=== PATIENT | female | born 1965 ===

== ENCOUNTER → 2020-01-18 11:09 | Outpatient (BNVA) | payer MEDICAID, SELFPAY | PROVIDERS: PCP Nurse Practitioner Family; Referring Provider Nurse Practitioner Family; Visit Provider Orthopaedic Surgery | DX: M75.51 Bursitis of right shoulder (principal); J45.909 Unspecified asthma, uncomplicated; R10.13 Epigastric pain; E78.5 Hyperlipidemia, unspecified; I10 Essential (primary) hypertension; E03.9 Hypothyroidism, unspecified; E11.9 Type 2 diabetes mellitus without complications; Z88.8 Allergy status to other drugs, medicaments and biological substances; Z79.4 Long term (current) use of insulin; Z79.899 Other long term (current) drug therapy | CPT/HCPCS: 20610; 99212; J1100 ==

== ENCOUNTER 2020-01-24 07:32 | Outpatient (REF) | payer MEDICAID, SELFPAY ==
[2020-01-24 08:47] LABS: Alanine Aminotransferase 14 U/L (0-31); Alkaline Phosphatase 89 U/L (39-117); Anion Gap 15 (12-20); Aspartate Amino Transferase 12 U/L (5-31); Bilirubin Total 0.5 mg/dL (0.0-1.0); Blood Urea Nitrogen 17 mg/dL (9-16); Carbon Dioxide 29 mmol/L (22-29); Chloride 96 mmol/L (96-108); Estimated Glomerular Filt Rate > 60; Glucose Random 101 mg/dL (60-115); Potassium 3.3 mmol/l (3.3-5.1); Sodium 137 mmol/L (135-145); Total Protein 6.5 g/dL (6.5-8.0)
[2020-01-24 09:20] LABS: Estimated Average Glucose 126 mg/dL; Hemoglobin A1C 148.4408 umol/L
== END 2020-01-24 07:33 | disposition home or self-care (01) ==
LOC: HO.LAB 07:32
PROVIDERS: PCP Nurse Practitioner Family; Visit Provider Internal Medicine
DX: E11.65 Type 2 diabetes mellitus with hyperglycemia (principal); E78.5 Hyperlipidemia, unspecified; I10 Essential (primary) hypertension
CPT/HCPCS: 80053; 83036

== ENCOUNTER → 2020-01-28 10:11 | Outpatient (BNVA) | payer MEDICAID, SELFPAY | PROVIDERS: PCP Nurse Practitioner Family; Referring Provider Nurse Practitioner Family; Visit Provider Internal Medicine | DX: E11.65 Type 2 diabetes mellitus with hyperglycemia (principal); Z79.4 Long term (current) use of insulin; E78.5 Hyperlipidemia, unspecified; I10 Essential (primary) hypertension; E03.9 Hypothyroidism, unspecified; E06.3 Autoimmune thyroiditis; Z79.899 Other long term (current) drug therapy | CPT/HCPCS: 99212 ==

== ENCOUNTER 2020-04-14 14:57 | Outpatient (REF) | payer MEDICAID, SELFPAY ==
--- NOTE | 2020-04-14 | MM_ITS ---
EXAMINATION: MM SCREENING DIGITAL BREAST TOMOSYNTHESIS, BILATERAL CLINICAL INFORMATION: Screening. Asymptomatic. The lifetime risk of breast cancer based on the Tyrer-Cuzick Model is 13%. COMPARISON: Mammography: 11/16/2018, 11/14/2017, 11/11/2016 TECHNIQUE: Digital breast tomosynthesis is performed in both the craniocaudal and mediolateral oblique views along with computer-aided detection (CAD). Synthesized 2D images are generated from the tomosynthesis. FINDINGS: There are scattered areas of fibroglandular density (ACR BI-RADS breast composition Category b). There is a stable nodule central 9:00 mid right breast similar to prior exams. The remainder of the breasts are predominantly body. Background stromal densities are stable. There is no interval mass or architectural abnormality or abnormal calcifications. MM/MM tomosynthesis screening BI IMPRESSION: No mammographic evidence of malignancy. ASSESSMENT: BI-RADS 2: Benign RECOMMENDATION: Routine annual mammography screening. This patient's information was entered into a reminder system with a target due date for their next mammogram.
== END 2020-04-14 14:58 | disposition home or self-care (01) ==
LOC: HO.MAMMO 14:57
PROVIDERS: PCP Nurse Practitioner Family; Visit Provider Nurse Practitioner Family
DX: Z12.31 Encounter for screening mammogram for malignant neoplasm of breast (principal)
CPT/HCPCS: 77063; 77067

== ENCOUNTER → 2020-04-24 11:17 | Outpatient (BNVA) | payer MEDICAID, SELFPAY | PROVIDERS: Visit Provider Orthopaedic Surgery | DX: M67.919 Unspecified disorder of synovium and tendon, unspecified shoulder (principal) | CPT/HCPCS: 20610; 99212; J1100 ==

== ENCOUNTER → 2020-04-28 09:15 | Outpatient (BNVA) | payer MEDICAID, SELFPAY | PROVIDERS: Visit Provider Internal Medicine ==

== ENCOUNTER 2020-05-01 09:09 | Outpatient (REF) | payer MEDICAID, SELFPAY ==
[2020-05-01 10:25] LABS: Estimated Average Glucose 134 mg/dL; Hemoglobin A1C 166.9756 umol/L; Hemoglobin A1c % 6.3 %
[2020-05-01 10:34] LABS: Alanine Aminotransferase 17 U/L (0-31); Albumin Level 4.1 g/dL (3.5-5.0); Alkaline Phosphatase 90 U/L (39-117); Anion Gap 16 (12-20); Aspartate Amino Transferase 13 U/L (5-31); Bilirubin Total 0.5 mg/dL (0.0-1.0); Blood Urea Nitrogen 15 mg/dL (9-16); Calcium 9.2 mg/dL (8.4-10.2); Carbon Dioxide 28 mmol/L (22-29); Chloride 98 mmol/L (96-108); Cholesterol 130 mg/dL; Estimated Glomerular Filt Rate > 60; Glucose Random 121 mg/dL (60-115); HDL Cholesterol 37 mg/dL; LDL Cholesterol Calculated 63 mg/dl; Potassium 3.4 mmol/L (3.3-5.1); Sodium 139 mmol/L (135-145); Total Protein 6.7 g/dL (6.5-8.0); Triglycerides 152 mg/dL
[2020-05-01 10:55] LABS: Free T4 (Free Thyroxine) 1.56 ng/dL (0.71-1.85); Thyroid Stimulating Hormone 0.18 uIU/mL (0.32-4.0); Vitamin D 25-OH Total 50.8 ng/mL (>30)
[2020-05-01 10:59] LABS: Creatinine Urine 94.44 mg/dL; Microalbum/Creatinine Ratio Ur 23.2 ug/mg cr
[2020-05-02 04:07] LABS: LDL Cholesterol Direct 66 mg/dL (<100)
== END 2020-05-01 09:10 | disposition home or self-care (01) ==
LOC: HO.LAB 09:09
PROVIDERS: PCP Nurse Practitioner Family; Visit Provider Internal Medicine
DX: E11.65 Type 2 diabetes mellitus with hyperglycemia (principal); Z79.4 Long term (current) use of insulin; E03.9 Hypothyroidism, unspecified; E55.9 Vitamin D deficiency, unspecified
CPT/HCPCS: 36415; 80053; 80061; 82043; 82306; 83036; 83721; 84439; 84443

== ENCOUNTER 2020-05-05 13:10 | Emergency (ER) | payer MEDICAID, SELFPAY ==
--- NOTE | ~2020-05-05 | XR_ITS ---
EXAMINATION: LUMBAR SPINE AND RIGHT SHOULDER X-RAY CLINICAL INFORMATION: Pain post fall COMPARISON: Previous lumbar spine x-ray October 2018 and MRI November 2018. Previous right shoulder October 2019 TECHNIQUE: 3 views of the lumbar spine and 3 views of the right shoulder FINDINGS: Right shoulder: Bone alignment is normal. No fracture or dislocation is seen. The joint spaces are normal. There is a small undersurface acromial osteophyte. Soft tissues are unremarkable. Lumbar spine: There is curvature of the lumbar sacral spine to the left. Bone alignment is otherwise normal. No fracture or dislocation is seen. There is prosthetic disc interspacer seen at L5-S1. There is posterior fusion hardware with rods and interpedicular screws at L4-L5. Orthopedic hardware appears intact and unchanged. Disc spaces are otherwise normal. Paraspinal soft tissues are normal. XR/XR lumbar spine 2-3V IMPRESSION: Right shoulder: No fracture or dislocation. Small undersurface acromial osteophyte. Lumbar spine: No fracture or dislocation. Stable postsurgical changes at L4-L5 and L5-S1. Mild curvature of the lower lumbar sacral spine to the left.
--- NOTE | ~2020-05-05 | XR_ITS ---
EXAMINATION: XR HAND, RIGHT CLINICAL INFORMATION: Fall. Bruised thenar region COMPARISON: None TECHNIQUE: PA, lateral, and oblique views of the right hand. FINDINGS: The bones and soft tissues are normal. No fracture. Alignment is anatomic. Joint spaces are maintained. No erosions or soft tissue calcifications. XR/XR hand RT min 3V IMPRESSION: No acute fracture or dislocation. No radiopaque foreign body.
--- NOTE | ~2020-05-05 | XR_ITS ---
EXAMINATION: LUMBAR SPINE AND RIGHT SHOULDER X-RAY CLINICAL INFORMATION: Pain post fall COMPARISON: Previous lumbar spine x-ray October 2018 and MRI November 2018. Previous right shoulder October 2019 TECHNIQUE: 3 views of the lumbar spine and 3 views of the right shoulder FINDINGS: Right shoulder: Bone alignment is normal. No fracture or dislocation is seen. The joint spaces are normal. There is a small undersurface acromial osteophyte. Soft tissues are unremarkable. Lumbar spine: There is curvature of the lumbar sacral spine to the left. Bone alignment is otherwise normal. No fracture or dislocation is seen. There is prosthetic disc interspacer seen at L5-S1. There is posterior fusion hardware with rods and interpedicular screws at L4-L5. Orthopedic hardware appears intact and unchanged. Disc spaces are otherwise normal. Paraspinal soft tissues are normal. XR/XR shoulder RT min 2V IMPRESSION: Right shoulder: No fracture or dislocation. Small undersurface acromial osteophyte. Lumbar spine: No fracture or dislocation. Stable postsurgical changes at L4-L5 and L5-S1. Mild curvature of the lower lumbar sacral spine to the left.
[2020-05-05 14:57] VITALS: BP 113/63; PULSE 90; RESP 18; TEMP 36.4; O2SAT 96; BMI 24.4
--- NOTE | 2020-05-05 15:13 | ED_ITS ---
HPI - Fall General Chief Complaint: Fall Stated Complaint: back pain Time Seen by Provider: 05/05/20 15:13 Related Data Home Medications Medication Instructions Recorded Confirmed atorvastatin 80 mg tablet 80 mg PO DAILY 01/17/20 04/28/20 bupropion HCl 300 mg 24 hr tablet, 300 mg PO QAM 01/17/20 04/28/20 extended release chlorthalidone 50 mg tablet 50 mg PO DAILY 01/17/20 04/28/20 ezetimibe 10 mg tablet 10 mg PO DAILY 01/17/20 04/28/20 metformin 500 mg tablet 1,000 mg PO BID tab 01/17/20 04/28/20 nifedipine 60 mg tablet,extended 60 mg PO DAILY 01/17/20 04/28/20 release risperidone 1 mg tablet 1 mg PO DAILY 01/17/20 04/28/20 trazodone 50 mg tablet 25 mg PO DAILY 01/17/20 04/28/20 zolpidem 5 mg tablet 5 mg PO BEDTIME PRN 01/17/20 04/28/20 liraglutide 0.6 mg/0.1 mL (18 mg/3 1.8 mg SUBCUT Q24H ml 01/28/20 04/28/20 mL) subcutaneous pen injector insulin glargine 100 unit/mL (3 10 unit SUBCUT QAM ml 04/28/20 04/28/20 mL) subcutaneous pen ranitidine HCl See Rx Instructions PO .COMPLEX PRN 04/28/20 04/28/20 sumatriptan succinate PO 04/28/20 04/28/20 Previous Rx's Medication Instructions Recorded levothyroxine 100 mcg capsule 100 mcg PO DAILY 30 Days #30 cap 05/01/20 Allergies Allergy/AdvReac Type Severity Reaction Status Date / Time aspirin [ASA] Allergy Unknown RASH Verified 05/05/20 14:57 cortisone [CORTISONE] Allergy Unknown BAD Verified 05/05/20 14:57 REACTION ibuprofen [IBUPROFEN] Allergy Unknown RASH Verified 05/05/20 14:57 naproxen [From Naprosyn] Allergy Unknown RASH, Verified 05/05/20 14:57 ITCHING, rash Ibuprofen Allergy Unknown rash Uncoded 04/28/20 11:13 [facility] Past Medical History Medical History Asthma Bursitis of right shoulder Dyspepsia HLD (hyperlipidemia) Hypertension Hypothyroidism Rotator cuff dysfunction Type 2 diabetes mellitus Vitamin D deficiency Surgical History History of appendectomy Previous back surgery Previous section Family History Family History Father Diabetes Mother Diabetes Social History Social History Smoking Status: Never smoker Current occupational status: disabled Current occupation: [employer] Physical Exam Vital Signs: Vital Signs: Last Vital Signs Temp 97.6 F 05/05/20 14:57 Pulse 90 05/05/20 14:57 Resp 18 05/05/20 14:57 BP 113/63 05/05/20 14:57 Pulse Ox 96 05/05/20 14:57 Body Mass Index 24.4 Course Course Course Narrative: RME done at this time 3pm - 54-year-old female presenting to the ED after she reports she was at the grocery store and there was grease on the floor therefore she slipped once injuring her right shoulder/right side of back then she got back up and slipped again and fell injuring her lumbar spine again and since then has been having pain to her right shoulder/lumbar spine. Reports that she had a history of prior back surgery. Reports that she has chronic pain to right shoulder. Denies head injury loss of consciousness. Denies any other injuries complaints or concerns at this time. - on exam patient is alert and oriented x3. Not in any acute distress. No focal neuro deficits noted. Vital signs are stable within normal limits. - x-ray of right shoulder and lumbar spine obtained at this time although no obvious deformities and patient has a normal steady gait with full range of motion in the lumbar spine in all 4 extremities. Patient back to the waiting room for further evaluation and treatment. Discharge Plan Discharge Prescriptions: No Action levothyroxine 100 mcg capsule 100 mcg PO DAILY 30 Days Qty: 30 RF: 11 Victoza 3-Umesh 0.6 mg/0.1 mL (18 mg/3 mL) pen injector 1.8 mg subcut Q24H RF: 0 Lantus Solostar U-100 Insulin 100 unit/mL (3 mL) insulin pen 10 unit subcut QAM RF: 0 ezetimibe [Zetia] 10 mg tablet 10 mg PO DAILY RF: 0 metformin 500 mg tablet 1,000 mg PO BID RF: 0 chlorthalidone 50 mg tablet 50 mg PO DAILY RF: 0 trazodone 50 mg tablet 25 mg PO DAILY RF: 0 atorvastatin [Lipitor] 80 mg tablet 80 mg PO DAILY RF: 0 risperidone 1 mg tablet 1 mg PO DAILY RF: 0 zolpidem 5 mg tablet 5 mg PO BEDTIME PRNRF: 0 bupropion HCl [Wellbutrin XL] 300 mg tablet extended release 24 hr 300 mg PO QAM RF: 0 nifedipine 60 mg tablet extended release 60 mg PO DAILY RF: 0 ranitidine HCl See Rx Instructions PO .COMPLEX PRNRF: 0 sumatriptan succinate PO RF: 0
--- NOTE | 2020-05-05 17:06 | ED.FALL ---
HPI - Fall General Chief Complaint: Fall Stated Complaint: back pain Time Seen by Provider: 05/05/20 15:13 Source: patient Mode of arrival: ambulatory Limitations: no limitations History of Present Illness HPI Narrative: 54-year-old female with past medical history hypothyroidism, hypertension, diabetes type 2, hyperlipidemia presents with injury sustained from a slip and fall inside a local store. She stated that she landed on her right arm and she has right hand, right elbow and right shoulder pain. She does not describe hitting her head, losing consciousness, denies dizziness, lightheadedness, changes in vision, nausea, vomiting, chest pain or pressure, palpitations, shortness of breath and edema. MD complaint: fall Onset (ago): hour(s) (Within the hour of arrival) Fall from: standing Fall witnessed: yes, by bystander Place fall occurred: other (Store) Loss of consciousness: none Prolonged down time: no Symptoms prior to fall: none Context: tripped/slipped Location of injury - extremities: right: shoulder, arm, elbow and forearm Severity: moderate Severity scale (1-10): 5 Quality: aching Associated symptoms (after fall): denies Related Data Home Medications Medication Instructions Recorded Confirmed atorvastatin 80 mg tablet 80 mg PO DAILY 01/17/20 04/28/20 bupropion HCl 300 mg 24 hr tablet, 300 mg PO QAM 01/17/20 04/28/20 extended release chlorthalidone 50 mg tablet 50 mg PO DAILY 01/17/20 04/28/20 ezetimibe 10 mg tablet 10 mg PO DAILY 01/17/20 04/28/20 metformin 500 mg tablet 1,000 mg PO BID tab 01/17/20 04/28/20 nifedipine 60 mg tablet,extended 60 mg PO DAILY 01/17/20 04/28/20 release risperidone 1 mg tablet 1 mg PO DAILY 01/17/20 04/28/20 trazodone 50 mg tablet 25 mg PO DAILY 01/17/20 04/28/20 zolpidem 5 mg tablet 5 mg PO BEDTIME PRN 01/17/20 04/28/20 liraglutide 0.6 mg/0.1 mL (18 mg/3 1.8 mg SUBCUT Q24H ml 01/28/20 04/28/20 mL) subcutaneous pen injector insulin glargine 100 unit/mL (3 10 unit SUBCUT QAM ml 04/28/20 04/28/20 mL) subcutaneous pen ranitidine HCl See Rx Instructions PO .COMPLEX PRN 04/28/20 04/28/20 sumatriptan succinate PO 04/28/20 04/28/20 Previous Rx's Medication Instructions Recorded levothyroxine 100 mcg capsule 100 mcg PO DAILY 30 Days #30 cap 05/01/20 cyclobenzaprine 10 mg PO TID PRN #14 tab 05/05/20 Allergies Allergy/AdvReac Type Severity Reaction Status Date / Time aspirin [ASA] Allergy Unknown RASH Verified 05/05/20 14:57 cortisone [CORTISONE] Allergy Unknown BAD Verified 05/05/20 14:57 REACTION ibuprofen [IBUPROFEN] Allergy Unknown RASH Verified 05/05/20 14:57 naproxen [From Naprosyn] Allergy Unknown RASH, Verified 05/05/20 14:57 ITCHING, rash Ibuprofen Allergy Unknown rash Uncoded 04/28/20 11:13 Review of Systems Review of Systems: Constitutional: No Fever, No Chills ENT/Mouth: No Ear Pain, No Hoarseness, No sore throat Eyes: No Eye Pain, No Swelling, No Redness, No Foreign Body Cardiovascular: No Chest Pain, No SOB Respiratory: No Cough, No Dyspnea Gastrointestinal: No Nausea, No Vomiting, No Diarrhea, No abdominal Pain Genitourinary: No Dysuria, No Hematuria Musculoskeletal: positive right shoulder, right elbow, right hand pain, No Myalgias, No Joint Swelling Skin: No Skin lacerations, No rash Neuro: No Weakness, No Numbness, No Paresthesias, No Loss of Consciousness, No Dizziness, No Headache Psych: No Anxiety/Panic, No Depression Heme/Lymph: no easy bruising, no Lymphadenopathy Endocrine: No Polyuria, No Polydipsia Yes all other systems are reviewed and are negative PMFSH Past Medical History Attestation statement: The following information was validated with the patient. Source: old records reviewed Medical History Asthma Bursitis of right shoulder Dyspepsia HLD (hyperlipidemia) Hypertension Hypothyroidism Rotator cuff dysfunction Type 2 diabetes mellitus Vitamin D deficiency Surgical History History of appendectomy Previous back surgery Previous section Family History Family History Father Diabetes Mother Diabetes Social History Social History Smoking Status: Never smoker Advance Directives: No Advance Directives Information Provided: Yes Current occupational status: disabled Current occupation: [employer] Physical Exam Vital Signs: Vital Signs: Last Vital Signs Temp 97.6 F 05/05/20 14:57 Pulse 90 05/05/20 14:57 Resp 18 05/05/20 14:57 BP 113/63 05/05/20 14:57 Pulse Ox 96 05/05/20 14:57 Body Mass Index 24.4 Appearance: Alert. Oriented X3. No acute distress. Eyes: Pupils equal, round and reactive to light. EOMI no pain on extraocular movements ENT: Pharynx normal. Bilateral tympanic membranes intact Neck: Normal inspection. Neck supple. CVS: Normal heart rate and rhythm. Pulses normal. Respiratory: No respiratory distress. Breath sounds normal. Abdomen: Soft and nontender. Skin: Skin warm and dry. Normal skin color. Normal skin turgor. Extremities: Reduced range of motion to the right shoulder with abduction, full range of motion to elbows and hands. Neuro: No motor deficit. No sensory deficit. Course Course Course Narrative: 54-year-old female presents with injury sustained from a slip and fall at a local grocery store. X-rays of the shoulder, elbow and wrist are negative however patient does have a difficult time with abduction to the right shoulder. We will place patient in a sling and have her follow-up with Orthopedics. Patient verbalized understanding of and agrees to plan of care to discharge home. MDM - Fall Differential Diagnosis Differential diagnosis: Likely dislocation, fracture and compression fracture Medical Records Attestation: I reviewed the patient's medical records. Lab Data Attestation: I reviewed the patient's lab results. Imaging Data Lumbar spine and shoulder x-ray: Attestation: I personally reviewed and interpreted this imaging study as follows: Radiologist's impression: EXAMINATION: LUMBAR SPINE AND RIGHT SHOULDER X-RAY CLINICAL INFORMATION: Pain post fall COMPARISON: Previous lumbar spine x-ray October 2018 and MRI November 2018. Previous right shoulder October 2019 TECHNIQUE: 3 views of the lumbar spine and 3 views of the right shoulder FINDINGS: Right shoulder: Bone alignment is normal. No fracture or dislocation is seen. The joint spaces are normal. There is a small undersurface acromial osteophyte. Soft tissues are unremarkable. Lumbar spine: There is curvature of the lumbar sacral spine to the left. Bone alignment is otherwise normal. No fracture or dislocation is seen. There is prosthetic disc interspacer seen at L5-S1. There is posterior fusion hardware with rods and interpedicular screws at L4-L5. Orthopedic hardware appears intact and unchanged. Disc spaces are otherwise normal. Paraspinal soft tissues are normal. XR/XR lumbar spine 2-3V IMPRESSION: Right shoulder: No fracture or dislocation. Small undersurface acromial osteophyte. Lumbar spine: No fracture or dislocation. Stable postsurgical changes at L4-L5 and L5-S1. Mild curvature of the lower lumbar sacral spine to the left. Right hand x-ray: Attestation: I personally reviewed and interpreted this imaging study as follows: Radiologist's impression: EXAMINATION: XR HAND, RIGHT CLINICAL INFORMATION: Fall. Bruised thenar region COMPARISON: None TECHNIQUE: PA, lateral, and oblique views of the right hand. FINDINGS: The bones and soft tissues are normal. No fracture. Alignment is anatomic. Joint spaces are maintained. No erosions or soft tissue calcifications. XR/XR hand RT min 3V IMPRESSION: No acute fracture or dislocation. No radiopaque foreign body. Discharge Plan Discharge Clinical Impression: Fall, Muscle strain of right shoulder region, Lumbar strain Patient Disposition: Home, Self-Care Instructions: Low Back Strain (ED), Shoulder Pain (ED) Additional Instructions: You were evaluated for injury sustained from a fall. If pain continues to the right shoulder please call Orthopedics for evaluation. Your x-rays are negative for acute fractures and dislocation. Use Flexeril as needed for more muscle spasms. Continue follow-up with pain management as needed. Thank you for choosing this emergency department for evaluation. Please follow-up with primary care physician as needed. Return to the emergency department for any new, concerning, or worsening symptoms. Prescriptions: New cyclobenzaprine 10 mg tablet 10 mg PO TID PRN (Reason: muscle spasm) Qty: 14 RF: 0 No Action levothyroxine 100 mcg capsule 100 mcg PO DAILY 30 Days Qty: 30 RF: 11 Victoza 3-Umesh 0.6 mg/0.1 mL (18 mg/3 mL) pen injector 1.8 mg subcut Q24H RF: 0 Lantus Solostar U-100 Insulin 100 unit/mL (3 mL) insulin pen 10 unit subcut QAM RF: 0 ezetimibe [Zetia] 10 mg tablet 10 mg PO DAILY RF: 0 metformin 500 mg tablet 1,000 mg PO BID RF: 0 chlorthalidone 50 mg tablet 50 mg PO DAILY RF: 0 trazodone 50 mg tablet 25 mg PO DAILY RF: 0 atorvastatin [Lipitor] 80 mg tablet 80 mg PO DAILY RF: 0 risperidone 1 mg tablet 1 mg PO DAILY RF: 0 zolpidem 5 mg tablet 5 mg PO BEDTIME PRNRF: 0 bupropion HCl [Wellbutrin XL] 300 mg tablet extended release 24 hr 300 mg PO QAM RF: 0 nifedipine 60 mg tablet extended release 60 mg PO DAILY RF: 0 ranitidine HCl See Rx Instructions PO .COMPLEX PRNRF: 0 sumatriptan succinate PO RF: 0 Interventions: ED Discharge Assessment Last Done: 05/05/20 18:52 Discharge Date/Time: 05/05/20 18:52
[2020-05-05] MEDS: Cyclobenzaprine HCl 10 MG TABLET PO (17:54)
[2020-05-05] MEDS: Lidocaine 4 % Patch ADH..PATCH 1 PATCH TRANSDERMA (17:55)
== END 2020-05-05 18:52 | disposition home or self-care (01) ==
PROVIDERS: Emergency Provider Internal Medicine; PCP Nurse Practitioner Family
DX: S46.911A Strain of unspecified muscle, fascia and tendon at shoulder and upper arm level, right arm, initial encounter (principal); S39.012A Strain of muscle, fascia and tendon of lower back, initial encounter; W01.0XXA Fall on same level from slipping, tripping and stumbling without subsequent striking against object, initial encounter; Y93.89 Activity, other specified; Y92.512 Supermarket, store or market as the place of occurrence of the external cause; Y99.9 Unspecified external cause status
CPT/HCPCS: 72100; 73030; 73130; 99283

== ENCOUNTER 2020-05-15 17:41 | Outpatient (REF) | payer MEDICAID, SELFPAY ==
--- NOTE | ~2020-05-15 | MR_ITS ---
EXAMINATION: MR SHOULDER WITHOUT CONTRAST, RIGHT CLINICAL INFORMATION: Right shoulder pain. COMPARISON: Radiographs 05/05/2020. TECHNIQUE: MRI of the shoulder without contrast was performed on a high-field scanner. FINDINGS: ROTATOR CUFF: Supraspinatus tendinopathy with a full-thickness tear at the anterior leading edge measuring 11 x 7 mm. The rotator cuff is otherwise intact. No muscle atrophy or fatty infiltration. BICEPS: Proximal biceps tendinosis. CORACOACROMIAL ARCH: The undersurface of the acromion is curved with a subacromial spur. Mild acromioclavicular osteoarthritis with a joint effusion. LABRUM/CAPSULE: No definite labral tear. GLENOHUMERAL JOINT/MARROW: Degenerative spurring and marrow edema of the greater tuberosity anteriorly, subjacent to the supraspinatus tendon insertional tear. There is a small glenohumeral joint effusion. MR/MR shoulder RT wo con IMPRESSION: Supraspinatus tendinosis with a full-thickness insertional tear at the anterior leading edge measuring 11 x 7 mm. Subacromial spur. Mild acromioclavicular and glenohumeral osteoarthritis with a small joint effusion.
== END 2020-05-15 17:42 | disposition home or self-care (01) ==
LOC: HO.MRI 17:41
PROVIDERS: Visit Provider Internal Medicine
DX: M67.919 Unspecified disorder of synovium and tendon, unspecified shoulder (principal)
CPT/HCPCS: 73221

== ENCOUNTER → 2020-05-19 09:16 | Outpatient (BNVA) | payer MEDICAID, SELFPAY | PROVIDERS: Visit Provider Orthopaedic Surgery | DX: M75.101 Unspecified rotator cuff tear or rupture of right shoulder, not specified as traumatic (principal) | CPT/HCPCS: 99212 ==

== ENCOUNTER 2020-06-02 07:53 | Outpatient (REF) | payer MEDICAID, SELFPAY ==
[2020-06-02 09:18] LABS: Alanine Aminotransferase 22 U/L (0-31); Albumin Level 4.1 g/dL (3.5-5.0); Alkaline Phosphatase 98 U/L (39-117); Anion Gap 15 (12-20); Aspartate Amino Transferase 16 U/L (5-31); Bilirubin Total 0.4 mg/dL (0.0-1.0); Blood Urea Nitrogen 13 mg/dL (9-16); Calcium 9.1 mg/dL (8.4-10.2); Carbon Dioxide 28 mmol/L (22-29); Chloride 100 mmol/L (96-108); Estimated Glomerular Filt Rate > 60; Glucose Random 113 mg/dL (60-115); Potassium 3.5 mmol/L (3.3-5.1); Sodium 139 mmol/L (135-145); Total Protein 6.7 g/dL (6.5-8.0)
[2020-06-02 09:25] LABS: Creatinine Urine 155.62 mg/dL
[2020-06-02 09:28] LABS: Estimated Average Glucose 128 mg/dL; Hemoglobin A1c % 6.1 %
[2020-06-02 09:39] LABS: Free T4 (Free Thyroxine) 1.37 ng/dL (0.71-1.85); Thyroid Stimulating Hormone 0.55 uIU/mL (0.32-4.0)
== END 2020-06-02 07:54 | disposition home or self-care (01) ==
LOC: HO.LAB 07:53
PROVIDERS: PCP Nurse Practitioner Family; Visit Provider Internal Medicine
DX: E11.65 Type 2 diabetes mellitus with hyperglycemia (principal); E03.9 Hypothyroidism, unspecified; Z79.4 Long term (current) use of insulin
CPT/HCPCS: 36415; 80053; 83036; 84439; 84443

== ENCOUNTER 2020-06-04 06:04 | Day surgery (SDC) | payer MEDICAID, SELFPAY ==
[2020-05-30 11:24] VITALS: BMI 35.3
--- NOTE | 2020-06-03 09:39 | HO.ANESPROP2 ---
Documented by User: Justina Forrest 06/03/20 09:42 HPI - Anesthesia Eval Consult details Narrative: 54yo F for Right Arthroscopic Rotator Cuff Repair PMFSH Active Problems Active Problems: All Active Problems (Updated 05/30/20 @ 11:20 by Kavita Jackson) Right rotator cuff tear (Acute) Vitamin D deficiency (Acute) Hypothyroidism (Acute) Rotator cuff dysfunction (Acute) Bursitis of right shoulder (Acute) Hypertension (Acute) Type 2 diabetes mellitus (Acute) HLD (hyperlipidemia) (Acute) Past Medical History Medical History Anxiety and depression Asthma Bursitis of right shoulder Chronic back pain Dyspepsia Elevated cholesterol GERD (gastroesophageal reflux disease) HLD (hyperlipidemia) Hypertension Hypothyroidism Migraine headache Right rotator cuff tear Rotator cuff dysfunction Type 2 diabetes mellitus Vitamin D deficiency Family History Family History Father Diabetes Mother Diabetes Surgical History Surgical History History of appendectomy History of esophagogastroduodenoscopy (EGD) Hx of section Hx of colonoscopy Previous back surgery Social History Social History Smoking Status: Former smoker Smoking Quit Date: 2005 Advance Directives: No Advance Directives Information Provided: No Advance Directives on File: No Recently lost weight without trying: No Current occupational status: disabled Current occupation: [employer] Allergies Allergy/AdvReac Type Severity Reaction Status Date / Time aspirin [ASA] Allergy Unknown RASH Verified 06/04/20 06:12 cortisone [CORTISONE] Allergy Unknown BAD Verified 06/04/20 06:12 REACTION naproxen [From Naprosyn] Allergy Unknown RASH, Verified 06/04/20 06:12 ITCHING, rash Ibuprofen Allergy Unknown rash Uncoded 05/30/20 10:57 Home Medications Medication Instructions Recorded Confirmed Last Taken Type atorvastatin 80 mg tablet 80 mg PO DAILY 01/17/20 05/30/20 Unknown History bupropion HCl 300 mg 24 hr tablet, 300 mg PO QAM 01/17/20 05/30/20 06/04/20 05:00 History extended release chlorthalidone 50 mg tablet 50 mg PO DAILY 01/17/20 05/30/20 Unknown History ezetimibe 10 mg tablet 10 mg PO DAILY 01/17/20 05/30/20 Unknown History metformin 500 mg tablet 1,000 mg PO BID tab 01/17/20 05/30/20 Unknown History nifedipine 60 mg tablet,extended 60 mg PO DAILY 01/17/20 05/30/20 Unknown History release risperidone 1 mg tablet 1 mg PO DAILY 01/17/20 05/30/20 Unknown History trazodone 50 mg tablet 25 mg PO DAILY 01/17/20 05/30/20 Unknown History zolpidem 5 mg tablet 5 mg PO BEDTIME PRN 01/17/20 05/30/20 Unknown History liraglutide 0.6 mg/0.1 mL (18 mg/3 1.8 mg SUBCUT Q24H ml 01/28/20 05/30/20 Unknown History mL) subcutaneous pen injector insulin glargine 100 unit/mL (3 10 unit SUBCUT QAM ml 04/28/20 05/30/20 Unknown History mL) subcutaneous pen ranitidine HCl See Rx Instructions PO .COMPLEX PRN 04/28/20 04/28/20 Unknown History sumatriptan succinate PO 04/28/20 04/28/20 Unknown History acetaminophen 1 - 2 tab PO TID PRN 05/30/20 05/30/20 Unknown History acetaminophen [Pain Relief Extra 1 tab PO Q6H PRN 05/30/20 05/30/20 Unknown History Strength] albuterol sulfate 1 amp INHALATION QID PRN 05/30/20 05/30/20 06/04/20 05:00 History ascorbic acid (vitamin C) [Vitamin 1 tab PO 05/30/20 05/30/20 Unknown History C] cholecalciferol (vitamin D3) 1 cap PO QAM 05/30/20 05/30/20 Unknown History escitalopram oxalate 1 tab PO BEDTIME 05/30/20 05/30/20 Unknown History fluticasone propion-salmeterol 1 puff PO BID 05/30/20 05/30/20 Unknown History fluticasone propion-salmeterol 1 puff PO BID 05/30/20 05/30/20 Unknown History [Advair Diskus] fluticasone propionate 2 spray INTRANASAL QAM 05/30/20 05/30/20 06/04/20 05:00 History loratadine 1 tab PO QAM PRN 05/30/20 05/30/20 Unknown History omeprazole 1 cap PO BID 05/30/20 05/30/20 06/04/20 05:00 History oxycodone 1 tab PO QID PRN 05/30/20 05/30/20 Unknown History Exam Exam Date and Time: June 03, 2020 0939 Height,Weight and Vital Signs: Height 4 ft 11 in Weight 79.379 kg Pertinent Lab Results Pertinent Lab Results: Laboratory Tests 09/10/19 06/02/20 20:35 08:05 WBC 14.5 H Hgb 13.5 Hct 39.8 Plt Count 342 Sodium 139 Potassium 3.5 Chloride 100 Carbon Dioxide 28 BUN 13 Creatinine 0.63 Assessment and Plan Assessment Anesthesia Assessment: Chart Reviewed Documented by User: Lavon Adorno MD 06/04/20 07:22 [facility] Past Medical History Medical History Anxiety and depression Asthma Bursitis of right shoulder Chronic back pain Dyspepsia Elevated cholesterol GERD (gastroesophageal reflux disease) HLD (hyperlipidemia) Hypertension Hypothyroidism Migraine headache Right rotator cuff tear Rotator cuff dysfunction Type 2 diabetes mellitus Vitamin D deficiency Family History Family History Father Diabetes Mother Diabetes Surgical History Surgical History History of appendectomy History of esophagogastroduodenoscopy (EGD) Hx of section Hx of colonoscopy Previous back surgery Social History Social History Smoking Status: Former smoker Smoking Quit Date: 2005 Advance Directives: No Advance Directives Information Provided: No Advance Directives on File: No Recently lost weight without trying: No Current occupational status: disabled Current occupation: [employer] Allergies Allergy/AdvReac Type Severity Reaction Status Date / Time aspirin [ASA] Allergy Unknown RASH Verified 06/04/20 06:12 cortisone [CORTISONE] Allergy Unknown BAD Verified 06/04/20 06:12 REACTION naproxen [From Naprosyn] Allergy Unknown RASH, Verified 06/04/20 06:12 ITCHING, rash Ibuprofen Allergy Unknown rash Uncoded 05/30/20 10:57 Home Medications Medication Instructions Recorded Confirmed Last Taken Type atorvastatin 80 mg tablet 80 mg PO DAILY 01/17/20 05/30/20 Unknown History bupropion HCl 300 mg 24 hr tablet, 300 mg PO QAM 01/17/20 05/30/20 06/04/20 05:00 History extended release chlorthalidone 50 mg tablet 50 mg PO DAILY 01/17/20 05/30/20 Unknown History ezetimibe 10 mg tablet 10 mg PO DAILY 01/17/20 05/30/20 Unknown History metformin 500 mg tablet 1,000 mg PO BID tab 01/17/20 05/30/20 Unknown History nifedipine 60 mg tablet,extended 60 mg PO DAILY 01/17/20 05/30/20 Unknown History release risperidone 1 mg tablet 1 mg PO DAILY 01/17/20 05/30/20 Unknown History trazodone 50 mg tablet 25 mg PO DAILY 01/17/20 05/30/20 Unknown History zolpidem 5 mg tablet 5 mg PO BEDTIME PRN 01/17/20 05/30/20 Unknown History liraglutide 0.6 mg/0.1 mL (18 mg/3 1.8 mg SUBCUT Q24H ml 01/28/20 05/30/20 Unknown History mL) subcutaneous pen injector insulin glargine 100 unit/mL (3 10 unit SUBCUT QAM ml 04/28/20 05/30/20 Unknown History mL) subcutaneous pen ranitidine HCl See Rx Instructions PO .COMPLEX PRN 04/28/20 04/28/20 Unknown History sumatriptan succinate PO 04/28/20 04/28/20 Unknown History acetaminophen 1 - 2 tab PO TID PRN 05/30/20 05/30/20 Unknown History acetaminophen [Pain Relief Extra 1 tab PO Q6H PRN 05/30/20 05/30/20 Unknown History Strength] albuterol sulfate 1 amp INHALATION QID PRN 05/30/20 05/30/20 06/04/20 05:00 History ascorbic acid (vitamin C) [Vitamin 1 tab PO 05/30/20 05/30/20 Unknown History C] cholecalciferol (vitamin D3) 1 cap PO QAM 05/30/20 05/30/20 Unknown History escitalopram oxalate 1 tab PO BEDTIME 05/30/20 05/30/20 Unknown History fluticasone propion-salmeterol 1 puff PO BID 05/30/20 05/30/20 Unknown History fluticasone propion-salmeterol 1 puff PO BID 05/30/20 05/30/20 Unknown History [Advair Diskus] fluticasone propionate 2 spray INTRANASAL QAM 05/30/20 05/30/20 06/04/20 05:00 History loratadine 1 tab PO QAM PRN 05/30/20 05/30/20 Unknown History omeprazole 1 cap PO BID 05/30/20 05/30/20 06/04/20 05:00 History oxycodone 1 tab PO QID PRN 05/30/20 05/30/20 Unknown History Exam Airway Mallampati Class: III TM Dist: >3cm Neck ROM: Full Loose/Missing/Broken Teeth: No Heart: RRR Lungs: NL Assessment and Plan Assessment Anesthesia Assessment: Anesthesia Plan Discussed and Chart Reviewed Final Anesthetic Review NPO: Yes ASA Class: III Final Preanesthetic Review: No Changes in Pt Med Stat, Meds/Allgs Chart Reviewed, Consent Obtained/Reviewed and Anes Risks/Benef Reviewed Patient Risk: High Procedure Risk: Intermediate Anesthetic Plan Anesthetic Plan: GA and Regional Block Disposition: Standard PACU
[2020-06-04] VITALS (9 sets, daily range): BP systolic 102–130; BP diastolic 64–85; PULSE 94–112; RESP 14–18; TEMP 36.2–36.8; O2SAT 92–99
[2020-06-04 06:31] LABS: Glucose, Whole Blood 134 mg/dL (60-115)
[2020-06-04] MEDS: Lactated Ringers 1,000 ML 100 ML IVCONT (06:45)
--- NOTE | 2020-06-04 07:32 | MHC.SHP ---
Pre-Procedural Eval Section A The patient is an INPATIENT: No Changes since office visit: No Cold of Flu in the past 2 weeks, No New Medical Problems, No Changes in Medication and No Patient answered all questions The History & Physical has been completed within 30 days and I have reviewed it.: Yes Section B Chief Complaint: rotator cuff tear Allergies: Allergies Allergy/AdvReac Type Severity Reaction Status Date / Time aspirin [ASA] Allergy Unknown RASH Verified 06/04/20 06:12 cortisone [CORTISONE] Allergy Unknown BAD Verified 06/04/20 06:12 REACTION naproxen [From Naprosyn] Allergy Unknown RASH, Verified 06/04/20 06:12 ITCHING, rash Ibuprofen Allergy Unknown rash Uncoded 05/30/20 10:57 Plan I have reviewed the history and physical and performed a pertinent physical examination on my patient. No changes have occurred unless specified.
--- NOTE | 2020-06-04 09:56 | PM.OP ---
Brief Operative Note Date of Service: 06/04/20 Pre-op diagnosis: right rtc repair right subscap tear Post-op diagnosis: same Procedure: right supraspinatus repair right subscapularis repair Implants: shaffer and nephew helacoil x 4 Surgeon: Cosme Arreguin MD Anesthesia: GETA and regional Bulk Coolers Installer: Chelsi Queen Estimated blood loss (mL): 20 IV fluids (mL): 1,000 Pathology: none sent Condition: stable Disposition: PACU
--- NOTE | 2020-06-04 09:59 | P.OP_ITS ---
Operative Note Operative Note Date of Service: 06/04/20 Narrative: Pre-op diagnosis: __right rotator cuff tear Post-op diagnosis: 1) right infraspinatus tear 2) right subscapularis tear Procedure: ___right____ rtc repair Implants: smith and nephew helacoil x4__ Nursing Home Assistant:__mikel Queen Anesthesia: GETA and regional Estimated blood loss (mL): 20 IV fluids (mL): 1000 Complications:none known Condition: stable Disposition: PACU Indications: This is a 54 yo F with a full thickness rtc tear consented to undergo rtc repair Procedure in detail: Patient was brought to the operating room and placed the the beach chair position. All bony prominences were well padded and he was prepped and draped in standard sterile fashion. A time out was called to identify proper site, proper procedure and proper surgeon. IV antibiotics per weight were administered. I began by making a posterolateral stab incision with a 15 blade. A blunt trochar was placed into the glenohumeral joint and IO insufflated the joint with saline and a 30 degree arthroscope was placed. I established an outside- in anterior portal just distal to the biceps tendon. I then began my inspection of the glenohumeral joint. There was no labral tearing and the biceps anchor was intact. The articular cartilage was pristine. There was an undersurface rtc tear. There was a high grade tear of the superior 1/2 of the subscapularis. Via the anterior portal two looped sutures were passed through the subscapularis and a korin was used to debride the bone and a Guillen and Nephew Helacoil 5.0 anchor was placed and the subscapularis was anatomically repaired. I then removed the trochar and entered the subacromial space. A direct lateral portal was then established and I performed a bursectomy. The cuff was then examined. There was a full thickness tear of the entire infraspinatus. A medial Helocoil anchor with a suture tape and a suture was placed visa an accessory lateral og incision and then these were passed through the cuff and brought to a lateral helacoil. An additional looped suture was passed through the posterior infracpinatus and then brought to a second lateral Helocoil. This reproduced the normal anatomy of the cuff. I performed a 5mm decompression of the anterior acromion. Once the final images were captured and I removed all instrumentation.
== END 2020-06-04 12:13 | disposition home or self-care (01) ==
PROVIDERS: PCP Nurse Practitioner Family; Visit Provider Orthopaedic Surgery
PROC: (CPT 29827; principal; 2020-06-04 07:30)
DX: M75.121 Complete rotator cuff tear or rupture of right shoulder, not specified as traumatic (principal); M75.51 Bursitis of right shoulder; I10 Essential (primary) hypertension; J45.909 Unspecified asthma, uncomplicated; E55.9 Vitamin D deficiency, unspecified; E11.9 Type 2 diabetes mellitus without complications; Z79.4 Long term (current) use of insulin; Z79.51 Long term (current) use of inhaled steroids; Z79.899 Other long term (current) drug therapy; Z88.8 Allergy status to other drugs, medicaments and biological substances
CPT/HCPCS: 29827; 29826; 82947; C1713; J0131; J0171; J0690; J2250; J2370; J2405; J3010

== ENCOUNTER → 2020-06-16 09:01 | Outpatient (BNVA) | payer MEDICAID, SELFPAY | PROVIDERS: PCP Nurse Practitioner Family; Visit Provider Physician Assistant | DX: M75.101 Unspecified rotator cuff tear or rupture of right shoulder, not specified as traumatic (principal) | CPT/HCPCS: 99212 ==

== ENCOUNTER → 2020-06-23 10:29 | Outpatient (BNVA) | payer MEDICAID, SELFPAY | PROVIDERS: PCP Nurse Practitioner Family; Visit Provider Physician Assistant | DX: Z98.890 Other specified postprocedural states (principal) | CPT/HCPCS: 99212 ==

== ENCOUNTER → 2020-07-17 13:06 | Outpatient (BNVA) | payer MEDICAID, SELFPAY | PROVIDERS: Visit Provider Orthopaedic Surgery | DX: Z48.89 Encounter for other specified surgical aftercare (principal); Z98.890 Other specified postprocedural states | CPT/HCPCS: 99212 ==

== ENCOUNTER 2020-07-21 12:50 | Emergency (ER) | payer MEDICAID, SELFPAY ==
[2020-07-21 12:53] VITALS: BP 124/70; PULSE 88; RESP 16; TEMP 37; O2SAT 96; BMI 32.3
--- NOTE | 2020-07-21 14:07 | ED_ITS ---
HPI - Extremity Problem General Chief complaint: Extremity Injury, Upper Stated complaint: back and shoulder pain Time Seen by Provider: 07/21/20 14:07 History of Present Illness HPI Narrative: Patient who recently within last several weeks had rotator cuff repair in the right shoulder and has been using a sling complains of pain in the right trapezius and the right upper back and right side of her neck which has developed over the last several days, no new injury, no numbness no weakness no tingling no fever no chills no recent fall or injury Related Data Home Medications Medication Instructions Recorded Confirmed bupropion HCl 300 mg 24 hr tablet, 300 mg PO QAM 01/17/20 05/30/20 extended release chlorthalidone 50 mg tablet 50 mg PO DAILY 01/17/20 05/30/20 ezetimibe 10 mg tablet 10 mg PO DAILY 01/17/20 05/30/20 metformin 500 mg tablet 1,000 mg PO BID tab 01/17/20 05/30/20 nifedipine 60 mg tablet,extended 60 mg PO DAILY 01/17/20 05/30/20 release risperidone 1 mg tablet 1 mg PO DAILY 01/17/20 05/30/20 trazodone 50 mg tablet 25 mg PO DAILY 01/17/20 05/30/20 zolpidem 5 mg tablet 5 mg PO BEDTIME PRN 01/17/20 05/30/20 liraglutide 0.6 mg/0.1 mL (18 mg/3 1.8 mg SUBCUT Q24H ml 01/28/20 05/30/20 mL) subcutaneous pen injector insulin glargine 100 unit/mL (3 10 unit SUBCUT QAM ml 04/28/20 05/30/20 mL) subcutaneous pen ranitidine HCl See Rx Instructions PO .COMPLEX PRN 04/28/20 04/28/20 sumatriptan succinate PO 04/28/20 04/28/20 acetaminophen 1 - 2 tab PO TID PRN 05/30/20 05/30/20 albuterol sulfate 1 amp INHALATION QID PRN 05/30/20 05/30/20 ascorbic acid (vitamin C) [Vitamin 1 tab PO 05/30/20 05/30/20 C] cholecalciferol (vitamin D3) 1 cap PO QAM 05/30/20 05/30/20 escitalopram oxalate 1 tab PO BEDTIME 05/30/20 05/30/20 fluticasone propion-salmeterol 1 puff PO BID 05/30/20 05/30/20 fluticasone propion-salmeterol 1 puff PO BID 05/30/20 05/30/20 [Advair Diskus] fluticasone propionate 2 spray INTRANASAL QAM 05/30/20 05/30/20 loratadine 1 tab PO QAM PRN 05/30/20 05/30/20 omeprazole 1 cap PO BID 05/30/20 05/30/20 Previous Rx's Medication Instructions Recorded levothyroxine 100 mcg capsule 100 mcg PO DAILY 30 Days #30 cap 05/01/20 cyclobenzaprine 10 mg PO TID PRN #14 tab 05/05/20 pen needle, diabetic 32 gauge x #100 ea 05/09/20 oxycodone [OxyContin] 10 mg PO Q12H 3 Days #6 tab 06/04/20 atorvastatin 80 mg tablet 80 mg PO BEDTIME #30 tab 06/18/20 losartan 50 mg tablet 50 mg PO DAILY 30 Days #30 tab 06/18/20 oxycodone-acetaminophen 5 mg-325 1 tab PO Q8H PRN 7 Days #28 tab 06/23/20 mg tablet cyclobenzaprine 5 mg PO TID PRN #10 tab 07/21/20 Allergies Allergy/AdvReac Type Severity Reaction Status Date / Time aspirin [ASA] Allergy Unknown RASH Verified 07/21/20 12:53 cortisone [CORTISONE] Allergy Unknown BAD Verified 07/21/20 12:53 REACTION naproxen [From Naprosyn] Allergy Unknown RASH, Verified 07/21/20 12:53 ITCHING, rash Ibuprofen Allergy Unknown rash Uncoded 07/17/20 13:16 Review of Systems Review of Systems: Positive for right trapezius, right shoulder and right upper back pain Negatives are no fever no chills no dizziness no weakness no fainting no loss of consciousness no headache no numbness weakness or tingling no rash Yes all other systems are reviewed and are negative [facility] Past Medical History [facility] Narrative: Recent rotator cuff surgery Source: nursing notes reviewed Medical History Anxiety and depression Asthma Bursitis of right shoulder Chronic back pain Dyspepsia Elevated cholesterol GERD (gastroesophageal reflux disease) HLD (hyperlipidemia) Hypertension Hypothyroidism Migraine headache Right rotator cuff tear Rotator cuff dysfunction Type 2 diabetes mellitus Vitamin D deficiency Surgical History History of appendectomy History of esophagogastroduodenoscopy (EGD) Hx of section Hx of colonoscopy Previous back surgery Family History Family History Father Diabetes Mother Diabetes Social History Social History Smoking Status: Former smoker Current occupational status: disabled Current occupation: [employer] Physical Exam Vital Signs: Vital Signs: Last Vital Signs Temp 98.6 F 07/21/20 12:53 Pulse 88 07/21/20 12:53 Resp 16 07/21/20 12:53 BP 124/70 07/21/20 12:53 Pulse Ox 96 07/21/20 12:53 Body Mass Index 32.3 General appearance is no acute distress relaxed and cooperative The head is normocephalic atraumatic The neck is supple, there is mild right-sided paraspinal soft tissue tenderness, the skin color is normal There is also right trapezius tenderness again skin color is normal without redness or warmth The shoulder is in a sling the skin color of the shoulder is normal no evidence of cellulitis Respiratory no acute distress The back there is right upper back tenderness in right trapezius and in the soft tissue between the scapula and the spine, there is no focal bony tenderness, the skin is normal in appearance without redness warmth or wound Skin no rashes Neuro no focal motor or sensory deficit Course Course Course Narrative: Patient's pain appears to be musculoskeletal pain, no sign of any infection Discharge Plan Discharge Clinical Impression: Upper back pain on right side Patient Disposition: Home, Self-Care Additional Instructions: Pain in right upper back is likely musculoskeletal pain It may be from tensing muscles to protect the area that was operated on wearing the sling can often cause stiffness in surrounding muscles Make sure you take 2 extra-strength Tylenol, a 1000 mg, every 8 hours as needed You have a prescription for chronic pain of 5 mg oxycodone tablets which she take 1 at a time For acute pain flares it is okay to take 2 of those tablets for an increased dose of narcotic pain killer as needed Make sure you call the prescribing doctor and tele that you are having a flare- up of pain and make sure it is okay with him if you take 10 mg instead of 5 mg as needed for few days Follow with orthopedist and primary doctor Return any time any worse condition or concerns Prescriptions: New cyclobenzaprine 5 mg tablet 5 mg PO TID PRN (Reason: muscle spasm) Qty: 10 RF: 0 No Action levothyroxine 100 mcg capsule 100 mcg PO DAILY 30 Days Qty: 30 RF: 11 (DME) pen needle, diabetic [BD Ultra-Fine Erica Pen Needle] 32 gauge x 5/32 needle See Rx Instructions .ROUTE .MEDSUPPLY Qty: 100 RF: 3 atorvastatin 80 mg tablet 80 mg PO BEDTIME Qty: 30 RF: 6 losartan 50 mg tablet 50 mg PO DAILY 30 Days Qty: 30 RF: 11 cyclobenzaprine 10 mg tablet 10 mg PO TID PRN (Reason: muscle spasm) Qty: 14 RF: 0 albuterol sulfate 2.5 mg /3 mL (0.083 %) solution for nebulization 1 amp inhalation QID PRN (Reason: Wheezing) RF: 0 acetaminophen 500 mg tablet 1 - 2 tab PO TID PRN (Reason: Pain) RF: 0 ascorbic acid (vitamin C) [Vitamin C] 500 mg tablet 1 tab PO RF: 0 fluticasone propion-salmeterol [Advair Diskus] 500-50 mcg/dose blister with device 1 puff PO BID RF: 0 fluticasone propion-salmeterol 500-50 mcg/dose blister with device 1 puff PO BID RF: 0 omeprazole 20 mg capsule,delayed release(DR/EC) 1 cap PO BID RF: 0 fluticasone propionate 50 mcg/actuation spray,suspension 2 spray intranasal QAM RF: 0 loratadine 10 mg tablet 1 tab PO QAM PRN (Reason: Allergy Symptoms) RF: 0 escitalopram oxalate 5 mg tablet 1 tab PO BEDTIME RF: 0 cholecalciferol (vitamin D3) 50 mcg (2,000 unit) capsule 1 cap PO QAM RF: 0 oxycodone [OxyContin] 10 mg tablet,oral only,ext.rel.12 hr 10 mg PO Q12H 3 Days Qty: 6 RF: 0 Victoza 3-Umesh 0.6 mg/0.1 mL (18 mg/3 mL) pen injector 1.8 mg subcut Q24H RF: 0 Lantus Solostar U-100 Insulin 100 unit/mL (3 mL) insulin pen 10 unit subcut QAM RF: 0 ezetimibe [Zetia] 10 mg tablet 10 mg PO DAILY RF: 0 metformin 500 mg tablet 1,000 mg PO BID RF: 0 chlorthalidone 50 mg tablet 50 mg PO DAILY RF: 0 trazodone 50 mg tablet 25 mg PO DAILY RF: 0 risperidone 1 mg tablet 1 mg PO DAILY RF: 0 zolpidem 5 mg tablet 5 mg PO BEDTIME PRN (Reason: Sleep) RF: 0 bupropion HCl [Wellbutrin XL] 300 mg tablet extended release 24 hr 300 mg PO QAM RF: 0 nifedipine 60 mg tablet extended release 60 mg PO DAILY RF: 0 ranitidine HCl See Rx Instructions PO .COMPLEX PRNRF: 0 sumatriptan succinate PO RF: 0 oxycodone-acetaminophen [Percocet] 5-325 mg tablet 1 tab PO Q8H PRN (Reason: pain) 7 Days Qty: 28 RF: 0 Interventions: ED Discharge Assessment Last Done: 07/21/20 15:46 Discharge Date/Time: 07/21/20 15:47
== END 2020-07-21 15:47 | disposition home or self-care (01) ==
PROVIDERS: Emergency Provider Emergency Medicine; PCP Nurse Practitioner Family
DX: M54.6 Pain in thoracic spine (principal); G89.18 Other acute postprocedural pain; I10 Essential (primary) hypertension; E78.5 Hyperlipidemia, unspecified; E11.9 Type 2 diabetes mellitus without complications; Z79.4 Long term (current) use of insulin; Z79.899 Other long term (current) drug therapy
CPT/HCPCS: 99283; 99284

== ENCOUNTER → 2020-07-28 09:28 | Outpatient (BNVA) | payer MEDICAID, SELFPAY | PROVIDERS: PCP Nurse Practitioner Family; Visit Provider Internal Medicine ==

== ENCOUNTER 2020-08-20 12:31 | Emergency (ER) | payer MEDICAID, SELFPAY ==
--- NOTE | ~2020-08-20 | CT_ITS ---
EXAMINATION: CT ABDOMEN AND PELVIS WITHOUT CONTRAST CLINICAL INFORMATION: Left flank pain and hematuria COMPARISON: Previous CT of the abdomen and pelvis April 2019 TECHNIQUE: Multidetector volumetric imaging was performed from the superior aspect of the liver through the pubic symphysis. Sagittal and coronal reformatted images were obtained on the technologist's workstation. This CT examination was performed using dose optimization techniques as appropriate, variously including the following: *Automated exposure control *Adjustment of mA and/or kV according to patient size (this includes techniques or standardized protocols for targeted exams where dose is matched to indication/reason for exam; i.e. extremities or head) *Use of iterative reconstruction technique DLP: 596 mGy-cm FINDINGS: LUNG BASES: The visualized lung bases are unremarkable. LIVER, GALLBLADDER, AND BILIARY TREE: There are small calcifications in the right lobe the liver. The liver is otherwise unremarkable. Gallbladder is unremarkable. There is no biliary duct dilatation. PANCREAS: Unremarkable. SPLEEN: Unremarkable. ADRENAL GLANDS: Unremarkable. KIDNEYS AND URETERS: The kidneys are normal in size, shape, and attenuation. No hydronephrosis, hydroureter, or calculi seen. No perinephric stranding. BLADDER: Unremarkable. GASTROINTESTINAL TRACT: The small and large bowel are unremarkable. The appendix is not seen and may have been removed. ABDOMINAL WALL: No significant hernia is appreciated. LYMPH NODES: Normal. VASCULAR: Unremarkable. PELVIC VISCERA: Unremarkable. OSSEOUS STRUCTURES: There are postsurgical changes to the lower lumbar spine. There is posterior fusion hardware with interpedicular screws at L4 and L5. There is a disc interspace her at L5-S1 CT/CT abdomen pelvis wo con IMPRESSION: No renal stone or hydronephrosis seen.
[2020-08-20 13:22] VITALS: BP 121/79; PULSE 101; RESP 18; TEMP 36.6; O2SAT 96; BMI 33.3
[2020-08-20 13:45] LABS: Glucose Urine UA NEG (NEG); Leukocyte Esterase Urine NEG (NEG); Nitrite Urine NEG (NEG); PH 7.5 (5.0-8.0); Specific Gravity - Urine 1.025 (1.005-1.025); Urine Blood NEG (NEG); Urine Ketones 5 MG/DL (NEG); Urine Protein NEG (NEG-TRACE)
--- NOTE | 2020-08-20 13:46 | ED_ITS ---
HPI - Female Genitourinary General Chief complaint: Urogenital-Female <FRANCA Dickson - Last Filed: 08/29/20 12:13> Stated complaint: urinary problems <FRANCA Dickson - Last Filed: 08/29/20 12:13> Time Seen by Provider: 08/20/20 13:46 <FRANCA Dickson - Last Filed: 08/29/20 12:13> History of Present Illness HPI Narrative: Patient complains of left flank pain for several days as well as intermittent urinating blood, she has just been diagnosed with a urinary tract infection and is taking Cipro, no fever no chills no nausea no vomiting no abdominal pain, she is eating and drinking normally, no longer has pain with urination <FRANCA Dickson - Last Filed: 08/29/20 12:13> Related Data Home medications: Home Medications Medication Instructions Recorded Confirmed bupropion HCl 300 mg 24 hr tablet, 300 mg PO QAM 01/17/20 09/17/20 extended release chlorthalidone 50 mg tablet 50 mg PO DAILY 01/17/20 09/17/20 ezetimibe 10 mg tablet 10 mg PO DAILY 01/17/20 09/17/20 metformin 500 mg tablet 1,000 mg PO BID tab 01/17/20 09/17/20 nifedipine 60 mg tablet,extended 60 mg PO DAILY 01/17/20 09/17/20 release risperidone 1 mg tablet 1 mg PO DAILY 01/17/20 09/17/20 trazodone 50 mg tablet 25 mg PO DAILY 01/17/20 09/17/20 zolpidem 5 mg tablet 5 mg PO BEDTIME PRN 01/17/20 09/17/20 liraglutide 0.6 mg/0.1 mL (18 mg/3 1.8 mg SUBCUT Q24H ml 01/28/20 09/17/20 mL) subcutaneous pen injector ranitidine HCl See Rx Instructions PO .COMPLEX PRN 04/28/20 09/17/20 acetaminophen 1 - 2 tab PO TID PRN 05/30/20 09/17/20 albuterol sulfate 1 amp INHALATION QID PRN 05/30/20 09/17/20 ascorbic acid (vitamin C) [Vitamin 1 tab PO 05/30/20 09/17/20 C] cholecalciferol (vitamin D3) 1 cap PO QAM 05/30/20 09/17/20 escitalopram oxalate 1 tab PO BEDTIME 05/30/20 09/17/20 fluticasone propion-salmeterol 1 puff PO BID 05/30/20 09/17/20 fluticasone propion-salmeterol 1 puff PO BID 05/30/20 09/17/20 [Advair Diskus] fluticasone propionate 2 spray INTRANASAL QAM 05/30/20 09/17/20 loratadine 1 tab PO QAM PRN 05/30/20 09/17/20 omeprazole 1 cap PO BID 05/30/20 09/17/20 sumatriptan succinate PO PRN 07/28/20 09/17/20 Previous Rx's Medication Instructions Recorded levothyroxine 100 mcg capsule 100 mcg PO DAILY 30 Days #30 cap 05/01/20 pen needle, diabetic 32 gauge x #100 ea 05/09/20 oxycodone [OxyContin] 10 mg PO Q12H 3 Days #6 tab 06/04/20 atorvastatin 80 mg tablet 80 mg PO BEDTIME #30 tab 06/18/20 losartan 50 mg tablet 50 mg PO DAILY 30 Days #30 tab 06/18/20 cyclobenzaprine 5 mg PO TID PRN #10 tab 07/21/20 <FRANCA Dickson - Last Filed: 08/29/20 12:13> Allergies/Adverse reactions: Allergies Allergy/AdvReac Type Severity Reaction Status Date / Time aspirin [ASA] Allergy Unknown RASH Verified 09/17/20 08:07 cortisone [CORTISONE] Allergy Unknown BAD Verified 09/17/20 08:07 REACTION naproxen [From Naprosyn] Allergy Unknown RASH, Verified 09/17/20 08:07 ITCHING, rash Ibuprofen Allergy Unknown rash Uncoded 09/17/20 08:07 <FRANCA Dickson - Last Filed: 08/29/20 12:13> Review of Systems Review of Systems: Positive for left flank pain Negatives are no fever no chills no dizziness no weakness no fainting no feeling faint no headache no neck pain no chest pain or shortness of breath no abdominal pain no nausea no vomiting no diarrhea no frequency, no rash no numbness or weakness no leg swelling <FRANCA Dickson - Last Filed: 08/29/20 12:13> Yes all other systems are reviewed and are negative <FRANCA Dickson - Last Filed: 08/29/20 12:13> [facility] Past Medical History Source: nursing notes reviewed <FRANCA Dickson - Last Filed: 08/29/20 12:13> Medical History: Medical History Anxiety and depression Asthma Bursitis of right shoulder Chronic back pain Dyspepsia Elevated cholesterol GERD (gastroesophageal reflux disease) HLD (hyperlipidemia) Hypertension Hypothyroidism Migraine headache Right rotator cuff tear Rotator cuff dysfunction Type 2 diabetes mellitus Vitamin D deficiency <FRANCA Dickson - Last Filed: 08/29/20 12:13> Surgical History: Surgical History History of appendectomy History of esophagogastroduodenoscopy (EGD) History of surgery on arm Hx of section Hx of colonoscopy Previous back surgery <FRANCA Dickson - Last Filed: 08/29/20 12:13> Family History Family History: Family History Father Diabetes Mother Diabetes <FRANCA Dickson - Last Filed: 08/29/20 12:13> Social History Social History: Social History Alcohol intake: never Patient Tobacco Use Status: Never used Tobacco Current occupational status: disabled Current occupation: Right Handed <FRANCA Dickson - Last Filed: 08/29/20 12:13> Physical Exam Vital Signs: Vital Signs: Last Vital Signs Temp 97.9 F 08/20/20 13:22 Pulse 101 H 08/20/20 13:22 Resp 18 08/20/20 13:22 BP 121/79 08/20/20 13:22 Pulse Ox 96 08/20/20 13:22 Body Mass Index 33.3 <FRANCA Dickson - Last Filed: 08/29/20 12:13> Vital Signs: Last Vital Signs Temp 97.9 F 08/20/20 13:22 Pulse 101 H 08/20/20 13:22 Resp 18 08/20/20 13:22 BP 121/79 08/20/20 13:22 Pulse Ox 96 08/20/20 13:22 Body Mass Index 33.3 <Leonides Jackson MD - Last Filed: 09/30/20 18:22> General appearance no acute distress comfortable cooperative The pharynx is clear and well hydrated The neck is supple Chest is clear to auscultation bilateral, no chest wall tenderness The abdomen is soft and nontender The back exam there is no bony tenderness there is some CVA tenderness and some paraspinal soft tissue tenderness in the upper lumbar left side area, range of motion is normal and pain is not reproduced with movement Extremities full range of motion x4 without edema or calf tenderness Skin no rash Neuro no focal motor sensory deficits <FRANCA Dickson - Last Filed: 08/29/20 12:13> Course Course Course Narrative: CT was ordered on patient who has had intermittent blood in the urine, no vaginal bleeding, as well as some mild flank pain and left-sided mid back pain The pain is not worse with movement, patient is in the midst of treating and urinary tract infection with Cipro and is tolerating it well CT scan and labs did not reveal any acute abnormality UA was normal, renal function was normal, patient is well-appearing and tolerates p.o. and is discharged <FRANCA Dickson - Last Filed: 08/29/20 12:13> I have reviewed the chart <Leonides Jackson MD - Last Filed: 09/30/20 18:22> MDM - Female Genitourinary Lab Data Attestation: I reviewed the patient's lab results. <FRANCA Dickson - Last Filed: 08/29/20 12:13> Result diagrams: : 08/20/20 14:37 08/20/20 14:37 <FRANCA Dickson - Last Filed: 08/29/20 12:13> Labs: Lab Results 08/20/20 08/20/20 08/20/20 Range/Units 13:36 14:37 14:37 WBC 9.8 (4.8-10.8) X10*3/uL RBC 4.53 (4.20-5.50) X10*6/uL Hgb 13.5 (12.0-16.0) g/dl Hct 40.6 (37-47) % MCV 89.6 (80-98) fL MCH 29.8 (27.0-33.0) pg MCHC 33.3 (31.0-35.0) g/dl RDW 12.7 (11.0-16.0) % Plt Count 322 (160-400) X10*3/uL MPV 9.5 (9.4-12.3) fL Immature Gran % (Auto) 0.2 (0.0-0.4) % Neut % (Auto) 65.5 (45-73) % Lymph % (Auto) 25.3 (20-40) % [place] % (Auto) 7.0 (2-11) % Eos % (Auto) 1.4 (0-4) % Baso % (Auto) 0.6 (0-2) % Lymph # (Auto) 2.5 (1.2-4.9) X10*3/uL [place] # (Auto) 0.7 (0.1-1.2) X10*3/uL Eos # (Auto) 0.1 (0.0-0.4) X10*3/uL Baso # (Auto) 0.1 (0.0-0.2) X10*3/uL Abs Immat Gran (auto) 0.02 (0.00-0.03) X10*3/uL Absolute Neuts (auto) 6.4 (2.0-8.3) X10*3/uL Absolute Nucleated RBC 0.000 (0.0-0.012) X10*3/uL Nucleated RBC % (auto) 0.0 (0.0-0.2) /100WBC Sodium 139 (135-145) mmol/L Potassium 3.3 (3.3-5.1) mmol/L Chloride 98 (96-108) mmol/L Carbon Dioxide 28 (22-29) mmol/L Anion Gap 16 (12-20) BUN 9 (9-16) mg/dL Creatinine 0.69 (0.5-1.4) mg/dL Estim Creat Clear Calc 82.1 Estimated GFR > 60 Random Glucose 105 (60-115) mg/dL Calcium 10.1 D (8.4-10.2) mg/dL Urine Color YELLOW Urine Appearance CLEAR Urine pH 7.5 (5.0-8.0) Ur Specific Sixes 1.025 (1.005-1.025) Urine Protein NEG (NEG-TRACE) MG/DL Urine Glucose (UA) NEG (NEG) MG/DL Urine Ketones 5 (NEG) MG/DL Urine Blood NEG (NEG) Urine Nitrite NEG (NEG) Ur Leukocyte Esterase NEG (NEG) Urine RBC 0-2 (0) /HPF Urine WBC 0 (0-4) /HPF Ur Squamous Epith Cells TRACE /LPF Urine Bacteria NONE /LPF Urine Mucus TRACE /LPF <FRANCA Dickson - Last Filed: 08/29/20 12:13> Lab Results 08/20/20 08/20/20 08/20/20 Range/Units 13:36 14:37 14:37 WBC 9.8 (4.8-10.8) X10*3/uL RBC 4.53 (4.20-5.50) X10*6/uL Hgb 13.5 (12.0-16.0) g/dl Hct 40.6 (37-47) % MCV 89.6 (80-98) fL MCH 29.8 (27.0-33.0) pg MCHC 33.3 (31.0-35.0) g/dl RDW 12.7 (11.0-16.0) % Plt Count 322 (160-400) X10*3/uL MPV 9.5 (9.4-12.3) fL Immature Gran % (Auto) 0.2 (0.0-0.4) % Neut % (Auto) 65.5 (45-73) % Lymph % (Auto) 25.3 (20-40) % [place] % (Auto) 7.0 (2-11) % Eos % (Auto) 1.4 (0-4) % Baso % (Auto) 0.6 (0-2) % Lymph # (Auto) 2.5 (1.2-4.9) X10*3/uL [place] # (Auto) 0.7 (0.1-1.2) X10*3/uL Eos # (Auto) 0.1 (0.0-0.4) X10*3/uL Baso # (Auto) 0.1 (0.0-0.2) X10*3/uL Abs Immat Gran (auto) 0.02 (0.00-0.03) X10*3/uL Absolute Neuts (auto) 6.4 (2.0-8.3) X10*3/uL Absolute Nucleated RBC 0.000 (0.0-0.012) X10*3/uL Nucleated RBC % (auto) 0.0 (0.0-0.2) /100WBC Sodium 139 (135-145) mmol/L Potassium 3.3 (3.3-5.1) mmol/L Chloride 98 (96-108) mmol/L Carbon Dioxide 28 (22-29) mmol/L Anion Gap 16 (12-20) BUN 9 (9-16) mg/dL Creatinine 0.69 (0.5-1.4) mg/dL Estim Creat Clear Calc 82.1 Estimated GFR > 60 Random Glucose 105 (60-115) mg/dL Calcium 10.1 D (8.4-10.2) mg/dL Urine Color YELLOW Urine Appearance CLEAR Urine pH 7.5 (5.0-8.0) Ur Specific Sixes 1.025 (1.005-1.025) Urine Protein NEG (NEG-TRACE) MG/DL Urine Glucose (UA) NEG (NEG) MG/DL Urine Ketones 5 (NEG) MG/DL Urine Blood NEG (NEG) Urine Nitrite NEG (NEG) Ur Leukocyte Esterase NEG (NEG) Urine RBC 0-2 (0) /HPF Urine WBC 0 (0-4) /HPF Ur Squamous Epith Cells TRACE /LPF Urine Bacteria NONE /LPF Urine Mucus TRACE /LPF <Leonides Jackson MD - Last Filed: 09/30/20 18:22> Discharge Plan Discharge Clinical Impression: Flank pain, Hematuria, Urinary tract infection <FRANCA Dickson - Last Filed: 08/29/20 12:13> Patient Disposition: Home, Self-Care <FRANCA Dickson - Last Filed: 08/29/20 12:13> Additional Instructions: Our workup today did not show any dangerous or emergent condition CT scan did not show any serious condition Urinalysis was normal, blood tests did not show any significant abnormality Continue and finish your Cipro antibiotic We are not sure what caused the pain but it may be soon to get better after full treatment with your antibiotic Follow with your doctor Return any time any worse condition or any concerns <FRANCA Dickson - Last Filed: 08/29/20 12:13> Prescriptions: No Action levothyroxine 100 mcg capsule 100 mcg PO DAILY 30 Days Qty: 30 RF: 11 (DME) pen needle, diabetic [BD Ultra-Fine Erica Pen Needle] 32 gauge x 5/32 needle See Rx Instructions .ROUTE .MEDSUPPLY Qty: 100 RF: 3 atorvastatin 80 mg tablet 80 mg PO BEDTIME Qty: 30 RF: 6 losartan 50 mg tablet 50 mg PO DAILY 30 Days Qty: 30 RF: 11 albuterol sulfate 2.5 mg /3 mL (0.083 %) solution for nebulization 1 amp inhalation QID PRN (Reason: Wheezing) RF: 0 acetaminophen 500 mg tablet 1 - 2 tab PO TID PRN (Reason: Pain) RF: 0 ascorbic acid (vitamin C) [Vitamin C] 500 mg tablet 1 tab PO RF: 0 fluticasone propion-salmeterol [Advair Diskus] 500-50 mcg/dose blister with device 1 puff PO BID RF: 0 fluticasone propion-salmeterol 500-50 mcg/dose blister with device 1 puff PO BID RF: 0 omeprazole 20 mg capsule,delayed release(DR/EC) 1 cap PO BID RF: 0 fluticasone propionate 50 mcg/actuation spray,suspension 2 spray intranasal QAM RF: 0 loratadine 10 mg tablet 1 tab PO QAM PRN (Reason: Allergy Symptoms) RF: 0 escitalopram oxalate 5 mg tablet 1 tab PO BEDTIME RF: 0 cholecalciferol (vitamin D3) 50 mcg (2,000 unit) capsule 1 cap PO QAM RF: 0 oxycodone [OxyContin] 10 mg tablet,oral only,ext.rel.12 hr 10 mg PO Q12H 3 Days Qty: 6 RF: 0 cyclobenzaprine 5 mg tablet 5 mg PO TID PRN (Reason: muscle spasm) Qty: 10 RF: 0 Victoza 3-Umesh 0.6 mg/0.1 mL (18 mg/3 mL) pen injector 1.8 mg subcut Q24H RF: 0 ezetimibe [Zetia] 10 mg tablet 10 mg PO DAILY RF: 0 metformin 500 mg tablet 1,000 mg PO BID RF: 0 chlorthalidone 50 mg tablet 50 mg PO DAILY RF: 0 trazodone 50 mg tablet 25 mg PO DAILY RF: 0 risperidone 1 mg tablet 1 mg PO DAILY RF: 0 zolpidem 5 mg tablet 5 mg PO BEDTIME PRN (Reason: Sleep) RF: 0 bupropion HCl [Wellbutrin XL] 300 mg tablet extended release 24 hr 300 mg PO QAM RF: 0 nifedipine 60 mg tablet extended release 60 mg PO DAILY RF: 0 ranitidine HCl See Rx Instructions PO .COMPLEX PRNRF: 0 sumatriptan succinate PO PRNRF: 0 <FRANCA Dickson - Last Filed: 08/29/20 12:13> Interventions: ED Discharge Assessment Last Done: 08/20/20 15:48 <FRANCA Dickson - Last Filed: 08/29/20 12:13> Discharge Date/Time: 08/20/20 15:50 <FRANCA Dickson - Last Filed: 08/29/20 12:13>
[2020-08-20 13:48] LABS: Appearance Urine CLEAR; Color Urine YELLOW
[2020-08-20 13:52] LABS: Mucus Urine TRACE /LPF; RBC Urine 0-2 /HPF (0); Squamous Epithelial Cell Urine TRACE /LPF; WBC Urine 0 /HPF (0-4)
[2020-08-20 14:40] LABS: MANUAL DIFF FLAG NO
[2020-08-20 14:42] LABS: Basophils Absolute Auto 0.1 X10*3/uL (0.0-0.2); Basophils Percent Auto 0.6 % (0-2); Eosinophils Absolute Auto 0.1 X10*3/uL (0.0-0.4); Eosinophils Percent Auto 1.4 % (0-4); Hematocrit 40.6 % (37-47); Hemoglobin 13.5 g/dl (12.0-16.0); Imm Gran Abs Auto 0.02 X10*3/uL (0.00-0.03); Imm Gran Pct Auto 0.2 % (0.0-0.4); Lymphocytes Absolute Auto 2.5 X10*3/uL (1.2-4.9); Lymphocytes Percent Auto 25.3 % (20-40); Mean Corpuscular HGB Conc 33.3 g/dl (31.0-35.0); Mean Corpuscular Hemoglobin 29.8 pg (27.0-33.0); Mean Corpuscular Volume 89.6 fL (80-98); Mean Platelet Volume 9.5 fL (9.4-12.3); Monocytes Absolute Auto 0.7 X10*3/uL (0.1-1.2); Neutrophils Absolute Auto 6.4 X10*3/uL (2.0-8.3); Neutrophils Percent Auto 65.5 % (45-73); Platelet Count 322 X10*3/uL (160-400); Red Blood Count 4.53 X10*6/uL (4.20-5.50); Red Cell Distribution Width 12.7 % (11.0-16.0); White Blood Count 9.8 X10*3/uL (4.8-10.8)
[2020-08-20 15:16] LABS: Anion Gap 16 (12-20); Blood Urea Nitrogen 9 mg/dL (9-16); Calcium 10.1 mg/dL (8.4-10.2); Carbon Dioxide 28 mmol/L (22-29); Chloride 98 mmol/L (96-108); Creatinine Clr Calc Pharmacy 82.1; Estimated Glomerular Filt Rate > 60; Glucose Random 105 mg/dL (60-115); Potassium 3.3 mmol/L (3.3-5.1); Sodium 139 mmol/L (135-145)
== END 2020-08-20 15:50 | disposition home or self-care (01) ==
PROVIDERS: Physician Assistant Medical; Emergency Provider Emergency Medicine
DX: N39.0 Urinary tract infection, site not specified (principal); R31.9 Hematuria, unspecified; R10.9 Unspecified abdominal pain; Z79.899 Other long term (current) drug therapy
CPT/HCPCS: 36415; 74176; 80048; 81001; 85025; 99284

== ENCOUNTER → 2020-08-28 08:16 | Outpatient (BNVA) | payer MEDICAID, SELFPAY | PROVIDERS: PCP Nurse Practitioner Family; Visit Provider Orthopaedic Surgery | DX: Z98.890 Other specified postprocedural states (principal) | CPT/HCPCS: 99212 ==

== ENCOUNTER 2020-08-29 09:00 | Outpatient (RCR) | payer MEDICAID, SELFPAY ==
--- NOTE | 2020-06-24 10:46 | MHC.PT.EP ---
[facility] [place] Office [place] Office [place] Office [address] Trina Daniel [address] [phone] F: [phone] F: [phone] F: [phone] F: [phone] Physical Therapy Plan of Care Date of Evaluation: 06/24/20 Date of Surgery: 06/04/20 Diagnosis: R RTC repair on 06/04/20 Assessment: pt presents to physical therapy with pain, decreased range of motion, decreased strength, impaired functional mobility, and impaired postural awareness. pt is a good candidate for skilled PT due to age, potential remediation of impairments, typical disease/condition progression and prognosis, comorbidities, and motivation. pt would benefit from tailored strengthening and stretching exercise program, functional training, gait training, postural re-training, neuromuscular re-education, modalities as needed for pain, equipment safety demonstration. Frequency and Duration: The patient will be seen 2x/wk for 10 wks Short Term Goals: pt will be I w/ HEP to promote self-management of condition. pt will improve passive shoulder flexion by 15 degrees to progress per protocol. Assisted Goals: pt will report a statistically significant improvement in self-reported outcome measure, SPADI, to promote return to PLOF. pt will report <1/10 R shoulder pain w/ reaching into cabinet to facilitate return to PLOF. Treatment Plan: Modalities to reduce pain, spasms and effusion. Manual therapy to restore motion and function. Therapeutic exercise to improve strength and flexibility. Neuromuscular re-education for posture and balance. Therapeutic activities to return to functional activities of daily living. Electronically signed by: Bailey Boston PT, DPT Please sign and return to therapist. Thank you for your referral.
--- NOTE | 2020-09-22 10:31 | MHC.PT.DC ---
[facility] [place] [facility] [place] Office [place] Office [address] Trina Daniel [address] [phone] F: [phone] F: [phone] F: [phone] F: [phone] Physical Therapy Discharge Report Diagnosis: R RTC repair on 06/04/20 Date of Surgery: 06/04/20 Date of Evaluation: 06/24/20 Date of Discharge: 09/22/20 Treatments to Date: 14 Cancellations to Date: 7 No Shows to Date: 5 Discharge Status: Visit Non-compliance Discharge Summary: The patient has had poor visit compliance. She has not shown for any scheduled visits for the past three weeks. She will be discharged from this physical therapy plan of care at this time. Electronically signed by: Bailey Boston PT, DPT Please sign and return to therapist. Thank you for your referral.
== END 2020-09-22 10:32 | disposition home or self-care (01) ==
LOC: HO.PT 09:00
PROVIDERS: PCP Nurse Practitioner Family; Visit Provider Physician Assistant
DX: M75.101 Unspecified rotator cuff tear or rupture of right shoulder, not specified as traumatic (principal); Z98.890 Other specified postprocedural states
CPT/HCPCS: 97110; 97112; 97140; 97161; 97530

== ENCOUNTER 2020-09-08 08:53 | Outpatient (REF) | payer MEDICAID, SELFPAY ==
[2020-09-08 10:05] LABS: Estimated Average Glucose 117 mg/dL; Hemoglobin A1c % 5.7 %
[2020-09-08 10:16] LABS: Alanine Aminotransferase 19 U/L (0-31); Albumin Level 4.2 g/dL (3.5-5.0); Alkaline Phosphatase 90 U/L (39-117); Anion Gap 14 (12-20); Aspartate Amino Transferase 18 U/L (5-31); Bilirubin Total 0.6 mg/dL (0.0-1.0); Blood Urea Nitrogen 11 mg/dL (9-16); Calcium 9.4 mg/dL (8.4-10.2); Carbon Dioxide 31 mmol/L (22-29); Chloride 101 mmol/L (96-108); Cholesterol 206 mg/dL; Estimated Glomerular Filt Rate > 60; Glucose Random 79 mg/dL (60-115); HDL Cholesterol 61 mg/dL; LDL Cholesterol Calculated 126 mg/dl; Potassium 3.6 mmol/L (3.3-5.1); Sodium 142 mmol/L (135-145); Total Protein 6.9 g/dL (6.5-8.0); Triglycerides 98 mg/dL
[2020-09-08 10:22] LABS: Creatinine Urine 113.24 mg/dL; Microalbum/Creatinine Ratio Ur 22.9 ug/mg cr
[2020-09-08 10:39] LABS: Free T4 (Free Thyroxine) 1.38 ng/dL (0.71-1.85); Thyroid Stimulating Hormone 0.84 uIU/mL (0.32-4.0); Vitamin D 25-OH Total 52.2 ng/mL (>30)
[2020-09-09 14:52] LABS: LDL Cholesterol Direct 124 mg/dL (<100)
== END 2020-09-08 08:54 | disposition home or self-care (01) ==
LOC: HO.LAB 08:53
PROVIDERS: PCP Family Medicine; Visit Provider Internal Medicine
DX: E11.65 Type 2 diabetes mellitus with hyperglycemia (principal); E03.9 Hypothyroidism, unspecified; E55.9 Vitamin D deficiency, unspecified; Z79.4 Long term (current) use of insulin
CPT/HCPCS: 36415; 80053; 80061; 82043; 82306; 83036; 83721; 84439; 84443

== ENCOUNTER → 2020-09-17 15:42 | Outpatient (REF) | payer MEDICAID, SELFPAY | LOC: HO.SL 15:42 | PROVIDERS: PCP Family Medicine; Visit Provider Family Medicine | DX: G47.30 Sleep apnea, unspecified (principal); E11.65 Type 2 diabetes mellitus with hyperglycemia; E78.5 Hyperlipidemia, unspecified; E03.9 Hypothyroidism, unspecified; I10 Essential (primary) hypertension; Z79.4 Long term (current) use of insulin | CPT/HCPCS: 82947; 95806; 99212 ==

== ENCOUNTER → 2020-12-04 08:19 | Outpatient (BNVA) | payer MEDICAID, SELFPAY | PROVIDERS: Visit Provider Orthopaedic Surgery | DX: Z98.890 Other specified postprocedural states (principal) | CPT/HCPCS: 99212 ==

== ENCOUNTER 2020-12-08 08:53 | Outpatient (REF) | payer MEDICAID, SELFPAY ==
[2020-12-08 10:56] LABS: Alanine Aminotransferase 8 U/L (0-31); Albumin Level 4.1 g/dL (3.5-5.0); Alkaline Phosphatase 87 U/L (39-117); Anion Gap 14 (12-20); Aspartate Amino Transferase 14 U/L (5-31); Bilirubin Total 0.3 mg/dL (0.0-1.0); Blood Urea Nitrogen 13 mg/dL (9-16); Calcium 9.6 mg/dL (8.4-10.2); Carbon Dioxide 28 mmol/L (22-29); Chloride 102 mmol/L (96-108); Cholesterol 215 mg/dL; Estimated Glomerular Filt Rate > 60; Glucose Random 84 mg/dL (60-115); HDL Cholesterol 70 mg/dL; LDL Cholesterol Calculated 135 mg/dl; Potassium 3.7 mmol/L (3.3-5.1); Sodium 140 mmol/L (135-145); Total Protein 6.7 g/dL (6.5-8.0); Triglycerides 53 mg/dL
[2020-12-08 11:16] LABS: Estimated Average Glucose 114 mg/dL; Hemoglobin A1c % 5.6 %
[2020-12-08 11:18] LABS: Thyroid Stimulating Hormone 1.01 uIU/mL (0.32-4.0)
[2020-12-09 07:21] LABS: LDL Cholesterol Direct 138 mg/dL (<100)
== END 2020-12-08 08:54 | disposition home or self-care (01) ==
LOC: HO.LAB 08:53
PROVIDERS: Visit Provider Internal Medicine
DX: E11.65 Type 2 diabetes mellitus with hyperglycemia (principal); E03.9 Hypothyroidism, unspecified; Z79.4 Long term (current) use of insulin
CPT/HCPCS: 36415; 80053; 80061; 83036; 83721; 84443

== ENCOUNTER → 2020-12-29 08:00 | Outpatient (BNVA) | payer MEDICAID, SELFPAY | PROVIDERS: PCP Family Medicine; Visit Provider Nurse Practitioner Gerontology | DX: E78.5 Hyperlipidemia, unspecified (principal); E11.9 Type 2 diabetes mellitus without complications; E03.9 Hypothyroidism, unspecified; I10 Essential (primary) hypertension | CPT/HCPCS: 82947; 99212 ==

== ENCOUNTER 2021-01-13 13:31 | Outpatient (REF) | payer MEDICAID, SELFPAY ==
--- NOTE | ~2021-01-13 | US_ITS ---
EXAMINATION: US VENOUS ULTRASOUND WITH DOPPLER LOWER EXTREMITY, LEFT CLINICAL INFORMATION: Left leg swelling. Rule out DVT. COMPARISON: None TECHNIQUE: Ultrasound of the deep veins is performed from the hip to the calf with compression sonography and color and pulse Doppler assessment. Spectral analysis with color-flow imaging is performed. FINDINGS: There is normal venous compression and respiratory variation and augmented flow. The visualized common femoral vein, superficial femoral vein, profunda femoral vein, popliteal vein, and the trifurcation region shows no evidence of deep venous thrombosis. There is no significant popliteal fossa cyst. If the patient's symptoms persist, followup ultrasound in 5 days 7 days might be of value to exclude proximal propagation from a non-visualized calf vein. US/US venous duplex LE IMPRESSION: No DVT demonstrated in the left lower extremity.
== END 2021-01-13 13:32 | disposition home or self-care (01) ==
LOC: HO.US 13:31
PROVIDERS: PCP Nurse Practitioner Family; Visit Provider Nurse Practitioner Family
DX: R60.0 Localized edema (principal); M79.89 Other specified soft tissue disorders
CPT/HCPCS: 93971

== ENCOUNTER 2021-04-03 09:54 | Outpatient (REF) | payer MEDICAID, SELFPAY ==
--- NOTE | ~2021-04-03 | US_ITS ---
EXAMINATION: Noninvasive assessment of the arteries of both lower extremities to include a PVR exam limited (1-2 levels) and ANSON, bilateral. ? Lazaro Harvey M.D. CLINICAL INFORMATION: Leg pain and swelling, rule out PVD COMPARISON: None TECHNIQUE: The ankle/brachial indices of the distal posterior tibial and the dorsalis pedis arteries were obtained of the lower extremity arterial system bilaterally; along with pressures and pulse volume recordings at the ankle. ? FINDINGS AT REST:? RIGHT LE. THE RIGHT ANKLE-BRACHIAL INDEX IS: 1.06 (higher of the DP/PT) >0.97-1.25 = normal - no significant arterial disease 0.75-0.96 = mild peripheral arterial disease 0.50-0.74 = moderate peripheral arterial disease <0.50 = severe peripheral arterial disease <0.30 = critical arterial disease 2. SEGMENTAL PRESSURES: Ankle: PT 139 DP 137 3. PVR WAVEFORMS: Ankle: Normal LEFT LE. THE LEFT ANKLE-BRACHIAL INDEX IS: 1.11 (higher of the DP/PT) >0.97-1.25 = normal - no significant arterial disease 0.75-0.96 = mild peripheral arterial disease 0.50-0.74 = moderate peripheral arterial disease <0.50 = severe peripheral arterial disease <0.30 = critical arterial disease 2. SEGMENTAL PRESSURES: Ankle: PT 146 DP 142 3. PVR WAVEFORMS: Ankle: Within normal limits US/US ANSON complete IMPRESSION: Normal PVR waveforms and ankle brachial indices at the ankles bilaterally.
== END 2021-04-03 09:55 | disposition home or self-care (01) ==
LOC: HO.US 09:54
PROVIDERS: PCP Nurse Practitioner Family; Visit Provider Nurse Practitioner Family
DX: M79.89 Other specified soft tissue disorders (principal)
CPT/HCPCS: 93923

== ENCOUNTER → 2021-04-16 09:02 | Outpatient (BNVA) | payer MEDICAID, SELFPAY | PROVIDERS: PCP Nurse Practitioner Family; Referring Provider Nurse Practitioner Family; Visit Provider Internal Medicine | DX: E11.8 Type 2 diabetes mellitus with unspecified complications (principal); E78.5 Hyperlipidemia, unspecified; R07.2 Precordial pain; I10 Essential (primary) hypertension | CPT/HCPCS: 93005; 99202 ==

== ENCOUNTER → 2021-04-17 07:09 | Outpatient (BNVA) | payer MEDICAID, SELFPAY | PROVIDERS: PCP Nurse Practitioner Family; Visit Provider Nurse Practitioner Gerontology | DX: E11.9 Type 2 diabetes mellitus without complications (principal); E78.5 Hyperlipidemia, unspecified; E03.9 Hypothyroidism, unspecified; I10 Essential (primary) hypertension | CPT/HCPCS: 82947; 99212 ==

== ENCOUNTER 2021-04-27 08:26 | Outpatient (REF) | payer MEDICAID, SELFPAY ==
--- NOTE | ~2021-04-27 | MM_ITS ---
EXAMINATION: MM SCREENING DIGITAL BREAST TOMOSYNTHESIS, BILATERAL CLINICAL INFORMATION: Screening. Asymptomatic. The lifetime risk of breast cancer based on the Tyrer-Cuzick Model is 12%. COMPARISON: Mammography: 04/14/2020, 11/16/2018, 11/14/2017 TECHNIQUE: Digital breast tomosynthesis is performed in both the craniocaudal and mediolateral oblique views along with computer-aided detection (CAD). Synthesized 2D images are generated from the tomosynthesis. FINDINGS: There are scattered areas of fibroglandular density (ACR BI-RADS breast composition Category b). There are no significant masses, abnormal calcifications, or other abnormalities. There is stable nodule central mid 9:00 right breast similar to prior exams. No developing density. No significant changes from prior studies. MM/MM tomosynthesis screening BI IMPRESSION: No mammographic evidence of malignancy. ASSESSMENT: BI-RADS 2: Benign RECOMMENDATION: Routine annual mammography screening. This patient's information was entered into a reminder system with a target due date for their next mammogram.
== END 2021-04-27 08:27 | disposition home or self-care (01) ==
LOC: HO.MAMMO 08:26
PROVIDERS: Visit Provider Nurse Practitioner Family
DX: Z12.31 Encounter for screening mammogram for malignant neoplasm of breast (principal)
CPT/HCPCS: 77063; 77067

== ENCOUNTER → 2021-05-13 08:43 | Outpatient (REF) | payer MEDICAID, SELFPAY ==
--- NOTE | ~2021-05-13 | NM_ITS ---
Myocardial perfusion study Indication: Precordial chest pain to evaluate for myocardial ischemia Technique: The patient was brought in for a Lexiscan perfusion study on 05/13/2021. Patient performed low-level exercise and was injected 0.4 mg of Lexiscan intravenously. Within a minute of injection, 25 mCi of sestamibi was given intravenously. Images were obtained using the SPECT gamma camera interlaced with the gating device. Images were obtained in supine position. Resting perfusion study was performed on 05/14/2021. Patient was administered 25 mCi of sestamibi intravenously at rest. Images were then obtained in supine position. Images obtained with and without CT attenuation. Total DLP 117 mGy-cm. Images were processed with the software and compared side to side in short axis, horizontal long axis and vertical long axis views. Findings: The stress perfusion study showed non attenuated images show minimal thinning of the basal inferolateral wall of the LV myocardium. Remainder of the LV myocardium is normally perfused. Attenuation corrected images show mildly reduced uptake in the apex of the LV myocardium.. The gated study shows normal LV systolic function with calculated LVEF of 53%. LV cavity is normal in size. The gated study shows normal systolic wall thickening and contraction of segments. Resting study shows no change in perfusion pattern compared to stress perfusion study. Gating at rest reveals normal systolic wall motion with ejection fraction at 57%. The findings are consistent with no clear reversible defect suggestive of ischemia. Normal myocardial perfusion. NM/NM cardiolite stress test Impression: 1. Myocardial perfusion imaging study shows normal myocardial perfusion 2. Gated LVEF is 57% 3. Transient ischemic dilatation not present EKG is nondiagnostic for ischemia
--- NOTE | 2021-05-13 08:46 | CA_ITS ---
Acquisition Time: 2021-05-13 10:00:00 Total Exercise Time: 00:02:00 Test Indications: CP Medications: SEE CHART Protocol: LEXISCAN Max HR: 137 BPM 83% of Pred: 165 BPM Max BP: 124/068 mmHG Max Work Load: 1.0 METS Pharmacological stress test with Lexiscan injection, while sitting and kicking her legs, without anginal symptoms, without arrythmia, with normotensive response to injection, with nondiagnostic EKG for ischemia. In recovery she had elevated heart rate and was treated with aminophylline 75mg IVP to reverse Lexiscan with improvement in heart rate back to baseline. Nuclear images pending. Test reviewed with Dr Redding. Referred By: Chicho Reynaga Overread By: RONALDO DIAS
== END ==
LOC: HO.CARD 08:43
PROVIDERS: PCP Nurse Practitioner Family; Visit Provider Internal Medicine
DX: R07.2 Precordial pain (principal)
CPT/HCPCS: 78452; 93017; A9500; J0280; J2785

== ENCOUNTER → 2021-05-28 13:03 | Outpatient (REF) | payer MEDICAID, SELFPAY ==
--- NOTE | 2021-05-28 13:07 | CA_ITS ---
Transthoracic Echocardiogram Patient (Last, First, Middle): Elin Johnson M Gender: Female Date of : 1965 Age: 55 Procedure Date: 05/28/2021 Procedure Type: Transthoracic Echocardiogram Location: OP Height: 149.86 cm Weight: 74.84 kg BSA: 1.70 m2 Heart Rate: bpm BP: 120 / 80 mmHg Percussion Teacher: ANNA Frances MD: Chicho Reynaga MD Porcelain Buildup Assistant: Gavin Redding MD Symptoms: R07.2 - Precordial pain Study Quality: Fair/Contrast ECG Rhythm: Sinus Conclusions: - 1. Normal LV systolic function with grade 1 diastolic dysfunction 2. Normal cardiac valvular Doppler 3. Mildly elevated right ventricular systolic pressure 4. No gross pericardial effusion Findings Procedure Information Contrast agent, definity, is being given per protocol without apparent complications. Left Ventricle Normal left ventricular size, thickness, and systolic function. The visually estimated ejection fraction is between 60-65%. Spectral Doppler is indicative of an impaired relaxation filling pattern. E/E prime ratio is <8, consistent with normal filling pressures. Evidence suggests grade I (mild) diastolic dysfunction. Right Ventricle Normal right ventricular cavity size and systolic function. Atria Both atria are normal in size. Interatrial shunt cannot be excluded. Aortic Valve The aortic valve structure and function is likely normal. There is no aortic valve stenosis. There is no aortic valve regurgitation. Mitral Valve Likely normal mitral valve structure and function. There is trace mitral valve regurgitation. There is no mitral valve stenosis. Pulmonic Valve The pulmonic valve was not well visualized. Tricuspid Valve Likely normal tricuspid valve structure and function. There is mild tricuspid valve regurgitation. Mild pulmonary hypertension is present. Great Vessels All visible segments of the aorta are normal in size. The pulmonary artery was not well visualized. Venous The inferior vena cava is normal in size and collapses greater than 50% with inspiration. Pericardium/Pleural There is no evidence of pericardial effusion. Prior Study Comparison No prior study available for comparison. Measurements 2D Linear Measurements IVSd: 0.96 0.6-0.9/0.6-1.0 cm LVIDd: 3.88 3.9-5.3/4.2-5.9 cm LVIDd Index: 2.28 2.4-3.2/2.2-3.1 cm/m2 LVIDs: 2.75 2.0-3.6 cm LVPWd: 0.93 0.7-1.1 cm LA Diam: 2.60 2.7-3.8/3.0-4.0 cm LAIDs Index: 1.53 1.5-2.3 cm/m2 LV Mass: 138.83 67-162/88-224 g LV Mass Index: 81.66 43-95/49-115 g/m2 LVOT Diam: 2.10 3.0+(-)1.3 cm 2D Systolic Function EF 4C: 62.40 >55% EF 2C: 69.80 >55% EF BiP: 65.10 >55% Mitral Valve MV Pk E: 0.79 MV PK A: 1.03 MV Decel Time: 133.00 E/A: 0.80 E'Lateral: 10.10 E'Medial: 7.29 E/E' Med: 10.80 E/E' Lat: 7.80 PHT: 39.00 MVA PHT: 5.64 Decel [place]: 5.90 Aortic Valve AoV Pk Fernando: 1.41 AoV Mn Fernando: 0.99 AoV VTI: 0.27 AoV Pk Grad: 8.00 Aov Mn Grad: 5.00 EMELY Cont.VTI: 2.74 LVOT LVOT Pk Fernando: 1.11 LVOT Mn Fernando: 0.74 LVOT VTI: 0.21 LVOT Pk Grad: 5.00 LVOT Mn Grad: 3.00 LVOT Diam: 2.10 LVOT Area: 3.46 Diastolic Function MV Pk E: 0.79 MV Pk A: 1.03 E/A: 0.80 E'Medial: 7.29 E/E' Med: 10.80 E' Laterial: 10.10 E/E' Lat: 7.80 Right Ventricle TAPSE (mm): 16.00 TVS' Fernando: 16.50 Tricuspid Valve TR Pk Fernando: 3.03 TR Pk Grad: 37.00 RA Press: 3.00 RVSP: 40.00 Great Vessels Aorta Sinus of Valsalva: 3.81 2.0-3.5 cm Ao Asc: 3.40 2.1-3.4 cm Ao Arch: 2.60 Updated in Other Vendor System with Status of Final Gavin Redding MD electronically signed on 05/28/2021 4:12:05 PM with status of Final
== END ==
LOC: HO.CARD 13:03
PROVIDERS: PCP Nurse Practitioner Family; Visit Provider Internal Medicine
DX: R07.2 Precordial pain (principal); J45.909 Unspecified asthma, uncomplicated
CPT/HCPCS: 93306; Q9957

== ENCOUNTER → 2021-05-29 10:12 | Outpatient (BNVA) | payer MEDICAID, SELFPAY | PROVIDERS: PCP Nurse Practitioner Family; Visit Provider Orthopaedic Surgery | DX: M54.12 Radiculopathy, cervical region (principal) | CPT/HCPCS: 99212 ==

== ENCOUNTER 2021-06-10 14:51 | Outpatient (REF) | payer MEDICAID, SELFPAY ==
--- NOTE | ~2021-06-10 | MR_ITS ---
EXAMINATION: MR CERVICAL SPINE WITHOUT CONTRAST CLINICAL INFORMATION: Neck pain. COMPARISON: MRI dated 02/24/2008. TECHNIQUE: MRI of the cervical spine was obtained using routine sequences without contrast. FINDINGS: VERTEBRAL BODIES AND PARASPINAL SOFT TISSUES: There is a mild leftward curvature of the cervical spine. There are no compression fractures or new subluxations. Moderate loss of disc height evident at the C5-C6 level, progressed since the prior study. Multilevel reduced intradiscal signal has worsened since previous imaging as a result of degeneration. The paraspinal soft tissues appear normal. The vertebral artery flow-voids are maintained. The imaged lung apices are grossly clear. CERVICOMEDULLARY JUNCTION AND VISUALIZED POSTERIOR FOSSA: The craniovertebral junction and imaged portions of the brain parenchyma appear normal. No cord signal abnormality or syrinx is seen. SPINAL LEVELS: C2-C3: Shallow central disc protrusion without central canal stenosis or foraminal narrowing. C3-C4: Small central disc protrusion, new from prior imaging without central canal stenosis or foraminal encroachment. [id number]-grgwakzb left-sided hypertrophic facet arthropathy. C4-C5: Tiny central disc protrusion. Patent central canal and foramina. C5-C6: Moderate loss of disc height with a shallow disc-osteophyte complex impressing upon the ventral thecal sac. No central canal stenosis. Acjdpgrf-rm-wnhycm right foraminal narrowing and hypertrophic facet arthropathy with uzsy-te-nayceowd left foraminal encroachment. C6-C7: Mild posterior disc bulge. No central canal stenosis or foraminal narrowing. Mild uncovertebral joint spurring. C7-T1: Small central disc protrusion present with mild endplate spurring. No central canal stenosis or significant foraminal narrowing. T1-T2: Shallow disc-osteophyte complex with mild impression upon the ventral thecal sac. No central canal stenosis. Moderate right foraminal narrowing. MR/MR cervical spine wo con IMPRESSION: Progressed multilevel cervical spondylosis with small disc protrusions. Moderate loss of disc height and disc-osteophyte complex at C5-C6 with significant right foraminal encroachment.
== END 2021-06-10 14:52 | disposition home or self-care (01) ==
LOC: HO.MRI 14:51
PROVIDERS: Visit Provider Orthopaedic Surgery
DX: M54.12 Radiculopathy, cervical region (principal); E11.8 Type 2 diabetes mellitus with unspecified complications; Z71.3 Dietary counseling and surveillance
CPT/HCPCS: 72141; 97802

== ENCOUNTER → 2021-06-25 12:14 | Outpatient (BNVA) | payer MEDICAID, SELFPAY | PROVIDERS: PCP Nurse Practitioner Family; Visit Provider Orthopaedic Surgery | DX: M54.12 Radiculopathy, cervical region (principal) | CPT/HCPCS: 99212 ==

== ENCOUNTER → 2021-07-21 13:04 | Outpatient (BNVA) | payer MEDICAID, SELFPAY | PROVIDERS: PCP Nurse Practitioner Family; Referring Provider Nurse Practitioner Family; Visit Provider Nurse Practitioner Family | DX: R07.2 Precordial pain (principal); I10 Essential (primary) hypertension; E11.649 Type 2 diabetes mellitus with hypoglycemia without coma; E78.5 Hyperlipidemia, unspecified; Z79.4 Long term (current) use of insulin; Z79.899 Other long term (current) drug therapy | CPT/HCPCS: 99212 ==

== ENCOUNTER → 2021-07-23 08:55 | Outpatient (BNVA) | payer MEDICAID, SELFPAY | PROVIDERS: PCP Nurse Practitioner Family; Visit Provider Dietitian, Registered | DX: E11.9 Type 2 diabetes mellitus without complications (principal); Z71.3 Dietary counseling and surveillance | CPT/HCPCS: 97803 ==

== ENCOUNTER 2021-07-29 09:35 | Outpatient (REF) | payer MEDICAID, SELFPAY ==
--- NOTE | ~2021-07-29 | XR_ITS ---
EXAMINATION: XR ABDOMEN KUB CLINICAL INDICATION: Frequency of micturition. Pelvic and perineal pain. COMPARISON: None TECHNIQUE: AP view of the abdomen. FINDINGS: Postsurgical changes of posterior spinal fusion is noted at L4-5 and intervertebral disc fusion at L5-S1. Significant fecal residual is noted throughout the entire large bowel. Few surgical clips are noted at left iliac fossa. No radiographic evidence of any radiopaque urinary tract calculi. XR/XR KUB IMPRESSION: No radiographic evidence of any radiopaque urinary tract calculi.
== END 2021-07-29 09:36 | disposition home or self-care (01) ==
LOC: HO.XRAY 09:35
PROVIDERS: PCP Nurse Practitioner Family; Visit Provider Nurse Practitioner Family
DX: E11.65 Type 2 diabetes mellitus with hyperglycemia (principal); R10.2 Pelvic and perineal pain; R35.0 Frequency of micturition
CPT/HCPCS: 74018

== ENCOUNTER → 2021-08-17 08:20 | Outpatient (BNVA) | payer MEDICAID, SELFPAY | PROVIDERS: PCP Nurse Practitioner Family; Visit Provider Nurse Practitioner Gerontology | DX: E11.9 Type 2 diabetes mellitus without complications (principal); E78.5 Hyperlipidemia, unspecified; E03.9 Hypothyroidism, unspecified; I10 Essential (primary) hypertension | CPT/HCPCS: 82947; 83036; 99212 ==

== ENCOUNTER 2021-09-01 09:39 | Outpatient (REF) | payer MEDICAID, SELFPAY ==
--- NOTE | ~2021-09-01 | XR_ITS ---
EXAMINATION: XR CHEST CLINICAL INFORMATION: Chronic cough COMPARISON: 05/21/2019 TECHNIQUE: 2 views of the chest were obtained. FINDINGS: No significant abnormality is noted involving the heart, lungs, mediastinum, bony thorax or soft tissues. XR/XR chest 2V IMPRESSION: Unremarkable examination.
== END 2021-09-01 09:40 | disposition home or self-care (01) ==
LOC: HO.XRAY 09:39
PROVIDERS: Absent Provider Nurse Practitioner Family; PCP Nurse Practitioner Family; Visit Provider Nurse Practitioner
DX: R05.3 Chronic cough (principal)
CPT/HCPCS: 71046

== ENCOUNTER 2021-09-25 13:38 | Outpatient (REF) | payer MEDICAID, SELFPAY ==
--- NOTE | ~2021-09-25 | MM_ITS ---
EXAMINATION: BONE DENSITOMETRY CLINICAL INDICATION: Asymptomatic menopausal state. COMPARISON: None (current study represents initial baseline exam). TECHNIQUE: Using a [employer] DXA System (software version: 13.1) manufactured by [employer], dual-energy x-ray absorptiometry was performed of the lumbar spine and left hip. The images are of good technical quality. Summary results are attached. FINDINGS: AP SPINE L1-L3 (excluding L4): The data of L1-L4 has been changed to exclude the L4 vertebral body, because hardware at this level may cause overestimation of lumbar spine density. BMD 1.215 g/cm2, Z-score 0.8, T-score 0.4, normal. LEFT FEMUR, NECK: BMD 1.121 g/cm2, Z-score 1.3, T-score 0.6, normal. LEFT FEMUR, TOTAL: BMD 1.244 g/cm2, Z-score 2.2, T-score 1.9, normal. IDENTIFIED RISK FACTORS: Low calcium intake, history of fracture (adult), osteoporosis, recurrent falls, secondary osteoporosis, menopause. HISTORY OF FRACTURE: Shoulder, spine. MEDICATIONS: Vitamin D. MM/XR DEXA axial skeleton IMPRESSION: 1. DIAGNOSIS: Normal bone density based on the lowest T-score value of 0.4 in the lumbar spine applying World Health Organization criteria. 2. 10-YEAR FRACTURE RISK PREDICTION, FRAX: According to the guidelines, FRAX calculation should only be performed on patients in the osteopenia bone density category. Therefore, FRAX was not performed on this patient. 3. Treatment Recommendations: NOF guidelines recommend consideration for treatment in postmenopausal women and men age 50 and older presenting with the following: -A hip or vertebral (clinical or morphometric) fracture. -T-score less than or equal to -2.5 at the femoral neck or spine after appropriate evaluation to exclude secondary causes. -Low bone mass at the hip or spine and a 10-year fracture probability by FRAX of greater than or equal to 3% for hip fracture or greater than or equal to 20% for major osteoporotic fracture based on the [place] adapted WHO algorithm. 4. Other Recommendations: All treatment decisions require clinical judgment and consideration of individual patient factors, including patient preferences, comorbidities, previous drug use, risk factors not captured in the FRAX model (e.g. frailty, falls, vitamin D deficiency, increased bone turnover, interval significant decline in bone density) and possible under or overestimation of fracture risk by FRAX. FUTURE SCAN RECOMMENDATION: People with diagnosed cases of osteoporosis or at high risk for fracture should have regular bone mineral density tests. For patients eligible for Medicare, routine testing is allowed once every 2 years. The testing frequency can be increased to one year for patients who have rapidly progressing disease, those who are receiving or discontinuing medical therapy to restore bone mass, or have additional risk factors.
== END 2021-09-25 13:39 | disposition home or self-care (01) ==
LOC: HO.MAMMO 13:38
PROVIDERS: PCP Nurse Practitioner Family; Visit Provider Nurse Practitioner Family
DX: Z13.820 Encounter for screening for osteoporosis (principal); Z78.0 Asymptomatic menopausal state
CPT/HCPCS: 77080

== ENCOUNTER → 2021-10-14 14:56 | Outpatient (BNVA) | payer MEDICAID, SELFPAY | PROVIDERS: PCP Nurse Practitioner Family; Visit Provider Anesthesiology | DX: M54.12 Radiculopathy, cervical region (principal); M50.30 Other cervical disc degeneration, unspecified cervical region; G89.4 Chronic pain syndrome | CPT/HCPCS: 99202 ==

== ENCOUNTER 2021-11-10 06:17 | Outpatient (REF) | payer MEDICAID, SELFPAY ==
--- NOTE | ~2021-11-10 | FL_ITS ---
EXAMINATION: XR FLUOROSCOPY WITH IMAGES CLINICAL INFORMATION: Cervical pain. COMPARISON: None. TECHNIQUE: Fluoroscopy performed by Dr. Agustin Galloway. Fluoroscopy time: 0.4 minutes. Cumulative Dose: 6.41 mGy. DAP: 1.02 Gy-cm2. Images: 2. FINDINGS: Contrast is seen along the right lateral aspect of the lower cervical spine with the appearance of epidural injection. FL/FL guidance in treatment room IMPRESSION: Intraoperative fluoroscopy for pain management procedure.
== END 2021-11-10 06:18 | disposition home or self-care (01) ==
LOC: HO.RADIR 06:17
PROVIDERS: Visit Provider Anesthesiology
DX: M50.30 Other cervical disc degeneration, unspecified cervical region (principal); M54.12 Radiculopathy, cervical region; G89.4 Chronic pain syndrome
CPT/HCPCS: 62321; J1100

== ENCOUNTER 2021-11-27 11:53 | Outpatient (REF) | payer MEDICAID, SELFPAY ==
--- NOTE | ~2021-11-27 | XR_ITS ---
EXAMINATION: XR BOTH KNEES AP STANDING XR RIGHT KNEE, 2 VIEWS XR LEFT KNEE, 2 VIEWS CLINICAL INFORMATION: Pain. COMPARISON: Left knee radiographs dated 04/17/2008. TECHNIQUE: Standing AP view of both knees and lateral and sunrise views of the right and left knee. FINDINGS: Right knee: No acute fracture or dislocation. No joint space narrowing or marginal osteophytes. No osseous erosion. No abnormal soft tissue calcification. No significant joint effusion. Left knee: Mild medial compartment joint space narrowing with tiny marginal osteophytes. No acute fracture or dislocation. No osseous erosion. No abnormal soft tissue calcification. No significant joint effusion. XR/XR knee LT 2V IMPRESSION: Right knee: Unremarkable examination. Left knee: Mild medial compartment arthrosis, new when compared to the radiographs from 2008.
--- NOTE | ~2021-11-27 | XR_ITS ---
EXAMINATION: XR BOTH KNEES AP STANDING XR RIGHT KNEE, 2 VIEWS XR LEFT KNEE, 2 VIEWS CLINICAL INFORMATION: Pain. COMPARISON: Left knee radiographs dated 04/17/2008. TECHNIQUE: Standing AP view of both knees and lateral and sunrise views of the right and left knee. FINDINGS: Right knee: No acute fracture or dislocation. No joint space narrowing or marginal osteophytes. No osseous erosion. No abnormal soft tissue calcification. No significant joint effusion. Left knee: Mild medial compartment joint space narrowing with tiny marginal osteophytes. No acute fracture or dislocation. No osseous erosion. No abnormal soft tissue calcification. No significant joint effusion. XR/XR knee standing BI IMPRESSION: Right knee: Unremarkable examination. Left knee: Mild medial compartment arthrosis, new when compared to the radiographs from 2008.
--- NOTE | ~2021-11-27 | XR_ITS ---
EXAMINATION: XR BOTH KNEES AP STANDING XR RIGHT KNEE, 2 VIEWS XR LEFT KNEE, 2 VIEWS CLINICAL INFORMATION: Pain. COMPARISON: Left knee radiographs dated 04/17/2008. TECHNIQUE: Standing AP view of both knees and lateral and sunrise views of the right and left knee. FINDINGS: Right knee: No acute fracture or dislocation. No joint space narrowing or marginal osteophytes. No osseous erosion. No abnormal soft tissue calcification. No significant joint effusion. Left knee: Mild medial compartment joint space narrowing with tiny marginal osteophytes. No acute fracture or dislocation. No osseous erosion. No abnormal soft tissue calcification. No significant joint effusion. XR/XR knee RT 2V IMPRESSION: Right knee: Unremarkable examination. Left knee: Mild medial compartment arthrosis, new when compared to the radiographs from 2008.
== END 2021-11-27 11:54 | disposition home or self-care (01) ==
LOC: HO.HOSX 11:53
PROVIDERS: Visit Provider Orthopaedic Surgery
DX: M25.561 Pain in right knee (principal); M25.562 Pain in left knee; G62.9 Polyneuropathy, unspecified; E11.9 Type 2 diabetes mellitus without complications
CPT/HCPCS: 73560; 73565; 99212

== ENCOUNTER → 2021-12-07 09:14 | Outpatient (BNVA) | payer MEDICAID, SELFPAY | PROVIDERS: PCP Nurse Practitioner Family; Visit Provider Anesthesiology | DX: M50.30 Other cervical disc degeneration, unspecified cervical region (principal); G89.4 Chronic pain syndrome; M54.12 Radiculopathy, cervical region | CPT/HCPCS: 99212 ==

== ENCOUNTER → 2022-03-04 10:06 | Outpatient (BNVA) | payer MEDICAID, SELFPAY | PROVIDERS: PCP Nurse Practitioner Family; Visit Provider Anesthesiology | DX: M50.30 Other cervical disc degeneration, unspecified cervical region (principal); M54.12 Radiculopathy, cervical region; G89.4 Chronic pain syndrome | CPT/HCPCS: 99212 ==

== ENCOUNTER 2022-04-06 05:46 | Outpatient (REF) | payer MEDICAID, SELFPAY ==
--- NOTE | ~2022-04-06 | FL_ITS ---
EXAMINATION: XR FLUOROSCOPY WITH IMAGES CLINICAL INFORMATION: M54.12 - Radiculopathy, cervical region COMPARISON: Fluoroscopic spot views 11/10/2021 TECHNIQUE: Fluoroscopy Supervised By: Dr. Agustin Galloway. Fluoroscopy Time: 1.2 minutes. Cumulative Dose: 17.6 mGy. DAP: 3.91 Gycm2. Images: 2. FINDINGS: There is spinal needle overlying the lower cervical spine. Epidural contrast is seen. No visible vascular communication. FL/FL guidance in treatment room IMPRESSION: Fluoroscopy for pain management procedure.
== END 2022-04-06 05:47 | disposition home or self-care (01) ==
LOC: CF 05:46
PROVIDERS: Visit Provider Anesthesiology
DX: M54.12 Radiculopathy, cervical region (principal); M50.30 Other cervical disc degeneration, unspecified cervical region; G89.4 Chronic pain syndrome
CPT/HCPCS: 62321; J1100

== ENCOUNTER 2022-04-28 12:07 | Outpatient (REF) | payer MEDICAID, SELFPAY ==
--- NOTE | ~2022-04-28 | XR_ITS ---
EXAMINATION: XR LUMBOSACRAL SPINE CLINICAL INFORMATION: Back pain status-post fall. COMPARISON: Radiographs dated 05/05/2020. TECHNIQUE: AP and lateral views of the lumbar spine and lateral view of the lumbosacral junction. FINDINGS: Vertebral body heights and alignment are normal. There have been prior fusions at L4-L5 and L5-S1, with intact L4-L5 posterior fixator rods and fixator screws and L5-S1 intervertebral cages. No hardware failure or loosening is seen. The remaining disc spaces are relatively well-maintained. No acute fracture or spondylolisthesis is seen. The paravertebral soft tissues are unremarkable. There are clips in the anterior left pelvis. XR/XR lumbar spine 2-3V IMPRESSION: There is well-maintained alignment status-post L4-L5 and L5-S1 fusions. No hardware failure or loosening is seen.
--- NOTE | ~2022-04-28 | MM_ITS ---
EXAMINATION: MM SCREENING DIGITAL BREAST TOMOSYNTHESIS, BILATERAL CLINICAL INFORMATION: Screening. Asymptomatic. The lifetime risk of breast cancer based on the Tyrer-Cuzick Model is 13.3%. COMPARISON: Mammography: April 27, 2021 and studies dating back to November 10, 2015 TECHNIQUE: Digital breast tomosynthesis is performed in both the craniocaudal and mediolateral oblique views along with computer-aided detection (CAD). Synthesized 2D images are generated from the tomosynthesis. FINDINGS: There are scattered areas of fibroglandular density (ACR BI-RADS breast composition Category b). There are no new significant masses, abnormal calcifications, or other abnormalities. Stable circumscribed density about the 9:00 position of the right breast again seen. MM/MM tomosynthesis screening BI IMPRESSION: No significant changes from prior exam. ASSESSMENT: BI-RADS 2: Benign RECOMMENDATION: Routine annual mammography screening. This patient's information was entered into a reminder system with a target due date for their next mammogram.
== END 2022-04-28 12:08 | disposition home or self-care (01) ==
LOC: HO.MAMMO 12:07
PROVIDERS: Absent Provider Nurse Practitioner Family; PCP Nurse Practitioner Family; Visit Provider Nurse Practitioner Family
DX: Z12.31 Encounter for screening mammogram for malignant neoplasm of breast (principal); M54.9 Dorsalgia, unspecified
CPT/HCPCS: 72100; 77063; 77067

== ENCOUNTER → 2022-05-03 09:07 | Outpatient (BNVA) | payer MEDICAID, SELFPAY | PROVIDERS: PCP Nurse Practitioner Family; Visit Provider Anesthesiology | DX: M50.30 Other cervical disc degeneration, unspecified cervical region (principal); M54.12 Radiculopathy, cervical region; G89.4 Chronic pain syndrome | CPT/HCPCS: 99212 ==

== ENCOUNTER 2022-07-27 08:09 | Outpatient (REF) | payer MEDICAID, SELFPAY ==
--- NOTE | ~2022-07-27 | MR_ITS ---
EXAMINATION: MR LUMBAR SPINE WITHOUT CONTRAST CLINICAL INFORMATION: Low back pain. Trauma. History of disc protrusion. COMPARISON: Lumbar spine MRI 12/01/2018. TECHNIQUE: MRI of the lumbar spine was obtained using routine sequences without contrast. FINDINGS: There are postoperative findings related to instrumented fusion from L4 to L5 with transpedicular screws with paired rods. There is interbody fusion at L5-S1. There is trace retrolisthesis of L3 on L4. The distal spinal cord appears normal. The conus medullaris terminates normally at the L1 level. The visualized paraspinal muscles and intra-abdominal and pelvic contents are within normal limits. SPINAL LEVELS: L1-L2: No posterior disc abnormality. No spinal canal or neural foraminal stenosis. L2-L3: No posterior disc abnormality. No spinal canal or neural foraminal stenosis. L3-L4: Disc bulging with moderate facet arthropathy. Shallow central/left subarticular protrusion resulting in abutment of the traversing left L4 nerve root. Mild spinal canal stenosis. Mild bilateral neural foraminal stenosis. No significant change. L4-L5: Posterior decompression with instrumented fusion. No spinal canal stenosis. No foraminal nerve root compression. L5-S1: Posterior decompression with instrumented fusion. No spinal canal stenosis. No foraminal nerve root compression. MR/MR lumbar spine wo con IMPRESSION: 1. Postoperative findings related to posterior decompression and instrumented fusion at L4-L5 and L5-S1. No spinal canal stenosis or foraminal nerve root compression at these levels. 2. At L3-L4 there is shallow central/left subarticular protrusion resulting in abutment of the traversing left L4 nerve root. Mild spinal canal stenosis and mild bilateral neural foraminal stenosis.
== END 2022-07-27 08:10 | disposition home or self-care (01) ==
LOC: HO.MRI 08:09
PROVIDERS: PCP Nurse Practitioner Family; Visit Provider Registered Nurse
DX: M51.26 Other intervertebral disc displacement, lumbar region (principal); M47.819 Spondylosis without myelopathy or radiculopathy, site unspecified
CPT/HCPCS: 72148

== ENCOUNTER 2022-07-27 10:42 | Outpatient (REF) | payer MEDICAID, SELFPAY ==
--- NOTE | ~2022-07-27 | XR_ITS ---
EXAMINATION: XR ABDOMEN KUB CLINICAL INDICATION: Abdominal pain COMPARISON: Previous x-ray July 2021 TECHNIQUE: AP view of the abdomen. FINDINGS: There is stool throughout the colon suggestive of constipation. No dilated loops of bowel to suggest obstruction. No free air. No calcified. Postsurgical changes to the spine. XR/XR abdomen 1V IMPRESSION: Constipation.
== END 2022-07-27 10:43 | disposition home or self-care (01) ==
LOC: HO.HHCX 10:42
PROVIDERS: Referring Provider Student in an Organized Health Care Education/Training Program; Visit Provider Student in an Organized Health Care Education/Training Program
DX: R10.33 Periumbilical pain (principal)
CPT/HCPCS: 74018

== ENCOUNTER 2022-11-04 19:11 | Outpatient (REF) | payer MEDICAID, SELFPAY ==
[2022-11-05 12:56] LABS: CT PCR NOT DETECTED (Not Detect.); NG PCR NOT DETECTED (Not Detect.)
[2022-11-09 05:09] LABS: HPV mRNA E6/E7 rflx Not Detected (Not Detected)
== END 2022-11-04 19:12 | disposition home or self-care (01) ==
LOC: HO.HHCLNP 19:11
PROVIDERS: Visit Provider Registered Nurse
DX: Z12.4 Encounter for screening for malignant neoplasm of cervix (principal); Z11.51 Encounter for screening for human papillomavirus (HPV)
CPT/HCPCS: 0353U; 87624; 88142

== ENCOUNTER 2022-11-05 08:53 | Outpatient (REF) | payer MEDICAID, SELFPAY ==
[2022-11-06 03:28] LABS: Syphilis Screen Nonreactive (Nonreactive)
[2022-11-06 04:09] LABS: HIV AB/AG Nonreactive (Nonreactive); HIV Num 1 0.07 S/CO (0.00-0.99)
[2022-11-09 13:53] LABS: HCV Log PCR <1.18 NOT DETECTED Log IU/mL (NOT DETECTED); HepC Viral Load <15 NOT DETECTED IU/mL (NOT DETECTED)
== END 2022-11-05 08:54 | disposition home or self-care (01) ==
LOC: HO.HHCL 08:53
PROVIDERS: Visit Provider Registered Nurse
DX: Z11.4 Encounter for screening for human immunodeficiency virus [HIV] (principal); Z70.8 Other sex counseling
CPT/HCPCS: 36415; 86780; 87389; 87522

== ENCOUNTER 2022-11-08 09:25 | Outpatient (AMB) | payer MEDICAID, SELFPAY ==
--- NOTE | 2022-11-08 09:51 | A.OFFVIS_ITS ---
Intake Vital Signs 11/08/22 09:52 Height 4 ft 11 in Weight 259 lb 2 oz BMI 52.3 BP 106/68 Blood Pressure Location Lt brachial Position Sitting Respiration 16 Pulse 88 Pulse Source Pulse Oximeter Pulse Oximetry (%) 96 Oxygen Delivery Method Room Air Intake Visit Reasons: Follow Up/Neck pain Allergies aspirin [ASA] Allergy (Unknown, Verified 11/08/22 09:53) RASH cortisone [CORTISONE] Allergy (Unknown, Verified 11/08/22 09:53) BAD REACTION naproxen [From Naprosyn] Allergy (Unknown, Verified 11/08/22 09:53) RASH, ITCHING, rash Ibuprofen Allergy (Unknown, Uncoded 05/03/22 09:19) rash HPI HPI Comments History of Present Illness Details Elin is very pleasant 56 years old female who was seen in this office for cervicalgia disc degeneration of cervical spine with radiculopathy.? She abhi t for right-sided interlaminar epidural steroid injection C5-C6 on 11/10/2021.? She reports 50% pain improvement after the injection.? She reports better mobility, better social interactions better activity of daily living.? Her pain came back in February and we scheduled her for C6-C7 epidural steroid injection on 04/06/2022.? She reported 1 month of complete pain relief.? She reported 8 months of pain relief, she reported better mobility better activities of daily living better social interactions. She requests me to perform the same procedure again.? She appears to be allergic to ChloraPrep and this time we will make her prep with Betadine. [facility] Medical History Anxiety and depression Asthma Bursitis of right shoulder Chronic back pain Dyspepsia Elevated cholesterol GERD (gastroesophageal reflux disease) HLD (hyperlipidemia) Hypertension Hypothyroidism Migraine headache Right rotator cuff tear Rotator cuff dysfunction Type 2 diabetes mellitus Vitamin D deficiency Surgical History History of appendectomy History of esophagogastroduodenoscopy (EGD) History of surgery on arm Hx of section Hx of colonoscopy Previous back surgery Family History Father Diabetes Mother Diabetes Social History Alcohol intake: never Patient Tobacco Use Status: Never used Tobacco Current occupational status: disabled Current occupation: Right Handed Review of Systems Const All systems reviewed & are unremarkable except as noted in HPI and below Physical Exam Vital Signs: Last Vital Signs Pulse 88 11/08/22 09:52 Resp 16 11/08/22 09:52 BP 106/68 11/08/22 09:52 Pulse Ox 96 11/08/22 09:52 Oxygen Delivery Method Room Air 11/08/22 09:52 BMI result Body Mass Index 52.3 Const General: healthy appearing and acute distress mild Orientation/consciousness: patient oriented x3 Limitations: no limitations Chest Chest palpation & inspection: normal inspection of the chest Resp Effort & Inspection: normal respiratory effort, able to speak in complete sentences, normal respiratory pattern, no audible wheezes and no cough GI Inspection: Yes normal to inspection Back/Spine/Pelvis Other: Limited range of motion of the cervical spine, palpation of the paraspinal spinal region on the posterior surface of the neck reveals severe tenderness. Neuro General: patient oriented x3 Assessment & Plan Assessment & Plan (1) Degeneration, intervertebral disc, cervical: Code(s): M50.30 - Other cervical disc degeneration, unspecified cervical region (2) Cervical radiculopathy: Code(s): M54.12 - Radiculopathy, cervical region Plan: interlaminar cervical C5-C6 OFE. (3) Chronic pain syndrome: Code(s): G89.4 - Chronic pain syndrome Plan Twice injection of the C6-C7 epidural steroid injection interlaminar was performed once in October of 2021 and once in March. She reports almost 100% pain relief after 2nd injection. The pain relief lasted 8 months. I will will schedule the procedure again. She needs Betadine for the prep instead of ChloraPrep. It will be done without sedation. Coding Level of Care Code Est Pt Level 3 (76649) Diagnoses Degeneration, intervertebral disc, cervical M50.30 Cervical radiculopathy M54.12 Chronic pain syndrome G89.4
[2022-11-08 09:52] VITALS: BP 106/68; PULSE 88; RESP 16; O2SAT 96; BMI 52.3
== END 2022-11-08 09:52 | disposition home or self-care (01) ==
PROVIDERS: PCP Nurse Practitioner Family; Visit Provider Anesthesiology
DX: M50.30 Other cervical disc degeneration, unspecified cervical region (principal); M54.12 Radiculopathy, cervical region; G89.4 Chronic pain syndrome
CPT/HCPCS: 99213

== ENCOUNTER → 2022-11-08 09:25 | Outpatient (BNVA) | payer MEDICAID, SELFPAY | PROVIDERS: PCP Nurse Practitioner Family; Visit Provider Anesthesiology | DX: M50.30 Other cervical disc degeneration, unspecified cervical region (principal); M54.12 Radiculopathy, cervical region; G89.4 Chronic pain syndrome | CPT/HCPCS: 99212 ==

== ENCOUNTER 2022-11-30 06:00 | Outpatient (REF) | payer MEDICAID, SELFPAY ==
--- NOTE | ~2022-11-30 | FL_ITS ---
EXAMINATION: XR FLUOROSCOPY WITH IMAGES CLINICAL INFORMATION: Radiculopathy, cervical region COMPARISON: None available. TECHNIQUE: Fluoroscopy Supervised By: Dr. Agustin Galloway. Fluoroscopy Time: 0.4 minutes. Cumulative Dose: 13.4 mGy. DAP: 0.0850 Gycm2. Images: 2. FINDINGS: There is a needle placed at the lower cervical spine just off of midline. FL/FL guidance in treatment room IMPRESSION: Fluoroscopic guidance for pain management procedure.
== END 2022-11-30 06:01 | disposition home or self-care (01) ==
LOC: CF 06:00
PROVIDERS: Visit Provider Anesthesiology
DX: M54.12 Radiculopathy, cervical region (principal); M50.30 Other cervical disc degeneration, unspecified cervical region; G89.4 Chronic pain syndrome
CPT/HCPCS: 62321; J1100; Q9967

== ENCOUNTER 2022-11-30 07:22 | Outpatient (AMB) | payer MEDICAID, SELFPAY ==
[2022-11-30 07:29] VITALS: BP 138/78; PULSE 94; RESP 16; O2SAT 95; BMI 52.3
--- NOTE | 2022-11-30 07:29 | A.OFFVIS_ITS ---
Intake Vital Signs 11/30/22 07:29 11/30/22 08:40 Height 4 ft 11 in 4 ft 11 in Weight 259 lb 259 lb BMI 52.3 52.3 BP 138/78 126/82 Blood Pressure Location Lt brachial Rt brachial Position Sitting Sitting Respiration 16 16 Pulse 94 90 Pulse Source Pulse Oximeter Pulse Oximeter Pulse Oximetry (%) 95 96 Oxygen Delivery Method Room Air Room Air Comment Pre-Op post-op Intake Visit Reasons: CERVICAL C5, C6 OFE (CHLORAPREP ALLERGY) Allergies aspirin [ASA] Allergy (Unknown, Verified 11/30/22 08:41) RASH cortisone [CORTISONE] Allergy (Unknown, Verified 11/30/22 08:41) BAD REACTION naproxen [From Naprosyn] Allergy (Unknown, Verified 11/30/22 08:41) RASH, ITCHING, rash Ibuprofen Allergy (Unknown, Uncoded 05/03/22 09:19) rash PFSH Medical History Anxiety and depression Asthma Bursitis of right shoulder Chronic back pain Dyspepsia Elevated cholesterol GERD (gastroesophageal reflux disease) HLD (hyperlipidemia) Hypertension Hypothyroidism Migraine headache Right rotator cuff tear Rotator cuff dysfunction Type 2 diabetes mellitus Vitamin D deficiency Surgical History History of appendectomy History of esophagogastroduodenoscopy (EGD) History of surgery on arm Hx of section Hx of colonoscopy Previous back surgery Family History Father Diabetes Mother Diabetes Social History Alcohol intake: never Patient Tobacco Use Status: Never used Tobacco Current occupational status: disabled Current occupation: Right Handed Physical Exam Vital Signs: Last Vital Signs Pulse 90 11/30/22 08:40 Resp 16 11/30/22 08:40 BP 126/82 11/30/22 08:40 Pulse Ox 96 11/30/22 08:40 Oxygen Delivery Method Room Air 11/30/22 08:40 BMI result Body Mass Index 52.3 Assessment & Plan Assessment & Plan (1) Degeneration, intervertebral disc, cervical: Code(s): M50.30 - Other cervical disc degeneration, unspecified cervical region (2) Cervical radiculopathy: Code(s): M54.12 - Radiculopathy, cervical region Plan: interlaminar cervical C5-C6 OFE. Informed consent was explained to the patient. All questions were explained and answered. The patient was taken inside of the operating room where she was positioned prone on the operating table. Time-out was performed delineating patient's name and date of , correct site, side, the nature of the proce dure, patient's allergy, preoperative antibiotic if needed. All operating room staff and the patient were participating in OR time-out procedure. ? the patient's posterior neck was prepped with ChloraPrep and draped with sterile utility draped. Sterilely draped C-arm was brought over the operating field and sq picture of cervical vertebrae were delineated on the screen. the target of needle insertion was chosen between C5 and C6 vertebrae. ? The projection of the right lamina of the C6 vertebra was chosen as the starting point of the injection. 10 cm 20 g Tuohy needle was inserted through the skin after skin wheal was raised with lidocaine 2%. The needle was directed to the interlaminar space. The advancement of the needle was performed on intermittent anterior posterior and contralateral oblique view. Loss of resistance to saline was used to detect epidural interspace. On anterior posterior view needle was kept strictly in the midline. When the MARS was felt the injection of the contra st was performed delineating epidurogram. After that injection of PF normal saline 4 mls mixed with decadrone 12 mg and with trace amount of lidocaine PF was injected into the needle. Upon completion of the injection the needle was removed sterile band- aid was applied. The patient was transferred to the recovery room without immediate complications. (3) Chronic pain syndrome: Code(s): G89.4 - Chronic pain syndrome Plan This patient the could be suffering from combination of the factors which cause her pain. It is hard to make a decision which mechanism is prevalent but it looks like that the radiculopathy C5-C6 is what the most of the problem of this patient is. I offered this patient to go for C5-C6 more to the right interlaminar epidural steroid injection. Will perform it out sedation If this approach will not work I probably would have to perform C4-C5 C6 C7 medial branch block on the right to see if spondylosis and facet joint arthropathy on the neck is actual pain generator for this patient. If neither of them will help the patient's pain was like to discuss spinal cord stimulator [email or web address] where with 1 battery I can help her with the pain in the back as well as with the pain in the neck. Orders: Orders FL guidance in treatment room 11/30/22 M54.12 - Radiculopathy, cervical region Coding Level of Care Code Procedure Only Diagnoses Degeneration, intervertebral disc, cervical M50.30 Cervical radiculopathy M54.12 Chronic pain syndrome G89.4
[2022-11-30 08:40] VITALS: BP 126/82; PULSE 90; RESP 16; O2SAT 96; BMI 52.3
== END 2022-11-30 08:33 | disposition home or self-care (01) ==
PROVIDERS: PCP Nurse Practitioner Family; Visit Provider Anesthesiology
DX: G89.4 Chronic pain syndrome (principal); M54.12 Radiculopathy, cervical region; M50.322 Other cervical disc degeneration at C5-C6 level
CPT/HCPCS: 62321

== ENCOUNTER 2022-12-23 08:29 | Outpatient (REF) | payer MEDICAID, SELFPAY ==
--- NOTE | ~2022-12-23 | XR_ITS ---
EXAMINATION: XR SHOULDER, LEFT CLINICAL INFORMATION: Pain. COMPARISON: None available. TECHNIQUE: AP external rotation, Grashey, scapular Y, and axillary views of the left shoulder. FINDINGS: Bony alignment and mineralization are normal. The glenohumeral joint is intact. The acromioclavicular and coracoclavicular intervals are normal. There is mild osteoarthritic change of the acromioclavicular joint. There is calcific tendinitis of the left rotator cuff insertion. No foreign body is seen. There is no left pneumothorax. XR/XR shoulder LT min 2V IMPRESSION: 1. No fracture or dislocation is seen. 2. There is mild osteoarthritic change of the left acromioclavicular joint. 3. There is calcific tendinitis of the left rotator cuff insertion.
== END 2022-12-23 08:30 | disposition home or self-care (01) ==
LOC: HO.HOSX 08:29
PROVIDERS: Visit Provider Orthopaedic Surgery
DX: M24.812 Other specific joint derangements of left shoulder, not elsewhere classified (principal); E11.8 Type 2 diabetes mellitus with unspecified complications
CPT/HCPCS: 20610; 73030; 99212; J1100

== ENCOUNTER 2022-12-23 09:09 | Outpatient (AMB) | payer MEDICAID, SELFPAY ==
--- NOTE | 2022-12-23 08:29 | A.OFFVIS_ITS ---
Intake Vital Signs 12/23/22 09:20 Height 4 ft 11 in Weight 259 lb BMI 52.3 Intake Visit Reasons: ov-left shoulder pain Intake Note: Elin is a 57 year old right hand dominant female who presents today for a follow up of her left shoulder. At her last appointment she was referred to Pain Mgmt, on 11/30/22 she had an Epidural injection (C5/C6). Allergies aspirin [ASA] Allergy (Unknown, Verified 11/30/22 08:41) RASH cortisone [CORTISONE] Allergy (Unknown, Verified 11/30/22 08:41) BAD REACTION naproxen [From Naprosyn] Allergy (Unknown, Verified 11/30/22 08:41) RASH, ITCHING, rash Ibuprofen Allergy (Unknown, Uncoded 05/03/22 09:19) rash HPI ov-left shoulder pain HPI Details Elin is a 57 year old Diabetic woman who presents with complaints of left shoulder pain. She complains of pain with daily activity, worse with overhead activity and at night. She says her pain has been present for ~2-3 years and is causing her difficulties sleeping. She has been performing at-home exercises for her left shoulder, and denies any other treatment. She has lost weight and her Diabetes is well-controlled with a low HgA1c. She has a hx of right RTC repair, DOS: 06/04/20, and follows with Pain Management for cervical radiculopathy and chronic pain syndrome. She had a C5-C6 injection done by Dr. Galloway on 11/30/22, with good relief. [facility] Medical History Migraine headache GERD (gastroesophageal reflux disease) Chronic back pain Anxiety and depression Elevated cholesterol Right rotator cuff tear Vitamin D deficiency Rotator cuff dysfunction Bursitis of right shoulder HLD (hyperlipidemia) Type 2 diabetes mellitus Hypothyroidism Hypertension Asthma Dyspepsia Surgical History History of surgery on arm Hx of section Hx of colonoscopy History of esophagogastroduodenoscopy (EGD) History of appendectomy Previous back surgery Family History Father Diabetes Mother Diabetes Social History Alcohol intake: never Patient Tobacco Use Status: Never used Tobacco Current occupational status: disabled Current occupation: Right Handed Review of Systems Const All systems reviewed & are unremarkable except as noted in HPI and below Physical Exam Vital Signs: BMI result Body Mass Index 52.3 Const General: no acute distress, alert and awake Orientation/consciousness: patient oriented x3 HEENT Head: Yes normocephalic and Yes atraumatic Eyes EOM: EOMs intact bilaterally Resp Effort & Inspection: normal respiratory effort and able to speak in complete sentences Cardio Jugular venous distension: no JVD Skin General skin exam: turgor normal Rashes: no rashes Neuro General: patient oriented x3 Extrem Other: Left Shoulder: 4/5 empty can weakness + O'Briens + H&N ER 45 degrees IR to L1 Psych Appearance: grossly normal Affect: normal affect Attitude: cooperative Office Procedures Joint Injection/Drain Joint Injection/Drain Details: Injected 1 mL of Decadron and 3 mL 1% lidocaine and 3 mL of 0.25% Marcaine. Site was prepped using aseptic technique. Patient tolerated the procedure well. Primary Site: left shoulder Approach Used: posterolateral Coding 79290 - Large joint Procedure code (CPT) selection complete Results Reviewed Results Reviewed: 12/23/22 09:28 BUPivacaine MPF 0.25 % [Sensorcaine-MPF 0.25% 10 ML] 10 ml .ROUTE .STK-MED ONE Lidocaine HCl 2 % MPF [Xylocaine 2 % MPF] 5 ml .ROUTE .STK-MED ONE dexAMETHasone sod phosphate [Decadron] 4 mg .ROUTE .STK-MED ONE I personally reviewed relevant radiographs. calcific tendonitis? otherwise unremarkable radiographs Assessment & Plan Assessment & Plan (1) Internal derangement of left shoulder: Code(s): M24.812 - Other specific joint derangements of left shoulder, not elsewhere classified Plan: This is a 57 year old woman with left shoulder internal derangement. She has pain with daily activity, worse with overhead activity and at night. She is limited in her overhead motion and her ability to sleep comfortably and feels frustrated by this. This has not responded to PT and activity modificatiopn. Was not imp[roved with injections in the cervical spine. I recommend an MRI to assess. I injected her left shoulder today, which she tolerated well, and ordered an MRI. She will follow up when completed for review. (2) Type 2 diabetes mellitus with unspecified complications: Code(s): E11.8 - Type 2 diabetes mellitus with unspecified complications Plan: Well controlled. I discussed the hyperglycemic effects of steroid injections. Plan Scribed for Cosme Arreguin MD by Ramon Sunshine, director medical safety, on 12/23/22 at 9:40 AM, EST. Orders: Orders XR shoulder LT min 2V Today M25.519 - Pain in unspecified shoulder MR shoulder LT wo con Today M24.812 - Other specific joint derangements of left shoulder, not elsewhere classified Coding Level of Care Code Est Pt Level 4 (57499) Diagnoses Internal derangement of left shoulder M24.812 Type 2 diabetes mellitus with unspecified complications E11.8 CPT Codes Coding - 93441 Large joint: 50345 - Large joint ([id number])
[2022-12-23 09:20] VITALS: BMI 52.3
== END 2022-12-23 09:39 | disposition home or self-care (01) ==
PROVIDERS: PCP Nurse Practitioner Family; Visit Provider Orthopaedic Surgery
DX: M24.812 Other specific joint derangements of left shoulder, not elsewhere classified (principal); E11.8 Type 2 diabetes mellitus with unspecified complications
CPT/HCPCS: 20610; 99214

== ENCOUNTER 2022-12-27 08:21 | Outpatient (AMB) | payer MEDICAID, SELFPAY ==
--- NOTE | 2022-12-27 08:23 | A.OFFVIS_ITS ---
Intake Vital Signs 12/27/22 08:27 Height 4 ft 11 in Weight 145 lb 8 oz BMI 29.4 BP 96/68 Blood Pressure Location Lt brachial Position Sitting Respiration 16 Pulse 96 Pulse Source Pulse Oximeter Pulse Oximetry (%) 94 Oxygen Delivery Method Room Air Intake Visit Reasons: CERVICAL C5, C6 OFE/11/30/22/Confirmed Intake Note: patient comes in for post-op appointment. Allergies aspirin [ASA] Allergy (Unknown, Verified 12/27/22 08:26) RASH cortisone [CORTISONE] Allergy (Unknown, Verified 12/27/22 08:26) BAD REACTION naproxen [From Naprosyn] Allergy (Unknown, Verified 12/27/22 08:26) RASH, ITCHING, rash Ibuprofen Allergy (Unknown, Uncoded 05/03/22 09:19) rash HPI HPI Comments History of Present Illness Details Elin is back in my office after the injection C5-C6 interlaminar epidural more to the right on 11/30/2022. She again reports excellent improvement in mobility and activities of daily living. She reports pain reduction up to 70%. She is very happy with results of the injection. I explained to her that we can continue those injections as long as she is satisfied with the results. But not more often than once in 3 months. Prior: very pleasant 56 years old female who was seen in this office for cervicalgia disc degeneration of cervical spine with radiculopathy.? She went for right-sided interlaminar epidural steroid injection C5-C6 on 11/10/2021.? She reports 50% pain improvement after the injection.? She reports better mobility, better social interactions better activity of daily living.? Her pain came back in February and we scheduled her for C6-C7 epidural steroid injection on 04/06/2022.? She reported 1 month of complete pain relief.? She reported 8 months of pain relief, she reported better mobility better activities of daily living better social interactions. She requests me to perform the same procedure again.? She appears to be allergic to ChloraPrep and this time we will make her prep with Betadine. [facility] Medical History Migraine headache GERD (gastroesophageal reflux disease) Chronic back pain Anxiety and depression Elevated cholesterol Right rotator cuff tear Vitamin D deficiency Rotator cuff dysfunction Bursitis of right shoulder HLD (hyperlipidemia) Type 2 diabetes mellitus Hypothyroidism Hypertension Asthma Dyspepsia Surgical History History of surgery on arm Hx of section Hx of colonoscopy History of esophagogastroduodenoscopy (EGD) History of appendectomy Previous back surgery Family History Father Diabetes Mother Diabetes Social History Alcohol intake: never Patient Tobacco Use Status: Never used Tobacco Current occupational status: disabled Current occupation: Right Handed Review of Systems Const All systems reviewed & are unremarkable except as noted in HPI and below Physical Exam Vital Signs: Last Vital Signs Pulse 96 12/27/22 08:27 Resp 16 12/27/22 08:27 BP 96/68 12/27/22 08:27 Pulse Ox 94 12/27/22 08:27 Oxygen Delivery Method Room Air 12/27/22 08:27 BMI result Body Mass Index 29.4 Const General: healthy appearing and acute distress mild Orientation/consciousness: patient oriented x3 Limitations: no limitations Chest Chest palpation & inspection: normal inspection of the chest Resp Effort & Inspection: normal respiratory effort, able to speak in complete sentences, normal respiratory pattern, no audible wheezes and no cough GI Inspection: Yes normal to inspection Back/Spine/Pelvis Other: Limited range of motion of the cervical spine, palpation of the paraspinal spinal region on the posterior surface of the neck reveals severe tenderness. Neuro General: patient oriented x3 Assessment & Plan Assessment & Plan (1) Degeneration, intervertebral disc, cervical: Code(s): M50.30 - Other cervical disc degeneration, unspecified cervical region (2) Cervical radiculopathy: Code(s): M54.12 - Radiculopathy, cervical region Plan: interlaminar cervical C5-C6 OFE. (3) Chronic pain syndrome: Code(s): G89.4 - Chronic pain syndrome Plan 3 times injection of the C6-C7 epidural steroid injection interlaminar was p erformed once in October of 2021 , once in March, once on 11/30/2022. She reports almost 70 % pain relief after 3rd injection. It has been 1 month. She reports moderate pain 3-4 out of 10 to before the procedure pain was 10/10. Knee injection as needed but not sooner than 03/01/2023. It lasted 8 months last time. She needs Betadine for the prep instead of ChloraPrep. It will be done without sedation. Coding Level of Care Code Est Pt Level 3 (51564) Diagnoses Degeneration, intervertebral disc, cervical M50.30 Cervical radiculopathy M54.12 Chronic pain syndrome G89.4
[2022-12-27 08:27] VITALS: BP 96/68; PULSE 96; RESP 16; O2SAT 94; BMI 29.4
== END 2022-12-27 08:37 | disposition home or self-care (01) ==
PROVIDERS: PCP Nurse Practitioner Family; Visit Provider Anesthesiology
DX: M50.30 Other cervical disc degeneration, unspecified cervical region (principal); M54.12 Radiculopathy, cervical region; G89.4 Chronic pain syndrome
CPT/HCPCS: 99213

== ENCOUNTER → 2022-12-27 08:21 | Outpatient (BNVA) | payer MEDICAID, SELFPAY | PROVIDERS: PCP Nurse Practitioner Family; Visit Provider Anesthesiology | DX: M50.122 Cervical disc disorder at C5-C6 level with radiculopathy (principal); G89.4 Chronic pain syndrome | CPT/HCPCS: 99212 ==

== ENCOUNTER 2023-01-18 10:39 | Outpatient (REF) | payer MEDICAID, SELFPAY ==
--- NOTE | ~2023-01-18 | XR_ITS ---
EXAMINATION: XR FOOT, RIGHT CLINICAL INFORMATION: Injury COMPARISON: None available. TECHNIQUE: AP, lateral, and oblique views of the right foot. FINDINGS: No acute visible fracture or dislocation. Plantar calcaneal heel spur. Joint spaces and alignment are maintained. No large radiopaque foreign body visualized. Soft tissues are otherwise unremarkable. XR/XR foot RT min 3V IMPRESSION: 1. No acute visible fracture or dislocation. 2. Plantar calcaneal heel spur. 3. No large radiopaque foreign body visualized.
== END 2023-01-18 10:40 | disposition home or self-care (01) ==
LOC: HO.HHCX 10:39
PROVIDERS: Visit Provider Student in an Organized Health Care Education/Training Program
DX: M79.671 Pain in right foot (principal)
CPT/HCPCS: 73630

== ENCOUNTER 2023-02-02 07:17 | Outpatient (REF) | payer MEDICAID, SELFPAY ==
--- NOTE | ~2023-02-02 | MR_ITS ---
EXAMINATION: MRI SHOULDER WITHOUT CONTRAST, LEFT CLINICAL INFORMATION: Other specific joint derangements of left shoulder. Patient reports left shoulder pain. M24.812 COMPARISON: None available. TECHNIQUE: MRI left shoulder was performed without contrast high-field MRI scanner. FINDINGS: ROTATOR CUFF: Supraspinatus: There is mild heterogeneous intermediate increased signal throughout the tendon compatible with tendinosis and possible small intrasubstance partial tearing but no measurable defect or tendon retraction. Muscle normal. Remaining rotator cuff muscles and tendons normal. BICEPS: Normal. CORACOACROMIAL ARCH: Minimal arthrosis of the acromioclavicular joint. The undersurface of the acromion is flat. No subacromial spur. BURSA: Trace fluid compatible with normal variation or minimal bursitis. LABRUM GLENOHUMERAL JOINT: Normal. MR/MR shoulder LT wo con IMPRESSION: Minimal arthrosis of the acromioclavicular joint. Trace fluid in subacromial-subdeltoid bursa compatible with normal variation or minimal bursitis. Mild abnormality of the supraspinatus compatible with tendinosis and perhaps small areas of intrasubstance partial tearing but no measurable defect or tendon retraction.
== END 2023-02-02 07:18 | disposition home or self-care (01) ==
LOC: HO.MRI 07:17
PROVIDERS: PCP Nurse Practitioner Family; Visit Provider Orthopaedic Surgery
DX: M24.812 Other specific joint derangements of left shoulder, not elsewhere classified (principal)
CPT/HCPCS: 73221

== ENCOUNTER 2023-02-28 11:17 | Outpatient (AMB) | payer MEDICAID, SELFPAY ==
--- NOTE | 2023-02-28 11:20 | MHC.OFFVIS ---
Intake Vital Signs 02/28/23 11:20 Height 4 ft 11 in Intake Visit Reasons: OV- LT Shoulder MRI review Intake Note: Elin is a 57 year old right hand dominant female who presents today for an MRI follow up of her left shoulder. Allergies aspirin [ASA] Allergy (Unknown, Verified 02/28/23 11:20) RASH cortisone [CORTISONE] Allergy (Unknown, Verified 02/28/23 11:20) BAD REACTION naproxen [From Naprosyn] Allergy (Unknown, Verified 02/28/23 11:20) RASH, ITCHING, rash Ibuprofen Allergy (Unknown, Uncoded 02/28/23 11:20) rash HPI OV- LT Shoulder MRI review HPI Details Elin is a 57 year old Diabetic woman who returns for an MRI review of her left shoulder. She continues to complain of pain with daily activity. She found some relief from a shoulder steroid injection on 12/23/22 . She has been performing at-home exercises for her shoulder. She has lost weight and her Diabetes is well-controlled with a low HgA1c. She has a hx of right RTC repair, DOS: 06/04/20, and follows with Pain Management for cervical radiculopathy and chronic pain syndrome. She had a C5-C6 injection done by Dr. Galloway on 11/30/22, with good relief. [facility] Medical History Migraine headache GERD (gastroesophageal reflux disease) Chronic back pain Anxiety and depression Elevated cholesterol Right rotator cuff tear Vitamin D deficiency Rotator cuff dysfunction Bursitis of right shoulder HLD (hyperlipidemia) Type 2 diabetes mellitus Hypothyroidism Hypertension Asthma Dyspepsia Surgical History History of surgery on arm Hx of section Hx of colonoscopy History of esophagogastroduodenoscopy (EGD) History of appendectomy Previous back surgery Family History Father Diabetes Mother Diabetes Social History Alcohol intake: never Patient Tobacco Use Status: Never used Tobacco Current occupational status: disabled Current occupation: Right Handed Review of Systems Const All systems reviewed & are unremarkable except as noted in HPI and below Physical Exam Const General: no acute distress, alert and awake Orientation/consciousness: patient oriented x3 HEENT Head: Yes normocephalic and Yes atraumatic Eyes EOM: EOMs intact bilaterally Resp Effort & Inspection: normal respiratory effort and able to speak in complete sentences Cardio Jugular venous distension: no JVD Skin General skin exam: turgor normal Rashes: no rashes Neuro General: patient oriented x3 Extrem Other: Pain in mid arc of abduction + Bone/Neer neg EC Psych Appearance: grossly normal Affect: normal affect Attitude: cooperative Results Reviewed Results Reviewed: I personally reviewed the MR images. Minimal arthrosis of the acromioclavicular joint. Trace fluid in subacromial-subdeltoid bursa compatible with normal variation or minimal bursitis. Mild abnormality of the supraspinatus compatible with tendinosis and perhaps small areas of intrasubstance partial tearing but no measurable defect or tendon retraction. Assessment & Plan Assessment & Plan (1) Subacromial impingement of left shoulder: Code(s): M75.42 - Impingement syndrome of left shoulder Plan: 57-year-old male with subacromial impingement that has not responded to injections and physical therapy. She had a successful surgery in the contralateral side is unable to sleep at night and has constant pain in her left shoulder. This been ongoing for years. I recommend subacromial decompression on and shoulder arthroscopy. I discussed with her the risks benefits alternatives including, but not limited to to, infection, stiffness, need for further surgery, incomplete symptom resolution is well as medical complications. She expressed understanding and we will proceed forward accordingly. Coding Level of Care Code Est Pt Level 4 (52953) Diagnoses Subacromial impingement of left shoulder M75.42
== END 2023-02-28 12:05 | disposition home or self-care (01) ==
PROVIDERS: PCP Nurse Practitioner Family; Visit Provider Orthopaedic Surgery
DX: M75.42 Impingement syndrome of left shoulder (principal)
CPT/HCPCS: 99214

== ENCOUNTER → 2023-02-28 11:17 | Outpatient (BNVA) | payer MEDICAID, SELFPAY | PROVIDERS: PCP Nurse Practitioner Family; Visit Provider Orthopaedic Surgery | DX: M75.42 Impingement syndrome of left shoulder (principal) | CPT/HCPCS: 99212 ==

== ENCOUNTER 2023-03-10 11:03 | Outpatient (AMB) | payer MEDICAID, SELFPAY ==
--- NOTE | 2023-03-10 11:44 | A.OFFVIS_ITS ---
Intake Intake Visit Reasons: Pre Op Lt Shld 03/16 NE Intake Note: Elin is a 57 year old female who presents today for a pre op appointment left shoulder 03/16/23 NE. Allergies aspirin [ASA] Allergy (Unknown, Verified 03/10/23 11:45) RASH cortisone [CORTISONE] Allergy (Unknown, Verified 03/10/23 11:45) BAD REACTION naproxen [From Naprosyn] Allergy (Unknown, Verified 03/10/23 11:45) RASH, ITCHING, rash Ibuprofen Allergy (Unknown, Uncoded 02/28/23 11:20) rash HPI Pre Op Lt Shld 03/16 NE HPI Details 57-year-old right hand dominant female, who is Tajik speaking, presents in the office today for her preoperative history and physical exam prior to a left shoulder arthroscopy to be performed on 03/16/[address] Arreguin. She reports an upcoming appointment for cortisone injection in her neck. Patient presents in the office today with a family member. Patient has an allergy history, as follows: -Aspirin; rash -Cortisone; ?bad reaction? -Naproxen; rash and itching -Ibuprofen; rash Patient is currently taking, as follows: -Acarbose 50 mg PO TID -Acetaminophen 500 mg PO TID PRN -Albuterol sulfate 2.5 mg inhalation QID PRN -Ascorbic acid (vitamin C) 500 mg PO -Atorvastatin 80 mg PO Daily -Bupropion HCI 300 mg PO QAM -Chlorthalidone 50 mg PO Daily -Cyclobenzaprine 5 mg PO TID PRN -Escitalopram oxalate 5 mg PO Bedtime -Ezetimibe 10 mg PO Daily -Fluticasone propion-salmeterol 500-50 m cg PO BID -Fluticasone propion-salmeterol 50 mcg i ntranasal QAM -Glucagon 3 mg intranasal once -Levothyroxine 100 mcg PO Daily -Loratadine 10 mg PO QAM PRN -Losartan 50 mg PO daily -Nifedipine ER 60 mg PO daily -Omeprazole 20 mg PO BID -Oxycodone ER 10 mg PO Q12H -Ranitidine HCI 10 mg PO PRN -Risperidone 1 mg PO Daily -Sumatriptan succinate PO PRN -Trazodone 25 mg PO daily -Zolpidem 5 mg PO Bedtime PRN Patient has a medical history, as follows: -Migraine headache -GERD (gastroesophageal reflux disease) -Chronic back pain -Anxiety and depression -Elevated cholesterol -Vitamin D deficiency -Bursitis of right shoulder -HLD (hyperlipidemia) -Type 2 diabetes mellitus -Hypothyroidism -Hypertension -Asthma -Dyspepsia Patient has a surgical history (with no complications), as follows: -History of surgery on arm; 05/2020 Right arm -History of section; 1991 and T ubal Ligation -History of colonoscopy; 2015- Dr Urrutia -History of esophagogastroduodenoscopy ( EGD); - Dr Urrutia -History of appendectomy -History of back surgery; L5, S1 (Hardwa re in Lower Back) [facility] Medical History Migraine headache GERD (gastroesophageal reflux disease) Chronic back pain Anxiety and depression Elevated cholesterol Right rotator cuff tear Vitamin D deficiency Rotator cuff dysfunction Bursitis of right shoulder HLD (hyperlipidemia) Type 2 diabetes mellitus Hypothyroidism Hypertension Asthma Dyspepsia Surgical History History of surgery on arm Hx of section Hx of colonoscopy History of esophagogastroduodenoscopy (EGD) History of appendectomy Previous back surgery Family History Father Diabetes Mother Diabetes Social History Alcohol intake: never Patient Tobacco Use Status: Never used Tobacco Current occupational status: disabled Current occupation: Right Handed Review of Systems Const All systems reviewed & are unremarkable except as noted in HPI and below Physical Exam Const General: cooperative, healthy appearing, comfortable, no acute distress, well developed, alert and awake Orientation/consciousness: patient oriented x3 HEENT Head: Yes normal to inspection, Yes normocephalic and Yes atraumatic Eyes General: appearance normal, both eyes and all related structures EOM: EOMs intact bilaterally Neck Neck: Yes normal visual inspection and Yes no lymphadenopathy Resp Effort & Inspection: normal respiratory effort and able to speak in complete sentences Cardio Jugular venous distension: no JVD Rate: regular rate Peripheral pulses: Peripheral pulses 2+ throughout GI Inspection: Yes normal to inspection Palpation (GI): Soft to palpation Skin General skin exam: no rashes or lesions noted Rashes: no rashes Neuro General: patient oriented x3 Extrem Other: Left shoulder: Skin is clean, dry, and intact. Pain in mid arc of abduction + Bone/Neer neg EC Psych Appearance: grossly normal Mental Status: mental status grossly normal Affect: normal affect Attitude: cooperative Assessment & Plan Assessment & Plan (1) Subacromial impingement of left shoulder: Code(s): M75.42 - Impingement syndrome of left shoulder Plan Ms. David Argueta is a 57-year-old right hand dominant female, who is Tajik speaking, presents in the office today for her preoperative history and physical exam prior to a left shoulder arthroscopy to be performed on 03/16/[address] Arreguin. She reports an upcoming appointment for cortisone injection in her neck. Patient presents in the office today with a family member. Patient has an allergy history, as follows: -Aspirin; rash -Cortisone; ?bad reaction? -Naproxen; rash and itching -Ibuprofen; rash Patient is currently taking, as follows: -Acarbose 50 mg PO TID -Acetaminophen 500 mg PO TID PRN -Albuterol sulfate 2.5 mg inhalation QID PRN -Ascorbic acid (vitamin C) 500 mg PO -Atorvastatin 80 mg PO Daily -Bupropion HCI 300 mg PO QAM -Chlorthalidone 50 mg PO Daily -Cyclobenzaprine 5 mg PO TID PRN -Escitalopram oxalate 5 mg PO Bedtime -Ezetimibe 10 mg PO Daily -Fluticasone propion-salmeterol 500-50 mcg PO BID -Fluticasone propion-salmeterol 50 mcg intranasal QAM -Glucagon 3 mg intranasal once -Levothyroxine 100 mcg PO Daily -Loratadine 10 mg PO QAM PRN -Losartan 50 mg PO daily -Nifedipine ER 60 mg PO daily -Omeprazole 20 mg PO BID -Oxycodone ER 10 mg PO Q12H -Ranitidine HCI 10 mg PO PRN -Risperidone 1 mg PO Daily -Sumatriptan succinate PO PRN -Trazodone 25 mg PO daily -Zolpidem 5 mg PO Bedtime PRN Patient has a medical history, as follows: -Migraine headache -GERD (gastroesophageal reflux disease) -Chronic back pain -Anxiety and depression -Elevated cholesterol -Vitamin D deficiency -Bursitis of right shoulder -HLD (hyperlipidemia) -Type 2 diabetes mellitus -Hypothyroidism -Hypertension -Asthma -Dyspepsia Patient has a surgical history (with no complications), as follows: -History of surgery on arm; 05/2020 Right arm -History of section; 1991 and Tubal Ligation -History of colonoscopy; 2015- Dr Urrutia -History of esophagogastroduodenoscopy (EGD); - Dr Urrutia -History of appendectomy -History of back surgery; L5, S1 (Hardware in Lower Back) I discussed in detail the procedure and what to expect pre and post operatively. We discussed the risks, benefits and alternatives to the surgery as well as the rehabilitation course. The risks; which include, but are not limited to infection, bleeding, nerve injury, ongoing pain, swelling, and stiffness, perioperative risk of injury to bones and soft tissues, and blood clots. I have answered all questions and with their understanding they have consented to move forward with a left shoulder arthroscopy to be performed on 03/16/[address] Cosme Arreguin. Follow up will be at the post operative appointment on 03/22/2023 at 9:30 am with Awilda Crane PA-C, or sooner if needed. Patient Instructions: Scribed for Chelsi Queen PA-C by Josseline Hernández biomedical engineering director, on 03/10/2023 at 11:12 am, EST. Coding Level of Care Code Global (18012) Diagnoses Subacromial impingement of left shoulder M75.42
== END 2023-03-10 11:56 | disposition home or self-care (01) ==
PROVIDERS: PCP Nurse Practitioner Family; Visit Provider Physician Assistant
DX: M75.42 Impingement syndrome of left shoulder (principal)
CPT/HCPCS: 99024

== ENCOUNTER → 2023-03-10 11:03 | Outpatient (BNVA) | payer MEDICAID, SELFPAY | PROVIDERS: PCP Nurse Practitioner Family; Visit Provider Physician Assistant | DX: M75.42 Impingement syndrome of left shoulder (principal) | CPT/HCPCS: 99212 ==

== ENCOUNTER 2023-03-11 10:43 | Outpatient (REF) | payer MEDICAID, SELFPAY ==
[2023-03-11 14:51] LABS: MANUAL DIFF FLAG NO
[2023-03-11 14:59] LABS: Basophils Absolute Auto 0.1 X10*3/uL (0.0-0.2); Eosinophils Absolute Auto 0.2 X10*3/uL (0.0-0.4); Eosinophils Percent Auto 2.9 % (0-4); Hemoglobin 13.8 g/dl (12.0-16.0); Imm Gran Abs Auto 0.02 X10*3/uL (0.00-0.03); Imm Gran Pct Auto 0.3 % (0.0-0.4); Lymphocytes Absolute Auto 2.3 X10*3/uL (1.2-4.9); Lymphocytes Percent Auto 29.4 % (20-40); Mean Corpuscular HGB Conc 32.9 g/dl (31.0-35.0); Mean Corpuscular Hemoglobin 30.8 pg (27.0-33.0); Mean Corpuscular Volume 93.8 fL (80.0-98.0); Mean Platelet Volume 10.3 fL (9.4-12.3); Monocytes Absolute Auto 0.6 X10*3/uL (0.1-1.2); Monocytes Percent Auto 8.1 % (2-11); Neutrophils Absolute Auto 4.5 x10*3/uL (2.0-8.3); Neutrophils Percent Auto 58.3 % (45-73); Platelet Count 291 X10*3/uL (160-400); Red Blood Count 4.48 X10*6/uL (4.20-5.50); Red Cell Distribution Width 12.6 % (11.0-16.0); White Blood Count 7.7 X10*3/uL (4.8-10.8)
[2023-03-11 15:08] LABS: Anion Gap 12 (12-20); Blood Urea Nitrogen 12 mg/dL (9-16); Calcium 9.8 mg/dL (8.4-10.2); Carbon Dioxide 29 mmol/L (22-29); Chloride 99 mmol/L (96-108); Estimated Glomerular Filt Rate > 60; Glucose Random 102 mg/dL (60-115); Sodium 137 mmol/L (135-145)
== END 2023-03-11 10:44 | disposition home or self-care (01) ==
LOC: HO.CHCLDS 10:43
PROVIDERS: Visit Provider Registered Nurse
DX: Z01.818 Encounter for other preprocedural examination (principal)
CPT/HCPCS: 36415; 80048; 85025

== ENCOUNTER 2023-03-16 06:45 | Day surgery (SDC) | payer MEDICAID, SELFPAY ==
[2023-03-14 08:21] VITALS: BMI 35.7
--- NOTE | 2023-03-15 10:12 | HO.ANESPROP2 ---
Documented by User: Justina Forrest NP 03/15/23 10:13 HPI - Anesthesia Eval Consult details Narrative: 57yo F for Left Shoulder Arthroscopy PMFSH Active Problems Active Problems: All Active Problems (Updated 02/28/23 @ 12:49 by Cosme Arreguin MD) Subacromial impingement of left shoulder (Acute) Internal derangement of left shoulder (Acute) Peripheral neuropathy (Acute) Chronic pain syndrome (Acute) Degeneration, intervertebral disc, cervical (Acute) Chest discomfort (Acute) Cervical radiculopathy (Acute) Other and unspecified hyperlipidemia (Acute) Essential hypertension (Acute) Type 2 diabetes mellitus with unspecified complications (Acute) Precordial chest pain (Acute) S/P rotator cuff repair (Acute) Right rotator cuff tear (Acute) Vitamin D deficiency (Acute) Hypothyroidism (Acute) Rotator cuff dysfunction (Acute) Bursitis of right shoulder (Acute) Hypertension (Acute) Type 2 diabetes mellitus (Acute) HLD (hyperlipidemia) (Acute) Past Medical History Medical History Migraine headache GERD (gastroesophageal reflux disease) Chronic back pain Anxiety and depression Elevated cholesterol Right rotator cuff tear Vitamin D deficiency Rotator cuff dysfunction Bursitis of right shoulder HLD (hyperlipidemia) Type 2 diabetes mellitus Hypothyroidism Hypertension Asthma Dyspepsia Family History Family History Father Diabetes Mother Diabetes Surgical History Surgical History History of surgery on arm Hx of section Hx of colonoscopy History of esophagogastroduodenoscopy (EGD) History of appendectomy Previous back surgery Social History Social History Alcohol intake: never Patient Tobacco Use Status: Never used Tobacco Are you DNR?: No Advance Directives: No Advance Directives Information Provided: Yes Nutrition Risks: No Nutritional Risk Current occupational status: disabled Current occupation: Right Handed Meds Allergies Allergy/AdvReac Type Severity Reaction Status Date / Time aspirin [ASA] Allergy Unknown RASH Verified 03/16/23 07:11 cortisone [CORTISONE] Allergy Unknown BAD Verified 03/16/23 07:11 REACTION naproxen [From Naprosyn] Allergy Unknown RASH, Verified 03/16/23 07:11 ITCHING, rash Ibuprofen Allergy Unknown rash Uncoded 03/16/23 07:11 Home Medications Medication Instructions Recorded Confirmed Last Taken Type bupropion HCl 300 mg 24 hr tablet, 300 mg PO QAM 01/17/20 03/16/23 06/04/20 05:00 History extended release (Wellbutrin XL) chlorthalidone 50 mg tablet 50 mg PO DAILY 01/17/20 03/16/23 Unknown History nifedipine 60 mg tablet,extended 60 mg PO DAILY 01/17/20 03/16/23 Unknown History release risperidone 1 mg tablet 1 mg PO DAILY 01/17/20 03/16/23 Unknown History trazodone 50 mg tablet 25 mg PO DAILY 01/17/20 03/16/23 Unknown History zolpidem 5 mg tablet 5 mg PO BEDTIME PRN Sleep 01/17/20 05/03/22 Unknown History ranitidine HCl [Acid Clinical Care Coordinator See Rx Instructions PO .COMPLEX PRN 04/28/20 05/03/22 Unknown History (ranitidine)] acetaminophen 500 mg tablet 1 - 2 tab PO TID PRN Pain 05/30/20 03/16/23 Unknown History albuterol sulfate 2.5 mg/3 mL 1 amp inhalation QID PRN Wheezing 05/30/20 03/16/23 06/04/20 05:00 History (0.083 %) solution for nebulization ascorbic acid (vitamin C) 500 mg 1 tab PO 05/30/20 05/03/22 Unknown History tablet (Vitamin C) escitalopram oxalate 5 mg tablet 1 tab PO BEDTIME 05/30/20 03/16/23 Unknown History fluticasone 500 mcg-salmeterol 50 1 puff PO BID 05/30/20 05/03/22 Unknown History mcg/dose blistr powdr for inhalation fluticasone 500 mcg-salmeterol 50 1 puff PO BID 05/30/20 05/03/22 Unknown History mcg/dose blistr powdr for inhalation (Advair Diskus) fluticasone propionate 50 2 spray intranasal QAM 05/30/20 05/03/22 06/04/20 05:00 History mcg/actuation nasal spray,suspension loratadine 10 mg tablet 1 tab PO QAM PRN Allergy Symptoms 05/30/20 03/16/23 Unknown History omeprazole 20 mg capsule,delayed 1 cap PO BID 05/30/20 03/16/23 06/04/20 05:00 History release sumatriptan succinate PO PRN Migraine Headache 07/28/20 05/03/22 Unknown History atorvastatin 80 mg tablet 80 mg PO DAILY 04/16/21 03/16/23 Unknown History Exam Height,Weight and Vital Signs: Height 4 ft 11 in Weight 80.286 kg Pertinent Lab Results Pertinent Lab Results: Laboratory Tests 03/11/23 10:47 WBC 7.7 Hgb 13.8 Hct 42.0 Plt Count 291 Sodium 137 Potassium 3.0 L Chloride 99 Carbon Dioxide 29 BUN 12 Creatinine 0.68 Assessment and Plan Assessment Anesthesia Assessment: Chart Reviewed Documented by User: Stormy Wall MD 03/16/23 08:[facility] Active Problems Active Problems: All Active Problems (Updated 03/16/23 @ 07:48 by Stormy Wall MD) Subacromial impingement of left shoulder (Acute) Internal derangement of left shoulder (Acute) Peripheral neuropathy (Acute) Chronic pain syndrome (Acute) Degeneration, intervertebral disc, cervical (Acute) Chest discomfort (Acute) Cervical radiculopathy (Acute) Other and unspecified hyperlipidemia (Acute) Essential hypertension (Acute) Type 2 diabetes mellitus with unspecified complications (Acute) Precordial chest pain (Acute) S/P rotator cuff repair (Acute) Right rotator cuff tear (Acute) Vitamin D deficiency (Acute) Hypothyroidism (Acute) Rotator cuff dysfunction (Acute) Bursitis of right shoulder (Acute) Hypertension (Acute) Type 2 diabetes mellitus (Acute) HLD (hyperlipidemia) (Acute) Past Medical History Medical History Migraine headache GERD (gastroesophageal reflux disease) Chronic back pain Anxiety and depression Elevated cholesterol Right rotator cuff tear Vitamin D deficiency Rotator cuff dysfunction Bursitis of right shoulder HLD (hyperlipidemia) Type 2 diabetes mellitus Hypothyroidism Hypertension Asthma Dyspepsia Family History Family History Father Diabetes Mother Diabetes Family history of problems with anesthesia: No Surgical History Surgical History History of surgery on arm Hx of section Hx of colonoscopy History of esophagogastroduodenoscopy (EGD) History of appendectomy Previous back surgery History of Problems with Anesthesia: No Social History Social History Alcohol intake: never Patient Tobacco Use Status: Never used Tobacco Are you DNR?: No Advance Directives: No Advance Directives Information Provided: Yes Nutrition Risks: No Nutritional Risk Current occupational status: disabled Current occupation: Right Handed Meds Allergies Allergy/AdvReac Type Severity Reaction Status Date / Time aspirin [ASA] Allergy Unknown RASH Verified 03/16/23 07:11 cortisone [CORTISONE] Allergy Unknown BAD Verified 03/16/23 07:11 REACTION naproxen [From Naprosyn] Allergy Unknown RASH, Verified 03/16/23 07:11 ITCHING, rash Ibuprofen Allergy Unknown rash Uncoded 03/16/23 07:11 Home Medications Medication Instructions Recorded Confirmed Last Taken Type bupropion HCl 300 mg 24 hr tablet, 300 mg PO QAM 01/17/20 03/16/23 06/04/20 05:00 History extended release (Wellbutrin XL) chlorthalidone 50 mg tablet 50 mg PO DAILY 01/17/20 03/16/23 Unknown History nifedipine 60 mg tablet,extended 60 mg PO DAILY 01/17/20 03/16/23 Unknown History release risperidone 1 mg tablet 1 mg PO DAILY 01/17/20 03/16/23 Unknown History trazodone 50 mg tablet 25 mg PO DAILY 01/17/20 03/16/23 Unknown History zolpidem 5 mg tablet 5 mg PO BEDTIME PRN Sleep 01/17/20 05/03/22 Unknown History ranitidine HCl [Acid Clinical Care Coordinator See Rx Instructions PO .COMPLEX PRN 04/28/20 05/03/22 Unknown History (ranitidine)] acetaminophen 500 mg tablet 1 - 2 tab PO TID PRN Pain 05/30/20 03/16/23 Unknown History albuterol sulfate 2.5 mg/3 mL 1 amp inhalation QID PRN Wheezing 05/30/20 03/16/23 06/04/20 05:00 History (0.083 %) solution for nebulization ascorbic acid (vitamin C) 500 mg 1 tab PO 05/30/20 05/03/22 Unknown History tablet (Vitamin C) escitalopram oxalate 5 mg tablet 1 tab PO BEDTIME 05/30/20 03/16/23 Unknown History fluticasone 500 mcg-salmeterol 50 1 puff PO BID 05/30/20 05/03/22 Unknown History mcg/dose blistr powdr for inhalation fluticasone 500 mcg-salmeterol 50 1 puff PO BID 05/30/20 05/03/22 Unknown History mcg/dose blistr powdr for inhalation (Advair Diskus) fluticasone propionate 50 2 spray intranasal QAM 05/30/20 05/03/22 06/04/20 05:00 History mcg/actuation nasal spray,suspension loratadine 10 mg tablet 1 tab PO QAM PRN Allergy Symptoms 05/30/20 03/16/23 Unknown History omeprazole 20 mg capsule,delayed 1 cap PO BID 05/30/20 03/16/23 06/04/20 05:00 History release sumatriptan succinate PO PRN Migraine Headache 07/28/20 05/03/22 Unknown History atorvastatin 80 mg tablet 80 mg PO DAILY 04/16/21 03/16/23 Unknown History Assessment and Plan Final Anesthetic Review Family History of Problems with Anesthesia: No History of Problems with Anesthesia: No Documented by User: Huong Herrera MD 03/16/23 10:10 PMFSH Past Medical History Medical History Migraine headache GERD (gastroesophageal reflux disease) Chronic back pain Anxiety and depression Elevated cholesterol Right rotator cuff tear Vitamin D deficiency Rotator cuff dysfunction Bursitis of right shoulder HLD (hyperlipidemia) Type 2 diabetes mellitus Hypothyroidism Hypertension Asthma Dyspepsia Family History Family History Father Diabetes Mother Diabetes Surgical History Surgical History History of surgery on arm Hx of section Hx of colonoscopy History of esophagogastroduodenoscopy (EGD) History of appendectomy Previous back surgery Social History Social History Alcohol intake: never Patient Tobacco Use Status: Never used Tobacco Are you DNR?: No Advance Directives: No Advance Directives Information Provided: Yes Nutrition Risks: No Nutritional Risk Current occupational status: disabled Current occupation: Right Handed Meds Allergies Allergy/AdvReac Type Severity Reaction Status Date / Time aspirin [ASA] Allergy Unknown RASH Verified 03/16/23 07:11 cortisone [CORTISONE] Allergy Unknown BAD Verified 03/16/23 07:11 REACTION naproxen [From Naprosyn] Allergy Unknown RASH, Verified 03/16/23 07:11 ITCHING, rash Ibuprofen Allergy Unknown rash Uncoded 03/16/23 07:11 Home Medications Medication Instructions Recorded Confirmed Last Taken Type bupropion HCl 300 mg 24 hr tablet, 300 mg PO QAM 01/17/20 03/16/23 06/04/20 05:00 History extended release (Wellbutrin XL) chlorthalidone 50 mg tablet 50 mg PO DAILY 01/17/20 03/16/23 Unknown History nifedipine 60 mg tablet,extended 60 mg PO DAILY 01/17/20 03/16/23 Unknown History release risperidone 1 mg tablet 1 mg PO DAILY 01/17/20 03/16/23 Unknown History trazodone 50 mg tablet 25 mg PO DAILY 01/17/20 03/16/23 Unknown History zolpidem 5 mg tablet 5 mg PO BEDTIME PRN Sleep 01/17/20 05/03/22 Unknown History ranitidine HCl [Acid Clinical Care Coordinator See Rx Instructions PO .COMPLEX PRN 04/28/20 05/03/22 Unknown History (ranitidine)] acetaminophen 500 mg tablet 1 - 2 tab PO TID PRN Pain 05/30/20 03/16/23 Unknown History albuterol sulfate 2.5 mg/3 mL 1 amp inhalation QID PRN Wheezing 05/30/20 03/16/23 06/04/20 05:00 History (0.083 %) solution for nebulization ascorbic acid (vitamin C) 500 mg 1 tab PO 05/30/20 05/03/22 Unknown History tablet (Vitamin C) escitalopram oxalate 5 mg tablet 1 tab PO BEDTIME 05/30/20 03/16/23 Unknown History fluticasone 500 mcg-salmeterol 50 1 puff PO BID 05/30/20 05/03/22 Unknown History mcg/dose blistr powdr for inhalation fluticasone 500 mcg-salmeterol 50 1 puff PO BID 05/30/20 05/03/22 Unknown History mcg/dose blistr powdr for inhalation (Advair Diskus) fluticasone propionate 50 2 spray intranasal QAM 05/30/20 05/03/22 06/04/20 05:00 History mcg/actuation nasal spray,suspension loratadine 10 mg tablet 1 tab PO QAM PRN Allergy Symptoms 05/30/20 03/16/23 Unknown History omeprazole 20 mg capsule,delayed 1 cap PO BID 05/30/20 03/16/23 06/04/20 05:00 History release sumatriptan succinate PO PRN Migraine Headache 07/28/20 05/03/22 Unknown History atorvastatin 80 mg tablet 80 mg PO DAILY 04/16/21 03/16/23 Unknown History Exam Airway Mallampati Class: II TM Dist: >3cm Neck ROM: Full Heart: rrr Lungs: cta Assessment and Plan Assessment Anesthesia Assessment: Anesthesia Plan Discussed Final Anesthetic Review NPO: Yes ASA Class: III Final Preanesthetic Review: No Changes in Pt Med Stat, Meds/Allgs Chart Reviewed, Consent Obtained/Reviewed and Anes Risks/Benef Reviewed Patient Risk: Intermediate Procedure Risk: Intermediate Anesthetic Plan Anesthetic Plan: GA and Regional Block Disposition: Standard PACU
[2023-03-16] MEDS: Lactated Ringers 1,000 ML 100 ML IVCONT (06:59)
[2023-03-16 07:07] VITALS: BMI 35.9
[2023-03-16 07:09] VITALS: BP 110/62; PULSE 96; RESP 18; TEMP 36.7; O2SAT 96
[2023-03-16 07:19] LABS: Glucose, Whole Blood 137 mg/dL (60-115)
[2023-03-16 10:56] VITALS: BP 114/72; PULSE 92; RESP 16; TEMP 36.1; O2SAT 99
[2023-03-16 11:01] VITALS: BP 111/69; PULSE 87; RESP 16; O2SAT 96
[2023-03-16 11:06] VITALS: BP 103/68; PULSE 84; RESP 16; O2SAT 96
[2023-03-16 11:11] VITALS: BP 107/35; PULSE 81; RESP 18; O2SAT 97
[2023-03-16 11:26] VITALS: BP 106/53; PULSE 80; RESP 18; TEMP 36.2; O2SAT 97
--- NOTE | 2023-03-18 07:48 | PM.OP ---
Brief Operative Note Date of Service: 03/16/23 Pre-op diagnosis: Left shoulder Bursitis Post-op diagnosis: same Procedure: Left shoulder bursectomy and SAD Implants: none Surgeon: Cosme Arreguin MD Anesthesia: GETA and regional Was an Civil Engineering Project Designer used for this Procedure?: Yes Civil Engineering Project Designer: Chelsi Queen Estimated blood loss (mL): 10 IV fluids (mL): 800 Pathology: none sent Condition: stable Disposition: same day
--- NOTE | 2023-03-18 07:52 | W.PM.OPN ---
Operative Note Operative Note Date of Service: 03/16/23 Narrative: Date of Service: 03/16/23 Pre-op diagnosis: Left shoulder Bursitis Post-op diagnosis: same Procedure: Left shoulder bursectomy and SAD Implants: none Surgeon: Cosme Arreguin MD Anesthesia: GETA and regional Was an Quality Assurance Associate used for this Procedure?: Yes Quality Assurance Associate: Chelsi Queen Estimated blood loss (mL): 10 IV fluids (mL): 800 Pathology: none sent Condition: stable Disposition: same day Procedure in detail: Patient was brought to the operating room and placed the the beach chair position. All bony prominences were well padded and the limb was prepped and draped in standard sterile fashion. A time out was called to identify proper site, proper procedure and proper surgeon. IV antibiotics per weight were administered. I began by making a posterolateral stab incision with a 15 blade. A blunt trochar was placed into the glenohumeral joint and I insufflated the joint with saline and a 30 degree arthroscope was placed. I established an outside- in anterior portal just distal to the biceps tendon. I then began my inspection of the glenohumeral joint. There was an intact biceps labral complex. Subscapularis was intact. The cartilage surfaces were clean and the anterior interval was normal. there was some fraying of the undersurface of the supraspinatus but minimal. I then removed the trochar and entered the subacromial space. A direct lateral portal was then established and I performed a bursectomy. The cuff was then examined. There was abundant bursitis and the bursal tisse was removed with a shaver. The cuff was normal with no evidence of tearing. I used a shaver to remove 15mm from the undersurface of the acromion. Once I was satisfied with the resection, final images were captured and I removed all instrumentation. Portals were closed with nylon. Patient was placed in an abduction sling, extubated and brought to the recovery room in stable condition. There were no known complications.
== END 2023-03-16 12:12 | disposition home or self-care (01) ==
LOC: HO.SSS 06:45
PROVIDERS: PCP Nurse Practitioner Family; Visit Provider Orthopaedic Surgery
PROC: (CPT 29805; principal; 2023-03-16 09:50)
DX: M75.52 Bursitis of left shoulder (principal); M75.42 Impingement syndrome of left shoulder; J45.909 Unspecified asthma, uncomplicated; I10 Essential (primary) hypertension; E78.00 Pure hypercholesterolemia, unspecified; E55.9 Vitamin D deficiency, unspecified; F41.8 Other specified anxiety disorders; E11.9 Type 2 diabetes mellitus without complications; Z79.899 Other long term (current) drug therapy; Z79.51 Long term (current) use of inhaled steroids; Z88.8 Allergy status to other drugs, medicaments and biological substances; Z98.890 Other specified postprocedural states
CPT/HCPCS: 29822; 29826; 82947; J0131; J0665; J0690; J1100; J1885; J2250; J2371; J2405; J2704; J3010

== ENCOUNTER → 2023-03-16 06:45 | Outpatient (BNV) | payer MEDICAID, SELFPAY | PROVIDERS: PCP Nurse Practitioner Family; Visit Provider Orthopaedic Surgery | DX: M75.52 Bursitis of left shoulder (principal) | CPT/HCPCS: 29822 ==

== ENCOUNTER 2023-03-18 10:05 | Outpatient (REF) | payer MEDICAID, SELFPAY ==
[2023-03-18 14:57] LABS: Anion Gap 14 (12-20); Blood Urea Nitrogen 12 mg/dL (9-16); Calcium 9.9 mg/dL (8.4-10.2); Carbon Dioxide 30 mmol/L (22-29); Chloride 97 mmol/L (96-108); Estimated Glomerular Filt Rate > 60; Glucose Random 97 mg/dL (60-115); Magnesium 1.7 mg/dL (1.6-2.6); Sodium 138 mmol/L (135-145)
== END 2023-03-18 10:06 | disposition home or self-care (01) ==
LOC: HO.CHCLDS 10:05
PROVIDERS: Visit Provider Registered Nurse
DX: E87.6 Hypokalemia (principal)
CPT/HCPCS: 36415; 80048; 83735

== ENCOUNTER 2023-03-22 08:58 | Outpatient (AMB) | payer MEDICAID, SELFPAY ==
--- NOTE | 2023-03-22 09:02 | MHC.OFFVIS ---
Intake Intake Visit Reasons: PO Lt Shld 03/16 NE Intake Note: Elin a 57 year old male presents today for a post operative left shoulder on 03/16/23 NE. Patient reports her pain has been making it difficult to sleep. Currently her pain level is 10 out of 10. Allergies aspirin [ASA] Allergy (Unknown, Verified 03/22/23 09:03) RASH cortisone [CORTISONE] Allergy (Unknown, Verified 03/22/23 09:03) BAD REACTION naproxen [From Naprosyn] Allergy (Unknown, Verified 03/22/23 09:03) RASH, ITCHING, rash Ibuprofen Allergy (Unknown, Uncoded 03/22/23 09:03) rash HPI PO Lt Shld 03/16 NE HPI Details 57-year-old female who returns to the office today with an interpreter and translator for post-op left shoulder , 03/16/[address] Arreguin. She states she has chronic pain in her shoulder and rates the pain as 10 on the scale of 0-10. Her pain makes her unable to sleep at night. She is working on home physical therapy as instructed. She has no other concerns today. COUNTS INCLUDE 234 BEDS AT THE [facility] Medical History Migraine headache GERD (gastroesophageal reflux disease) Chronic back pain Anxiety and depression Elevated cholesterol Right rotator cuff tear Vitamin D deficiency Rotator cuff dysfunction Bursitis of right shoulder HLD (hyperlipidemia) Type 2 diabetes mellitus Hypothyroidism Hypertension Asthma Dyspepsia Surgical History History of surgery on arm Hx of section Hx of colonoscopy History of esophagogastroduodenoscopy (EGD) History of appendectomy Previous back surgery Family History Father Diabetes Mother Diabetes Social History Alcohol intake: never Patient Tobacco Use Status: Never used Tobacco Current occupational status: disabled Current occupation: Right Handed Review of Systems Const All systems reviewed & are unremarkable except as noted in HPI and below Physical Exam Extrem Other: Left shoulder: Incision clean, dry and intact. No erythema or drainage. Forward flexion to 45 degrees, external rotation to 30 degrees. NVI. Results Reviewed Results Reviewed: Brief Operative Note Date of Service: 03/16/23 Pre-op diagnosis: Left shoulder Bursitis Post-op diagnosis: same Procedure: Left shoulder bursectomy and SAD Implants: none Surgeon: Cosme Arreguin MD Assessment & Plan Assessment & Plan (1) Subacromial impingement of left shoulder: Code(s): M75.42 - Impingement syndrome of left shoulder Plan Sutures removed today, steri strips applied. We did work on some stretching exercises in the office today. I stressed the importance of formal physical therapy to improve her ROM and strength. I would like to see her back in [address] Arreguin, sooner if needed. Patient Instructions: Scribed for Awilda Crane PA-C, by Leon Fernandez medical communication specialist, on 03/22/2023 at 9:30 AM EST. I, Awilda Crane PA-C, have personally reviewed and agree with the information entered by the scribe. Coding Level of Care Code Global (32783) Diagnoses Subacromial impingement of left shoulder M75.42
== END 2023-03-22 09:27 | disposition home or self-care (01) ==
PROVIDERS: PCP Nurse Practitioner Family; Visit Provider Physician Assistant
DX: M75.42 Impingement syndrome of left shoulder (principal)
CPT/HCPCS: 99024

== ENCOUNTER → 2023-03-22 08:58 | Outpatient (BNVA) | payer MEDICAID, SELFPAY | PROVIDERS: PCP Nurse Practitioner Family; Visit Provider Physician Assistant | DX: Z47.89 Encounter for other orthopedic aftercare (principal); M75.42 Impingement syndrome of left shoulder | CPT/HCPCS: 99212 ==

== ENCOUNTER 2023-03-24 11:06 | Outpatient (REF) | payer MEDICAID, SELFPAY ==
[2023-03-24 14:26] LABS: Anion Gap 14 (12-20); Blood Urea Nitrogen 11 mg/dL (9-16); Calcium 9.7 mg/dL (8.4-10.2); Carbon Dioxide 28 mmol/L (22-29); Chloride 100 mmol/L (96-108); Estimated Glomerular Filt Rate > 60; Glucose Random 79 mg/dL (60-115); Magnesium 1.7 mg/dL (1.6-2.6); Potassium 3.3 mmol/L (3.3-5.1); Sodium 139 mmol/L (135-145)
== END 2023-03-24 11:07 | disposition home or self-care (01) ==
LOC: HO.CHCLDS 11:06
PROVIDERS: Visit Provider Registered Nurse
DX: E87.6 Hypokalemia (principal)
CPT/HCPCS: 36415; 80048; 83735

== ENCOUNTER 2023-04-08 12:41 | Outpatient (REF) | payer MEDICAID, SELFPAY ==
[2023-04-08 14:20] LABS: Anion Gap 14 (12-20); Blood Urea Nitrogen 18 mg/dL (9-16); Calcium 9.8 mg/dL (8.4-10.2); Carbon Dioxide 29 mmol/L (22-29); Chloride 101 mmol/L (96-108); Estimated Glomerular Filt Rate > 60; Glucose Random 113 mg/dL (60-115); Potassium 3.7 mmol/L (3.3-5.1); Sodium 140 mmol/L (135-145)
== END 2023-04-08 12:42 | disposition home or self-care (01) ==
LOC: HO.HHCL 12:41
PROVIDERS: Visit Provider Registered Nurse
DX: E87.6 Hypokalemia (principal)
CPT/HCPCS: 36415; 80048

== ENCOUNTER 2023-04-18 09:23 | Outpatient (AMB) | payer MEDICAID, SELFPAY ==
--- NOTE | 2023-04-18 09:36 | MHC.OFFVIS ---
Intake Intake Visit Reasons: PO-Lt Shld 03/16/23 NE Intake Note: Elin si a 57 year old female who presents today for a post operative left shoulder on 03/16/23 NE. Patient was seen last with Awilda at this time she reported significant pain. States she has done her P.T on her own and is doing well with ROM but is painful. Allergies aspirin [ASA] Allergy (Unknown, Verified 03/22/23 09:03) RASH cortisone [CORTISONE] Allergy (Unknown, Verified 03/22/23 09:03) BAD REACTION naproxen [From Naprosyn] Allergy (Unknown, Verified 03/22/23 09:03) RASH, ITCHING, rash Ibuprofen Allergy (Unknown, Uncoded 03/22/23 09:03) rash HPI PO-Lt Shld 03/16/23 NE HPI Details Elin is a 57 year old Diabetic woman who presents ~1 month S/p left shoulder Bursectomy with SAD. She reports pain with ROM of her shoulder, but her pain has improved since her last appointment. She has been performing exercises at home and is seen today wearing her sling. [facility] Medical History Migraine headache GERD (gastroesophageal reflux disease) Chronic back pain Anxiety and depression Elevated cholesterol Right rotator cuff tear Vitamin D deficiency Rotator cuff dysfunction Bursitis of right shoulder HLD (hyperlipidemia) Type 2 diabetes mellitus Hypothyroidism Hypertension Asthma Dyspepsia Surgical History History of surgery on arm Hx of section Hx of colonoscopy History of esophagogastroduodenoscopy (EGD) History of appendectomy Previous back surgery Family History Father Diabetes Mother Diabetes Social History Alcohol intake: never Patient Tobacco Use Status: Never used Tobacco Current occupational status: disabled Current occupation: Right Handed Review of Systems Const All systems reviewed & are unremarkable except as noted in HPI and below Physical Exam Const General: no acute distress, alert and awake Orientation/consciousness: patient oriented x3 HEENT Head: Yes normocephalic and Yes atraumatic Eyes EOM: EOMs intact bilaterally Resp Effort & Inspection: normal respiratory effort and able to speak in complete sentences Cardio Jugular venous distension: no JVD Skin General skin exam: turgor normal Rashes: no rashes Neuro General: patient oriented x3 Extrem Other: portals well healed full ROM Psych Appearance: grossly normal Affect: normal affect Attitude: cooperative Assessment & Plan Assessment & Plan (1) Subacromial impingement of left shoulder: Code(s): M75.42 - Impingement syndrome of left shoulder Plan: Left shoulder doing well Continue home PT f/u prn Plan Prepared for Cosme Arreguin MD by Ramon Sunshine, medical records library professor, on 04/18/23 at 9:42 AM, EST. Coding Level of Care Code Global (78886) Diagnoses Subacromial impingement of left shoulder M75.42
== END 2023-04-18 10:18 | disposition home or self-care (01) ==
PROVIDERS: PCP Nurse Practitioner Family; Visit Provider Orthopaedic Surgery
DX: M75.42 Impingement syndrome of left shoulder (principal)
CPT/HCPCS: 99024

== ENCOUNTER → 2023-04-18 09:23 | Outpatient (BNVA) | payer MEDICAID, SELFPAY | PROVIDERS: PCP Nurse Practitioner Family; Visit Provider Orthopaedic Surgery | DX: M75.42 Impingement syndrome of left shoulder (principal) | CPT/HCPCS: 99212 ==

== ENCOUNTER 2023-05-05 11:35 | Outpatient (REF) | payer MEDICAID, SELFPAY | END 2023-05-05 11:36 | disposition home or self-care (01) | LOC: HO.MAMMO 11:35 | PROVIDERS: PCP Registered Nurse; Visit Provider Nurse Practitioner Family | DX: Z12.31 Encounter for screening mammogram for malignant neoplasm of breast (principal) | CPT/HCPCS: 77063; 77067 ==

== ENCOUNTER → 2023-05-05 12:00 | Outpatient (BNV) | payer MEDICAID, SELFPAY | PROVIDERS: PCP Registered Nurse; Visit Provider Radiology Diagnostic Radiology | DX: Z12.31 Encounter for screening mammogram for malignant neoplasm of breast (principal) | CPT/HCPCS: 77063; 77067 ==

== ENCOUNTER 2023-05-06 10:10 | Outpatient (REF) | payer MEDICAID, SELFPAY ==
[2023-05-06 14:56] LABS: Anion Gap 15 (12-20); Blood Urea Nitrogen 6 mg/dL (9-16); Calcium 9.9 mg/dL (8.4-10.2); Carbon Dioxide 28 mmol/L (22-29); Chloride 100 mmol/L (96-108); Cholesterol 117 mg/dL (<200); Estimated Glomerular Filt Rate > 60; Glucose Random 69 mg/dL (60-115); HDL Cholesterol 66 mg/dL (>40); LDL Cholesterol Calculated 40 mg/dL (<100); Potassium 3.5 mmol/L (3.3-5.1); Sodium 139 mmol/L (135-145); Triglycerides 56 mg/dL (<150)
[2023-05-06 15:00] LABS: TSH reflex Free T4 0.18 uIU/mL (0.32-4.0)
[2023-05-06 15:27] LABS: Vitamin B12 800 pg/mL (200-900)
[2023-05-06 15:42] LABS: Free T4 (Free Thyroxine) 1.44 ng/dL (0.71-1.85)
[2023-05-06 16:09] LABS: Creatinine Urine 107.54 mg/dL; Microalbum/Creatinine Ratio Ur 10.2 ug/mg cr (<30)
== END 2023-05-06 10:11 | disposition home or self-care (01) ==
LOC: HO.CHCLDS 10:10
PROVIDERS: Visit Provider Registered Nurse
DX: E11.9 Type 2 diabetes mellitus without complications (principal); E03.9 Hypothyroidism, unspecified
CPT/HCPCS: 36415; 80048; 80061; 82043; 82570; 82607; 84439; 84443

== ENCOUNTER 2023-05-10 06:09 | Outpatient (REF) | payer MEDICAID, SELFPAY ==
--- NOTE | ~2023-05-10 | FL_ITS ---
EXAMINATION: XR FLUOROSCOPY WITH IMAGES CLINICAL INFORMATION: Radiculopathy cervical region, right. COMPARISON: Fluoroscopy cervical region 12/08/2022. TECHNIQUE: Fluoroscopy Supervised By: Dr. Galloway Fluoroscopy Time: 0.2 minutes. Cumulative Dose: 2.15 mGy. DAP: 0.369 Gycm2. Images: 2. FINDINGS: Fluoroscopic guidance provided for cervical injection procedure performed by Dr. Galloway. Needle projects over cervical spine. FL/FL guidance in treatment room IMPRESSION: Fluoroscopic guidance provided for cervical injection procedure.
== END 2023-05-10 06:10 | disposition home or self-care (01) ==
LOC: CF 06:09
PROVIDERS: Visit Provider Anesthesiology
DX: M54.12 Radiculopathy, cervical region (principal); M50.30 Other cervical disc degeneration, unspecified cervical region; G89.4 Chronic pain syndrome
CPT/HCPCS: 62321; J1100; J2795; Q9967

== ENCOUNTER 2023-05-10 09:51 | Outpatient (AMB) | payer MEDICAID, SELFPAY ==
--- NOTE | 2023-05-10 10:54 | A.OFFVIS_ITS ---
Intake Vital Signs 05/10/23 11:24 05/10/23 11:25 Height 4 ft 11 in 4 ft 11 in Weight 178 lb 178 lb BMI 35.9 35.9 BP 94/62 102/64 Blood Pressure Location Lt brachial Lt brachial Position Sitting Sitting Respiration 16 16 Pulse 83 76 Pulse Source Pulse Oximeter Pulse Oximeter Pulse Oximetry (%) 98 96 Oxygen Delivery Method Room Air Room Air Comment pre-op post-op Intake Visit Reasons: C5, C6 INTERLAMINAR EPIDURAL STEROID INJECTION Allergies aspirin [ASA] Allergy (Unknown, Verified 05/10/23 11:25) RASH cortisone [CORTISONE] Allergy (Unknown, Verified 05/10/23 11:25) BAD REACTION naproxen [From Naprosyn] Allergy (Unknown, Verified 05/10/23 11:25) RASH, ITCHING, rash Ibuprofen Allergy (Unknown, Uncoded 03/22/23 09:03) rash PFSH Medical History Migraine headache GERD (gastroesophageal reflux disease) Chronic back pain Anxiety and depression Elevated cholesterol Right rotator cuff tear Vitamin D deficiency Rotator cuff dysfunction Bursitis of right shoulder HLD (hyperlipidemia) Type 2 diabetes mellitus Hypothyroidism Hypertension Asthma Dyspepsia Surgical History History of surgery on arm Hx of section Hx of colonoscopy History of esophagogastroduodenoscopy (EGD) History of appendectomy Previous back surgery Family History Father Diabetes Mother Diabetes Social History Alcohol intake: never Patient Tobacco Use Status: Never used Tobacco Current occupational status: disabled Current occupation: Right Handed Physical Exam Vital Signs: Last Vital Signs Pulse 76 05/10/23 11:25 Resp 16 05/10/23 11:25 BP 102/64 05/10/23 11:25 Pulse Ox 96 05/10/23 11:25 Oxygen Delivery Method Room Air 05/10/23 11:25 BMI result Body Mass Index 35.9 Assessment & Plan Assessment & Plan (1) Degeneration, intervertebral disc, cervical: Code(s): M50.30 - Other cervical disc degeneration, unspecified cervical region Plan: (2) Cervical radiculopathy: Code(s): M54.12 - Radiculopathy, cervical region Plan: interlaminar cervical C5-C6 OFE. Informed consent was explained to the patient. All questions were explained and answered. The patient was taken inside of the operating room where she was positioned prone on the operating table. Time-out was performed delineating derek leavitt's name and date of , correct site, side, the nature of the procedure, patient's allergy, preoperative antibiotic if needed. All operating room staff and the patient were participating in OR time-out procedure. ? the patient's posterior neck was prepped with ChloraPrep and draped with sterile utility draped. Sterilely draped C-arm was brought over the operating field and sq picture of cervical vertebrae were delineated on the screen. the target of needle insertion was chosen between C5 and C6 vertebrae. ? The projection of the right lamina of the C6 vertebra was chosen as the starting point of the injection. 10 cm 20 g Tuohy needle was inserted through the skin after skin wheal was raised with lidocaine 2%. The needle was directed to the interlaminar space. The advancement of the needle was performed on intermittent anterior posterior and contralateral oblique view. Loss of resistance to saline was used to detect epidural interspace. On anterior posterior view needle was kept strictly in the midline. When the MARS was felt the injection of the contrast was performed delineating epidurogram. After that injection of PF normal saline 4 mls mixed with decadrone 10 mg and with trace amount of lidocaine PF was injected into the needle. Upon completion of the injection the needle was removed sterile band- aid was applied. The patient was transferred to the recovery room without immediate complications. (3) Chronic pain syndrome: Code(s): G89.4 - Chronic pain syndrome Plan: Orders: Orders FL guidance in treatment room Today M54.12 - Radiculopathy, cervical region Coding Level of Care Code Procedure Only Diagnoses Degeneration, intervertebral disc, cervical M50.30 Cervical radiculopathy M54.12 Chronic pain syndrome G89.4
[2023-05-10 11:24] VITALS: BP 94/62; PULSE 83; RESP 16; O2SAT 98; BMI 35.9
[2023-05-10 11:25] VITALS: BP 102/64; PULSE 76; RESP 16; O2SAT 96; BMI 35.9
== END 2023-05-10 11:09 | disposition home or self-care (01) ==
PROVIDERS: PCP Registered Nurse; Visit Provider Anesthesiology
DX: M50.30 Other cervical disc degeneration, unspecified cervical region (principal); M54.12 Radiculopathy, cervical region; G89.4 Chronic pain syndrome
CPT/HCPCS: 62321

== ENCOUNTER 2023-06-29 10:57 | Outpatient (REF) | payer MEDICAID, SELFPAY ==
[2023-06-29 14:28] LABS: TSH reflex Free T4 0.35 uIU/mL (0.32-4.0)
== END 2023-06-29 10:58 | disposition home or self-care (01) ==
LOC: HO.HHCL 10:57
PROVIDERS: Visit Provider Registered Nurse
DX: E03.9 Hypothyroidism, unspecified (principal)
CPT/HCPCS: 36415; 84443

== ENCOUNTER 2023-08-25 10:43 | Outpatient (AMB) | payer MEDICAID, SELFPAY ==
--- NOTE | 2023-08-25 10:49 | MHC.OFFVIS ---
Vital Signs 08/25/23 11:05 Height 4 ft 11 in Weight 151 lb 8 oz BMI 30.6 BP 124/80 Blood Pressure Location Lt brachial Position Sitting Respiration 16 Pulse 86 Pulse Source Pulse Oximeter Pulse Oximetry (%) 97 Oxygen Delivery Method Room Air Intake Visit Reasons: FOLLOW UP AFTER CERVICAL PROCEDURE Intake Note: Patient comes in for a follow up appointment. Reports pain 12/05. Allergies aspirin [ASA] Allergy (Unknown, Verified 08/25/23 11:05) RASH cortisone [CORTISONE] Allergy (Unknown, Verified 08/25/23 11:05) BAD REACTION naproxen [From Naprosyn] Allergy (Unknown, Verified 08/25/23 11:05) RASH, ITCHING, rash Ibuprofen Allergy (Unknown, Uncoded 03/22/23 09:03) rash HPI Comments Details: Elin is back in my office after the injection C5-C6 interlaminar epidural on 05/10/2023. She reported again 3-4 months of the pain relief. She reports that pain started to come back just 1 week ago. I will schedule her for repeat of the C5-C6 interlaminar epidural steroid injection. She had several injections for that of the same nature. The last 1 was on 11/30/2022. She would like me to repeat the injection for her. I also offered her to consider neurosurgical consult. I will schedule her for neurosurgical consult. Neurosurgical office accepts MRI only 6-month-old or less. I will schedule her for the fresh MRI of the cervical spine. To help her pain I also offered her to try gabapentin 300 mg b.i.d.. Risks and benefits of gabapentin were explained to the patient. Prior: very pleasant 56 years old female who was seen in this office for cervicalgia disc degeneration of cervical spine with radiculopathy.? She went for right-sided interlaminar epidural steroid injection C5-C6 on 11/10/2021.? She reports 50% pain improvement after the injection.? She reports better mobility, better social interactions better activity of daily living.? Her pain came back in February and we scheduled her for C6-C7 epidural steroid injection on 04/06/2022.? She reported 1 month of complete pain relief.? She reported 8 months of pain relief, she reported better mobility better activities of daily living better social interactions. She requests me to perform the same procedure again.? She appears to be allergic to ChloraPrep and this time we will make her prep with Betadine. REPLACED BY [facility] Medical History Migraine headache GERD (gastroesophageal reflux disease) Chronic back pain Anxiety and depression Elevated cholesterol Right rotator cuff tear Vitamin D deficiency Rotator cuff dysfunction Bursitis of right shoulder HLD (hyperlipidemia) Type 2 diabetes mellitus Hypothyroidism Hypertension Asthma Dyspepsia Surgical History History of surgery on arm Hx of section Hx of colonoscopy History of esophagogastroduodenoscopy (EGD) History of appendectomy Previous back surgery Family History Father Diabetes Mother Diabetes Social History Alcohol intake: never Patient Tobacco Use Status: Never used Tobacco Current occupational status: disabled Current occupation: Right Handed Review of Systems Const All systems reviewed & are unremarkable except as noted in HPI and below Physical Exam Vital Signs: Last Vital Signs Pulse 86 08/25/23 11:05 Resp 16 08/25/23 11:05 BP 124/80 08/25/23 11:05 Pulse Ox 97 08/25/23 11:05 Oxygen Delivery Method Room Air 08/25/23 11:05 BMI result Body Mass Index 30.6 Const General: healthy appearing and acute distress mild Orientation/consciousness: patient oriented x3 Limitations: no limitations Chest Chest palpation & inspection: normal inspection of the chest Resp Effort & Inspection: normal respiratory effort, able to speak in complete sentences, normal respiratory pattern, no audible wheezes and no cough GI Inspection: Yes normal to inspection Back/Spine/Pelvis Other: Limited range of motion of the cervical spine, palpation of the paraspinal spinal region on the posterior surface of the neck reveals severe tenderness. Neuro General: patient oriented x3 Assessment & Plan Assessment & Plan (1) Cervical radiculopathy: Code(s): M54.12 - Radiculopathy, cervical region Category: Medical Plan: I will schedule the patient for yet another interlaminar cervical C5-C6 OFE. I will also request for her the neurosurgical consult. To prepare her for neurosurgical consult I will send her for the MRI of the cervical spine without contrast. I will see her on the injection date and for the follow-up of the after the procedure. (2) Degeneration, intervertebral disc, cervical: Code(s): M50.30 - Other cervical disc degeneration, unspecified cervical region Category: Medical (3) Chronic pain syndrome: Code(s): G89.4 - Chronic pain syndrome Category: Medical Plan 4. times injection of the C6-C7 epidural steroid injection interlaminar was performed once in October of 2021 , once in March, once on 11/30/2022 and once in May 102023. Neurosurgical consult will be scheduled for the patient. Fresh MRI will be obtained as below. She reports almost 70 % pain relief after 3rd injection. It has been 1 month. She reports moderate pain 3-4 out of 10 to before the procedure pain was 10/10. Knee injection as needed but not sooner than 03/01/2023. It lasted 8 months last time. She needs Betadine for the prep instead of ChloraPrep. It will be done without sedation. Orders: Orders MR lumbar spine wo con Today G89.4 - Chronic pain syndrome, M50.30 - Other cervical disc degeneration, unspecified cervical region, M54.12 - Radiculopathy, cervical region Referrals Neurosurgery Referral G89.4 - Chronic pain syndrome, M50.30 - Other cervical disc degeneration, unspecified cervical region, M54.12 - Radiculopathy, cervical region Medications: New gabapentin 300 mg PO BID 60 caps 1RF 30 days Patient Instructions: I here by testify that I spent 32 minutes in conversation with this patient as well as planning her care and organizing this note. shuttle veneering supervisor from [employer] [phone] helped us to maintain the conversation today. Coding Level of Care Code Est Pt Level 4 (98650) Diagnoses Cervical radiculopathy M54.12 Degeneration, intervertebral disc, cervical M50.30 Chronic pain syndrome G89.4
[2023-08-25 11:05] VITALS: BP 124/80; PULSE 86; RESP 16; O2SAT 97; BMI 30.6
== END 2023-08-25 11:24 | disposition home or self-care (01) ==
PROVIDERS: PCP Registered Nurse; Referring Provider Registered Nurse; Visit Provider Anesthesiology
DX: M54.12 Radiculopathy, cervical region (principal); M50.30 Other cervical disc degeneration, unspecified cervical region; G89.4 Chronic pain syndrome
CPT/HCPCS: 99214

== ENCOUNTER → 2023-08-25 10:44 | Outpatient (BNVA) | payer MEDICAID, SELFPAY | PROVIDERS: PCP Registered Nurse; Visit Provider Anesthesiology | DX: M54.12 Radiculopathy, cervical region (principal); M50.30 Other cervical disc degeneration, unspecified cervical region; G89.4 Chronic pain syndrome | CPT/HCPCS: 99212 ==

== ENCOUNTER 2023-09-22 09:46 | Outpatient (REF) | payer MEDICAID, SELFPAY ==
[2023-09-22 10:00] LABS: MANUAL DIFF FLAG NO
[2023-09-22 10:08] LABS: Basophils Absolute Auto 0.1 X10*3/uL (0.0-0.2); Basophils Percent Auto 0.7 % (0-2); Eosinophils Absolute Auto 0.4 X10*3/uL (0.0-0.4); Eosinophils Percent Auto 4.1 % (0-4); Hematocrit 41.3 % (37.0-47.0); Hemoglobin 13.7 g/dl (12.0-16.0); Imm Gran Abs Auto 0.02 X10*3/uL (0.00-0.03); Imm Gran Pct Auto 0.2 % (0.0-0.4); Lymphocytes Absolute Auto 1.9 X10*3/uL (1.2-4.9); Lymphocytes Percent Auto 22.7 % (20-40); Mean Corpuscular HGB Conc 33.2 g/dl (31.0-35.0); Mean Corpuscular Hemoglobin 31.3 pg (27.0-33.0); Mean Corpuscular Volume 94.3 fL (80.0-98.0); Mean Platelet Volume 9.3 fL (9.4-12.3); Monocytes Absolute Auto 0.6 X10*3/uL (0.1-1.2); Monocytes Percent Auto 7.2 % (2-11); Neutrophils Absolute Auto 5.5 x10*3/uL (2.0-8.3); Neutrophils Percent Auto 65.1 % (45-73); Platelet Count 271 X10*3/uL (160-400); Red Blood Count 4.38 X10*6/uL (4.20-5.50); Red Cell Distribution Width 12.3 % (11.0-16.0); White Blood Count 8.5 X10*3/uL (4.8-10.8)
[2023-09-22 10:34] LABS: Alanine Aminotransferase 43 U/L (0-31); Albumin Level 4.1 g/dL (3.5-5.0); Alkaline Phosphatase 78 U/L (39-117); Amylase 98 U/L (28-100); Anion Gap 10 (12-20); Aspartate Amino Transferase 46 U/L (5-31); Bilirubin Direct 0.1 mg/dL (0.0-0.5); Bilirubin Total 0.3 mg/dL (0.0-1.0); Blood Urea Nitrogen 10 mg/dL (9-16); Carbon Dioxide 31 mmol/L (22-29); Chloride 103 mmol/L (96-108); Estimated Glomerular Filt Rate > 60; Lipase 36 U/L (8-78); Potassium 4.2 mmol/L (3.3-5.1); Sodium 140 mmol/L (135-145)
== END 2023-09-22 09:47 | disposition home or self-care (01) ==
LOC: HO.LAB 09:46
PROVIDERS: PCP Registered Nurse; Visit Provider Internal Medicine
DX: R10.10 Upper abdominal pain, unspecified (principal)
CPT/HCPCS: 36415; 80051; 80076; 82150; 82565; 83690; 84520; 85025

== ENCOUNTER 2023-09-29 09:25 | Outpatient (REF) | payer MEDICAID, SELFPAY ==
--- NOTE | ~2023-09-29 | MR_ITS ---
EXAMINATION: MR CERVICAL SPINE WITHOUT CONTRAST CLINICAL INFORMATION: Cervical radiculopathy COMPARISON: MRI cervical spine 06/10/2021 TECHNIQUE: MRI of the cervical spine was obtained using routine sequences without contrast. FINDINGS: The visualized cervical vertebrae are intact with normal alignment. No focal bone lesion with abnormal signal can be seen. Evaluation of the intervertebral discs show: C2/C3: Intervertebral disc height is normal, with normal T2 signal. No focal disc herniation is seen. Bilateral C2-C3 neural foramina are patent. Bilateral apophyseal joints are intact with normal alignment. C3/C4: Intervertebral disc height is normal, with normal T2 signal. Mild posterior disc protrusion is seen. There is mild asymmetric left C3-C4 neural foraminal stenosis. Bilateral apophyseal joints are intact with normal alignment. C4/C5: Intervertebral disc height is normal, with normal T2 signal. No focal disc herniation is seen. Bilateral C4-C5 neural foramina are patent. Bilateral apophyseal joints are intact with normal alignment. C5/C6: Intervertebral disc height is moderately decreased, with mild loss of T2 signal. Mild posterior disc protrusion is seen. There are marked right and moderate left C5-C6 neural foramina stenosis. Bilateral apophyseal joints are intact with normal alignment. C6/C7: Intervertebral disc height is normal, with normal T2 signal. Mild posterior disc protrusion is seen. Bilateral C6-C7 neural foramina are patent. Bilateral apophyseal joints are intact with normal alignment. C7/T1: Intervertebral disc height is normal, with normal T2 signal. Mild posterior disc protrusion is seen. Bilateral C7-T1 neural foramina are mildly stenosed. Bilateral apophyseal joints are intact with normal alignment. Cervical spinal cord is normal in position and signal. Moderate T1-T2 posterior disc protrusion effacing the thecal sac and bilateral moderate neural foramina stenosis seen. MR/MR cervical spine wo con IMPRESSION: 1. Unchanged moderate C5-C6 degenerative cervical disc disease, mild posterior C3-C4, C5-C6, C6-C7, C7-T1 and moderate posterior T1-T2 disc protrusions are seen. 2. There is no evidence of cervical spinal cord compression or significant spinal stenosis. 3. Unchanged mild left C3-C4, marked right and moderate left C5-C6, mild bilateral C7-T1 neural foramina stenosis.
== END 2023-09-29 09:26 | disposition home or self-care (01) ==
LOC: HO.MRI 09:25
PROVIDERS: PCP Registered Nurse; Visit Provider Anesthesiology
DX: M54.12 Radiculopathy, cervical region (principal)
CPT/HCPCS: 72141

== ENCOUNTER 2023-10-04 06:09 | Outpatient (REF) | payer MEDICAID, SELFPAY ==
--- NOTE | ~2023-10-04 | FL_ITS ---
EXAMINATION: XR FLUOROSCOPY WITH IMAGES CLINICAL INFORMATION: Cervical radiculopathy. COMPARISON: None available. TECHNIQUE: Fluoroscopy Supervised By: Dr. Agustin Galloway. Fluoroscopy Time: 0.3 minutes. Cumulative Dose: 2.99 mGy. DAP: 0.0210 Gycm2. Images: 1. FINDINGS: Intraoperative fluoroscopy and spot films were performed during a procedure in the OR. A single nondiagnostic image is seen. A needle is present posteriorly in what is likely the cervical spine. Precise levels can not be ascertained secondary to marked coning of the images with lack of appropriate landmarks. Please correlate with Dr. Galloway's report for complete details. FL/FL guidance in treatment room IMPRESSION: Intraoperative fluoroscopy and spot films were obtained. Please see Dr. Galloway's report for complete details.
== END 2023-10-04 06:10 | disposition home or self-care (01) ==
LOC: CF 06:09
PROVIDERS: Visit Provider Anesthesiology
DX: M54.12 Radiculopathy, cervical region (principal); M50.30 Other cervical disc degeneration, unspecified cervical region; G89.4 Chronic pain syndrome
CPT/HCPCS: 62321; J1100; Q9967

== ENCOUNTER 2023-10-04 07:43 | Outpatient (AMB) | payer MEDICAID, SELFPAY ==
[2023-10-04 08:00] VITALS: BP 113/66; PULSE 90; RESP 14; O2SAT 98; BMI 31.3
--- NOTE | 2023-10-04 08:00 | A.OFFVIS_ITS ---
Vital Signs 10/04/23 08:00 10/04/23 09:08 Height 4 ft 11 in 4 ft 11 in Weight 155 lb 155 lb BMI 31.3 31.3 BP 113/66 123/68 Blood Pressure Location Rt brachial Lt brachial Position Sitting Sitting Respiration 14 14 Pulse 90 90 Pulse Source Pulse Oximeter Pulse Oximeter Pulse Oximetry (%) 98 98 Oxygen Delivery Method Room Air Room Air Comment Pre-Op post-op Intake Visit Reasons: C5, C6 INTERLAMINAR OFE Computator Required: Yes Computator Language: Form Setter Steel Forms Name: Sarahi #[id number] Allergies aspirin [ASA] Allergy (Unknown, Verified 10/04/23 08:01) RASH cortisone [CORTISONE] Allergy (Unknown, Verified 10/04/23 08:01) BAD REACTION naproxen [From Naprosyn] Allergy (Unknown, Verified 10/04/23 08:01) RASH, ITCHING, rash Ibuprofen Allergy (Unknown, Uncoded 03/22/23 09:03) rash PFSH Medical History Migraine headache GERD (gastroesophageal reflux disease) Chronic back pain Anxiety and depression Elevated cholesterol Right rotator cuff tear Vitamin D deficiency Rotator cuff dysfunction Bursitis of right shoulder HLD (hyperlipidemia) Type 2 diabetes mellitus Hypothyroidism Hypertension Asthma Dyspepsia Surgical History History of surgery on arm Hx of section Hx of colonoscopy History of esophagogastroduodenoscopy (EGD) History of appendectomy Previous back surgery Family History Father Diabetes Mother Diabetes Social History Alcohol intake: never Patient Tobacco Use Status: Never used Tobacco Current occupational status: disabled Current occupation: Right Handed Physical Exam Vital Signs: Last Vital Signs Pulse 90 10/04/23 09:08 Resp 14 10/04/23 09:08 BP 123/68 10/04/23 09:08 Pulse Ox 98 10/04/23 09:08 Oxygen Delivery Method Room Air 10/04/23 09:08 BMI result Body Mass Index 31.3 Assessment & Plan Assessment & Plan (1) Degeneration, intervertebral disc, cervical: Code(s): M50.30 - Other cervical disc degeneration, unspecified cervical region Category: Medical Plan: (2) Cervical radiculopathy: Code(s): M54.12 - Radiculopathy, cervical region Category: Medical Plan: interlaminar cervical C5-C6 OFE. Informed consent was explained to the patient. All questions were explained and answered. The patient was taken inside of the operating room where she was positioned prone on the operating table. Time-out was performed delineating patient's name and date of , correct site, side, the nature of the procedure, patient's allergy, preoperative antibiotic if needed. All operating room staff and the patient were participating in OR time-out procedure. ? the patient's posterior neck was prepped with ChloraPrep and draped with sterile utility draped. Sterilely draped C-arm was brought over the operating field and sq picture of cervical vertebrae were delineated on the screen. the target of needle insertion was chosen between C5 and C6 vertebrae. ? The projection of the right lamina of the C6 vertebra was chosen as the starting point of the injection. 10 cm 20 g Tuohy needle was inserted through the skin after skin wheal was raised with lidocaine 2%. The needle was directed to the interlaminar space. The advancement of the needle was performed on intermittent anterior posterior and contralateral oblique view. Loss of resistance to saline was used to detect epidural interspace. On anterior posterior view needle was kept strictly in the midline. When the MARS was felt the injection of the contrast was performed delineating epidurogram. After that injection of PF normal saline 4 mls mixed with decadrone 10 mg and with trace amount of lidocaine PF was injected into the needle. Upon completion of the injection the needle was removed sterile band- aid was applied. The patient was transferred to the recovery room without immediate complications. (3) Chronic pain syndrome: Code(s): G89.4 - Chronic pain syndrome Category: Medical Plan: Orders: Orders FL guidance in treatment room Today M54.12 - Radiculopathy, cervical region Coding Level of Care Code Procedure Only Diagnoses Degeneration, intervertebral disc, cervical M50.30 Cervical radiculopathy M54.12 Chronic pain syndrome G89.4
[2023-10-04 09:08] VITALS: BP 123/68; PULSE 90; RESP 14; O2SAT 98; BMI 31.3
== END 2023-10-04 09:01 | disposition home or self-care (01) ==
LOC: HO.PMCPRC 07:43
PROVIDERS: PCP Registered Nurse; Visit Provider Anesthesiology
DX: M54.12 Radiculopathy, cervical region (principal)
CPT/HCPCS: 62321

== ENCOUNTER 2023-10-06 07:57 | Outpatient (REF) | payer MEDICAID, SELFPAY ==
--- NOTE | ~2023-10-06 | US_ITS ---
EXAMINATION: US ABDOMEN COMPLETE CLINICAL INFORMATION: Upper abdominal pain. COMPARISON: CT abdomen and pelvis 08/20/2020. TECHNIQUE: Real-time imaging of the abdominal viscera. FINDINGS: PANCREAS: The pancreas appears unremarkable, without masses or ductal dilatation, with the exception of the tail which is obscured by bowel gas. ABDOMINAL AORTA: The proximal, mid, and distal segments are normal in caliber. INFERIOR VENA CAVA: Visualized portions are normal. LIVER: In the right lobe of the liver, there is a cluster of echogenic foci suggesting granulomas, similar to the 08/20/2020 CT scan. The liver is normal in size. The liver contour is normal. Parenchymal echogenicity is normal. No focal hepatic lesion. There is no intrahepatic biliary duct dilatation seen. GALLBLADDER: Normal. The gallbladder is physiologically distended without evidence of stones, sludge, polyps, wall thickening or pericholecystic fluid. COMMON BILE DUCT: Normal in caliber measuring 0.2 cm in diameter. RIGHT KIDNEY: Normal. No hydronephrosis. No renal calculi or focal parenchymal lesions. The kidney measures 9.6 cm in maximum dimension. LEFT KIDNEY: Normal. No hydronephrosis. No renal calculi or focal parenchymal lesions. The kidney measures 10.6 cm in maximum dimension. SPLEEN: Normal. The spleen measures 9.0 cm in maximum dimension. FREE FLUID: None. US/US abdomen complete IMPRESSION: A cause for the patient's upper abdominal pain has not been found. Incidental note made of hepatic granulomas.
== END 2023-10-06 07:58 | disposition home or self-care (01) ==
LOC: HO.US 07:57
PROVIDERS: PCP Registered Nurse; Visit Provider Internal Medicine
DX: R10.10 Upper abdominal pain, unspecified (principal)
CPT/HCPCS: 76700

== ENCOUNTER → 2023-10-31 08:51 | Outpatient (BNVA) | payer MEDICAID, SELFPAY | PROVIDERS: PCP Registered Nurse; Visit Provider Anesthesiology ==

== ENCOUNTER 2023-11-14 10:19 | Outpatient (AMB) | payer MEDICAID, SELFPAY ==
--- NOTE | 2023-11-14 10:33 | A.SPINEOV_ITS ---
Intake Visit Reasons: cervical radiculopathy Intake Note: Ms. David Argueta is here today c/o back pain. Recovery Room Rn Required: Yes Recovery Room Rn Name: Tablet Allergies aspirin [ASA] Allergy (Unknown, Verified 11/14/23 10:36) RASH cortisone [CORTISONE] Allergy (Unknown, Verified 11/14/23 10:36) BAD REACTION naproxen [From Naprosyn] Allergy (Unknown, Verified 11/14/23 10:36) RASH, ITCHING, rash Ibuprofen Allergy (Unknown, Uncoded 03/22/23 09:03) rash Assessment & Plan Assessment & Plan (1) Cervical radiculopathy: Code(s): M54.12 - Radiculopathy, cervical region Category: Medical Plan Dear Dr. Galloway, Thank you for referring Elin to our office today. She is a pleasant 58-year-old female who comes in today with a chief complaint of neck pain with shooting pains into her right upper extremity. When describing her pain she runs her hand over her right deltoid down behind her right elbow over the dorsal surface of her right forearm and then grabs her 2nd-3rd & 4th phalanges. She reports some associated right-sided hand numbness, but does state that she has right-sided carpal tunnel syndrome. She states that her carpal tunnel symptoms act up overnight and cause her whole right hand to become numb. When asked what her worst symptom is she says ?by far it is my neck pain. Per previous pain management notes it appears she has exhausted attempted conservative measures at C5-6, and most recently had a C5-C6 interlaminar epidural on 10/04/2023. She reported about 60% pain reduction for roughly 1 week. She previously had injections at this area that provided 3-4 months of complete relief of her neck pain. She has been to physical therapy for this in the past and found it provided only modest relief, in his taken a plethora of [id number]-lxaeijt medications with minimal relief. PMH: Type 2 diabetes (last A1c was 5.6), previous L4-5 lumbar decompression completed by Dr. Allan 19 years ago. Asthma, hyperlipidemia, depression, seasonal allergies, hypothyroidism, sleep apnea. Social hx: The patient does not smoke, reports no substance use. Medications: Ambien, trazodone, sumatriptan, risperidone, ranitidine, Percocet, nifedipine, losartan, loratadine, levothyroxine, glucagon, gabapentin, fluticasone, Zetia, escitalopram, cyclobenzaprine, chlorthalidone, bupropion, atorvastatin, ascorbic acid, albuterol, Tylenol, acarbose. Allergies: Aspirin, cortisone, naproxen, ibuprofen. Physical exam: The patient has 5/5 strength in her upper and lower extremities, however does elicit pain to iliopsoas testing bilaterally. She has hypoesthesia at rest in her right hand near the palm. The rest of her sensation is intact. She is diffusely hyperreflexive, most exaggerated at the patellar reflex. She walks without a spastic or antalgic gait. (+) Pinto's bilaterally, (+) 1 beat of clonus in the left ankle if induced by slapping the sole of the shoe. (-) bilateral straight leg raise. Imaging review: MRI of the cervical spine completed here at [facility] shows moderate-severe right-sided foraminal stenosis at C5-6 mild- moderate right-sided foraminal stenosis at C6-7 with some mild central canal stenosis. Mild-moderate bilateral foraminal stenosis at C7-T1 Impression: Ross is a pleasant 58-year-old female comes in today with a chief complaint of predominantly neck pain with concurrent to complaints of right upper extremity symptoms. He has confounding right-sided carpal tunnel syndrome which is contributing to her right upper extremity nocturnal symptoms. Is also contributing to her right-sided hand numbness. In regards to her MRI, it is not particularly severe. It is hard to say that C5-6 looks significantly worse than C6-7 reason C7-T1. The most convincing evidence for this being the symptomatic level is her report of complete relief of neck pain with previous rounds of C 5- 6 injections. I informed the patient what an ACDF procedure would entail, and informed her I would discuss the possibility of this surgery with Dr. Gallardo, however I am not sure that he will want to follow through with the surgery given her confounding factors and her MRI. Thank you for allowing us to care for your patient. The total time spent with this visit with this patient was 45 minutes reviewing history, physical exam, MRI imaging review, and implementation of treatment plan or further diagnostic testing Igor Gallardo MD,PhD [facility] Coding Level of Care Code New Pt Level 4 (52176) Diagnoses Cervical radiculopathy M54.12
== END 2023-11-14 11:49 | disposition home or self-care (01) ==
PROVIDERS: PCP Registered Nurse; Referring Provider Anesthesiology; Visit Provider Physician Assistant
DX: M54.12 Radiculopathy, cervical region (principal)
CPT/HCPCS: 99204

== ENCOUNTER → 2023-11-14 10:19 | Outpatient (BNVA) | payer MEDICAID, SELFPAY | PROVIDERS: PCP Registered Nurse; Visit Provider Physician Assistant | DX: M54.12 Radiculopathy, cervical region (principal) | CPT/HCPCS: 99212 ==

== ENCOUNTER 2023-12-29 05:42 | Day surgery (SDC) | payer MEDICAID, SELFPAY ==
--- NOTE | 2023-12-15 | ECG_ITS ---
Test Reason : Pre Op Blood Pressure : / mmHG Vent. Rate : 073 BPM Atrial Rate : 073 BPM P-R Int : 154 ms QRS Dur : 074 ms QT Int : 398 ms P-R-T Axes : 010 -08 018 degrees QTc Int : 438 ms Normal sinus rhythm Normal ECG When compared with ECG of 21-JAN-2019 22:31, No significant change was found Referred By: Justina Forrest Electronically Signed By:OSCAR FAUSTIN
--- NOTE | 2023-12-15 10:23 | HO.ANESPROP2 ---
Documented by User: Justina Forrest NP 12/27/23 14:32 HPI - Anesthesia Eval Consult details Narrative: 58yo F for C5-6 Ant Cerv Discectomy w/ fusion, 12/29/23 No recent illness No CP/SOB with walking, house work GERD: ppi controls DM: FBS ~ 80's Asthma: albuterol ~ 2 x weekly Anesthesia Pre-Procedure Meds Is the patient on any of the following meds?: GLP1/DPP4 PMFSH Active Problems Active Problems: All Active Problems Subacromial impingement of left shoulder (Acute) Internal derangement of left shoulder (Acute) Peripheral neuropathy (Acute) Chronic pain syndrome (Acute) Degeneration, intervertebral disc, cervical (Acute) Chest discomfort (Acute) Cervical radiculopathy (Acute) Other and unspecified hyperlipidemia (Acute) Essential hypertension (Acute) Type 2 diabetes mellitus with unspecified complications (Acute) Precordial chest pain (Acute) S/P rotator cuff repair (Acute) Right rotator cuff tear (Acute) Vitamin D deficiency (Acute) Hypothyroidism (Acute) Rotator cuff dysfunction (Acute) Bursitis of right shoulder (Acute) Hypertension (Acute) Type 2 diabetes mellitus (Acute) HLD (hyperlipidemia) (Acute) Past Medical History Medical History Scratching Migraine headache GERD (gastroesophageal reflux disease) Chronic back pain Anxiety and depression Elevated cholesterol Right rotator cuff tear Vitamin D deficiency Rotator cuff dysfunction Bursitis of right shoulder HLD (hyperlipidemia) Type 2 diabetes mellitus Hypothyroidism Hypertension Asthma Dyspepsia Family History Family History Father Diabetes Mother Diabetes Family history of problems with anesthesia: No Surgical History Surgical History History of arthroscopy of left shoulder (03/16/23) History of surgery on arm Hx of section Hx of colonoscopy History of esophagogastroduodenoscopy (EGD) History of appendectomy Previous back surgery (~2004) History of Problems with Anesthesia: No (1 x back surgery, pt reports waking with ETT in place post op) Social History Social History (Updated 12/15/23 @ 10:48 by Ayesha Chodwhury RN) Household Members: Other 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 occupation: Right Handed Meds Allergies Allergy/AdvReac Type Severity Reaction Status Date / Time aspirin [ASA] Allergy Intermediate RASH Verified 12/29/23 06:09 cortisone [CORTISONE] Allergy Intermediate BAD Verified 12/29/23 06:09 REACTION naproxen [From Naprosyn] Allergy Intermediate RASH, Verified 12/29/23 06:09 ITCHING, rash Ibuprofen Allergy Intermediate rash Uncoded 12/29/23 06:09 Home Medications ?Medication ?Instructions ?Recorded ?Confirmed ?Last Taken ?Type nifedipine 60 mg tablet,extended 60 mg PO DAILY 01/17/20 12/15/23 12/29/23 History release acetaminophen 500 mg tablet 1 - 2 tab PO TID PRN Pain 05/30/20 12/15/23 Unknown History albuterol sulfate 2.5 mg/3 mL 1 amp inhalation QID PRN Wheezing 05/30/20 12/15/23 06/04/20 05:00 History (0.083 %) solution for nebulization ascorbic acid (vitamin C) 500 mg 1 tab PO 05/30/20 05/03/22 Unknown History tablet (Vitamin C) fluticasone 500 mcg-salmeterol 50 1 puff PO BID 05/30/20 05/03/22 Unknown History mcg/dose blistr powdr for inhalation fluticasone 500 mcg-salmeterol 50 1 puff PO BID 05/30/20 12/15/23 Unknown History mcg/dose blistr powdr for inhalation (Advair Diskus) fluticasone propionate 50 2 spray intranasal QAM 05/30/20 12/15/23 06/04/20 05:00 History mcg/actuation nasal spray,suspension omeprazole 20 mg capsule,delayed 1 cap PO BID 05/30/20 12/15/23 12/29/23 History release escitalopram oxalate 20 mg tablet 20 mg PO QPM 10/04/23 12/15/23 Unknown History oxycodone 10 mg tablet 10 mg PO Q8H PRN severe pain 10/04/23 12/15/23 Unknown History zolpidem 10 mg tablet 10 mg PO BEDTIME PRN Insomnia 10/04/23 12/15/23 Unknown History cholecalciferol (vitamin D3) 50 50 mcg PO DAILY 12/15/23 12/15/23 Unknown History mcg (2,000 unit) tablet (Vitamin D3) docusate sodium 100 mg capsule 100 mg PO BID 12/15/23 12/15/23 Unknown History dulaglutide 1.5 mg/0.5 mL 1.5 mg subcut QWEEK 12/15/23 12/15/23 12/29/23 History subcutaneous pen injector (Trulicity) ezetimibe 10 mg tablet (Zetia) 10 mg PO BEDTIME 12/15/23 12/15/23 Unknown History hydrochlorothiazide 25 mg tablet 25 mg PO DAILY 12/15/23 12/15/23 Unknown History insulin glargine 100 unit/mL unit subcut QPM 12/15/23 Unknown History subcutaneous solution (Lantus U-100 Insulin) levothyroxine 88 mcg tablet 88 mcg PO DAILY 12/15/23 12/15/23 12/29/23 History loratadine 10 mg tablet 10 mg PO DAILY 12/15/23 12/15/23 12/29/23 History metformin 1,000 mg tablet 1,000 mg PO BIDWMEAL 12/15/23 12/15/23 Unknown History rosuvastatin 40 mg tablet 40 mg PO DAILY 12/15/23 12/15/23 Unknown History sucralfate 100 mg/mL oral 10 ml PO QID 12/15/23 12/15/23 Unknown History suspension Exam Height,Weight and Vital Signs: Vital Signs Pulse Rate 82 12/15/23 10:31 Respiratory Rate 16 12/15/23 10:31 Blood Pressure 103/66 12/15/23 10:31 Pulse Oximetry 96 12/15/23 10:31 Oxygen Delivery Method Room Air 12/15/23 10:31 Pertinent Lab Results Pertinent Lab Results: Laboratory Tests 09/22/23 09:57 WBC 8.5 Hgb 13.7 Hct 41.3 Plt Count 271 Sodium 140 Potassium 4.2 Chloride 103 Carbon Dioxide 31 H BUN 10 Creatinine 0.61 Narrative Narrative: EKG 11/2023 Vent. Rate : 073 BPM Atrial Rate : 073 BPM P-R Int : 154 ms QRS Dur : 074 ms QT Int : 398 ms P-R-T Axes : 010 -08 018 degrees QTc Int : 438 ms Normal sinus rhythm Normal ECG When compared with ECG of 21-JAN-2019 22:31, No significant change was found ECHO 2021 Conclusions: - 1. Normal LV systolic function with grade 1 diastolic dysfunction 2. Normal cardiac valvular Doppler 3. Mildly elevated right ventricular systolic pressure 4. No gross pericardial effusion NM cardiolite stress test 2021 Impression: 1. Myocardial perfusion imaging study shows normal myocardial perfusion 2. Gated LVEF is 57% 3. Transient ischemic dilatation not present EKG is nondiagnostic for ischemia Airway Mallampati Class: II TM Dist: >3cm Neck ROM: Limited Partial: Lower Loose/Missing/Broken Teeth: No Heart: RRR Lungs: CTAB Assessment and Plan Assessment Anesthesia Assessment: Anesthesia Plan Discussed and PAT Visit Final Anesthetic Review Family History of Problems with Anesthesia: No History of Problems with Anesthesia: No (1 x back surgery, pt reports waking with ETT in place post op) Documented by User: Rupa Carroll MD 12/29/23 07:19 [facility] Past Medical History Medical History Scratching Migraine headache GERD (gastroesophageal reflux disease) Chronic back pain Anxiety and depression Elevated cholesterol Right rotator cuff tear Vitamin D deficiency Rotator cuff dysfunction Bursitis of right shoulder HLD (hyperlipidemia) Type 2 diabetes mellitus Hypothyroidism Hypertension Asthma Dyspepsia Family History Family History Father Diabetes Mother Diabetes Surgical History Surgical History History of arthroscopy of left shoulder (03/16/23) History of surgery on arm Hx of section Hx of colonoscopy History of esophagogastroduodenoscopy (EGD) History of appendectomy Previous back surgery (~2004) Social History Social History (Updated 12/15/23 @ 10:48 by Ayesha Chowdhury RN) Household Members: Other 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 occupation: Right Handed Meds Allergies Allergy/AdvReac Type Severity Reaction Status Date / Time aspirin [ASA] Allergy Intermediate RASH Verified 12/29/23 06:09 cortisone [CORTISONE] Allergy Intermediate BAD Verified 12/29/23 06:09 REACTION naproxen [From Naprosyn] Allergy Intermediate RASH, Verified 12/29/23 06:09 ITCHING, rash Ibuprofen Allergy Intermediate rash Uncoded 12/29/23 06:09 Home Medications ?Medication ?Instructions ?Recorded ?Confirmed ?Last Taken ?Type nifedipine 60 mg tablet,extended 60 mg PO DAILY 01/17/20 12/15/23 12/29/23 History release acetaminophen 500 mg tablet 1 - 2 tab PO TID PRN Pain 05/30/20 12/15/23 Unknown History albuterol sulfate 2.5 mg/3 mL 1 amp inhalation QID PRN Wheezing 05/30/20 12/15/23 06/04/20 05:00 History (0.083 %) solution for nebulization ascorbic acid (vitamin C) 500 mg 1 tab PO 05/30/20 05/03/22 Unknown History tablet (Vitamin C) fluticasone 500 mcg-salmeterol 50 1 puff PO BID 05/30/20 05/03/22 Unknown History mcg/dose blistr powdr for inhalation fluticasone 500 mcg-salmeterol 50 1 puff PO BID 05/30/20 12/15/23 Unknown History mcg/dose blistr powdr for inhalation (Advair Diskus) fluticasone propionate 50 2 spray intranasal QAM 05/30/20 12/15/23 06/04/20 05:00 History mcg/actuation nasal spray,suspension omeprazole 20 mg capsule,delayed 1 cap PO BID 05/30/20 12/15/23 12/29/23 History release escitalopram oxalate 20 mg tablet 20 mg PO QPM 10/04/23 12/15/23 Unknown History oxycodone 10 mg tablet 10 mg PO Q8H PRN severe pain 10/04/23 12/15/23 Unknown History zolpidem 10 mg tablet 10 mg PO BEDTIME PRN Insomnia 10/04/23 12/15/23 Unknown History cholecalciferol (vitamin D3) 50 50 mcg PO DAILY 12/15/23 12/15/23 Unknown History mcg (2,000 unit) tablet (Vitamin D3) docusate sodium 100 mg capsule 100 mg PO BID 12/15/23 12/15/23 Unknown History dulaglutide 1.5 mg/0.5 mL 1.5 mg subcut QWEEK 12/15/23 12/15/23 12/29/23 History subcutaneous pen injector (Trulicity) ezetimibe 10 mg tablet (Zetia) 10 mg PO BEDTIME 12/15/23 12/15/23 Unknown History hydrochlorothiazide 25 mg tablet 25 mg PO DAILY 12/15/23 12/15/23 Unknown History insulin glargine 100 unit/mL unit subcut QPM 12/15/23 Unknown History subcutaneous solution (Lantus U-100 Insulin) levothyroxine 88 mcg tablet 88 mcg PO DAILY 12/15/23 12/15/23 12/29/23 History loratadine 10 mg tablet 10 mg PO DAILY 12/15/23 12/15/23 12/29/23 History metformin 1,000 mg tablet 1,000 mg PO BIDWMEAL 12/15/23 12/15/23 Unknown History rosuvastatin 40 mg tablet 40 mg PO DAILY 12/15/23 12/15/23 Unknown History sucralfate 100 mg/mL oral 10 ml PO QID 12/15/23 12/15/23 Unknown History suspension Exam Airway Mallampati Class: III Assessment and Plan Assessment Anesthesia Assessment: Chart Reviewed Final Anesthetic Review NPO: Yes ASA Class: III Final Preanesthetic Review: No Changes in Pt Med Stat, Meds/Allgs Chart Reviewed, Consent Obtained/Reviewed and Anes Risks/Benef Reviewed Patient Risk: Intermediate Procedure Risk: Intermediate Anesthetic Plan Anesthetic Plan: GA Disposition: Standard PACU
[2023-12-15 10:31] VITALS: BP 103/66; PULSE 82; RESP 16; O2SAT 96; BMI 31.7
[2023-12-29] VITALS (17 sets, daily range): BP systolic 95–141; BP diastolic 52–87; PULSE 87–93; RESP 16–18; TEMP 36.1–36.6; O2SAT 95–99; BMI 33.2
[2023-12-29] MEDS: Lactated Ringers 1,000 ML 100 ML IVCONT (06:23)
[2023-12-29] MEDS: Gabapentin 300 MG CAPSULE PO (07:01)
[2023-12-29] MEDS: methocarbamoL 750 MG TABLET PO (07:02)
--- NOTE | 2023-12-29 07:05 | MHC.SHP ---
Pre-Procedural Eval Section A - 24 Hr Update-Section A only Date of Service: 12/29/23 The patient is an INPATIENT: No Changes since office visit: No Cold of Flu in the past 2 weeks, No New Medical Problems, No Changes in Medication and No Patient answered all questions The patient has been examined within 24 hours of the surgical procedure. The History & Physical has been completed within 30 days and I have reviewed it.: No Section B - Complete if H&P > 30 days Chief Complaint: Radiculopathy, cervical region Allergies: Allergies Allergy/AdvReac Type Severity Reaction Status Date / Time aspirin [ASA] Allergy Intermediate RASH Verified 12/29/23 06:09 cortisone [CORTISONE] Allergy Intermediate BAD Verified 12/29/23 06:09 REACTION naproxen [From Naprosyn] Allergy Intermediate RASH, Verified 12/29/23 06:09 ITCHING, rash Ibuprofen Allergy Intermediate rash Uncoded 12/29/23 06:09 Review of Systems Sugical H&P ROS: Negative: Constitution, Cardiovascular, Respiratory, Neurological, Psychiatric, Hem-Onc, Allergic/Immunologic, Gastrointestinal, Genitourinary, Musculoskeletal, Integumentary, Endocrine and Eyes/Ears/Nose/Throat Exam Surgical H&P Exam: Normal: HEENT, Normal: Heart, Normal: Lungs, Normal: Extremities, Normal: Abdomen, Normal: Skin and Normal: Neurological (awake, alert,oriented x 3 ) Plan Diagnosis/Plan: Unchanged C5-6 anterior cervical diskectomy and fusion Time Spent With Patient Time: Total time managing care of this patient today __7__ minutes.
--- NOTE | 2023-12-29 07:06 | PC.NURSE ---
dr. bonilla updated that patient stated her bp runs low and her doctor recently in the last month changed her medications and she has had slight improvement. Per dr. bonilla give 500 bolus of fluid now. Patient asymptomatic in sss.
[2023-12-29 07:38] LABS: Glucose, Whole Blood 134 mg/dL (60-115)
--- NOTE | 2023-12-29 08:37 | P.OP_ITS ---
Operative Note Operative Note Date of Service: 12/29/23 Narrative: Preoperative Diagnosis: Cervical radiculopathy, right more than left Procedure: C5-6 Anterior discectomy, arthrodesis and implantation cage ; C5-C6 anterior instrumentation ; local autograft; microscope Informed Consent was obtained for this operation. I have explained the nature, purpose and benefits of the operation. I have discussed the risks and benefit of the operation including possible complications or adverse events with patient/family. Alternative(s) were discussed with the patient with their relative benefits and risks as well as the consequences of not accepting the operation were included in obtaining consent. Surgeon: ALEJANDRA GONSALEZ MD, PHD Procedure Assisted By: eliu Azevedo Description of Procedure: This is suffering from cervical radiculopathy, right more than left. MRI shows cervical degenerative disc disease C5-C6 with bilateral foraminal stenosis, right more than left. The procedure complications were explained. The patient was consented. The patient was brought to the operating room and endotracheally intubated. The patient was put in supine position with slight extension of the neck. Prep and drape was done followed by timeout. A mid cervical incision was made followed by opening of the platysma. The prevertebral fascia was reached following the natural planes while the physician housing assistant property manager provided manual retraction. The prevertebral fascia was opened to expose the disc space. A spinal needle was placed in the disk space to confirm the correct level with xray. The longus colli muscles were released bilaterally and a self retaining retractor was inserted. Two [place] pins were placed in the C5-C6 vertebral bodies and distraction was give over the interspace. The discectomy was completed toward the posterior annulus of the disc. The microscope was brought in. The remainder of the discectomy was completed. The posterior ligament was opened and resected to expose the underlying dura. Osteophytes were resected from the body of C5-C6 and saved for autograft. Bilateral foraminotomies were done. The endplates were prepared after which a 6 mm cage filled with autograft was inserted into the disc space. A separate attached plate was locked down with 2 x 14 mm screws as anterior instrumentation. Final x-rays in AP and lateral projection showed a satisfactory position of the implant. The physician housing assistant property manager took over. The [place] pin was removed. Hemostasis was done. He closed the incision in 2 layers with a 3-0 Vicryl. Steri-Strips used to approximate incision. An OpSite with Tegaderm was used to cover the incision. All sponge and needle counts were correct. Patient was extubated and transported in stable is to recovery room. Anesthesia: General Estimated Blood Loss (ml): 30 Duration of Surgery: 35 minutes Postoperative Plan: Discharge home Complications: None
--- NOTE | 2023-12-29 08:43 | P.DS_ITS ---
DS: Providers Provider Date of Service: 12/29/23 Date of discharge: 12/29/23 Primary care physician: SHANICE Goldsmith Admitting clinician: Wu Gallardo DS: Diagnosis Discharge Diagnosis (1) Cervical radiculopathy: Status: Acute DS: Summary Time Attestation Discharge Coordination Time (in mins): 5 Quality: Safe Use of Opioids Does Pt have an Active Cancer Diagnosis on the Problem List?: No Quality: Stroke Does the patient have a stroke diagnosis?: No Physical Exam Vital Signs: Vital Signs: Last Vital Signs Temp 97.9 F 12/29/23 06:35 Pulse 89 12/29/23 06:35 Resp 18 12/29/23 06:35 BP 95/52 L 12/29/23 06:35 Pulse Ox 96 12/29/23 06:35 O2 Del Method Room Air 12/29/23 06:35 BMI result Body Mass Index 33.2 DS: Data Data Completed and Pending Labs on day of discharge: Laboratory Results - last 24 hr 12/29/23 06:25 POC Glucose 134 H Discharge Plan Discharge Patient Disposition: Home, Self-Care Referrals: Joy Villar FNP [Primary Care Provider] - 1 Week Discharge Medications: New oxycodone 5 mg tablet 5 mg PO Q4H PRN (Reason: pain) Qty: 30 0RF Rx Instructions: Partial Fill upon patient request. docusate sodium [Colace] 100 mg capsule 100 mg PO BID Qty: 20 0RF Continued pen needle, diabetic [Pentips] 32 gauge x 5/32 needle 1 ea miscellaneous BID Qty: 100 6RF losartan 50 mg tablet 50 mg PO DAILY 30 Days Qty: 30 7RF acarbose 50 mg tablet 50 mg PO TID Qty: 60 8RF albuterol sulfate 2.5 mg /3 mL (0.083 %) solution for nebulization 1 amp inhalation QID PRN (Reason: Wheezing) acetaminophen 500 mg tablet 1 - 2 tab PO TID PRN (Reason: Pain) ascorbic acid (vitamin C) [Vitamin C] 500 mg tablet 1 tab PO fluticasone propion-salmeterol [Advair Diskus] 500-50 mcg/dose blister with device 1 puff PO BID fluticasone propion-salmeterol 500-50 mcg/dose blister with device 1 puff PO BID omeprazole 20 mg capsule,delayed release(DR/EC) 1 cap PO BID fluticasone propionate 50 mcg/actuation spray,suspension 2 spray intranasal QAM cyclobenzaprine 5 mg tablet 5 mg PO TID PRN (Reason: muscle spasm) Qty: 10 0RF insulin glargine [Lantus U-100 Insulin] 100 unit/mL Solution SUBCUT QPM sucralfate 100 mg/mL Suspension 10 ml PO QID Rx Instructions: swish in mouth and swallow; use after food/drink levothyroxine 88 mcg Tablet 88 mcg PO DAILY metformin 1,000 mg Tablet 1,000 mg PO BIDWMEAL docusate sodium 100 mg Capsule 100 mg PO BID hydrochlorothiazide 25 mg Tablet 25 mg PO DAILY loratadine 10 mg Tablet 10 mg PO DAILY rosuvastatin 40 mg Tablet 40 mg PO DAILY cholecalciferol (vitamin D3) [Vitamin D3] 50 mcg (2,000 unit) Tablet 50 mcg PO DAILY Trulicity 1.5 mg/0.5 mL Pen Injector 1.5 mg SUBCUT QWEEK ezetimibe [Zetia] 10 mg tablet 10 mg PO BEDTIME nifedipine 60 mg tablet extended release 60 mg PO DAILY escitalopram oxalate 20 mg tablet 20 mg PO QPM zolpidem 10 mg tablet 10 mg PO BEDTIME PRN (Reason: Insomnia) oxycodone 10 mg tablet 10 mg PO Q8H PRN (Reason: severe pain) Discharge Orders: Discharge Order (Routine); Ordered 12/29/23 Ordered By: Tae Salazar Diet: Advance to usual diet Activity on Discharge: As tolerated Activity Restrictions/Additional Instructions: After your spinal surgery we ask you to observe the following restrictions/guidelines: Activity: It is normal to feel some discomfort as you increase your activity, but that will improve with time. We ask you avoid heavy lifting or acitivities that cause pain. As a general rule, 8lbs is a safe limit for lifting right after surgery. Walk as much as you feel comfortable but not to exhaustion. You will feel extra tired the first few days after surgery. Stay well hydrated. It is OK to walk up and down stairs You may return to driving when you are off narcotics (such as vicodin, oxycodone, dilaudid, etc), and you are back to normal functional capacity. If you have any concerns please check with office before driving. Return to work is specific to each patient and each surgery, so please speak with your doctor/PA at first follow up. Please bring paperwork such as FMLA at that time if you need it filled out. Medications: For optimum pain control, it is best to start with a combination of 500 mg of Tylenol every 4 hours with 600 mg of Motrin every 8 hours, and use narcotics as needed in between for breakthrough pain. We will give you a short supply of narcotics after surgery (usually one weeks worth). If you need more please call the office but do not use more than prescribed. You will need to give our office 48 hours notice if you need narcotics refilled and we do not fill narcotics on weekends or evenings. If you are on a narcotic, it is a good idea to take a stool softener such as colace or senna to avoid constipation If you take blood thinner such as aspirin, Plavix, Coumadin, Effient, Eliquis etc for conditions such as Afib, DVT, Pulmonary embolus, coronary disease, stents etc please speak with your surgeon about specific details as to when you can resume these medications. You can resume NSAIDs on post op day 1 (eg: Motrin, Naproxen, etc). Follow up: Please call the office, , after surgery to arrange a 3 week follow up for wound check. Wound Care: You may remove your dressing on the first day after surgery. ?You may ?leave open to air. Please do not remove the steri strips underneath. they will fall off on their own in one week. IT IS NORMAL FOR THE WOUND TO OOZE OR BE BLOODY FOR A FEW DAYS AFTER SURGERY. ?IF THIS HAPPENS JUST PLACE NEW DRESSING OVER IT TO AVOID STAINING CLOTHES. You may shower on post op day # 1 We ask that you do not let the water soak the wound. If it does get wet, just towel dry lightly. Please do not scrub your incision or place any type of chemical/ointment on the wound. No tub baths, pools or jacuzzis for one month. If you have any leaking or redness from your wound, or fevers, please call office Print Language: Barbadian
[2023-12-29] MEDS: fentaNYL citrate/PF 100 MCG/2 ML VIAL 50 MCG IVPUSH ×4 (09:02→10:35)
--- OUTSIDE RECORDS SUMMARY | 2023-12-29 13:06 | XMS_ITS | Patient Health Record ---
Author Organization [facility] Address [address] [place] [address] Care Team Providers Care Candy Dipper Name Role Phone ADRIÁN JAMISON MD Primary Care Provider Lazaro Venegas Unavailable [phone] ALLERGIES Allergen (clinical drug ingredient) Drug/Non Drug Allergy documented on EMR Reaction Allergy Type Onset Date Status naproxen Naproxen Unknown Drug Allergy Active RESULTS Component Value Reference Range Notes Electrolytes Reviewed date:09/22/2023 12:37:18 PM Interpretation: Performing Lab:[facility], [address] [place] [phone] Notes/Report: Sodium 140 135-145 mmol/L Potassium 4.2 3.3-5.1 mmol/L Chloride 103 96-108 mmol/L Carbon Dioxide 31 22-29 mmol/L Anion Gap 10 12-20 Creatinine Reviewed date:09/22/2023 12:37:02 PM Interpretation: Performing Lab:[facility], [address] [place] [phone] Notes/Report: Creatinine 0.61 0.5-1.4 mg/dL Estimated Glomerular Filt Rate > 60 NOTE: For -[place] individuals, multiply the result by 1.210. Chronic Kidney Disease: Estimated GFR < 60 mL/min/1.73m2 Severe Kidney Disease: Estimated GFR < 15 mL/min/1.73m2 Amylase Reviewed date:09/22/2023 12:36:54 PM Interpretation: Performing Lab:[facility], [address] [place] [phone] Notes/Report: Amylase 98 28-100 U/L Lipase Reviewed date:09/22/2023 12:36:47 PM Interpretation: Performing Lab:[facility], [address] [place] [phone] Notes/Report: Lipase 36 8-78 U/L Complete Blood Count Auto Di ff Reviewed date:09/22/2023 12:35:57 PM Interpretation: Performing Lab:[facility], [address] [place] [phone] Notes/Report: White Blood Count 8.5 4.8-10.8 X10*3/uL Red Blood Count 4.38 4.20-5.50 X10*6/uL Hemoglobin 13.7 12.0-16.0 g/dl Hematocrit 41.3 37.0-47.0 % Mean Corpuscular Volume 94.3 80.0-98.0 fL Mean Corpuscular Hemoglobin 31.3 27.0-33.0 pg Mean Corpuscular HGB Conc 33.2 31.0-35.0 g/dl Red Cell Distribution Width 12.3 11.0-16.0 % Platelet Count 271 160-400 X10*3/uL Mean Platelet Volume 9.3 9.4-12.3 fL Neutrophils Percent Auto 65.1 45-73 % Imm Gran Pct Auto 0.2 0.0-0.4 % Lymphocytes Percent Auto 22.7 20-40 % Monocytes Percent Auto 7.2 2-11 % Eosinophils Percent Auto 4.1 0-4 % Basophils Percent Auto 0.7 0-2 % NRBC Pct Auto 0.0 0.0-0.2 /100WBC Neutrophils Absolute Auto 5.5 2.0-8.3 x10*3/u L Imm Gran Abs Auto 0.02 0.00-0.03 X10*3/uL Lymphocytes Absolute Auto 1.9 1.2-4.9 X10*3/u L Monocytes Absolute Auto 0.6 0.1-1.2 X10*3/uL Eosinophils Absolute Auto 0.4 0.0-0.4 X10*3/u L Basophils Absolute Auto 0.1 0.0-0.2 X10*3/uL NRBC Abs Auto 0.000 0.0-0.012 X10*3/uL Liver Panel Reviewed date:09/22/2023 12:36:17 PM Interpretation: Performing Lab:[facility], [address] [place] [phone] Notes/Report: Bilirubin Total 0.3 0.0-1.0 mg/dL Bilirubin Direct 0.1 0.0-0.5 mg/dL Aspartate Amino Transferase 46 5-31 U/L Alanine Aminotransferase 43 0-31 U/L Total Protein 7.0 6.5-8.0 g/dL Albumin Level 4.1 3.5-5.0 g/dL Alkaline Phosphatase 78 39-117 U/L Blood Urea Nitrogen Reviewed date:09/22/2023 12:36:40 PM Interpretation: Performing Lab:[facility], [address] [place] [phone] Notes/Report: Blood Urea Nitrogen 10 9-16 mg/dL US abdomen complete (Not yet reviewed by provider) Interpretation: Performing Lab: Notes/Report: [address] [address] Ultrasound Report Signed Patient: Elin Jacobson MR# : [id number] : 1965 Acct:[id number] Age/Sex: 58 / F ADM Date: 10/06/23 Loc: HO.US Attending Dr: Lazaro Healy MD Ordering Physician: Lazaro Healy MD Date of Service: 10/06/23 Procedure(s): US abdomen complete Accession Number(s): [id number] cc: Adrián Jamison; Lazaro Healy MD EXAMINATION: US ABDOMEN COMPLETE CLINICAL INFORMATION: Upper abdominal pain. COMPARISON: CT abdomen and pelvis 08/20/2020. TECHNIQUE: Real-time imaging of the abdominal viscera. FINDINGS: PANCREAS: The pancreas appears unremarkable, without masses or ductal dilatation, with the exception of the tail which is obscured by bowel gas. ABDOMINAL AORTA: The proximal, mid, and distal segments are normal in caliber. INFERIOR VENA CAVA: Visualized portions are normal. LIVER: In the right lobe of the liver, there is a cluster of echogenic foci suggesting granulomas, similar to the 08/20/2020 CT scan. The liver is normal in size. The liver contour is normal. Parenchymal echogenicity is normal. No focal hepatic lesion. There is no intrahepatic biliary duct dilatation seen. GALLBLADDER: Normal. The gallbladder is physiologically distended without evidence of stones, sludge, polyps, wall thickening or pericholecystic fluid. COMMON BILE DUCT: Normal in caliber measuring 0.2 cm in diameter. RIGHT KIDNEY: Normal. No hydronephrosis. No renal calculi or focal parenchymal lesions. The kidney measures 9.6 cm in maximum dimension. LEFT KIDNEY: Normal. No hydronephrosis. No renal calculi or focal parenchymal lesions. The kidney measures 10.6 cm in maximum dimension. SPLEEN: Normal. The spleen measures 9.0 cm in maximum dimension. FREE FLUID: None. US/US abdomen complete IMPRESSION: A cause for the patient's upper abdominal pain has not been found. Incidental note made of hepatic granulomas. 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: SS REASON FOR REFERRAL Referring Provider First Name ADRIÁN Referring Provider Last Name SHAHEEN Referred Organization [facility] Referred Provider Lazaro Healy Referred Address [address] [place] [phone], Referred Provider Specialty Gastroentero logy Referral Priority Routine MEDICATIONS Medication SIG (Take, Route, Frequency, Duration) Notes Start Date End Date Status Victoza 18 MG/3ML INJECT 1.8 MG SUBCUTANEOUSLY EVERY DAY Subcutaneous for 30 E1165,Unava ilable Active Acetaminophen Extra Strength 500 MG TAKE 1 TABLET BY MOUTH EVERY 6 HOURS NEEDED FOR MODERATE PAIN OR FOR HEADACHE Oral for 25 R52,Unavail able Active Carafate 1 GM/10ML TAKE 10 ML BY MOUTH THREE TIMES DAILY 1 HOUR BEFORE MEALS AND AT BEDTIME ON AN EMPTY STOMACH Oral for 11 Active Zolpidem Tartrate 10 MG TAKE 1 TABLET BY MOUTH AT BEDTIME NEEDED Oral for 30 Active Cyclobenzaprine HCl 5 MG TAKE 1 TABLET B Y MOUTH THREE TIMES DAILY IN THE MORNING, AT NOON, AND AT BEDTIME NEEDED FOR MUSCLE SPASMS Oral for 10 Active oxyCODONE HCl 10 MG TAKE 1 TABLET BY MOUTH EVERY 8 HOURS NEEDED FOR SEVERE PAIN Oral for 28 M5450,Unava ilable Active Levothyroxine Sodium 88 MCG TAKE 1 TABLET BY MOUTH EVERY MORNING BEFORE BREAKFAST Oral for 90 Active Acarbose 50 MG TAKE 1 TABLET BY MOUTH THREE TIMES DAILY IN THE MORNING, AT NOON, AND AT BEDTIME Oral for 90 Active hydroCHLOROthiazide 25 MG TAKE 1 TABLET BY MOUTH EVERY MORNING (MAY INCREASE TO 2 TABLETS IN 2 WEEKS IF BLOOD PRESSURE ESTA POR ENCIMA Goal) Oral for 90 Active Gabapentin 300 MG TAKE 1 CAPSULE BY MOUTH TWICE DAILY Oral for 30 Active metFORMIN HCl 1000 MG TAKE 1 TABLET BY MOUTH TWICE DAILY IN THE MORNING AND IN THE EVENING WITH MEALS Oral for 90 E119,Unavai lable Active Advair Diskus 500-50 MCG/ACT INHALE 1 PUFF BY MOUTH TWICE DAILY RINSE MOUTH AFTER USING. Inhalation for 30 Active Fluticasone Propionate 50 MCG/ACT USE 2 SPRAYS IN EACH NOSTRIL EVERY MORNING Nasal for 90 J302,Unavai lable Active Vitamin C 500 MG TAKE 1 TABLET BY MOUTH TWICE DAILY IN THE MORNING AND AT BEDTIME Oral for 90 J302,Unavai lable Active Ezetimibe 10 MG TAKE 1 TABLET BY MOUTH AT BEDTIME Oral for 90 Active Escitalopram Oxalate 20 MG TAKE 1 TABLET BY MOUTH EVERY EVENING (AT 800pm) Oral for 30 Active NIFEdipine ER Osmotic Release 60 MG TAKE 1 TABLET BY MOUTH EVERY MORNING Oral for 90 Active D3 Super Strength 50 MCG (2000 UT) TAKE 1 CAPSULE BY MOUTH EVERY MORNING Oral for 90 Active Losartan Potassium 50 MG TAKE 1 TABLET B Y MOUTH EVERY MORNING Oral for 90 E1165,Unava ilable Active Rosuvastatin Calcium 40 MG TAKE 1 TABLET BY MOUTH AT BEDTIME Oral for 90 E7800,Unava ilable Active Omeprazole 20 MG TAKE 1 CAPSULE BY MOUTH TWICE DAILY 1 HOUR BEFORE MEALS Oral for 90 Active Lantus SoloStar 100 UNIT/ML INJECT 5 UNITS SUBCUTANEOUSLY AT BEDTIME FOR 2 WEEKS AFTER STEROID INJECTION Subcutaneous for 90 Active SOCIAL HISTORY Tobacco Use: Social History Observation Description Date Details (start date - stop date) Former Smoker NA - NA Sex Assigned At : Social History Observation Description Sex Assigned At Unknown Tobacco Use/Smoking Question Answer Notes Patient is a former smoker How long has it been since you last smoked? > 10 years Alcohol Screen Question Answer Notes Did you have a drink containing alcohol in the p ast year? No Points 0 Interpretation Negative PROBLEMS Problem Type ICD Code Onset Dates Problem Status W/U Status Risk SNOMED Code Notes Problem Upper abdominal pain (R10.10) Active confirmed Upper abdomina l pain (45659068) Problem Chronic constipation (K59.09) Active confirmed Chronic constipation (309074897) VITAL SIGNS Blood pressure diastolic 00 mm Hg 09/22/2023 Height 4 ft 10 in in 09/22/2023 Blood pressure systolic 00 mm Hg 09/22/2023 Weight 154 lbs 09/22/2023 BMI 32.18 kg/m2 09/22/2023 Encounters Encounter Location Date Provider Diagnosis [facility] [address] [place] [address] 09/22/2023 Lazaro Healy Upper abdominal pain R10.10 and Chronic constipation K59.09 ASSESSMENTS Encounter Date Diagnosis Assessment Notes Treatment Notes Treatment Clinical Notes 09/22/2023 Upper abdominal pain (ICD-10 - R10.10) Do not take the Victoza for 3 days before the colonoscopy Do take the Metformin on the morning of the upper endoscopy 09/22/2023 Chronic constipation (ICD-10 - K59.09) 09/22/2023 Other Need upper endo and colonoscopy op notes/path from [facility] [place] PLAN OF TREATMENT Pending Test Test Name Order Date BUN 09/22/2023 LIVER PROFILE 09/22/2023 CBC w DIFF 09/22/2023 US abdomen complete 10/06/2023 US abdomen complete 09/22/2023 Future Test Test Name Order Date UPPER GI ENDOSCOPY 09/22/2023 Next Appt Details Provider Name:Lazaro Healy , 01/11/2024 09:10:00 AM, [address] [facility] , [place], [place], [id number], Insurance Providers Payer Name Payer Address Payer Phone Subscriber Number Group Number Insured Name Patient Relationship to Insured Coverage Start Date Coverage End Date MEDICAID OF [employer] [address] [place] [phone] [id number] LEIN JACOBSON Self - patient is the insured MEDICAL (GENERAL) HISTORY Medical History History ICD Code IDDM Arthritis Hypertension Hypothryroidism Asthma Denies NC,CVA,renal disease Gastritis-EGD approx [address] Jason phillips Colonosocpy approx [address] Urrutia Depression and anxiety Chronic pain-back, neck, etc Migraines Surgical History Surgery Date(Month/Year) back shoulders section tubal ligation appendectomy
--- OUTSIDE RECORDS SUMMARY | 2023-12-29 13:06 | XMS_ITS ---
Author Organization [facility] Address [address] [place] [address] Care Team Providers Care Beamer Helper Name Role Phone ADRIÁN JAMISON MD Primary Care Provider Lazaro Venegas [phone] ALLERGIES Allergen (clinical drug ingredient) Drug/Non Drug Allergy documented on EMR Reaction Allergy Type Onset Date Status naproxen Naproxen Unknown Drug Allergy Active RESULTS Component Value Reference Range Notes Electrolytes Reviewed date:09/22/2023 12:37:18 PM Interpretation: Performing Lab:[facility], [address] [place] [phone] Notes/Report: Sodium 140 135-145 mmol/L Potassium 4.2 3.3-5.1 mmol/L Chloride 103 96-108 mmol/L Carbon Dioxide 31 22-29 mmol/L Anion Gap 10 12-20 Creatinine Reviewed date:09/22/2023 12:37:02 PM Interpretation: Performing Lab:[facility], [address] [place] [phone] Notes/Report: Creatinine 0.61 0.5-1.4 mg/dL Estimated Glomerular Filt Rate > 60 NOTE: For -[place] individuals, multiply the result by 1.210. Chronic Kidney Disease: Estimated GFR < 60 mL/min/1.73m2 Severe Kidney Disease: Estimated GFR < 15 mL/min/1.73m2 Amylase Reviewed date:09/22/2023 12:36:54 PM Interpretation: Performing Lab:[facility], [address] [place] [phone] Notes/Report: Amylase 98 28-100 U/L Lipase Reviewed date:09/22/2023 12:36:47 PM Interpretation: Performing Lab:[facility], [address] [facility], [place] [address] Notes/Report: Lipase 36 8-78 U/L REASON FOR VISIT Patient presents today for RUQ PAIN MEDICATIONS Medication SIG (Take, Route, Frequency, Duration) Notes Start Date End Date Status Acetaminophen Extra Strength 500 MG TAKE 1 [...] AT BEDTIME NEEDED Oral for 30 Active oxyCODONE HCl 10 MG TAKE 1 TABLET BY MOUTH EVERY 8 HOURS NEEDED FOR SEVERE PAIN Oral for 28 M5450,Unava ilable Active Gabapentin 300 MG TAKE 1 CAPSULE BY MOUTH TWICE DAILY Oral for 30 Active Fluticasone Propionate 50 MCG/ACT USE 2 SPRAYS IN EACH NOSTRIL EVERY MORNING Nasal for 90 J302,Unavai lable Active Ezetimibe 10 MG TAKE 1 TABLET BY MOUTH AT BEDTIME Oral for 90 Active NIFEdipine ER Osmotic Release 60 MG TAKE 1 TABLET BY MOUTH EVERY MORNING Oral for 90 Active Losartan Potassium 50 MG TAKE 1 TABLET B Y MOUTH EVERY MORNING Oral for 90 E1165,Unava ilable Active Lantus SoloStar 100 UNIT/ML INJECT 5 UNITS SUBCUTANEOUSLY AT BEDTIME FOR 2 WEEKS AFTER STEROID INJECTION Subcutaneous for 90 Active Victoza 18 MG/3ML INJECT 1.8 MG SUBCUTANEOUSLY EVERY DAY Subcutaneous for 30 E1165,Unava ilable Active Cyclobenzaprine HCl 5 MG TAKE 1 TABLET B Y MOUTH THREE TIMES DAILY IN THE MORNING, AT NOON, AND AT BEDTIME NEEDED FOR MUSCLE SPASMS Oral for 10 Active Levothyroxine Sodium 88 MCG TAKE 1 TABLET BY MOUTH EVERY MORNING BEFORE BREAKFAST Oral for 90 Active hydroCHLOROthiazide 25 MG TAKE 1 TABLET BY MOUTH EVERY MORNING (MAY INCREASE TO 2 TABLETS IN 2 WEEKS IF BLOOD PRESSURE ESTA POR ENCIMA Goal) Oral for 90 Active metFORMIN HCl 1000 MG TAKE 1 TABLET BY MOUTH TWICE DAILY IN THE MORNING AND IN THE EVENING WITH MEALS Oral for 90 E119,Unavai lable Active Advair Diskus 500-50 MCG/ACT INHALE 1 PUFF BY MOUTH TWICE DAILY RINSE MOUTH AFTER USING. Inhalation for 30 Active Escitalopram Oxalate 20 MG TAKE 1 TABLET BY MOUTH EVERY EVENING (AT 800pm) Oral for 30 Active D3 Super Strength 50 MCG (2000 UT) TAKE 1 CAPSULE BY MOUTH EVERY MORNING Oral for 90 Active Rosuvastatin Calcium 40 MG TAKE 1 TABLET BY MOUTH AT BEDTIME Oral for 90 E7800,Unava ilable Active Omeprazole 20 MG TAKE 1 CAPSULE BY MOUTH TWICE DAILY 1 HOUR BEFORE MEALS Oral for 90 Active Acarbose 50 MG TAKE 1 TABLET BY MOUTH THREE TIMES DAILY IN THE MORNING, AT NOON, AND AT BEDTIME Oral for 90 Active Vitamin C 500 MG TAKE 1 TABLET BY MOUTH TWICE DAILY IN THE MORNING AND AT BEDTIME Oral for 90 J302,Unavai lable Active SOCIAL HISTORY Tobacco Use: Social History [...] (R10.10) Active confirmed Upper abdomina l pain (95774905) Problem Chronic constipation (K59.09) Active confirmed Chronic constipation (526227588) VITAL SIGNS BMI 32.18 kg/m2 09/22/2023 Blood pressure systolic 00 mm Hg 09/22/19 24 Blood pressure diastolic 00 mm Hg 024 Height 4 ft 10 in in 09/22/2023 Weight 154 lbs 09/22/2023 Encounters Encounter Location Date Provider Diagnosis [facility] [address] [place] [address] 09/22/2023 Lazaro Healy Upper abdominal pain R10.10 [...] upper endo and colonoscopy op notes/path from [facility] [place] PLAN OF TREATMENT Treatment Notes Assessment Notes Upper abdominal pain Do not take the Victoza for 3 days before the colonoscopy Do take the Metformin on the morning of the upper endoscopy Other Need upper endo and colonoscopy op notes/path from [facility] [place] 2014 Pending Test Test Name Order Date BUN 09/22/2023 LIVER PROFILE 09/22/2023 CBC w DIFF 09/22/2023 US abdomen complete 09/22/2023 Future Test Test Name Order Date UPPER GI ENDOSCOPY 09/22/2023 Next Appt Details Follow Up: prn, Reason: Provider Name:Lazaro Healy , 01/11/2024 09:10:00 AM, [address] [place] [address], [phone], Progress Notes * Examination Category Sub-Category Detail Notes General Examination GENERAL APPEARANCE: pleasant , well nourished, well developed, in no acute distress HEAD: EYES: sclera non-icteric EARS: NOSE: THROAT: NECK/THYROID: no cervical lymphade nopathy, neck supple HEART: S1, S2 normal CHEST: LUNGS: clear to auscultatio n bilaterally ABDOMEN: normal bowel sounds, no guarding or rigidity, no guarding or rigidity, no masses palpable, soft, nontender, nondistended NEUROLOGIC: alert and oriented SKIN: nonjaundiced, no spi kayla angiomata EXTREMITIES: no edema PERIPHERAL PULSES: BACK: BREASTS: MUSCULOSKELETAL: MALE GENITOURINARY: LYMPH NODES: RECTAL EXAM: FEMALE GENITOURINARY: ORAL CAVITY: mucosa moist
== END 2023-12-29 13:53 | disposition home or self-care (01) ==
LOC: HO.SSS 13:11
PROVIDERS: PCP Registered Nurse; Visit Provider Neurological Surgery
PROC: (CPT 22551; principal; 2023-12-29 07:30)
DX: M50.122 Cervical disc disorder at C5-C6 level with radiculopathy (principal); M48.02 Spinal stenosis, cervical region; E11.9 Type 2 diabetes mellitus without complications; J45.909 Unspecified asthma, uncomplicated; E03.9 Hypothyroidism, unspecified; E78.5 Hyperlipidemia, unspecified; G47.30 Sleep apnea, unspecified; F32.A Depression, unspecified; Z79.4 Long term (current) use of insulin; Z79.51 Long term (current) use of inhaled steroids; Z79.899 Other long term (current) drug therapy; Z88.6 Allergy status to analgesic agent; Z88.8 Allergy status to other drugs, medicaments and biological substances; Z98.890 Other specified postprocedural states; Z87.891 Personal history of nicotine dependence
CPT/HCPCS: 22551; 22853; 20936; 22845; 82947; 93005; C1713; C1889; J0131; J0690; J1100; J2003; J2250; J2405; J2598; J2704; J3010

== ENCOUNTER → 2023-12-29 07:30 | Outpatient (BNV) | payer MEDICAID, SELFPAY | PROVIDERS: PCP Registered Nurse; Visit Provider Neurological Surgery | DX: M54.12 Radiculopathy, cervical region (principal) | CPT/HCPCS: 20936; 22551; 22845; 22853; 99499 ==

== ENCOUNTER 2024-01-11 07:34 | Day surgery (SDC) | payer MEDICAID, SELFPAY ==
[2024-01-06 13:32] VITALS: BMI 32.2
--- NOTE | 2024-01-10 08:25 | HO.ANESPROP2 ---
Documented by User: Justina Forrest NP 01/10/24 08:27 HPI - Anesthesia Eval Consult details Narrative: 58yo F for Upper Endoscopy C5-6 Ant Cerv Discectomy w/ fusion, 12/29/23 with GA. OK for EGD per Spine Surg GERD: ppi controls DM: FBS ~ 80's Asthma: albuterol ~ 2 x weekly Anesthesia Pre-Procedure Meds Is the patient on any of the following meds?: GLP1/DPP4 PMFSH Active Problems Active Problems: All Active Problems Subacromial impingement of left shoulder (Acute) Internal derangement of left shoulder (Acute) Peripheral neuropathy (Acute) Chronic pain syndrome (Acute) Degeneration, intervertebral disc, cervical (Acute) Chest discomfort (Acute) Cervical radiculopathy (Acute) Other and unspecified hyperlipidemia (Acute) Essential hypertension (Acute) Type 2 diabetes mellitus with unspecified complications (Acute) Precordial chest pain (Acute) S/P rotator cuff repair (Acute) Right rotator cuff tear (Acute) Vitamin D deficiency (Acute) Hypothyroidism (Acute) Rotator cuff dysfunction (Acute) Bursitis of right shoulder (Acute) Hypertension (Acute) Type 2 diabetes mellitus (Acute) HLD (hyperlipidemia) (Acute) Past Medical History Medical History Scratching Migraine headache GERD (gastroesophageal reflux disease) Chronic back pain Anxiety and depression Elevated cholesterol Right rotator cuff tear Vitamin D deficiency Rotator cuff dysfunction Bursitis of right shoulder HLD (hyperlipidemia) Type 2 diabetes mellitus Hypothyroidism Hypertension Asthma Dyspepsia Family History Family History Father Diabetes Mother Diabetes Family history of problems with anesthesia: No Surgical History Surgical History Hx of cervical discectomy History of arthroscopy of left shoulder (03/16/23) History of surgery on arm Hx of section Hx of colonoscopy History of esophagogastroduodenoscopy (EGD) History of appendectomy Previous back surgery (~2004) History of Problems with Anesthesia: No (1 x back surgery, pt reports waking with ETT in place post op) Social History Social History (Updated 12/15/23 @ 10:48 by Ayesha Chowdhury RN) Household Members: Other 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 Housing: Apartment Are you a primary healthcare market consultant to a significant other at home: No Do you presently have visiting nurse or other home services: No Alcohol intake: never Patient Tobacco Use Status: Former Tobacco user Tobacco use type: Cigarette Use of substances other than those prescribed or required for medical reasons: No Are you DNR?: No Advance Directives: No Advance Directives Information Provided: Yes Recently lost weight without trying: No Current occupational status: disabled 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 occupation: Right Handed Meds Allergies Allergy/AdvReac Type Severity Reaction Status Date / Time aspirin [ASA] Allergy Intermediate RASH Verified 12/29/23 06:09 cortisone [CORTISONE] Allergy Intermediate BAD Verified 12/29/23 06:09 REACTION ibuprofen Allergy Intermediate Rash Verified 01/06/24 13:30 naproxen [From Naprosyn] Allergy Intermediate RASH, Verified 12/29/23 06:09 ITCHING, rash Home Medications ?Medication ?Instructions ?Recorded ?Confirmed ?Last Taken ?Type nifedipine 60 mg tablet,extended 60 mg PO DAILY 01/17/20 01/06/24 12/29/23 History release acetaminophen 500 mg tablet 1 - 2 tab PO TID PRN Pain 05/30/20 01/06/24 Unknown History albuterol sulfate 2.5 mg/3 mL 1 amp inhalation QID PRN Wheezing 05/30/20 01/06/24 06/04/20 05:00 History (0.083 %) solution for nebulization ascorbic acid (vitamin C) 500 mg 1 tab PO DAILY 05/30/20 01/06/24 Unknown History tablet (Vitamin C) fluticasone 500 mcg-salmeterol 50 1 puff PO BID 05/30/20 01/06/24 Unknown History mcg/dose blistr powdr for inhalation (Advair Diskus) fluticasone propionate 50 2 spray intranasal QAM 05/30/20 01/06/24 06/04/20 05:00 History mcg/actuation nasal spray,suspension omeprazole 20 mg capsule,delayed 1 cap PO BID 05/30/20 01/06/24 12/29/23 History release escitalopram oxalate 20 mg tablet 20 mg PO QPM 10/04/23 01/06/24 Unknown History oxycodone 10 mg tablet 10 mg PO Q8H PRN severe pain 10/04/23 01/06/24 Unknown History zolpidem 10 mg tablet 10 mg PO BEDTIME PRN Insomnia 10/04/23 01/06/24 Unknown History cholecalciferol (vitamin D3) 50 50 mcg PO DAILY 12/15/23 01/06/24 Unknown History mcg (2,000 unit) tablet (Vitamin D3) dulaglutide 1.5 mg/0.5 mL 1.5 mg subcut QWEEK 12/15/23 01/11/24 01/04/24 History subcutaneous pen injector (Trulicity) ezetimibe 10 mg tablet (Zetia) 10 mg PO BEDTIME 12/15/23 01/06/24 Unknown History hydrochlorothiazide 25 mg tablet 25 mg PO DAILY 12/15/23 01/06/24 Unknown History insulin glargine 100 unit/mL 5 unit subcut QPM 12/15/23 01/06/24 Unknown History subcutaneous solution (Lantus U-100 Insulin) levothyroxine 88 mcg tablet 88 mcg PO DAILY 12/15/23 01/11/24 01/11/24 06:00 History loratadine 10 mg tablet 10 mg PO DAILY 12/15/23 01/06/24 12/29/23 History metformin 1,000 mg tablet 1,000 mg PO BIDWMEAL 12/15/23 01/06/24 Unknown History rosuvastatin 40 mg tablet 40 mg PO DAILY 12/15/23 01/06/24 Unknown History sucralfate 100 mg/mL oral 10 ml PO QID 12/15/23 01/06/24 Unknown History suspension Exam Height,Weight and Vital Signs: Height 4 ft 10 in Weight 69.853 kg Pertinent Lab Results Pertinent Lab Results: Laboratory Tests 09/22/23 09:57 WBC 8.5 Hgb 13.7 Hct 41.3 Plt Count 271 Sodium 140 Potassium 4.2 Chloride 103 Carbon Dioxide 31 H BUN 10 Creatinine 0.61 Narrative Narrative: EKG 11/2023 Vent. Rate : 073 BPM Atrial Rate : 073 BPM P-R Int : 154 ms QRS Dur : 074 ms QT Int : 398 ms P-R-T Axes : 010 -08 018 degrees QTc Int : 438 ms Normal sinus rhythm Normal ECG When compared with ECG of 21-JAN-2019 22:31, No significant change was found ECHO 2021 Conclusions: - 1. Normal LV systolic function with grade 1 diastolic dysfunction 2. Normal cardiac valvular Doppler 3. Mildly elevated right ventricular systolic pressure 4. No gross pericardial effusion NM cardiolite stress test 2021 Impression: 1. Myocardial perfusion imaging study shows normal myocardial perfusion 2. Gated LVEF is 57% 3. Transient ischemic dilatation not present EKG is nondiagnostic for ischemia Assessment and Plan Assessment Anesthesia Assessment: Chart Reviewed Final Anesthetic Review Family History of Problems with Anesthesia: No History of Problems with Anesthesia: No (1 x back surgery, pt reports waking with ETT in place post op) Documented by User: Freddy Barahona MD 01/11/24 09:32 PMF Past Medical History Medical History Scratching Migraine headache GERD (gastroesophageal reflux disease) Chronic back pain Anxiety and depression Elevated cholesterol Right rotator cuff tear Vitamin D deficiency Rotator cuff dysfunction Bursitis of right shoulder HLD (hyperlipidemia) Type 2 diabetes mellitus Hypothyroidism Hypertension Asthma Dyspepsia Family History Family History Father Diabetes Mother Diabetes Surgical History Surgical History Hx of cervical discectomy History of arthroscopy of left shoulder (03/16/23) History of surgery on arm Hx of section Hx of colonoscopy History of esophagogastroduodenoscopy (EGD) History of appendectomy Previous back surgery (~2004) Social History Social History (Updated 12/15/23 @ 10:48 by Ayesha Chowdhury RN) Household Members: Other 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 Housing: Apartment Are you a primary healthcare market consultant to a significant other at home: No Do you presently have visiting nurse or other home services: No Alcohol intake: never Patient Tobacco Use Status: Former Tobacco user Tobacco use type: Cigarette Use of substances other than those prescribed or required for medical reasons: No Are you DNR?: No Advance Directives: No Advance Directives Information Provided: Yes Recently lost weight without trying: No Current occupational status: disabled 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 occupation: Right Handed Meds Allergies Allergy/AdvReac Type Severity Reaction Status Date / Time aspirin [ASA] Allergy Intermediate RASH Verified 12/29/23 06:09 cortisone [CORTISONE] Allergy Intermediate BAD Verified 12/29/23 06:09 REACTION ibuprofen Allergy Intermediate Rash Verified 01/06/24 13:30 naproxen [From Naprosyn] Allergy Intermediate RASH, Verified 12/29/23 06:09 ITCHING, rash Home Medications ?Medication ?Instructions ?Recorded ?Confirmed ?Last Taken ?Type nifedipine 60 mg tablet,extended 60 mg PO DAILY 01/17/20 01/06/24 12/29/23 History release acetaminophen 500 mg tablet 1 - 2 tab PO TID PRN Pain 05/30/20 01/06/24 Unknown History albuterol sulfate 2.5 mg/3 mL 1 amp inhalation QID PRN Wheezing 05/30/20 01/06/24 06/04/20 05:00 History (0.083 %) solution for nebulization ascorbic acid (vitamin C) 500 mg 1 tab PO DAILY 05/30/20 01/06/24 Unknown History tablet (Vitamin C) fluticasone 500 mcg-salmeterol 50 1 puff PO BID 05/30/20 01/06/24 Unknown History mcg/dose blistr powdr for inhalation (Advair Diskus) fluticasone propionate 50 2 spray intranasal QAM 05/30/20 01/06/24 06/04/20 05:00 History mcg/actuation nasal spray,suspension omeprazole 20 mg capsule,delayed 1 cap PO BID 05/30/20 01/06/24 12/29/23 History release escitalopram oxalate 20 mg tablet 20 mg PO QPM 10/04/23 01/06/24 Unknown History oxycodone 10 mg tablet 10 mg PO Q8H PRN severe pain 10/04/23 01/06/24 Unknown History zolpidem 10 mg tablet 10 mg PO BEDTIME PRN Insomnia 10/04/23 01/06/24 Unknown History cholecalciferol (vitamin D3) 50 50 mcg PO DAILY 12/15/23 01/06/24 Unknown History mcg (2,000 unit) tablet (Vitamin D3) dulaglutide 1.5 mg/0.5 mL 1.5 mg subcut QWEEK 12/15/23 01/11/24 01/04/24 History subcutaneous pen injector (Trulicity) ezetimibe 10 mg tablet (Zetia) 10 mg PO BEDTIME 12/15/23 01/06/24 Unknown History hydrochlorothiazide 25 mg tablet 25 mg PO DAILY 12/15/23 01/06/24 Unknown History insulin glargine 100 unit/mL 5 unit subcut QPM 12/15/23 01/06/24 Unknown History subcutaneous solution (Lantus U-100 Insulin) levothyroxine 88 mcg tablet 88 mcg PO DAILY 12/15/23 01/11/24 01/11/24 06:00 History loratadine 10 mg tablet 10 mg PO DAILY 12/15/23 01/06/24 12/29/23 History metformin 1,000 mg tablet 1,000 mg PO BIDWMEAL 12/15/23 01/06/24 Unknown History rosuvastatin 40 mg tablet 40 mg PO DAILY 12/15/23 01/06/24 Unknown History sucralfate 100 mg/mL oral 10 ml PO QID 12/15/23 01/06/24 Unknown History suspension Exam Airway Mallampati Class: II TM Dist: <=3cm Neck ROM: Full Loose/Missing/Broken Teeth: No Heart: ok. see above. Lungs: ok. Assessment and Plan Assessment Anesthesia Assessment: Anesthesia Plan Discussed Final Anesthetic Review NPO: Yes ASA Class: III Final Preanesthetic Review: No Changes in Pt Med Stat, Meds/Allgs Chart Reviewed, Consent Obtained/Reviewed and Anes Risks/Benef Reviewed Patient Risk: Intermediate Procedure Risk: Intermediate Anesthetic Plan Anesthetic Plan: Agree w/ Assess. and Plan and TIVA Disposition: Standard PACU
--- OUTSIDE RECORDS SUMMARY | 2024-01-11 07:37 | XMS_ITS ---
Author Organization [facility] Address [address] [place] [address] Care Team Providers Care Theatrical Rigger Name Role Phone ADRIÁN JAMISON MD Primary Care Provider Unavaila Lazaro Rayo Unavailable [phone] REASON FOR VISIT upper abdominal pain Encounters Encounter Location Date Provider Diagnosis [facility] Out[facility] [address] [place] [id number] 01/11/2024 Lazaro Healy PLAN OF TREATMENT Next Appt Details Provider Name:Lazaro Healy , 01/11/2024 09:10:00 AM, [address] [place] [address] , [place], [place], [phone],
--- OUTSIDE RECORDS SUMMARY | 2024-01-11 07:38 | XMS_ITS | Patient Health Record ---
Author Organization [facility] Address [address] [place] [address] Care Team Providers Care Math Interventionist Name Role Phone ADRIÁN JAMISON MD Primary Care Provider Lazaro Venegas Unavailable [phone] ALLERGIES Allergen (clinical drug ingredient) Drug/Non Drug Allergy documented on EMR Reaction Allergy Type Onset Date Status naproxen Naproxen Unknown Drug Allergy Active RESULTS Component Value Reference Range Notes Electrolytes Reviewed date:09/22/2023 12:37:18 PM Interpretation: Performing Lab:[facility], [address] [place] [phone] Notes/Report: Sodium 140 135-145 mmol/L Potassium 4.2 3.3-5.1 mmol/L Chloride 103 96-108 mmol/L Carbon Dioxide 31 22-29 mmol/L Anion Gap 10 12-20 Creatinine Reviewed date:09/22/2023 12:37:02 PM Interpretation: Performing Lab:[facility], [address] [place] [phone] Notes/Report: Creatinine 0.61 0.5-1.4 mg/dL Estimated Glomerular Filt Rate > 60 NOTE: For -[place] individuals, multiply the result by 1.210. Chronic Kidney Disease: Estimated GFR < 60 mL/min/1.73m2 Severe Kidney Disease: Estimated GFR < 15 mL/min/1.73m2 Amylase Reviewed date:09/22/2023 12:36:54 PM Interpretation: Performing Lab:[facility], [address] [place] [phone] Notes/Report: Amylase 98 28-100 U/L Lipase Reviewed date:09/22/2023 12:36:47 PM Interpretation: Performing Lab:[facility], [address] [place] [phone] Notes/Report: Lipase 36 8-78 U/L Complete Blood Count Auto Di ff Reviewed date:09/22/2023 12:35:57 PM Interpretation: Performing Lab:[facility], [address] [place] [phone] Notes/Report: White Blood Count 8.5 4.8-10.8 X10*3/uL [...] Panel Reviewed date:09/22/2023 12:36:17 PM Interpretation: Performing Lab:[facility], [address] [place] [phone] Notes/Report: Bilirubin Total 0.3 0.0-1.0 mg/dL Bilirubin Direct 0.1 0.0-0.5 mg/dL Aspartate Amino Transferase 46 5-31 U/L Alanine Aminotransferase 43 0-31 U/L Total Protein 7.0 6.5-8.0 g/dL Albumin Level 4.1 3.5-5.0 g/dL Alkaline Phosphatase 78 39-117 U/L Blood Urea Nitrogen Reviewed date:09/22/2023 12:36:40 PM Interpretation: Performing Lab:[facility], [address] [place] [phone] Notes/Report: Blood Urea Nitrogen 10 9-16 mg/dL US abdomen complete Reviewed date:01/09/2024 11:00:02 PM Interpretation: Performing Lab: Notes/Report: [address] [address] Ultrasound Report Signed Patient: Elin Jacobson MR# : [id number] : 1965 Acct:[id number] Age/Sex: 58 / F ADM Date: 10/06/23 Loc: HO.US Attending Dr: Lazaro Healy MD Ordering Physician: Lazaro Healy MD Date of Service: 10/06/23 Procedure(s): US abdomen complete Accession Number(s): [id number] cc: Adrián JamisonP; Lazaro Healy MD EXAMINATION: US ABDOMEN COMPLETE [...] in OV> 10/24/23 2240 DD/ 0845 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: Construction Carpenter: MEDARDO REASON FOR REFERRAL Referring Provider First Name ADRIÁN Referring Provider Last Name SHAHEEN Referred Organization [facility] Referred Provider Lazaro Healy Referred Address [address] [place] [phone], Referred Provider Specialty Gastroentero logy Referral Priority [...] (R10.10) Active confirmed Upper abdomina l pain (23568559) Problem Chronic constipation (K59.09) Active confirmed Chronic constipation (783117905) VITAL SIGNS Blood pressure diastolic 00 mm Hg 09/22/2023 Height 4 ft 10 in in 09/22/2023 Blood pressure systolic 00 mm Hg 09/22/2023 Weight 154 lbs 09/22/2023 BMI 32.18 kg/m2 09/22/2023 Encounters Encounter Location Date Provider Diagnosis [facility] [address] [place] [id number] 01/11/2024 Lazaro Healy [facility] [address] [place] [phone] 09/22/2023 Lazaro Healy Upper abdominal pain R10.10 and Chronic constipation K59.09 [facility] [address] [place] [phone] 01/06/2024 Lazaro Healy ASSESSMENTS Encounter Date Diagnosis Assessment Notes Treatment Notes Treatment Clinical Notes 09/22/2023 Upper abdominal pain (ICD-10 - R10.10) Do not take the Victoza for 3 days before the colonoscopy Do take the Metformin on the morning of the upper endoscopy 09/22/2023 Chronic constipation (ICD-10 - K59.09) 09/22/2023 Other Need upper endo and colonoscopy op notes/path from [facility] approx 2014 PLAN OF TREATMENT Pending Test Test Name Order Date BUN 09/22/2023 LIVER PROFILE 09/22/2023 CBC w DIFF 09/22/2023 US abdomen complete 09/22/2023 Future Test Test Name Order Date UPPER GI ENDOSCOPY 09/22/2023 Next Appt Details Provider Name:Lazaro Healy , 01/11/2024 09:10:00 AM, [address] [place] [address], [phone], Insurance Providers Payer Name Payer Address Payer Phone Subscriber Number Group Number Insured Name Patient Relationship to Insured Coverage Start Date Coverage End Date MEDICA[employer] OF [employer] [address] [place] [phone] [id number] ELIN JACOBSON Self - patient is the insured MEDICAL (GENERAL) HISTORY Medical History History ICD Code IDDM Arthritis Hypertension Hypothryroidism Asthma Denies GA,CVA,renal disease Gastritis-EGD approx [address] Jason phillips Colonosocpy approx [address] Urrutia Depression and anxiety Chronic pain-back, neck, etc Migraines Surgical History Surgery Date(Month/Year) back shoulders section tubal ligation appendectomy
--- OUTSIDE RECORDS SUMMARY | 2024-01-11 07:38 | XMS_ITS ---
Author Organization [facility] Address [address] [place] [address] Care Team Providers Care Tire Bladder Maker Name Role Phone ADRIÁN JAMISON MD Primary Care Provider Unavaila Lazaro Rayo Unavailable [phone] bryant Encounters Encounter Location Date Provider Diagnosis [facility] [address] [facility] [address] [place] [address] 01/06/2024 Lazaro Healy PLAN OF TREATMENT Next Appt Details Provider Name:Lzaaro Healy , 01/11/2024 09:10:00 AM, [address] [place] [address] , [place], [place], [phone],
--- OUTSIDE RECORDS SUMMARY | 2024-01-11 07:38 | XMS_ITS ---
Author Organization [facility] Address [address] [place] [address] Care Team Providers Care Alternative Dispute Resolution Mediator Name Role Phone ADRIÁN JAMISON MD Primary Care Provider Lazaro Venegas [phone] ALLERGIES Allergen (clinical drug ingredient) Drug/Non Drug Allergy documented on EMR Reaction Allergy Type Onset Date Status naproxen Naproxen Unknown Drug Allergy Active RESULTS Component Value Reference Range Notes Electrolytes Reviewed date:09/22/2023 12:37:18 PM Interpretation: Performing Lab:[facility], [address] [place] [phone] Notes/Report: Sodium 140 135-145 mmol/L Potassium 4.2 3.3-5.1 mmol/L Chloride 103 96-108 mmol/L Carbon Dioxide 31 22-29 mmol/L Anion Gap 10 12-20 Creatinine Reviewed date:09/22/2023 12:37:02 PM Interpretation: Performing Lab:[facility], [address] [place] [phone] Notes/Report: Creatinine 0.61 0.5-1.4 mg/dL Estimated Glomerular Filt Rate > 60 NOTE: For -[place] individuals, multiply the result by 1.210. Chronic Kidney Disease: Estimated GFR < 60 mL/min/1.73m2 Severe Kidney Disease: Estimated GFR < 15 mL/min/1.73m2 Amylase Reviewed date:09/22/2023 12:36:54 PM Interpretation: Performing Lab:[facility], [address] [place] [phone] Notes/Report: Amylase 98 28-100 U/L Lipase Reviewed date:09/22/2023 12:36:47 PM Interpretation: Performing Lab:[facility], [address] [facility], [place] [address] Notes/Report: Lipase 36 8-78 U/L REASON FOR [...] (R10.10) Active confirmed Upper abdomina l pain (18292194) Problem Chronic constipation (K59.09) Active confirmed Chronic constipation (826826812) VITAL SIGNS BMI 32.18 kg/m2 09/22/2023 Blood pressure systolic 00 mm Hg 09/22/19 24 Blood pressure diastolic 00 mm Hg 024 Height 4 ft 10 in in 09/22/2023 Weight 154 lbs 09/22/2023 Encounters Encounter Location Date Provider Diagnosis [facility] [address] [place] [address] 09/22/2023 Lazaro Healy Upper abdominal pain R10.10 [...] upper endo and colonoscopy op notes/path from [facility] 2014 PLAN OF TREATMENT Treatment Notes Assessment Notes Upper abdominal pain Do not take the Victoza for 3 days before the colonoscopy Do take the Metformin on the morning of the upper endoscopy Other Need upper endo and colonoscopy op notes/path from [facility] 2014 Pending Test Test Name Order Date BUN 09/22/2023 LIVER PROFILE 09/22/2023 CBC w DIFF 09/22/2023 US abdomen complete 09/22/2023 Future Test Test Name Order Date UPPER GI ENDOSCOPY 09/22/2023 Next Appt Details Follow Up: prn, Reason: Provider Name:Lazaro Healy , 01/11/2024 09:10:00 AM, [address] [place] [address], [phone], Progress Notes * Examination Category Sub-Category Detail [...]
[2024-01-11 08:44] VITALS: BP 122/77; PULSE 100; RESP 18; TEMP 36.7; O2SAT 96; BMI 33.6
[2024-01-11] MEDS: Lactated Ringers 1,000 ML 100 ML IVCONT (08:59)
[2024-01-11 09:06] LABS: Glucose, Whole Blood 133 mg/dL (60-115)
[2024-01-11 09:54] VITALS: BP 97/60; PULSE 87; RESP 18; TEMP 36.8; O2SAT 93
--- NOTE | 2024-01-11 09:55 | P.BOP_ITS ---
Brief Operative Note Date of Service: 01/11/24 Pre-op diagnosis: Abdominal pain Post-op diagnosis: other (Gastritis, Hiatal hernia) Procedure: EGD with biopsies Surgeon: Lazaro Healy MD Anesthesia: MAC Was an Veterans Rehabilitation Counselor used for this Procedure?: No Estimated blood loss (mL): 2.0 Pathology: other (A. Gastric antrum B. EG Junction at 35cm) Condition: stable Disposition: PACU
[2024-01-11 10:09] VITALS: BP 111/66; PULSE 83; RESP 16; O2SAT 95
[2024-01-11 10:25] VITALS: BP 156/100; PULSE 81; RESP 16; O2SAT 95
[2024-01-11 10:39] VITALS: BP 131/80; PULSE 81; RESP 16; TEMP 36.7; O2SAT 95
--- NOTE | 2024-01-11 10:41 | OP_ITS ---
DATE OF SERVICE: 01/11/2024 SURGEON: Lazaro Healy MD INDICATIONS: The patient presents for evaluation of abdominal pain. Full consent has been obtained from her for this, including risks of bleeding and perforation. PREOPERATIVE DIAGNOSIS: Abdominal pain. POSTOPERATIVE DIAGNOSIS: PROCEDURE PERFORMED: Esophagogastroduodenoscopy with biopsies. ESTIMATED BLOOD LOSS: COMPLICATIONS: ANESTHESIA: Monitored anesthesia care. ASSISTANTS: SPECIMENS: POSTOPERATIVE DIAGNOSES: Abdominal pain, mild gastritis, small hiatal hernia. DESCRIPTION OF PROCEDURE: The patient was placed in the left lateral decubitus position. The Olympus video gastroscope was passed in the posterior oropharynx and upper esophagus under direct vision. The scope was passed slowly into the distal esophagus. The gastroesophageal junction appeared minimally irregular at 35 cm. There was no sign of esophagitis nor any definitive Guy mucosa. There was a small hiatal hernia. The scope entered the stomach and was advanced to the pylorus. The duodenum was cannulated to the descending portion. The duodenum including the bulb appeared normal without mass or ulceration. The scope was withdrawn back in the stomach. The gastric antrum and body had some minimal changes of gastritis with some erythema and edema, but no erosions nor ulceration. There was good peristalsis. The scope was retroflexed visualizing the proximal stomach carefully which appeared normal, without any sign of mass or ulceration. The scope was straightened. Biopsies were obtained from the gastric antrum. The scope was withdrawn back in the esophagus. Biopsies were obtained from the EG junction at 35 cm. Proximal to this, the esophageal mucosa appeared normal. The scope was withdrawn from the patient. She tolerated the procedure well and was returned to the recovery area in stable condition. IMPRESSION: 1. Mild gastritis. 2. Small hiatal hernia. PLAN: The results of the biopsy will be checked. She will be seen in followup in the office to review these findings and to schedule her for a screening colonoscopy for 2024. She has been on various medications including PPIs and Carafate, but without much improvement. A recent gallbladder ultrasound was negative for gallstones and laboratories were also normal in regard to pancreatic enzymes, chemistries, blood count, and LFTs, except for minimally elevated transaminases. MD AVA Ryder/KIRSTIN / [id number]
== END 2024-01-11 11:10 | disposition home or self-care (01) ==
PROVIDERS: PCP Registered Nurse; Visit Provider Internal Medicine
PROC: 0DJ08ZZ Inspection of Upper Intestinal Tract, Via Natural or Artificial Opening Endoscopic (ICD-10-PCS; CPT 43235; principal; 2024-01-11 09:10)
DX: K29.60 Other gastritis without bleeding (principal); K44.9 Diaphragmatic hernia without obstruction or gangrene; K59.09 Other constipation; E11.9 Type 2 diabetes mellitus without complications; I10 Essential (primary) hypertension; J45.909 Unspecified asthma, uncomplicated; E03.9 Hypothyroidism, unspecified; F41.8 Other specified anxiety disorders; Z79.51 Long term (current) use of inhaled steroids; Z79.84 Long term (current) use of oral hypoglycemic drugs; Z79.899 Other long term (current) drug therapy; Z79.4 Long term (current) use of insulin; Z88.6 Allergy status to analgesic agent; Z98.890 Other specified postprocedural states; Z87.891 Personal history of nicotine dependence
CPT/HCPCS: 43239; 82947; 88305; 88313; 88342; J2003; J2704

== ENCOUNTER 2024-01-19 10:37 | Outpatient (AMB) | payer MEDICAID, SELFPAY ==
--- NOTE | 2024-01-19 10:39 | HO.SPINEOV ---
Intake Visit Reasons: 1st post op Intake Note: Ms. David Argueta is here today for her 1st post-op appointment. Insurance Healthcare Representative Required: Yes Insurance Healthcare Representative Name: Tablet, cuff slitter # Allergies aspirin [ASA] Allergy (Intermediate, Verified 12/29/23 06:09) RASH cortisone [CORTISONE] Allergy (Intermediate, Verified 12/29/23 06:09) BAD REACTION ibuprofen Allergy (Intermediate, Verified 01/06/24 13:30) Rash naproxen [From Naprosyn] Allergy (Intermediate, Verified 12/29/23 06:09) RASH, ITCHING, rash Assessment & Plan Assessment & Plan (1) S/P cervical spinal fusion: Code(s): Z98.1 - Arthrodesis status Category: Surgical Plan Insurance Healthcare Representative used during this visit: [id number] Procedure: C5-6 ACDF Elin is a pleasant 58-year-old female who comes in today for her 1st postoperative follow-up visit after having a C5-6 ACDF completed by our service. To recap she was initially evaluated by our service for severe neck pain and shooting pains into her bilateral upper extremities, right worse than left. Today, she comes in reporting persistent right-sided radiculopathy. She denies any issues with her left upper extremity and states that the bulk of her neck pain has resolved. She does still have quite a bit of pain in her bilateral shoulders, which we discussed his likely secondary to the surgery putting stress on the trapezius muscle. We discussed the postoperative healing course and I answered all of her questions to the best of my ability. The anterior incision site appears closed and well healing. No evidence of swelling or drainage. The patient is able to ambulate well and rises from a seated position without difficulty. I would like to see Elin again in 6 weeks with a set of x-rays to evaluate for her surgical hardware placement. Igor Gallardo MD,PhD [facility] Coding Level of Care Code Global (17093) Diagnoses S/P cervical spinal fusion Z98.1
== END 2024-01-19 11:42 | disposition home or self-care (01) ==
PROVIDERS: PCP Registered Nurse; Visit Provider Physician Assistant
DX: Z98.1 Arthrodesis status (principal)
CPT/HCPCS: 99024

== ENCOUNTER → 2024-01-19 10:37 | Outpatient (BNVA) | payer MEDICAID, SELFPAY | PROVIDERS: PCP Registered Nurse; Visit Provider Physician Assistant | DX: Z47.89 Encounter for other orthopedic aftercare (principal); Z98.1 Arthrodesis status | CPT/HCPCS: 99212 ==

== ENCOUNTER 2024-02-06 08:50 | Outpatient (REF) | payer MEDICAID, SELFPAY ==
--- NOTE | ~2024-02-06 | FL_ITS ---
EXAMINATION: Modified Barium Swallow CLINICAL INFORMATION: Dysphagia COMPARISON: None TECHNIQUE: Modified barium swallow was performed under lateral fluoroscopy with patient in standing position. Barium mixed with solids and liquids of different consistencies was administered by the speech pathologist. Examination was recorded in the fluoroscopy suite. FINDINGS: Trace laryngeal penetration is seen with thin consistency barium. No aspiration was observed. Moderate cricopharyngeal achalasia is present. ACDF noted at C5-C6. FLUOROSCOPY TIME: 1 minute Number of Spot Images: N/A DOSE AREA PRODUCT: 365.0 uGy-m2 (microgray-meter squared) FL/FL Modified Barium Swallow IMPRESSION: 1. Trace laryngeal penetration with thin consistency barium. No subglottic aspiration was observed. 2. Moderate cricopharyngeal achalasia. 3. Status post ACDF at C5-C6. Refer to the speech therapy report for further clarification This procedure was performed by Renzo Bran PA-C, and supervised by Dr. Enamorado Electronically signed by: Nick Enamorado MD 02/06/2024 04:45 PM [facility]
--- NOTE | 2024-02-06 13:29 | MHC.SL.IMP ---
Date of Plan of Treatment: 02/06/24 Onset of Symptoms/Illness: 02/05/23 Date Treatment Started: 02/06/24 Admitting Diagnosis: Dysphagia Primary Speech & Language Diagnosis: R13.10 Dysphagia Reason for Today's Visit: 91864 Modified Barium Swallow Study Pre-evaluation Dietary Consistencies: Regular Pre-evaluation Liquid Consistency: Thin Pre-evaluation Medication Administration: Whole with Liquid Medical History: Modified Barium Swallow Study Fluoroscopic Evaluation of Swallowing Function CPT Code 30273 Evaluation Year: 2023 Reason for Study: Patient reporting difficulty swallowing. Referring Physician: Joy PRASAD Evaluating Clinician: Laura Foy MA, CCC-AIR CONTROL ELECTRONICS OPERATOR Study Number: 1 Patient Name: Elin Argueta Status: Outpatient, Ambulatory Age: 58 Gender: Female Medical History Medical History Migraine headache GERD (gastroesophageal reflux disease) Chronic back pain Anxiety and depression Elevated cholesterol Right rotator cuff tear Vitamin D deficiency Rotator cuff dysfunction Bursitis of right shoulder HLD (hyperlipidemia) Type 2 diabetes mellitus Hypothyroidism Hypertension Asthma Dyspepsia Surgical History History of surgery on arm Hx of section Hx of colonoscopy History of esophagogastroduodenoscopy (EGD) History of appendectomy Previous back surgery Current (pre-evaluation) Intake/Diet: Route: PO Diet Grade: Regular Liquid Consistencies: Thin Pre-Study Functional Oral Intake Scale (FOIS): 7- Total oral intake with no restrictions Pain: None reported at time of study SUBJECTIVE: Patient is a 58 year old female with past medical history of cervical radiculopathy, CAM, HTN, DM, GERD, diverticulosis, and CKD. She presents today for a modified barium swallow study after reporting difficulties swallowing for over a year. Patient reports she has pain with swallowing and experiences globus sensation above the sternal notch. She says sometimes this causes her to choke, and she has difficulties with both solids and liquids. She feels like there is inflammation or ?less area in her throat than before.? Oral Motor Exam Facial Symmetry: Symmetrical Mouth Occlusion: Normal Oral-Facial Teeth Characteristics: Partially Missing Spaces Oral-Facial Teeth Miscellaneous Observation: Oral-Facial Lip Pucker Description: Normal Oral-Facial Smile (Lips) Description: Normal Oral-Facial Puff Cheeks Description: Normal Tongue Size: Normal Tongue Excursion Description: Normal Tongue Range of Movement Description: Normal Tongue Speed of Movement Description: Normal Tongue Strength of Movement (against opposing pressure): Normal Tongue Movement Characteristics: Normal/Absent Food and Liquid Trials: Oral Impairment: Lip Closure: Did not test Oral Impairment: Tongue Control During Bolus Hold: 0=Cohesive bolus between tongue to palatal seal Oral Impairment: Bolus Preparation/Mastication: 0=Timely and efficient chewing and mashing Oral Impairment: Bolus Transport/Lingual Motion: 2=Slowed tongue motion Oral Impairment: Oral Residue: 1=Trace residue lining oral structures Oral Impairment:Initiation of Pharyngeal Swallow: 2=Bolus head at posterior laryngeal surface of epiglottis Pharyngeal Impairment: Soft Palate Elevation: 0=No bolus between soft palate (SP)/pharyngeal wall (PW) Pharyngeal Impairment: Laryngeal Elevation: 0=Complete superior movement of thyroid cartilage (see description) Pharyngeal Impairment: Anterior Hyoid Excursion: 0=Complete anterior movement Pharyngeal Impairment: Epiglottic Movement: 1=Partial inversion Pharyngeal Impairment: Laryngeal Vestibular Closure:: 0=Complete: no air/contrast in laryngeal vestibule Pharyngeal Impairment: Pharyngeal Stripping Wave: 1=Present: diminished Pharyngeal Impairment: Pharyngeal Contraction: Did not test Pharyngeal Impairment: Pharyngoesophageal Segment Openin=Partial distention/partial duration: partial obstruction of flow Pharyngeal Impairment: Tongue Base (TB) Retraction: 1=Trace column of contrast/air between TB and posterior PW Pharyngeal Impairment: Pharyngeal Residue: 1=Trace residue within or on pharyngeal structures Pharyngeal Impairment: Esophageal Clearance Upright Position: Did not test Impressions and Recommendations Clinical Observations: OBJECTIVE: Time-out: performed at 9:25 Evaluation Start: 9:00; Stop: 9:10 Patient Positioning: Standing Viewing Planes: LATERAL ONLY Contrast: MBSImP? Standardized Protocol using commercially prepared, standardized Barium viscosities, including: Varibar? THIN LIQUID (40% w/v, <15 cps) , Varibar? PUDDING (40% w/v, <2703-5199 cps) , 1/2 Shortbread Cookie (1 x1 x.25 ) MBSImP ID: [id number] MBSImP Results: Lip closure for intraoral bolus containment could not be assessed due to logistical reasons not related to physiologic impairment. Tongue control during bolus hold maintained a cohesive bolus held between tongue to palate seal. Bolus preparation and mastication resulted in timely and efficient chewing and mashing. Bolus transport/lingual motion was with slowed tongue motion. Oral residue was a trace, lining oral structures. Initiation of the pharyngeal swallow occurred as the bolus head was at the posterior laryngeal surface of the epiglottis. Soft palate elevation resulted in no bolus between the soft palate and the pharyngeal wall. Laryngeal elevation demonstrated complete superior movement of the thyroid cartilage with complete approximation of the arytenoids to the epiglottic petiole. Anterior hyoid excursion demonstrated complete anterior movement. Epiglottic movement resulted in partial inversion. Laryngeal vestibular closure was complete, as indicated by no air or contrast within the laryngeal vestibule at the height of the swallow. Pharyngeal stripping wave was present, but diminished. Pharyngeal contraction could not be determined due to logistical reasons not related to physiologic impairment. Pharyngoesophageal segment opening demonstrated partial distension/partial duration, with partial obstruction of bolus flow. Tongue base retraction allowed a trace column of contrast or air between the retracted tongue base and the posterior pharyngeal wall. Pharyngeal residue was a trace within or on pharyngeal structures. Esophageal clearance in the upright position could not be assessed due to logistical reasons not related to physiologic impairment. Oral Impairment Score: 4 (absence of score, component 1) Pharyngeal Impairment Score: 3 (absence of score, component 13) Esophageal Impairment Score: --- (absence of score, component 17) Laryngeal Penetration and Aspiration: Neither penetration nor aspiration was observed in today's study with Cookie, Pudding-thick, Thin. Structural Abnormalities Noted: Cervical hardware noted, but had no functional significance ASSESSMENT: Clinician Assessment: This exam was conducted by the radiologist and the speech pathologist. Patient was standing for lateral view only. She fed herself without difficulty and trialed thin (individual cup sips), puree, and regular solid consistencies. Patient demonstrated good lingual control with no premature posterior spilling. Timely and efficient mastication. Mildly slowed posterior lingual movement. Trace lingual residue cleared with a dry swallow. Pharyngeal swallow trigger initiated as the bolus head reached the posterior laryngeal surface of the epiglottis. No evidence of nasopharyngeal reflux. Complete laryngeal elevation with complete anterior hyoid excursion. Partial epiglottic inversion. Complete laryngeal vestibular closure. No evidence of aspiration or penetration during this exam. Trace residue on the tongue base and in the valleculae cleared with a dry swallow. Cervical hardware noted at C5-C6. The following compensatory strategies have not been used until today's study, but when employed, improved swallowing function: Additional Swallow(s) per Bolus eliminated Oral Residue, Pharyngeal Residue Liquid Intake Recommendation: Thin Liquid Intake Strategies: Small Sips Dietary Recommendations: Regular Medication Administration: Whole with Liquid Please contact the pharmacy regarding appropriate crushable or liquid drug formulations that are available whenever modified delivery is recommended. Compensatory Strategies Recommended: Sitting Upright (90 deg), Double Swallow, Small Bites and Sips, Alternate Liquids/Solids, Rate of Ingestion Change Referrals: Surgical team/PCP, management of postoperative healing course after C5-C6 ACDF Recommendation for Speech Therapy: NA:Typical Evaluation Text Comment: Intake Recommendations: Route: PO Diet Grade: Regular Liquid Consistencies: Thin Post-Study Functional Oral Intake Scale (FOIS): 7- Total oral intake with no restrictions Exam was grossly unremarkable. Patient demonstrated good airway protection, with no evidence of aspiration or penetration on exam. No significant oral or pharyngeal residue present. Noted C5-C6 cervical hardware, likely contributing to patient?s symptoms. Diet modification is not indicated at this time. Recommend patient continue on regular textures and thin liquids with strategies to promote clearance: take small bites, chew food well, follow with a dry swallow, alternate solids with sips of liquid. Discussed with patient after the exam. Patient denied having any questions at this time. Recommend patient continue monitoring her dysphagia. If there are any changes or worsening of symptoms, contact PCP, at which point a repeat-assessment may be warranted. Therapy Recommendations: Further ST intervention not warranted at this time, as patient?s swallow in the oral and pharyngeal phases is deemed functional. Prognosis for Improvement: The prognosis for the patient to meet nutritional needs by mouth is excellent based on degree of impairment Frequency/Duration: Date Range for Service Requested: Timeline to reassess: PRN Clinician - Supplemental, Miscellaneous Communication: It is important to note MBSS objective studies are snapshots in time and Patient function might vary with factors such as time of day or concomitant medical conditions. For this reason, the final treatment plan for this patient should rest with their medical care team. Additional recommendations should be considered with the totality of the Patient in mind. Thank for the opportunity to participate in the care of this patient. If you have any questions about the content of this report, please contact the [facility] at [facility]. Education: Education regarding findings from today's study and plans for therapy were provided to Patient only through Verbal Instruction. Understanding was expressed by the Patient only. [employer] Bi Consultant Clinician/Clinical Fellow: No Supervisory Statement: N/A Speech Language Pathologist: Laura Foy M.A., CCC-AIR CONTROL ELECTRONICS OPERATOR
== END 2024-02-06 08:51 | disposition home or self-care (01) ==
LOC: HO.XRAY 08:50
PROVIDERS: PCP Registered Nurse; Visit Provider Registered Nurse
DX: R13.10 Dysphagia, unspecified (principal)
CPT/HCPCS: 74230; 92611

== ENCOUNTER → 2024-02-06 08:53 | Outpatient (BNV) | payer MEDICAID, SELFPAY | PROVIDERS: PCP Registered Nurse; Visit Provider Physician Assistant Surgical | DX: R13.10 Dysphagia, unspecified (principal) | CPT/HCPCS: 74230 ==

== ENCOUNTER 2024-03-01 09:51 | Outpatient (REF) | payer MEDICAID, SELFPAY ==
--- OUTSIDE RECORDS SUMMARY | 2024-03-07 01:08 | XMS_ITS | Continuity of Care Document ---
Author Organization [facility] Address [address] [place] [id number] Phone Care Team Providers Care Cabana Attendant Name Role Phone Jan Dawson MD Unavailable Unavailable Procedures Procedure Date OFFICE/OUTPATIENT VISIT, EST HEMOGLOBIN Clinic Visit OFFICE/OUTPATIENT VISIT, NEW Advance Directives Directive Yes / No Effective Date File Name No Information Encounters Encounter Description Practice Location Reason(s) For Visit Diagnoses Date Provider Providers Copied on Encounter OFFICE/OUTPATI ENT VISIT, EST [facility], [address] [place] [address], [address], tel:[phone] [facility] No Information Eunice Montoya. [address] [place], [place], [id number], [place]. tel:[phone] OFFICE/OUTPATI ENT VISIT, NEW [facility], [address] [place] [address], [address], tel:[phone] [facility] No Information Oleksandr Cruz. [address] [place], [address], [place]. tel:[phone] Family History Family Member Type Diagnosis Age At Onset No Information Payers Payer name Insurance type Covered libertarian ID Authoriza tion(s) [facility] [id number] [facility] [id number] Social History Type Description Quantity Date Captured Comments Sex Female Smoking Status No Information Chief Complaint And Reason For Visit No Information History Of Present Illness Encounter Date Complaint History Of Prese nt Illness No Information Instructions Date Instruction Additional Infor mation No Information Assessments Type Assessment Date No Information
== END 2024-03-01 09:52 | disposition home or self-care (01) ==
LOC: HO.HOSX 09:51
PROVIDERS: Visit Provider Physician Assistant
DX: Z98.1 Arthrodesis status (principal)
CPT/HCPCS: 72050; 99212

== ENCOUNTER 2024-03-01 10:38 | Outpatient (AMB) | payer MEDICAID, SELFPAY ==
--- NOTE | 2024-03-01 11:11 | A.OFFVIS_ITS ---
Intake Visit Reasons: 2nd post op with Xrays Intake Note: Pt here foe 2nd post op with Xray Inventory Control Associate Required: Yes Allergies aspirin [ASA] Allergy (Intermediate, Verified 12/29/23 06:09) RASH cortisone [CORTISONE] Allergy (Intermediate, Verified 12/29/23 06:09) BAD REACTION ibuprofen Allergy (Intermediate, Verified 01/06/24 13:30) Rash naproxen [From Naprosyn] Allergy (Intermediate, Verified 12/29/23 06:09) RASH, ITCHING, rash PFSH Medical History Scratching Migraine headache GERD (gastroesophageal reflux disease) Chronic back pain Anxiety and depression Elevated cholesterol Right rotator cuff tear Vitamin D deficiency Rotator cuff dysfunction Bursitis of right shoulder HLD (hyperlipidemia) Type 2 diabetes mellitus Hypothyroidism Hypertension Asthma Dyspepsia Surgical History (Updated 01/19/24 @ 11:10 by FRANCA Claudio) Hx of cervical discectomy History of arthroscopy of left shoulder (03/16/23) History of surgery on arm Hx of section Hx of colonoscopy History of esophagogastroduodenoscopy (EGD) History of appendectomy Previous back surgery (~2004) Family History Father Diabetes Mother Diabetes Social History (Updated 12/15/23 @ 10:48 by Ayesha Chowdhury RN) Household Members: Other 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 Housing: Apartment Are you a primary critical care physician to a significant other at home: No Do you presently have visiting nurse or other home services: No Alcohol intake: never Patient Tobacco Use Status: Former Tobacco user Tobacco use type: Cigarette Current occupational status: disabled Current occupation: Right Handed Assessment & Plan Assessment & Plan (1) S/P cervical spinal fusion: Code(s): Z98.1 - Arthrodesis status Category: Surgical Plan Operation: C5-6 ACDF Elin is a pleasant 58-year-old female who comes in today for a 2nd postoperative visit after having a C5-6 ACDF completed for cervical radiculopathy. To recap during her last visit she was still reporting some shooting pains into her right shoulder and down her right arm. Thankfully this has completely resolved. She is very satisfied with the surgery and feels she has little to no pain. The mild pain that she does have his in the posterior neck which also should resolve as she continues to heal from her surgery. She states that she would greatly appreciate us looking at her low back next as she has shooting pains into her bilateral lower extremities which have significantly diminished her quality of life. No new neurological deficits. The patient ambulates well and rises from a seated position without difficulty. Her bilateral upper extremity strength is 5/5 on testing today in clinic. Her anterior incision site is closed and well healing. I would like Elin to follow up with us again in about 2-3 weeks with all of her paperwork from previous surgery and imaging documents to evaluate her for her new complaint of low back pain and shooting pains down her legs. She is agreeable to this and will follow up with us accordingly. Igor Gallardo MD,PhD [facility] Orders: Orders XR cervical spine 4V Today Z98.1 - Arthrodesis status Coding Level of Care Code Global (06292) Diagnoses S/P cervical spinal fusion Z98.1
--- OUTSIDE RECORDS SUMMARY | 2024-03-07 01:38 | XMS_ITS | Continuity of Care Document ---
Author Organization [facility] Address [address] [place] [address] Phone Care Team Providers Care Student Support Advisor Name Role Phone Jan Dawson MD Unavailable Unavailable Procedures Procedure Date OFFICE/OUTPATIENT VISIT, EST HEMOGLOBIN Clinic Visit OFFICE/OUTPATIENT VISIT, NEW Advance Directives Directive Yes / No Effective Date File Name No Information Encounters Encounter Description Practice Location Reason(s) For Visit Diagnoses Date Provider Providers Copied on Encounter OFFICE/OUTPATI ENT VISIT, EST [facility], [address] [place] [address], [id number], tel:[phone] [facility] No Information Eunice Montoya. [address] [place], [place], [id number], [place]. tel:[phone] OFFICE/OUTPATI ENT VISIT, NEW [facility], [address] [place] [address], [address], tel:[phone] [facility] No Information Oleksandr Cruz. [address] [place], [address], [place]. tel:[phone] Family History Family Member Type Diagnosis Age At Onset No Information Payers Payer name Insurance type Covered republican ID Authoriza tion(s) [facility] [id number] [facility] [id number] Social History Type Description Quantity Date Captured Comments Sex Female Smoking Status No Information Chief Complaint And Reason For Visit No Information History Of Present Illness Encounter Date Complaint History Of Prese nt Illness No Information Instructions Date Instruction Additional Infor mation No Information Assessments Type Assessment Date No Information
== END 2024-03-01 11:31 | disposition home or self-care (01) ==
PROVIDERS: PCP Registered Nurse; Visit Provider Physician Assistant
DX: Z98.1 Arthrodesis status (principal)
CPT/HCPCS: 99024

== ENCOUNTER 2024-03-15 10:04 | Outpatient (AMB) | payer MEDICAID, SELFPAY ==
--- NOTE | 2024-03-15 09:43 | HO.SPINEOV ---
Intake Visit Reasons: L4-5 hernia Intake Note: Mrs. David Argueta is here today c/o back pain. Irrigator Sprinkling System Required: Yes Irrigator Sprinkling System Name: Tablet Allergies aspirin [ASA] Allergy (Intermediate, Verified 12/29/23 06:09) RASH cortisone [CORTISONE] Allergy (Intermediate, Verified 12/29/23 06:09) BAD REACTION ibuprofen Allergy (Intermediate, Verified 01/06/24 13:30) Rash naproxen [From Naprosyn] Allergy (Intermediate, Verified 12/29/23 06:09) RASH, ITCHING, rash Assessment & Plan Assessment & Plan (1) Lumbar radiculopathy: Code(s): M54.16 - Radiculopathy, lumbar region Category: Medical Plan HPI: Elin is a pleasant 58-year-old female that comes in today as an established patient with a new complaint. She is known to our service and had a previous C5-6 ACDF completed with good resolution of her symptoms. Today, she wishes to discuss her low back pain and shooting pains into her bilateral lower extremities. She has history of previous L4-5 posterior instrumented fusion, and L5-S1 interbody fusion with no posterior instrumentation at this level. Unfortunately, she reports that her low back pain has remained low-grade ever since her surgery 20 years ago, in the right-sided shooting pain down the back side of her leg terminating near the ankle has always been present. And has worsened over the course of the last few years, and she is now attempting to seek treatment for it. 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 X-ray imaging of the lumbar spine also completed last year at [facility] shows posterior instrumented fusion with screws and rods at L4-5, and interbody fusion at L5-S1 with no posterior instrumentation. PLAN: I would like to send Elin for a CT scan of the lumbar spine to evaluate for pseudoarthrosis at L5-S1 as there are no acute impingement seen on MRI imaging that would explain her pain and radiculopathy. It does not appear to have worsened much since her previous MRI, so I do not believe a MRI repeat would provide much utility at this time. Igor Gallardo MD,PhD [facility] Orders: Orders CT lumbar spine wo IV con Today M54.16 - Radiculopathy, lumbar region Coding Level of Care Code Tele Est Pt Level 3 (21627) Diagnoses Lumbar radiculopathy M54.16
--- OUTSIDE RECORDS SUMMARY | 2024-03-15 10:10 | XMS_ITS | Continuity of Care Document ---
Author Organization [facility] Address [address] [place] [address] Phone Care Team Providers Care Track Service Worker Name Role Phone Jan Dawson MD Unavailable Unavailable Procedures Procedure Date OFFICE/OUTPATIENT VISIT, EST HEMOGLOBIN Clinic Visit OFFICE/OUTPATIENT VISIT, NEW Advance Directives Directive Yes / No Effective Date File Name No Information Encounters Encounter Description Practice Location Reason(s) For Visit Diagnoses Date Provider Providers Copied on Encounter OFFICE/OUTPATI ENT VISIT, EST [facility], [address] [place] [address], [address], tel:[phone] [facility] No Information Euncie Montoya. [address] [place], [place], [id number], [place]. tel:[phone] OFFICE/OUTPATI ENT VISIT, NEW [facility], [address] [place] [address], [address], tel:[phone] [facility] No Information Oleksandr Cruz. [address] [place], [address], [place]. tel:[phone] Family History Family Member Type Diagnosis Age At Onset No Information Payers Payer name Insurance type Covered democrat ID Authoriza tion(s) [facility] [id number] [facility] [id number] Social History Type Description Quantity Date Captured Comments Sex Female Smoking Status No Information Chief Complaint And Reason For Visit No Information History Of Present Illness Encounter Date Complaint History Of Prese nt Illness No Information Instructions Date Instruction Additional Infor mation No Information Assessments Type Assessment Date No Information
== END 2024-03-15 10:58 | disposition home or self-care (01) ==
PROVIDERS: PCP Registered Nurse; Visit Provider Physician Assistant
DX: M54.16 Radiculopathy, lumbar region (principal)
CPT/HCPCS: 99213

== ENCOUNTER → 2024-03-15 10:04 | Outpatient (BNVA) | payer MEDICAID, SELFPAY | PROVIDERS: PCP Registered Nurse; Visit Provider Physician Assistant ==

== ENCOUNTER 2024-04-20 07:21 | Outpatient (REF) | payer MEDICAID, SELFPAY ==
--- NOTE | ~2024-04-20 | CT_ITS ---
CLINICAL HISTORY: M54.16 - Radiculopathy, lumbar region CT lumbar spine without contrast Comparison: None Findings: Vertebral alignment is within normal limits. No acute fractures or dislocations. Iatrogenic findings with intact well-positioned surgical hardware from L4 through S1 levels. No significant degenerative change. There is right renal parenchymal calculus. Otherwise unremarkable visualized abdominal contents. IMPRESSION: No acute findings. This document has been electronically signed by: Parish Sharma MD on 04/21/2024 07:28:24
--- OUTSIDE RECORDS SUMMARY | 2024-04-20 07:24 | XMS_ITS | Encounter Summary ---
Author Organization [employer] Address [address] [place] [address] Care Team Providers Care Crating And Moving Estimator Name Role Phone Joy Villar Primary Care Provider [phone] Wu Gallardo Unavailable [phone] Lazaro Healy MD Unavailable Reason for Visit * Reason Onset Date Comments triage 05/28/2022 Encounter Details Date Type Department Care Team (Late st Contact Info) Description 05/28/[address] [facility] [address] [place] [address] Joy Villar FNP [address] [place], [place] [phone] triage Social History Tobacco Use Types Packs/Day Years Used Date Smoking Tobacco: Former Cigarettes Q uit: 2002 Smokeless Tobacco: Never Alcohol Use Standard Drinks/Week Comments Not Currently 0 (1 standard drink = 0.6 oz pur e alcohol) Comments Unknown Sex and Gender Information Value Date Recorded Sex Assigned at Female 01/25/2022 10:14 AM EDT Legal Sex Female 10:14 AM EDT Gender Identity Female 01/25/2022 10:14 AM EDT Sexual Orientation Don't know 01/25/2022 10 :14 AM EDT COVID-19 Exposure Response Date Recorded In the last 10 days, have yo u been in contact with someone who was confirmed or suspected to have Coronavirus/COVID-19? No / Unsure 04/28/2022 10:06 AM EST documented as of this encounter Miscellaneous Notes * Telephone Encounter - Antionette Randolph RN - 05/28/2022 12:44 PM EST Triage call with [place] [employer] [id number] Pt reports canceled 900am apt today. Pt is calling to reschedule pain management apt. Home care reviewed with Pt. No apts available for next two weeks will send to Nursing team and pcp to schedule asapt available and Pt agrees. Protocol Used: Back Pain (Adult) Protocol-Based Disposition: Home Care Positive Triage Question: * Back pain * All higher-acuity triage questions were negative Care Advice Discussed: * Reassurance and Education - Back Pain * Cold or Heat * Sleep * Activity * Pain Medicines * Pain Medicines - Extra Notes and Warnings * Reasons To Call Back - Fever occurs - Numbness or weakness occurs, or bowel/bladder problems - Pain begins to shoot into the leg - Pain persists over 2 weeks - Pain becomes worse - You become worse * Telephone Encounter - Yesy Harvey - 05/28/2022 10:15 AM EST Symptom: Back Pain - Not From Injury Outcome: Schedule an appointment to be seen within 3 days Reason: No high acuity concerns reported by caller The caller accepted this outcome documented in this encounter Plan of Treatment Upcoming Encounters Date Type Department Care Team (Late st Contact Info) Description 07/05/2024 10:00 AM EDT Clinical Support [facility] [address] [place] [address] Leatha Cortes, RN [address] [place] [address] documented as of this encounter Visit Diagnoses Not on filedocumented in this encounter Care Teams Crating And Moving Estimator Relationship Specialty Start Date End Date Joy Villar FNP [address] [place] [address] PCP - General Family Medicine 11/21/21 Wu Gallardo [address] [place] [address] [address] [place] [address] Neurosurgery 02/19/24 Lazaro Healy MD [address] [place] [address] Gastroenterology 02/19/24 documented as of this encounter
--- OUTSIDE RECORDS SUMMARY | 2024-04-20 07:24 | XMS_ITS | Encounter Summary ---
Author Organization [employer] Address [address] [place] [address] Care Team Providers Care Air Traffic Systems Technician Name Role Phone Joy Villar Primary Care Provider [phone] Wu Gallardo Unavailable [phone] Lazaro Healy MD Unavailable Reason for Visit * Reason Onset Date Comments Call Back Request 02/03/2024 Encounter Details Date Type Department Care Team ([facility] st Contact Info) Description 02/03/2024 Telephone [facility] [address] [place], [place] [phone] Joy Villar FNP [address] [place], [place] [phone] Call Back Request Social History Tobacco Use Types Packs/Day Years Used Date Smoking Tobacco: Former Cigarettes Q uit: 2002 Passive Smoke Exposure: Never Smokeless Tobacco: Never Comments:15 years ago. 2022 Alcohol Use Standard Drinks/Week Comments Not Currently 0 (1 standard drink = 0.6 oz pur e alcohol) Depression Answer Date Recorded Patient Health Questionnaire-9 Score 0 08/12/2022 Housing Stability Answer Date Recorded What is your housing situation today? I have yifanjocelin hunter 01/10/[address] you li ve. Do you have problems with any of the following? None of the above 01/10/2023 Food Insecurity Answer Date Recorded Within the past 12 months, y ou worried that your food would run out before you got money to buy more: Never True 01/10/2023 Within the past 12 months,th e food you bought just didn't last and you didn't have enough money to get more: Never True Transportation Answer Date Recorded In the past 12 months, has l ack of transportation kept you from medical appts, meetings, work or from getting things needed for daily living? No 01/10/2023 Utilities Answer Date Recorded In the past 12 months, has t he electric, gas, oil or water company threatened to shut off services in your home? No 01/10/2023 Depression Answer Date Recorded Patient Health Questionnaire-2 Score 0 08/12/2022 Comments Unknown Sex and Gender Information Value Date Recorded Sex Assigned at Female 01/25/2022 10:14 AM EDT Legal Sex Female 10:14 AM EDT Gender Identity Female 01/25/2022 10:14 AM EDT Sexual Orientation Don't know 01/25/2022 10 :14 AM EDT documented as of this encounter Miscellaneous Notes * Telephone Encounter - SHANICE Goldsmith - 02/07/2024 1:41 PM EST Modified barium swallow had already been completed. Will cancel active order for barium swallow. FYI to [facility]. Thank you! * Telephone Encounter - SHANICE Goldsmith - 02/06/2024 3:31 PM EST Spoke with Manan in radiology. Confirmed order to place: barium swallow. Order sent, thank you! * Telephone Encounter - Ozzy Hernandez - 02/03/2024 8:18 AM EST Cyrus Nash with [facility] requesting call back to verify if pcp would like to do a regular barium swallow due to the modified having to be done with speech and hearing. Please contact Charity at [phone]. documented in this encounter Plan of Treatment Upcoming Encounters Date Type Department Care Team (Late st Contact Info) Description 07/05/2024 10:00 AM EDT Clinical Support [facility] [address] [place] [address] Leatha Cortes, RN [address] [place] [address] documented as of this encounter Visit Diagnoses Diagnosis Dysphagia, unspecified type- Primary documented in this encounter Additional Health Concerns Assessment Noted Time PHQ-9 Depression Total Score: 0 08/13/19 23 11:11 AM EDT documented as of this encounter Care Teams Air Traffic Systems Technician Relationship Specialty Start Date End Date Joy Villar FNP [address] [place] [address] PCP - General Family Medicine 11/21/21 Wu Gallardo [address] [place] [address] Neurosurgery 02/19/24 Lazaro Healy MD [address] [place] [address] Gastroenterology 02/19/24 documented as of this encounter
--- OUTSIDE RECORDS SUMMARY | 2024-04-20 07:24 | XMS_ITS | Encounter Summary ---
Author Organization [employer] Address [address] [place] [address] Care Team Providers Care Store Host Name Role Phone Joy Villar SHANICE Primary Care Provider [phone] Wu Gallardo Unavailable [phone] Lazaro Healy MD Unavailable Encounter Details Date Type Department Care Team (Late st Contact Info) Description 09/07/2022 Orders Only [facility] [address] [place] [address] Angeles Walton LPN Social History Tobacco Use Types Packs/Day Years Used Date Smoking Tobacco: Former Cigarettes Q uit: 2002 Passive Smoke Exposure: Never Smokeless Tobacco: Never Alcohol Use Standard Drinks/Week Comments Not Currently 0 (1 standard drink = 0.6 oz pur e alcohol) Depression Answer Date Recorded Patient Health Questionnaire-9 Score 0 08/12/2022 Depression Answer Date Recorded Patient Health Questionnaire-2 [...] suspected to have Coronavirus/COVID-19? No / Unsure 08/12/2022 10:24 AM EDT documented as of this encounter Plan of Treatment Upcoming Encounters Date Type Department Care Team (Late st Contact Info) Description 07/05/2024 10:00 AM EDT Clinical Support [facility] [address] [place] [address] Leatha Cortes, RN [address] [place] [address] documented as of this encounter Visit Diagnoses Not on filedocumented in this encounter Additional Health Concerns Assessment Noted Time PHQ-9 Depression Total Score: 0 08/13/19 23 11:11 AM EDT documented as of this encounter Care Teams Store Host Relationship Specialty Start Date End Date Joy Villar FNP [address] [place] [address] PCP - General Family Medicine 11/21/21 Wu Gallardo [address] [place] [address] Neurosurgery 02/19/24 Lazaro Healy MD [address] [place] [address] Gastroenterology 02/19/24 documented as of this encounter
--- OUTSIDE RECORDS SUMMARY | 2024-04-20 07:24 | XMS_ITS | Clinical Summary ---
Author Organization [employer] Address [address] [facility] [address] [place] [address] Care Team Providers Care Mixed Crop Farmer Name Role Phone AntwanJoy vergara SHANICE Primary Care Provider [phone] Wu Gallardo Unavailable [phone] Lazaro Healy MD Unavailable Allergies Active Allergy Reactions Criticality Noted Date Comments Aspirin 07/27/2022 Cortisone Rash Low 07/04/2018 Diazepam 07/27/2022 Other reaction(s): rash Ibuprofen 10/05/2022 Other reaction(s): rash Latex 07/27/2022 Other reaction(s): rash Naproxen Hives,Unknown 10/12/2011 Other reaction(s): body rash Medications docusate sodium (Colace) 100 MG capsuleIndicati ons:Constipatio n, unspecified constipation type Take 1 capsule (100 mg) by mouth in the morning and at bedtime. 120 capsule 3 022 Active loratadine (Claritin) 10 MG tabletIndicatio ns:Seasonal allergies Take 1 tablet (10 mg) by mouth if needed each day for allergies. 90 tablet 3 022 Active albuterol 108 (90 Base) MCG/ACT inhalerIndicati ons:Mild persistent asthma without complication Inhale 2 puffs every 4 (four) hours if needed for wheezing. 18 g 3 023 Active estradiol (Estrace) 0.1 MG/GM vaginal cream Insert 500 mg intravaginally for 2 weeks, then 500 mg two to three times per week for maintenance 42.5 g 3 023 Active TRUEplus Lancets 33G misc TEST BLOOD SUGAR 4-6 TIMES DAILY 100 each 11 Active FREESTYLE LITE test strip TEST BLOOD SUGAR 4-6 TIMES DAILY 150 strip 11 Active NIFEdipine XL (Procardia XL) 60 MG 24 hr tablet Take 60 mg by mouth in the morning. Active Alcohol Swabs (Alcohol Prep) 70 % pads USE TWICE DAILY 100 each 11 Active sucralfate (Carafate) 1 GM/10ML suspensionIndic ations:Gastroes ophageal reflux disease, unspecified whether esophagitis present TAKE 10ml BY MOUTH THREE TIMES DAILY 1 HOUR BEFORE MEALS AND AT BEDTIME ON AN EMPTY STOMACH 420 mL 2 Active rosuvastatin (Crestor) 40 MG tabletIndicatio ns:Hypercholest erolemia TAKE 1 TABLET BY MOUTH AT BEDTIME 90 tablet 3 024 Active cyclobenzaprine (Flexeril) 5 MG tabletIndicatio ns:Cervical radiculopathy,S ubacromial impingement of left shoulder Take 1 tablet (5 mg) by mouth if needed in the morning, at noon, and at bedtime for muscle spasms. 30 tablet 3 024 Active Continuous Glucose Medical Coding Auditor (FreeStyle Mo[place] 2 [place]) deviceIndicatio ns:Type 2 diabetes mellitus with hypoglycemia without coma, unspecified whether intermediate manager insulin use (CMS/HCC),Hypog lycemia Scan sensor every 8 hours 1 each Active Continuous Glucose Sensor (FreeStyle Moose 2 Sensor) miscIndications :Type 2 diabetes mellitus with hypoglycemia without coma, unspecified whether intermediate manager insulin use (CMS/HCC),Hypog lycemia Apply 1 sensor every 14 days 2 each Active levothyroxine (Synthroid, Levoxyl) 88 MCG tablet Take 1 tablet (88 mcg) by mouth before breakfast. 90 tablet 3 024 Active Acetaminophen Extra Strength 500 MG tabletIndicatio ns:Pain TAKE 1 TABLET BY MOUTH EVERY 6 HOURS NEEDED FOR MODERATE PAIN OR FOR HEADACHE 100 tablet 3 024 Active fluticasone (Flonase) 50 MCG/ACT nasal sprayIndication s:Seasonal allergies Use 2 sprays in each nostril every morning as needed for nasal congestion or allergy symptoms. 48 g 3 024 Active ezetimibe (Zetia) 10 MG tabletIndicatio ns:Hyperlipidem ia, unspecified TAKE 1 TABLET BY MOUTH AT BEDTIME 90 tablet 3 024 Active Trulicity 1.5 MG/0.5ML solution auto-injector INJECT ONE PEN (=1.5MG) SUBCUTANEOUSLY ONCE A WEEK DIRECTED 2 mL 3 Active cholecalciferol (D3 Super Strength) 50 MCG (2000 UT) capsule TAKE 1 CAPSULE BY MOUTH EVERY MORNING 90 capsule 3 Active omeprazole (PriLOSEC) [address] capsule TAKE 1 CAPSULE BY MOUTH TWICE DAILY 1 HOUR BEFORE MEALS 180 capsule 3 Active Ascorbic Acid (vitamin C) 500 MG tabletIndicatio ns:Seasonal allergies TAKE 1 TABLET BY MOUTH TWICE DAILY IN THE MORNING AND AT BEDTIME 180 tablet 3 Active metFORMIN (Glucophage) 1000 MG tabletIndicatio ns:Diabetes mellitus type 2, noninsulin dependent (CMS/HCC) TAKE 1 TABLET BY MOUTH TWICE DAILY IN THE MORNING AND IN THE EVENING WITH MEALS 180 tablet 3 Active Advair Diskus 500-50 MCG/ACT aerosol powderIndicatio ns:Moderate persistent asthma without complication INHALE 1 PUFF BY MOUTH TWICE DAILY RINSE MOUTH AFTER USING. 60 each 11 Active zolpidem (Ambien) 10 MG tabletIndicatio ns:Insomnia, unspecified type Take 1 tablet (10 mg) by mouth if needed at bedtime for sleep. 30 tablet Active escitalopram (Lexapro) 20 MG tabletIndicatio ns:Depression, unspecified depression type Take 1 tablet (20 mg) by mouth in the evening. TAKE 1 TABLET BY MOUTH EVERY EVENING (APPLY LAS 800PM) 30 tablet 024 Active acarbose (Precose) 50 MG tabletIndicatio ns:Type 2 diabetes mellitus without complication, unspecified whether intermediate manager insulin use (CMS/HCC) TAKE 1 TABLET BY MOUTH THREE TIMES DAILY IN THE MORNING, AT NOON, AND AT BEDTIME 270 tablet 1 Active losartan (Cozaar) 50 MG tabletIndicatio ns:Type 2 diabetes mellitus with hyperglycemia, without long-term current use of insulin ([facility]) TAKE 1 TABLET BY MOUTH EVERY MORNING 90 tablet 3 024 Active oxyCODONE (Roxicodone) 10 MG immediate release tabletIndicatio ns:Chronic low back pain, unspecified back pain laterality, unspecified whether sciatica present,Subacro mial impingement of left shoulder Take 1 tablet (10 mg) by mouth every 8 (eight) hours if needed for severe pain. 84 tablet 025 Active hydroCHLOROthia zide (HYDRODiuril) 25 MG tablet TAKE 1 TABLET BY MOUTH EVERY MORNING 90 tablet 1 025 Active insulin glargine (Lantus SoloStar) 100 UNIT/ML penIndications: Type 2 diabetes mellitus without complication, without long-term current use of insulin ([facility]) INJECT 5 UNITS SUBCUTANEOUSLY AT BEDTIME FOR FOURTEEN DAYS AFTER INJECTION DE ESTEROIDE 15 mL 1 025 Active insulin glargine (Lantus SoloStar) 100 UNIT/ML penIndications: Type 2 diabetes mellitus without complication, without long-term current use of insulin ([facility]) INJECT 5 UNITS SUBCUTANEOUSLY AT BEDTIME FOR 2 WEEKS AFTER STEROID INJECTION 15 mL 1 024 2024 Discontinued hydroCHLOROthia zide (HYDRODiuril) 25 MG tablet Take 1 tablet (25 mg) by mouth Once per day. 90 tablet 1 024 2024 Discontinued oxyCODONE (Roxicodone) 10 MG immediate release tabletIndicatio ns:Chronic low back pain, unspecified back pain laterality, unspecified whether sciatica present,Subacro mial impingement of left shoulder Take 1 tablet (10 mg) by mouth every 8 (eight) hours if needed for severe pain. Do not start before March 01, 2024. 84 tablet 024 2024 Discontinued(R eorder (will not trigger notification to Pharmacy)) Active Problems Problem Noted Date Diagnosed Date Insomnia 02/19/2024 Assessment & Plan (02/19/2024 11:23 AM EST): -[facility] rx, covering for psych x 30 days Long-term current use of opiate analgesic 2023 Overview (12/27/2023): Medication: oxycodone 10mg TID Indication: lumbar protrusion and spinal canal stenosis (see M54.9) Last SALES AND SERVICE ENGINEER Agreement: 01/27/23 Tier II (SALES AND SERVICE ENGINEER visits every 3 months) Upper abdominal pain 11/11/2023 Overview (11/13/2023): 10/06/23: US abdomen complete ordered by Dr. Healy. Indication: upper abdominal pain. In the right lobe of the liver, there is a cluster of echogenic foci suggesting granulomas, similar to the 08/20/2020 CT scan. Otherwise unremarkable. Assessment & Plan (02/17/2024 9:59 AM EST): -Following with Dr. Healy. Edgar current regimen, no acute pain/changes. Assessment & Plan (11/13/2023 7:26 AM EDT): -Following with Dr. Healy. Edgar current regimen, no acute pain/changes. Chronic constipation 11/11/2023 Subacromial impingement of left shoulder 024 Overview (06/01/2023): -[place] on 03/16/23 at [facility] -Continues with home physical therapy and following with Ortho Assessment & Plan (08/13/2023 10:25 AM EDT): -Improved Assessment & Plan (06/01/2023 5:10 PM EST): -Continued acute exacerbation of pain following surgery. Medication renewed today so that pt may continue oxycodone 10mg TID x 1 month. Reviewed med use and safety. Stage 1 chronic kidney disease 12/06/2022 Diverticulosis 12/04/2022 Failed back syndrome of lumbar spine 10/05/2022 Migraine 10/05/2022 Myalgia 10/05/2022 Sacroiliac joint dysfunction of both sides 10/05 Facet arthropathy 08/15/2022 Assessment & Plan (08/15/2022 7:47 PM EDT): See below Routine health maintenance 08/11/2022 Overview (11/13/2023): DEXA: September 2021 WNL Mammo: 05/05/23 - BIRADS 1 Pap: 10/18/17 - NILM, HPV neg Colonoscopy: 2015 - WNL. Following with [facility] - Dr. Healy Optometry: [facility] Jan 2023 w/ Dr. Langley - mild retinopathy w/o macular edema Dental: referral to [facility] dental on 06/01/23 Assessment & Plan (11/13/2023 7:46 AM EDT): Exam completed today for physical for program. Need to review routine screenings and health history at follow up appt. Cervical radiculopathy 06/29/2021 Overview (02/17/2024): 05/10/23: [facility] Pain Management - Dr. Galloway. Interlaminar cervical injection C5- C6 OFE. 10/04/23: C5, C6 interlaminar OFE procedure with Dr. Galloway Dec 2023: C5-6 anterior discectomy, arthrodesis and implantation cage Cervical MRI w/o contrast September 2023: 1. Unchanged moderate C5-C6 degenerative cervical disc disease, mild posterior C3-C4, C5-C6, C6-C7, C7-T1 and moderate posterior T1-T2 disc protrusions are seen. 2. There is no evidence of cervical spinal cord compression or significant spinal stenosis. 3. Unchanged mild left C3-C4, marked right and moderate left C5-C6, mild bilateral C7-T1 neural foramina stenosis. Assessment & Plan (11/13/2023 7:25 AM EDT): - Continues with chronic moderate-severe pain affecting iADLs/ADLs. Completed updated MRI and has consult scheduled with Neurosurgery. Continues following with [employer]ICE [employer] Program. Obstructive sleep apnea syndrome 04/20/2021 Hypertension 04/13/2019 Assessment & Plan (08/12/2023 6:40 AM EDT): -BP regimen includes: Losartan 50mg daily Nifedipine 60mg XL daily Hydrochlorothiazide 25mg daily -Noted decrease in BP readings following steroid injections, tends to level off after a few weeks -Following steroid injections: Plan to hold losartan x 2 weeks. May resume is BP normalize. If continues to be low, pls call Cards office for further management. -ED precautions Assessment & Plan (03/13/2023 3:34 PM EST): -BP regimen includes: ?? Losartan 50mg daily ?? Nifedipine 60mg XL daily ?? Chlorthalidone 50mg daily -Noted decrease in BP readings following steroid injections, tends to level off after a few weeks -Following steroid injections: Plan to hold losartan x 2 weeks. May resume is BP normalize. If continues to be low, pls call Cards office for further management. -ED precautions Assessment & Plan (02/05/2023 6:25 PM EST): -BP regimen includes: ?? Losartan 50mg daily ?? Nifedipine 60mg XL daily ?? Chlorthalidone 50mg daily -Noted decrease in BP readings following steroid injections, tends to level off after a few weeks -Plan to hold losartan x 2 weeks. May resume is BP normalize. If continues to be low, pls call Cards office for further management. -ED precautions Type 2 diabetes mellitus, wi [facility] long-term current use of insulin 04/13/2019 Assessment & Plan (02/19/2024 11:17 AM EST): Lab Results Component Value Date HGBA1C 6.0 02/17/2024 A1c well controlled Monofilament testin11/11/23 abnormal/decreased sensation. Declined referral to podiatry. Reviewed foot care measures. Medications: Acarbose 50mg TID Metformin 1000mg BID Trulicity 1.5mg subcutaneous weekly Insulin only following steroid injections: Lantus 5 units nightly x 2 weeks following steroid injections. Reviewed med safety and monitoring -Encouraged to cont with lifestyle interventions -CGM Approval 08/15/23: FRANCA #[id number] (exp: 08/14/24). Improvement in A1c and hypoglycemic awareness noted with CGM. CGM data reviewed: 02/17/24 Assessment & Plan (11/13/2023 7:43 AM EDT): Lab Results Component Value Date HGBA1C 5.8 11/11/2023 A1c well controlled Monofilament testin11/11/23 abnormal/decreased sensation. Declined referral to podiatry. Reviewed foot care measures. Medications: Metformin 1000mg BID Trulicity 1.5mg subcutaneous weekly Insulin only following steroid injections: Lantus 5 units nightly x 2 weeks following steroid injections. Reviewed med safety and monitoring -Encouraged to cont with lifestyle interventions -CGM Approval 08/15/23: FRANCA #[id number] (exp: 08/14/24). Improvement in A1c and hypoglycemic awareness noted with CGM Assessment & Plan (08/13/2023 10:24 AM EDT): Lab Results Component Value Date HGBA1C 6.2 (A) 08/12/2023 A1c well controlled Continue Victoza 1.8mg subcutaneous QAM Continue metformin 1000mg BID Insulin only following steroid injections: Lantus 5 units nightly x 2 weeks following steroid injections. Reviewed med safety and monitoring -Encouraged to cont with lifestyle interventions -CGM order placed 08/12/23 due to relative hypoglycemic unawareness Assessment & Plan (05/08/2023 3:24 PM EST): Lab Results Component Value Date HGBA1C 6.1 (A) 03/11/2023 ?? A1c well controlled ?? Continue Victoza 1.8mg subcutaneous QAM ?? Continue metformin 1000mg BID ?? Pt has been testing QID, encouraged to decrease to once daily testing FBG, and may decrease further to 1-2x/week in future ?? Insulin only following steroid injections: ?? Lantus 5 units nightly x 2 weeks following steroid injections. Reviewed med safety and monitoring -encouraged to cont with lifestyle interventions Assessment & Plan (03/13/2023 3:32 PM EST): Lab Results Component Value Date HGBA1C 6.1 (A) 03/11/2023 ?? A1c well controlled ?? Continue Victoza 1.8mg subcutaneous QAM ?? Continue metformin 1000mg BID ?? Pt has been testing QID, encouraged to decrease to once daily testing FBG, and may decrease further to 1-2x/week in future ?? Insulin only following steroid injections: ?? Lantus 5 units nightly x 2 weeks following steroid injections. Reviewed med safety and monitoring -encouraged to cont with lifestyle interventions Assessment & Plan (01/28/2023 7:15 AM EDT): Lab Results Component Value Date HGBA1C 7.2 (A) 01/18/2023 ?? Continue Victoza 1.8mg subcutaneous QAM ?? Continue metformin 1000mg BID ?? Pt has been testing QID, encouraged to decrease to once daily testing FBG, and may decrease further to 1-2x/week in future ?? Shared decision making to reintroduce insulin following steroid injections: ?? Lantus 5 units nightly x 2 weeks following steroid injections. Reviewed med safety and monitoring -encouraged to cont with lifestyle interventions Assessment & Plan (01/24/2023 9:08 PM EDT): Lab Results Component Value Date HGBA1C 7.2 (A) 01/18/2023 ?? Continue Victoza 1.8mg subcutaneous QAM ?? Continue metformin 1000mg BID ?? Pt has been testing QID, encouraged to decrease to once daily testing FBG, and may decrease further to 1-2x/week in future ?? Shared decision making to reintroduce insulin following steroid injections: ?? Lantus 5 units nightly x 2 weeks following steroid injections. Reviewed med safety and monitoring -encouraged to cont with lifestyle interventions Assessment & Plan (08/15/2022 7:47 PM EDT): Lab Results Component Value Date HGBA1C 6.4 (A) 06/28/2022 Well controlled. 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 01/17/2017 Hypothyroid 02/07/2015 Overview (08/13/2023): Previously following with [facility] Endo Continues on levothyroxine 88mcg daily Lab Results Component Value Date TSH 0.35 06/29/2023 Assessment & Plan (06/01/2023 5:06 PM EST): Due for recheck TSH around end of May 2023 Assessment & Plan (05/08/2023 3:23 PM EST): Recheck TSH Anxiety 02/07/2015 Back pain 02/07/2015 Overview (10/05/2022): Imaging: Lumbar MRI 07/27/2022 with the following impression: IMPRESSION: - Postoperative findings related to posterior decompression and instrumented fusion at L4-L5 and L5-S1. No spinal canal stenosis or foraminal nerve root compression at these levels -At L3-L4 there is shallow central/left subarticular protrusion resulting in abutment of the transversing left L4 nerve root. Mild spinal canal stenosis and mild bilateral neural foraminal stenosis. Assessment & Plan (08/13/2023 10:26 AM EDT): Discussed treatment options including medications, injections, physical therapy, surgery, and non-Western medicine such as acupuncture. Continue following with Pain management for OFE Continue oxycodone PRN May consider second opinion in [place] Assessment & Plan (08/15/2022 7:45 PM EDT): ?? Discussed treatment options including medications, injections, physical therapy, surgery, and non-Western medicine such as acupuncture. ?? Continue following with Pain management for OFE ?? Continue oxycodone PRN Depression 02/07/2015 Assessment & Plan (02/19/2024 11:23 AM EST): -[facility] rx, covering for psych x 30 days Gastroesophageal reflux disease 02/07/2015 Overview (02/17/2024): Continues with omeprazole 20mg BID Continues carafate 1g TID Following with [facility] - Dr. Healy EGD Dec 2023: dx with gastritis and hiatal hernia. Neg H Pylori. HLD (hyperlipidemia) 02/07/2015 Obesity 02/07/2015 Resolved Problems Problem Noted Date Diagnosed Date Resolved Date Left lower quadrant pain 12/04/202201/2023 Assessment & Plan (12/04/2022 6:10 PM EDT): -Abd XR 07/2022 There is stool throughout the colon suggestive of constipation. No dilated loops of bowel to suggest obstruction. No free air. No calcified. Postsurgical changes to the spine. -CT abd /pelvis w contrast 2019 Acute diverticulitis of the junction of the descending and sigmoid colon. No complications. No obstruction. Pain in LLQ, most likely associated w acute diverticulitis. No Sx. Less likely to be of ovarian or uterine etiology. -Urine dipstick: trace LE, rest neg. -Advised pt to go to ED. Offered to call ambulance, but pt preferred to go directly w who was here with her. Stage 3a chronic kidney disease 04/13/2019 02/19/2024 Migraine without aura, not refractory 02/07/2015 12/01/2023 Asthma 02/07/2015 02/05/2023 Encounters Date Type Department Care Team Description 04/15/2024 Refill [facility] [address] [place] [address] Joy Villar FNP Type 2 diabetes mellitus without complication, without long-term current use of insulin ([facility]) 04/04/2024 10:00 AM EST Clinical Support [facility] [address] [place] [address] Leatha Cortes RN Chronic low back pain, unspecified back pain laterality, unspecified whether sciatica present 04/04/2024 Travel 03/29/2024 Telephone [facility] [address] [place] [address] Joy Villar FNP Nurse Triage 03/19/2024 Refill [facility] [address] [place] [address] Joy Villar FNP Type 2 diabetes mellitus with hyperglycemia, without long-term current use of insulin ([facility]) 03/12/2024 Refill [facility] [address] [place], [place] [phone] Joy Villar FNP Type 2 diabetes mellitus without complication, unspecified whether intermediate manager insulin use (CMS/[facility]) 02/27/2024 Refill [facility] [address] [place] [address] Joy Villar FNP Chronic low back pain, unspecified back pain laterality, unspecified whether sciatica present; Subacromial impingement of left shoulder 02/17/2024 9:00 AM EST Office Visit [facility] [address] [place] [address] Jyo Villar FNP Type 2 diabetes mellitus without complication, without long-term current use of insulin ([facility]) (Primary Dx); Cervical radiculopathy; Gastroesophageal reflux disease, unspecified whether esophagitis present; Insomnia, unspecified type; Depression, unspecified depression type; Tachycardia 02/17/2024 Travel 02/15/2024 Refill [facility] [address] [place] [address] Joy Villar FNP Moderate persistent asthma without complication (Primary Dx) 02/14/2024 Telephone [facility] MED[facility] [address] [place] [phone] Bernadette Martinez MA Chart Prep 02/09/2024 Refill [facility] [address] [place] [id number] Tiffanie Maurer MD Diabetes mellitus type 2, noninsulin dependent ([facility]/HCC) 02/09/2024 Refill [facility] [address] [place] [address] Joy Villar FNP Seasonal allergies; Diabetes mellitus type 2, noninsulin dependent ([facility]/HCC) 02/07/2024 Telephone [facility] [address] [place] [address] Joanne Higgins, RN Results 02/03/2024 Refill [facility] [address] [place] [address] Leatha Cortes RN Chronic low back pain, unspecified back pain laterality, unspecified whether sciatica present; Subacromial impingement of left shoulder 02/03/[address] [address] Joy Villar FNP medication refill 02/03/[address] [address] Joy Villar FNP Call Back Request from Last 3 Months Immunizations Name Administration Dates Next Due Hep B, adult 02/07/2015,09/10/2013,08/08/2013 INFLUENZA VACCINE QUADRIVALE NT RECOMBINANT PRESERVATIVE FREE RIV4 12/09/2020 Influenza injectable quadriv alent IIV4 with preservative 02/07/2015 Influenza injectable quadriv alent preservative free 01/28/2023,02/11/2022,12/27/2019,05/10,04/28/2018 Influenza, IIV3, injectable 01/15/2011 Influenza, seasonal, injecta ble, preservative free 01/03/2024 Pneumococcal Conjugate PCV 20 01/28/2023 Pneumococcal Polysaccharide PPSV23 09/20/2017, TD (adult), 2 Lf tetanus tox oid, preservative free, adsorbed 07/27/2021,07/06/2001 Tdap 04/05/2011 Zoster, Recombinant 10/02/2021,11/13/2018 Family History Medical History Relation Name Comments Liver disease Brother Arthritis Father Diabetes type II Father Heart attack Father Breast cancer Mother Kidney cancer Mother Cervical cancer Sister Relation Name Status Comments Brother Father Mother Sister Social History Tobacco Use Types Packs/Day Years Used Date Smoking Tobacco: Former Cigarettes Q uit: 2002 Passive Smoke Exposure: Never Smokeless Tobacco: Never Tobacco Cessation:Counseling Given: Not Answered Comments:15 years ago. 01/28/2023 Alcohol Use Standard Drinks/Week Comments Not Currently 0 (1 standard drink = 0.6 oz pur e alcohol) Depression Answer Date Recorded Patient Health Questionnaire-9 Score 7 02/19/2024 Patient Health Questionnaire-9 Score 7 02/19/2024 Last PHQ-9: Questionnaire Data Not on file 1 04/20/2023 Housing Stability Answer Date Recorded What is your housing situation today? I have yifan hunter 01/10/[address] you [...] Answer Date Recorded Patient Health Questionnaire-2 Score 1 02/19/2024 Comments Unknown Sex and Gender Information Value Date Recorded Sex Assigned at Female 01/25/2022 10:14 AM EDT Legal Sex Female 10:14 AM EDT Gender Identity Female 01/25/2022 10:14 AM EDT Sexual Orientation Don't know 01/25/2022 10 :14 AM EDT Last Filed Vital Signs Vital Sign Reading Time Taken Comments Blood Pressure 96/65 02/17/2024 9:02 AM EST Pulse 114 02/17/2024 9:02 AM EST Temperature 36.8 ??C (98.2 ??F) 02/17/2024 9:02 AM ES T Respiratory Rate 20 02/17/2024 9:02 AM EST Oxygen Saturation 95% 02/17/2024 9:02 AM EST Inhaled Oxygen Concentration - - Weight 72.6 kg (160 lb) 02/17/2024 9:02 AM EST Height 134.6 cm (4' 5 ) 02/17/2024 9:02 AM EST Body Mass Index 40.05 02/17/2024 9:02 AM EST Plan of Treatment Upcoming Encounters Date Type Department Care Team (Late st Contact Info) Description 07/05/2024 10:00 AM EDT [facility] [facility] [address] [place] [address] Leatha Cortes, CORRINA [address] [place] [address] Health Maintenance Due Date Last Done Comments CT Colonography 1965 Dental Oral Exam 1965 Dental Prophylaxis 1965 Dental X-Ray: Bitewings 1965 Dental X-Ray: Full Mouth 1965 FIT DNA/Cologuard 1965 FIT 1965 FOBT 1965 Sigmoidoscopy 1965 Alcohol/Substance Use Screening 1977 COVID-19 Vaccine ( season) 2023 11/23/2021, 02/27/2021, 08/20/2020, Additional history exists Eye Exam 02/11/2024 02/10/2023 SDOH Screening 04/27/2024 04/27/2023 Mammogram 05/05/2024 05/05/2023, 07/03/2021, 11/17/2018, Additional history exists Diabetes: Urine Protein Screening 05/06/2024 05/06/2023, 09/21/2021, 09/08/2020, Additional history exists Lipid Panel 05/06/2024 05/06/2023, 01/26, 09/21/2021, Additional history exists Tobacco Screening 08/11/2024 08/12/2023 Diabetes: Hemoglobin A1C 08/16/2024 024, 11/11/2023, 08/12/2023, Additional history exists Diabetes: Foot Exam 11/10/2024 11/11/2023, 11/11/2023, 11/11/2023, Additional history exists Depression Screening 02/18/2025 02/19/2024, 02/19/20 24 Pap Smear 11/04/2025 11/04/2022 Colonoscopy 02/23/2026 02/24/2016 Colorectal Cancer Screening 02/23/2026 Cervical Cancer Screening 11/05/2027 HPV/Cotest 11/05/2027 11/04/2022, 10/18/2017 DTaP/Tdap/Td Vaccines (3 - Td or Tdap) 07/28/2031 07/27/2021, 04/05/2011, 07/06/2001 RSV Patients and Patients Aged 60 years or older (1 - 1-dose 75+ series) 2040 Hepatitis B Vaccines Completed 02/07/2015, 09/10/2013, 08/08/2013 Zoster Vaccines Completed 10/02/2021, 11/13/2018 HIV Screening Completed 11/05/2022 Hepatitis C Screening Completed 11/05/2022 Pneumococcal Vaccine: Pediatrics (0 to 5 Years) and At-Risk Patients (6 to 64 Years) Completed 01/28/2023, 09/20/2017, 07/21/2016 Influenza Vaccine Completed 01/03/2024, , 02/11/2022, Additional history exists HIB Vaccines Aged Out No longer eligi ble based on patient's age to complete this topic HPV Vaccines Aged Out No longer eligi ble based on patient's age to complete this topic Hepatitis A Vaccines Aged Out No long er eligible based on patient's age to complete this topic IPV Vaccines Aged Out No longer eligi ble based on patient's age to complete this topic Meningococcal Vaccine Aged Out No blanca rehana eligible based on patient's age to complete this topic RSV under 20 months Aged Out No longe r eligible based on patient's age to complete this topic Rotavirus Vaccines Aged Out No longer eligible based on patient's age to complete this topic Procedures Procedure Name Priority Date/Time Associated Diagnosis Comments POCT MARGO-14 URINE DRUG SCREEN Routine 04/04/2024 10:28 AM EST Chronic low back pain, unspecified back pain laterality, unspecified whether sciatica present POCT GLYCATED HEMOGLOBIN, TOTAL Routine 02/17/2024 9:42 AM EST Type 2 diabetes mellitus without complication, without long-term current use of insulin (CMS/HCC) POCT GLUCOSE Routine 02/17/2024 9:42 AM EST Type 2 diabetes mellitus without complication, without long-term current use of insulin (CMS/HCC) FL BARIUM SWALLOW MODIFIED Routine 02/06/2024 8:53 AM EST Dysphagia, unspecified type ALBUMIN, RANDOM URINE W/CREATININE Routine 05/06/2023 11:36 AM EST Type 2 diabetes mellitus without complication, without long-term current use of insulin (CMS/HCC) LIPID PANEL, STANDARD Routine 05/06/2023 10:12 AM EST Type 2 diabetes mellitus without complication, without long-term current use of insulin (CMS/HCC) BI MAMMOGRAM SCREENING TOMOSYNTHESIS BILATERAL Routine 05/05/2023 12:24 PM EST HM DIABETES EYE EXAM Routine 02/10/2023 Type 2 diabetes mellitus without complication, without long-term current use of insulin (CMS/HCC) HEPATITIS C VIRAL RNA, QUANTITATIVE, REAL-TIME PCR Routine 11/05/2022 8:59 AM EDT Sexually transmitted disease counseling HIV ANTIBODY/ANTIGEN ([place] [facility]) Routine 11/05/2022 8:59 AM EDT HPV MRNA E6/E7 REFLEX TO HPV 16, 18/45 Routine 11/04/2022 12:00 AM EDT PAP SMEAR Routine 11/04/2022 12:00 AM EDT Encounter for screening for cervical cancer COLONOSCOPY Routine 02/24/2016 from Last 3 Months or Most Recently Relevant to Health Maintenance Results * POCT MARGO-14 Urine Drug Screen (04/04/2024 10:28 AM EST) Oxycodone Screen, Urine Positive Urine Urine specimen obtained by clean catch procedure / Unknown 04/04/2024 10:28 AM EST Narrative Leatha Cortes RN - 04/04/2024 10:28 AM EST Lot# [id number] Exp: 03-03-25 us Joy Villar MEDIATION COMMISSIONER POINT OF CARE TEST ENTER/EDIT ORDERABLES Final Result * POCT HGB A1C (02/17/2024 9:42 AM EST) Hemoglobin A1C 6.0 4.0 - 6.0 % QC Media Lot # [id number] Lot# Expiration Date [id number] Blood 02/17/2024 9:42 AM EST us Joy Villar MEDIATION COMMISSIONER POINT OF CARE TEST ENTER/EDIT ORDERABLES Final Result * POCT Glucose (02/17/2024 9:42 AM EST) Pathologist [facility] Glucose Blood, POC 147 60 - 200 mg/dL QC Media Lot # [id number] Lot# Expiration Date [id number] Blood Capillary blood specimen / Unknown 02/17/2024 9:42 AM EST us Joy Villar MEDIATION COMMISSIONER POINT OF CARE TEST ENTER/EDIT ORDERABLES Final Result * FL BARIUM SWALLOW MODIFIED (02/06/2024 8:53 AM EST) Anatomical Region Laterality Modality Head, Neck Radiographic Farida ging 02/06/2024 8:53 AM EST Narrative 02/06/2024 4:48 PM EST ? [facility] ?[address] ?[place] [address] ? Fluoroscopy Report ? Signed ? Patient: Elin Johnson ?MR# ?? : [id number] ? : 1965 ?Acct:[id number] ? Age/Sex: 58 / F ?ADM Date: 02/06/24 ? Loc: HO.XRAY ? Attending Dr: Joy PRASAD ? Ordering Physician: Joy Villar ?? Date of Service: 02/06/24 ?? Procedure(s): FL Modified Barium Swallow ?? Accession Number(s): [id number] ? cc: Joy Villar ? EXAMINATION: ?? Modified Barium Swallow ? CLINICAL INFORMATION: ?? Dysphagia ? COMPARISON: ?? None ? TECHNIQUE: ?? Modified barium swallow was performed under lateral fluoroscopy with ?? patient in standing position. Barium mixed with solids and liquids of ?? different consistencies was administered by the speech pathologist. ?? Examination was recorded in the fluoroscopy suite. ? FINDINGS: ?? Trace laryngeal penetration is seen with thin consistency barium. No ?? aspiration was observed. Moderate cricopharyngeal achalasia is present. ? ACDF noted at C5-C6. ? FLUOROSCOPY TIME: ?? 1 minute ? Number of Spot Images: N/A ? DOSE AREA PRODUCT: ?? 365.0 uGy-m2 (microgray-meter squared) ? FL/FL Modified Barium Swallow ?? IMPRESSION: ?? 1. Trace laryngeal penetration with thin consistency barium. No ?? subglottic aspiration was observed. ?? 2. Moderate cricopharyngeal achalasia. ?? 3. Status post ACDF at C5-C6. ? Refer to the speech therapy report for further clarification ? This procedure was performed by Renzo Bran PA-C, and supervised by ?? Dr. Enamorado ? Electronically signed by: ??Nick Enamorado MD ??02/06/2024 04:45 PM EST RP ? Dictated By: ?Renzo Bran ? Signed By: ?<Electronically signed by Renzo Bran in OV> ? 02/06/24 1645 ?<Electronically signed by Nick Enamorado MD in OV> ? 02/06/24 1647 ? DD/ 0853 ? TD/TT: 02/06/24927 ? Food Preparation Kitchen Aide: ? Procedure Note Karan, Image - 02/06/2024 [place] [address] Fluoroscopy Report Signed Patient: Elin Johnson MMR# : [id number] : 1965Acct:[id number] Age/Sex: 58 / FADM Date: 02/06/24 Loc: ALEX Attending Dr: Joy PRASAD Ordering Physician: Joy Villar Date of Service: 02/06/24 Procedure(s): FL Modified Barium Swallow Accession Number(s): [id number] cc: Joy Villar EXAMINATION: Modified Barium Swallow CLINICAL INFORMATION: Dysphagia COMPARISON: None TECHNIQUE: Modified barium swallow was performed under lateral fluoroscopy with patient in standing position. Barium mixed with solids and liquids of different consistencies was administered by the speech pathologist. Examination was recorded in the fluoroscopy suite. FINDINGS: Trace laryngeal penetration is seen with thin consistency barium. No aspiration was observed. Moderate cricopharyngeal achalasia is present. ACDF noted at C5-C6. FLUOROSCOPY TIME: 1 minute Number of Spot Images: N/A DOSE AREA PRODUCT: 365.0 uGy-m2 (microgray-meter squared) FL/FL Modified Barium Swallow IMPRESSION: 1. Trace laryngeal penetration with thin consistency barium. No subglottic aspiration was observed. 2. Moderate cricopharyngeal achalasia. 3. Status post ACDF at C5-C6. Refer to the speech therapy report for further clarification This procedure was performed by Renzo Bran PA-C, and supervised by Dr. Enamorado Electronically signed by: Nick Enamorado MD 02/06/2024 04:45 PM EST RP Dictated By: Renzo Bran Signed By: <Electronically signed by Renzo Bran in OV> 02/06/24 1645 <Electronically signed by Nick Enamorado MD in OV> 02/06/24 1647 DD/ TD/TT: 02/06/24927 Food Preparation Kitchen Aide: us Joy PRASAD IMG FLUOROSCOPY PROCEDURES Fin al Result * Albumin, Random Urine W/Creatinine (05/06/2023 11:36 AM EST) Creatinine, Urine 107.54 mg/dL [facility] Microalbumin Urine 11.0 mg/L [facility] Microalbum Creatinine Ratio Ur 10.2 <30 ug/mg cr [facility] Comment:Albumin/Creatinine R atio Reference Ranges: Normal: < 30 ug/mg creatinine Microalbuminuria: 30 - 300 ug/mg creatinineClinical Albuminuria: > 300 ug/mg creatinine Urine 05/06/2023 11:3 6 AM EST 05/06/2023 3:21 PM EST Joy PRASAD LAB URINE ORDERABLES Final Res ult [facility] [address] [place] [phone] * Lipid Panel, Standard (05/06/2023 10:12 AM EST) Triglycerides 56 <150 mg/dL [facility] Comment:Desirable Triglyceri de: less than 150 mg/dLBorderline High Triglyceride 150-199 mg/dLHigh Triglyceride: 200-499 mg/dLVery High Triglyceride: greater than or equal to 5OO mg/dL Cholesterol 117 <200 mg/dL [facility] Comment:Desirable Cholestero l: less than 200 mg/dLBorderline High Cholesterol: 200-239 mg/dLHigh Cholesterol: greater than 239 mg/dL LDL Cholesterol Calculated 40 <100 mg/dL [facility] Comment:Desirable LDL: less than 100 mg/dLNear Optimal/Above Optimal LDL: 110- 129 mg/dLBorderline High LDL: 130-159 mg/dLHigh LDL: 160-189 mg/dLVery High LDL: greater than or equal to 190 mg/dL HDL Cholesterol 66 >40 mg/dL [facility] Comment:Desirable HDL: great er than 40 mg/dL Note: This HDL assay may give artificially low results in patients with liver disease. Blood Venous blood specimen / Unknown 05/06/2023 10:12 AM EST 05/06/2023 2:15 PM EST Joy Villar MEDIATION COMMISSIONER LAB BLOOD ORDERABLES Final Res ult Performing Organization Address City/State/[facility] Co de Phone Number [facility] [address] [place] [phone] * BI Mammogram Screening Tomosynthesis Bilateral (05/05/2023 12:24 PM EST) Anatomical Region Laterality Modality Breast Bilateral Mammography 05/05/2023 12:2 4 PM EST Narrative 05/30/2023 2:43 PM EST ? [facility] ? [address] [facility] ?[place] [address] ? Mammography Report ? Signed ? Patient: Elin Johnson ?MR# ?? : [id number] ? : 1965 ?Acct:[id number] ? Age/Sex: 57 / F ?ADM Date: 05/05/23 ? Loc: HO.MAMMO ? Attending Dr: Shasha Fournier MEDICAL CUSTOMER SERVICE REPRESENTATIVE ? Ordering Physician: Shasha Fournier MEDICAL CUSTOMER SERVICE REPRESENTATIVE ?Results: 1Negativ ?? e ? Date of Service: 05/05/23 ?Follow Up: 1 Year From Orig ?? inal Mammogram ? Procedure(s): MM tomosynthesis screening BI ?? Accession Number(s): [id number] ? cc: Shasha Fournier MEDICAL CUSTOMER SERVICE REPRESENTATIVE; Joy Villar MEDIATION COMMISSIONER ? EXAMINATION: ?? MM SCREENING DIGITAL BREAST TOMOSYNTHESIS, BILATERAL ? CLINICAL INFORMATION: ? Screening. Asymptomatic. ? COMPARISON: ?? Mammography: This study is compared with prior exams dating back to ?? 2018. ? TECHNIQUE: ?? Digital breast tomosynthesis is performed in both the craniocaudal and ?? mediolateral oblique views along with computer-aided detection (CAD). ?? Synthesized 2D images are generated from the tomosynthesis. ? FINDINGS: ?? There are scattered areas of fibroglandular density (ACR BI-RADS breast ?? composition Category b). ? There are no significant masses, abnormal calcifications, or other ?? abnormalities. ? MM/MM tomosynthesis screening BI ?? IMPRESSION: ?? No mammographic evidence of malignancy. ? ASSESSMENT: ? BI-RADS BI-RADS 1 - Negative ? RECOMMENDATION: ?? Routine annual mammography screening. ? 1 year F/U ? This examination should not preclude the clinical evaluation of a ?? suspicious palpable abnormality. ? This patient's information was entered into a reminder system with a ?? target due date for their next mammogram. ? Dictated By: ?Gina Jackson MD ? Signed By: ?<Electronically signed by Gina Jackson MD in OV> ? 05/30/23 1439 ? DD/ 1224 ? TD/TT: ? Food Preparation Kitchen Aide: ? Procedure Note Donotuseinterpreter, Image - 05/30/2023 [facility] [address] [place] [address] Mammography Report Signed Patient: Elin Johnson MMR# : [id number] : 1965Acct:[id number] Age/Sex: 57 / FADM Date: 05/05/23 Loc: HO.MAMMO Attending Dr: Shasha Fournier NP Ordering Physician: Shasha Fournier NPResults: 1Negativ e Date of Service: 05/05/23Follow Up: 1 Year From Orig inal Mammogram Procedure(s): MM tomosynthesis screening BI Accession Number(s): [id number] cc: Shasha Fournier MEDICAL CUSTOMER SERVICE REPRESENTATIVE; Joy Villar MEDIATION COMMISSIONER EXAMINATION: MM SCREENING DIGITAL BREAST TOMOSYNTHESIS, BILATERAL CLINICAL INFORMATION: Screening. Asymptomatic. COMPARISON: Mammography: This study is compared with prior exams dating back to 2019. TECHNIQUE: Digital breast tomosynthesis is performed in both the craniocaudal and mediolateral oblique views along with computer-aided detection (CAD). Synthesized 2D images are generated from the tomosynthesis. FINDINGS: There are scattered areas of fibroglandular density (ACR BI-RADS breast composition Category b). There are no significant masses, abnormal calcifications, or other abnormalities. MM/MM tomosynthesis screening BI IMPRESSION: No mammographic evidence of malignancy. ASSESSMENT: BI-RADS BI-RADS 1 - Negative RECOMMENDATION: Routine annual mammography screening. 1 year F/U This examination should not preclude the clinical evaluation of a suspicious palpable abnormality. This patient's information was entered into a reminder system with a target due date for their next mammogram. 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 Langley 02/10/2023 Historical Provider HEALTH MAINTENANCE Final Result * HIV Ab/Ag ([facility]) (11/05/2022 8:59 AM EDT) [facility] HIV AB/AG Nonreactive Nonreactive [facility] Comment:HIV-1 p24 Ag and/or HIV-1/HIV-2 Ab not detected.A test result that is nonreactive does not exclude thepossibility of exposure to or infection with HIV-1 and/orHIV-2. Nonreactive results in this assay for individualswith prior exposure to HIV-1 and/or HIV-2 may be due toantigen and antibody levels that are below the limit ofdetection of this assay.The [employer] Finishing Range Supervisor HIV Ag/Ab Combo assay result andsupplemental assay results should be interpreted inconjunction with the patient's clinical presentation,history and other laboratory results. If the results areinconsistent with clinical evidence, additional testing issuggested to confirm the result. 11/05/2022 8:59 AM EDT 11/05/2022 11:13 AM EDT Joy Villar MEDIATION COMMISSIONER LAB BLOOD ORDERABLES Final Res ult [facility] [address] [place] [phone] * Hepatitis C Viral RNA, Quantitative, Real-Time PCR (11/05/2022 8:59 AM EDT) [facility] Hepatitis C Viral Load <15 NOT DETECTED NOT DETECTED IU/mL [facility] HCV Log PCR <1.18 NOT DETECTED NOT DETECTED Log IU/mL [facility] Comment:This test was perfor med using Real-Time Polymerase ChainReaction.Reportable Range: 15 IU/mL to 100,000,000 IU/mL(1.18 Log IU/mL to 8.00 Log IU/mL).The analytical performance characteristics of thisassay have been determined by [facility].The modifications have not been cleared or approved bythe FDA. This assay has been validated pursuant to theCLIA regulations and is used for clinical purposes.For more information on this test, go to:http://[employer]/faq/SCW38t7(This link is being provided for informational/educational purposes only.)THIS TEST WAS PERFORMED AT:[facility] [place] [id number] COTTO MD Blood 11/05/2022 8:59 AM EDT 11/05/2022 11:13 AM EDT Joy Villar MEDIATION COMMISSIONER LAB BLOOD ORDERABLES Final Res ult [facility] [address] [place] [phone] * HPV mRNA E6/E7 w/Reflex to HPV Genotypes 16, 18/45 (11/04/2022 12:00 AM EDT) HPV nRNA E6/E7 Not Detected Not Detected [facility] Comment:Methodology: Transcr iption-Mediated AmplificationThis assay detects E6/E7 viral messenger RNA (mRNA) from 14high-risk HPV types (16,18,31,33,35,39,45,51,52,56,58,59,66,68).Cervical sources are required for HPV testing.If a vaginal source from a patient who has had atotal hysterectomy with removal of cervix wassubmitted, please contact the testing laboratoryfor alternative testing options.For additional information, please refer tohttp://[employer]/faq/CEN578p7(This link if provided for information/educational purposes only.)THIS TEST WAS PERFORMED AT:[facility] [address] [id number] COTTO MD HPV mRNA E6/E7 TNP [facility] HPV 16 RNA [facility] HPV 18/45 RNA TNP [facility] 11/04/2022 11/05/2022 9:3 0 AM EDT Joy PRASAD LAB CYTOLOGY ORDERABLES Final Result [facility] [address] [place] [phone] * Pap Smear (11/04/2022 12:00 AM EDT) Swab Cervical swab / Unknown 11/04/2022 11/05/2022 9:30 AM EDT Narrative [facility] - 11/23/2022 10:21 AM EDT ----- ------- Name: Elin Johnson ? Age/Sex: 57/F ? : 1965 Unit#: [id number] ?? Attend Dr: Joy Villar ?Re11/04/22 ?Status: DEP REF ? Location: HO.HHCLNP ? Disch: ? ----- ------- SPEC : [id number] ?RECD: 11/05/22 ? STATUS: ??SOUT ? REQ NUM: [id number] ? VIRY: 11/04/22-0000 ? SUBM DR: Joy Villar MEDIATION COMMISSIONER ? ENTERED: ??11/05/22 ?SP TYPE: Pap Smr ?OTHR : ? ORDERED: ??Pap Smear ? Interpretation ?? Satisfactory for evaluation. ?? Atrophic. ?? Negative for intraepithelial lesion or malignancy. ?HPV mRNA E6/E7: ?NOT DETECTED ? This assay detects E6/E7 viral messenger RNA (mRNA) from 14 high-risk HPV types (16, 18, ?? 31, 33, 35, 39, 45, 51, 52, 56, 58, 59, 66, 68) ?? HPV testing performed by [facility], [place], [place]. ??See reference laboratory ?? pion of the EMR for entire report. ?Clinical Information LMP:Postmenopausal Previous PAP test:10/18/17, WNL ? Material Received ?? ThinPrep-Cervical ----- ------- Signed (signature on file) ELVIA Valenzuela ([facility]) 11/23/22 1021 ? ----- ------- ? END OF REPORT ? Joy Villar [facility] CYTOLOGY ORDERABLES Final Result [facility] [address] [place], [place] [phone] * Colonoscopy (02/24/2016) [facility] Signature Colonoscopy Normal Normal Historical Provider HEALTH MAINTENANCE Final Result from Last 3 Months or Most Recently Relevant to Health Maintenance Insurance [facility] C3 Care Teams Mixed Crop Farmer Relationship Specialty Start Date End Date Joy Villar FNP [address] [place] [address] PCP - General Family Medicine 11/21/21 Wu Gallardo [address] [place] [address] Neurosurgery 02/19/24 Lazaro Healy MD [address] [place] [address] Gastroenterology 02/19/24
--- OUTSIDE RECORDS SUMMARY | 2024-04-20 07:24 | XMS_ITS | Encounter Summary ---
Author Organization [employer] Address [address] [place] [address] Care Team Providers Care City Mail Carrier Name Role Phone Joy Villar Primary Care Provider [phone] Wu Gallardo Unavailable [phone] Lazaro Healy MD Unavailable Reason for Visit * Reason Onset Date Comments Med Refill 10/31/2023 Encounter Details Date Type Department Care Team (Late st Contact Info) Description 10/31/2023 Telephone [facility] [address] [place], [place] [phone] Joy Villar FNP [address] [place], [place] [phone] Med Refill Social History Tobacco Use Types Packs/Day Years [...] encounter Miscellaneous Notes * Telephone Encounter - Patti Barroso - 10/31/2023 11:43 AM EDT TC from pt requesting medication refill. Medications needing refill : oxyCODONE (Roxicodone) 10 MG immediate release tablet To be sent to: [facility] - [place], [place] - [address] [place] [address] documented in this encounter Plan of Treatment Upcoming Encounters Date Type Department Care Team ([facility] st Contact Info) Description 07/05/2024 10:00 AM EDT Clinical Support [facility] [address] [place] [address] Leatha Cortes, [place] [address] [place] [address] documented as of this encounter Visit Diagnoses Not on filedocumented in this encounter Additional Health Concerns Assessment Noted Time PHQ-9 Depression Total Score: 0 08/13/19 23 11:11 AM EDT documented as of this encounter Care Teams City Mail Carrier Relationship Specialty Start Date End Date Joy Villar FNP [address] [place] [address] PCP - General Family Medicine 11/21/21 Wu Gallardo [address] [place] [address] Neurosurgery 02/19/24 Lazaro Healy MD [address] [place] [address] Gastroenterology 02/19/24 documented as of this encounter
--- OUTSIDE RECORDS SUMMARY | 2024-04-20 07:24 | XMS_ITS | Clinical Summary ---
Author Organization [facility], Address [address] [place] [address] [place] [address] Phone Care Team Providers Care Supervisor Molding Name Role Phone Unavailable Primary Care Provider Unavailabl e Allergies Active Allergy Reactions Criticality Noted Date Comments Naproxen Other (see comments) 04/13/2019 Medications buPROPion XL (WELLBUTRIN XL) 300 MG 24 hr tablet Take 1 tablet by mouth 1 (one) time each day Active Dextrose, Diabetic Use, (GLUCOSE) 15 GM/33GM gel Take 4 g by mouth Active insulin glargine (LANTUS SOLOSTAR) 100 UNIT/ML injection Active loratadine (CLARITIN) 10 MG tablet Take 1 tablet by mouth 1 (one) time each day Active ascorbic acid (VITAMIN C) 500 MG tablet TAKE 1 TABLET BY MOUTH TWICE DAILY IN THE MORNING AND AT BEDTIME 1 Active cholecalcifero l (VITAMIN D-3) 50 MCG (2000 UT) capsule Take 2,000 Units by mouth 1 (one) time each day 1 Active Victoza 18 MG/3ML injection INJECT 1.8 MG SUBCUTANEOUSLY ONCE DAILY DIRECTED 1 Active losartan (COZAAR) 50 MG tablet Take 50 mg by mouth 1 Active metFORMIN (GLUCOPHAGE) 1000 MG tablet TAKE 1 TABLET BY MOUTH TWICE DAILY IN THE MORNING AND IN THE EVENING WITH FOOD 1 Active omeprazole (PriLOSEC) [address] capsule TAKE 1 CAPSULE BY MOUTH TWICE DAILY 1 HOUR BEFORE BREAKFAST AND 1 HOUR BEFORE SUPPER 1 Active oxyCODONE (ROXICODONE) 5 MG immediate release tablet Take 5 mg by mouth 4 (four) times a day if needed 1 Active zolpidem (AMBIEN) 10 MG tablet Take 10 mg by mouth at night if needed 1 Active acetaminophen (Arthritis Pain Relief) 650 MG 8 hr tablet Take 650 mg by mouth every 8 (eight) hours if needed for mild pain Do not crush, chew, or split. Active Sucralfate (CARAFATE PO) Take by mouth Ac tive docusate sodium (COLACE) 100 MG capsule Take 100 mg by mouth in the morning and 100 mg in the evening. Active rosuvastatin (CRESTOR) 40 MG tablet Take 40 mg by mouth 1 (one) time each day Active FLUoxetine (PROzac) 10 MG tablet Take 10 mg by mouth 1 (one) time each day Active levothyroxine sodium (TIROSINT) 100 MCG capsule Take 100 mcg by mouth 1 (one) time each day Active risperiDONE (RisperDAL) 1 MG tablet Take 1 mg by mouth in the morning and 1 mg in the evening. Active SUMAtriptan (IMITREX) 100 MG tablet Take 100 mg by mouth 1 (one) time if needed for migraine Active ezetimibe (ZETIA) 10 MG tablet Take 10 mg by mouth 1 (one) time each day Active chlorthalidone (HYGROTON) 50 MG tablet TAKE 1 TABLET BY MOUTH EVERY MORNING 90 tablet 3 3 Active escitalopram (LEXAPRO) 20 MG tablet TAKE 1 TABLET BY MOUTH EVERY EVENING A LAS 8PM 3 Active levothyroxine (SYNTHROID, LEVOTHROID) 100 MCG tablet TAKE 1 TABLET BY MOUTH EVERY MORNING BEFORE MEALS 3 Active metFORMIN (GLUCOPHAGE) 500 MG tablet TAKE 1 TABLET BY MOUTH TWICE DAILY IN THE MORNING AND IN THE EVENING WITH FOOD 3 Active NIFEdipine XL (PROCARDIA XL) 60 MG 24 hr tablet TAKE 1 TABLET BY MOUTH EVERY MORNING 30 tablet 11 4 Active Active Problems Problem Noted Date Diagnosed Date Chronic kidney disease stage 1 12/06/2022 Stage 3a chronic kidney disease 04/13/2019 Hypertensive disorder 04/13/2019 Type 2 diabetes mellitus 04/13/2019 Resolved Problems Problem Noted Date Diagnosed Date Resolved Date Asthma 04/13/2019 12/14/2020 Disorder of kidney 04/13/2019 1 Gastroesophageal reflux disease 04/13/2019 12/14/2020 Hypercholesterolemia 04/13/2019 021 Hypothyroidism 04/13/2019 12/14/2020 Migraine 04/13/2019 12/14/2020 Encounters Date Type Department Care Team Description 03/19/2024 Refill [facility], [address] [address] Simba Olsen MD from Last 3 Months Immunizations Name Administration Dates Next Due Influenza, Quadrivalent, Preservative Free 12/27 Family History Relation Status Comments Father Unknown Mother Unknown Social History Tobacco Use Types Packs/Day Years Used Date Smoking Tobacco: Former Tobacco Cessation:Counseling Given: Not Answered Comments:Smoking History Info:Some days Alcohol Use Standard Drinks/Week Comments No 0 (1 standard drink = 0.6 oz pur e alcohol) Comments Unknown Sex and Gender Information Value Date Recorded Sex Assigned at Not on file Legal Sex Female 4:31 PM EST Gender Identity Not on file Sexual Orientation Not on file Last Filed Vital Signs Vital Sign Reading Time Taken Comments Blood Pressure 90/60 12/21/2021 2:09 PM EDT Pulse 74 04/19/2019 1:56 PM EST Temperature - - Respiratory Rate 16 04/19/2019 1:56 PM EST Oxygen Saturation - - Inhaled Oxygen Concentration - - Weight 75.7 kg (166 lb 12.8 oz) 12/21/2021 2:09 PM EDT Height 149.9 cm (4' 11 ) 12/21/2021 2:09 PM EDT Body Mass Index 33.69 12/21/2021 2:09 PM EDT Plan of Treatment Health Maintenance Due Date Last Done Comments Breast Cancer Screening 1965 Pneumococcal Vaccine: Pediat rics (0 to 5 Years) and At-Risk Patients (6 to 64 Years) (1 of 2 - PCV) 10/05/1971 Hepatitis B Vaccine (1 of 3 - 19+ 3-dose series) 1984 Colorectal Cancer Screening: Annual FOBT 2014 Colorectal Cancer Screening: Colonoscopy 2014 Colorectal Cancer Screening: Sigmoidoscopy 2014 Diabetes: Ophthalmology Exam 04/13/2019 Diabetes: Pedal Pulse Checked 04/13/2019 Diabetes: Sensory Foot Exam 04/13/2019 Diabetes: Visual Foot Exam 04/13/2019 Diabetes: Hemoglobin A1C 08/02/2020 05/05/2020, 03/29 Influenza Vaccine (#1) 2023 12/28/2019 Procedures Procedure Name Priority Date/Time Associated Diagnosis Comments HEMOGLOBIN A1C Routine 05/05/2020 9:43 AM EST Type 2 diabetes mellitus, not otherwise specified (HCC) from Last 3 Months or Most Recently Relevant to Health Maintenance Results * (ABNORMAL) Hemoglobin A1c (05/05/2020 9:43 AM EST) Hemoglobin A1C 6.5(H) (4.0-5.6) % [facility] Comment: MONITORING: In known diabetic patients, hemoglobin A1c targets should be discussed with health care provider. DIAGNOSTIC USE: ??The [place] Diabetes Association (ADA) and the World Health Organization (WHO) recommend the use of HbA1c to diagnose diabetes using a threshold of 6.5%. Patients who have an HbA1c between 5.7% and 6.4% are considered at increased risk for developing diabetes in the future. CAUTION: Falsely low HbA1c results may be observed in patients with hemolytic anemia, homozygous forms of abnormal hemoglobin (e.g. SS, CC, SC), , recent blood loss or hemoglobin F greater than 7%. Fructosamine may be used as an alternate test in these cases. REFERENCE: ADA: Standards of Medical Care in Diabetes 2020, The Journal of Clinical and Applied Research and Education Volume 43, Supplement 1 Testing performed or reported by [facility], a Service of [facility], [address] [place] [address] Cesilia Saavedra MD, Email Campaign Specialist Blood (Blood, Venous) 05/05/2020 9:43 AM EST 05/05/2020 9:44 AM EST us Simba Olsen MD LAB BLOOD ORDERABLES Final Resul t [facility] from Last 3 Months or Most Recently Relevant to Health Maintenance Insurance [place]ICAID [place]
--- OUTSIDE RECORDS SUMMARY | 2024-04-20 07:24 | XMS_ITS ---
Author Organization [facility] Address [address] [place] [address] Care Team Providers Care Machine Oiler Name Role Phone ADRIÁN JAMISON MD Primary Care Provider Lazaro Venegas [phone] ALLERGIES Allergen (clinical drug ingredient) Drug/Non Drug Allergy documented on EMR Reaction Allergy Type Onset Date Status naproxen Naproxen Unknown Drug Allergy Active RESULTS Component Value Reference Range Notes Electrolytes Reviewed date:09/22/2023 12:37:18 PM Interpretation: Performing Lab:[facility], [address] [place] [phone] Notes/Report: Sodium 140 135-145 mmol/L Potassium 4.2 3.3-5.1 mmol/L Chloride 103 96-108 mmol/L Carbon Dioxide 31 22-29 mmol/L Anion Gap 10 12-20 Creatinine Reviewed date:09/22/2023 12:37:02 PM Interpretation: Performing Lab:[facility], [address] [place] [phone] Notes/Report: Creatinine 0.61 0.5-1.4 mg/dL Estimated Glomerular Filt Rate > 60 NOTE: For -Thai individuals, multiply the result by 1.210. Chronic Kidney Disease: Estimated GFR < 60 mL/min/1.73m2 Severe Kidney Disease: Estimated GFR < 15 mL/min/1.73m2 Amylase Reviewed date:09/22/2023 12:36:54 PM Interpretation: Performing Lab:[facility], [address] [place] [phone] Notes/Report: Amylase 98 28-100 U/L Lipase Reviewed date:09/22/2023 12:36:47 PM Interpretation: Performing Lab:[facility], [address], [place] [address] Notes/Report: Lipase 36 8-78 U/L REASON FOR [...] (R10.10) Active confirmed Upper abdomina l pain (93654588) Problem Chronic constipation (K59.09) Active confirmed Chronic constipation (853868779) VITAL SIGNS BMI 32.18 kg/m2 09/22/2023 Blood pressure systolic 00 mm Hg 09/22/19 24 Blood pressure diastolic 00 mm Hg 024 Height 4 ft 10 in in 09/22/2023 Weight 154 lbs 09/22/2023 Encounters Encounter Location Date Provider Diagnosis [facility] [address] [place] [address] 09/22/2023 Lazaro Haely Upper abdominal pain R10.10 and Chronic constipation [...] [place] and [place] [facility]AN OF TREATMENT Treatment Notes Assessment Notes Upper abdominal pain Do not take the Victoza for 3 days before the colonoscopy Do take the Metformin on the morning of the upper endoscopy Other Need upper endo and colonoscopy op notes/[place] [facility] [place] Pending Test Test Name Order Date BUN 09/22/2023 LIVER PROFILE 09/22/2023 CBC w DIFF 09/22/2023 US abdomen complete 09/22/2023 Future Test Test Name Order Date UPPER GI ENDOSCOPY 09/22/2023 Next Appt Details Follow Up: prn, Reason: Provider Name:Lazaro Healy , 05/10/2024 10:20:00 AM, [address], [address], [place], [address], Progress Notes * Examination Category Sub-Category Detail [...]
--- OUTSIDE RECORDS SUMMARY | 2024-04-20 07:24 | XMS_ITS | Encounter Summary ---
Author Organization [facility] Address [address] [place] [address] Phone Care Team Providers Care Methods Specialist Engineer Name Role Phone Unavailable Primary Care Provider Unavailabl e Encounter Details Date Type Department Care Team (Late st Contact Info) Description 12/15/2021 Documentation Only [facility], [address] [place] [phone] Tami Prescott PA [address] [place] [phone] Social History Tobacco Use Types Packs/Day Years Used Date Smoking Tobacco: Former Comments:Smoking History Inf o:Some days Alcohol Use Standard Drinks/Week Comments No 0 (1 standard drink = 0.6 oz pur e alcohol) Comments Unknown Sex and Gender Information Value Date Recorded Sex Assigned at Not on file Legal Sex Female 4:31 PM EST Gender Identity Not on file Sexual Orientation Not on file documented as of this encounter Plan of Treatment Not on file documented as of this encounter Visit Diagnoses Not on filedocumented in this encounter
--- OUTSIDE RECORDS SUMMARY | 2024-04-20 07:24 | XMS_ITS | Encounter Summary ---
Author Organization [employer] Address [address] [place] [address] Care Team Providers Care Guest Services Attendant Name Role Phone Joy Vilalr SHANICE Primary Care Provider [phone] Wu Gallardo Unavailable [phone] Lazaro Healy MD Unavailable Encounter Details Date Type Department Care Team (Late Contact Info) Description 04/13/2022 Orders Only [facility] [place] [facility] [address] [place], [place] [phone] Angeles Walton LPN Social History Tobacco Use Types Packs/Day Years Used Date Smoking Tobacco: Never Assessed Comments Unknown Sex and Gender Information Value [...] suspected to have Coronavirus/COVID-19? No / Unsure 04/01/2022 8:36 AM EST documented as of this encounter Plan of Treatment Upcoming Encounters Date Type Department Care Team (Late Contact Info) Description 07/05/2024 10:00 AM EDT Clinical Support [facility] [place] [facility] [address] [place], [place] [phone] Leatha Cortes, RN [address] [place], [place] [phone] documented as of this encounter Visit Diagnoses Not on filedocumented in this encounter Care Teams Guest Services Attendant Relationship Specialty Start Date End Date Joy Villar FNP [address] [place] [address] PCP - General Family Medicine 11/21/21 Wu Gallardo [address] [place] [address] Neurosurgery 02/19/24 Lazaro Healy MD [address] [place] [address] Gastroenterology 02/19/24 documented as of this encounter
--- OUTSIDE RECORDS SUMMARY | 2024-04-20 07:24 | XMS_ITS | Encounter Summary ---
Author Organization [facility] Address [address] [place] [address] Care Team Providers Care Grooming Assistant Name Role Phone Joy Villar Primary Care Provider [phone] Wu Gallardo Unavailable [phone] Lazaro Healy MD Unavailable Encounter Details Date Type Department Care Team (Late Contact Info) Description 03/08/2022 Telephone [facility] [address] [place] [address] Joy Villar FNP [address] [place], [place] [phone] Social History Tobacco Use Types Packs/Day Years [...] Description 07/05/2024 10:00 AM EDT Clinical Support [facility] [address] [place], [place] [phone] Leatha Cortes, CORRINA [address] [place], [place] [phone] documented as of this encounter Visit Diagnoses Not on filedocumented in this encounter Care Teams Grooming Assistant Relationship Specialty Start Date End Date Joy Villar FNP [address] [place] [address] PCP - General Family Medicine 11/21/21 Wu Gallardo [address] [place] [address] Neurosurgery 02/19/24 Lazaro Healy MD [address] [place] [address] Gastroenterology 02/19/24 documented as of this encounter
--- OUTSIDE RECORDS SUMMARY | 2024-04-20 07:24 | XMS_ITS | Continuity of Care Document ---
Author Organization [facility] Address [address] [place] [phone] Phone Care Team Providers Care Stopper Maker Helper Name Role Phone Jan Dawson MD Unavailable Unavailable Procedures Procedure Date OFFICE/OUTPATIENT VISIT, EST HEMOGLOBIN Clinic Visit OFFICE/OUTPATIENT VISIT, NEW Advance Directives Directive Yes / No Effective Date File Name No Information Encounters Encounter Description Practice Location Reason(s) For Visit Diagnoses Date Provider Providers Copied on Encounter OFFICE/OUTPATI ENT VISIT, EST [facility], [address] [place] [address], [address], tel:[phone] [facility] No Information Eunice Montoya. [address] [place], [place], [id number], [place]. tel:[phone] OFFICE/OUTPATI ENT VISIT, NEW [facility], [address] [place] [address], [address], tel:[phone] [facility] No Information Oleksandr Cruz. [address] [place], [address], [place]. tel:[phone] Family History Family Member Type Diagnosis Age At Onset No Information Payers Payer name Insurance type Covered republican ID Authoriza tion(s) [facility] [id number] [facility] [id number] Social History Type Description Quantity Date Captured Comments Sex Female Smoking Status No Information Chief Complaint And Reason For Visit No Information History Of Present Illness Encounter Date Complaint History Of Prese nt Illness No Information Instructions Date Instruction Additional Infor mation No Information Assessments Type Assessment Date No Information
--- OUTSIDE RECORDS SUMMARY | 2024-04-20 07:24 | XMS_ITS ---
Author Organization [facility] Address [address] [place] [address] Care Team Providers Care Building Custodial Supervisor Name Role Phone ADRIÁN JAMISON MD Primary Care Provider Lazaro Venegas Unavailable [phone] REASON FOR VISIT upper abdominal pain PROBLEMS Problem Type ICD Code Onset Dates Problem Status W/U Status Risk SNOMED Code Notes Problem Gastritis, chronic (K29.50) Active confirmed Chronic gastritis (0885491) Encounters Encounter Location Date Provider Diagnosis [facility] [address] [place] [phone] 01/11/2024 Lazaro Healy Other specified di sease of esophagus K22.89 ; Hiatal hernia K44.9 ; Gastritis, chronic K29.50 and Abdominal pain R10.9 ASSESSMENTS Encounter Date Diagnosis Assessment Notes Treatment Notes Treatment Clinical Notes 01/11/2024 Other specified disease of esophagus (ICD-10 - K22.89) 01/11/2024 Hiatal hernia (ICD-10 - K44.9) 01/11/2024 Gastritis, chronic (ICD-10 - K29.50) 01/11/2024 Abdominal pain (ICD-10 - R10.9) PLAN OF TREATMENT Next Appt Details Provider Name:Lazaro Healy , 05/10/2024 10:20:00 AM, [address], [address], [place], [address],
--- OUTSIDE RECORDS SUMMARY | 2024-04-20 07:24 | XMS_ITS | Encounter Summary ---
Author Organization [facility] Address [address] [place] [address] Care Team Providers Care Sourcing Internship Name Role Phone Joy Villar SHANICE Primary Care Provider [phone] Wu Gallardo Unavailable [phone] Lazaro Healy MD Unavailable Encounter Details Date Type Department Care Team (Late st Contact Info) Description 04/14/2022 Orders Only [facility]EDS [address] [place] [address] Mayra Frye LPN Social History Tobacco Use Types Packs/Day [...] Description 07/05/2024 10:00 AM EDT Clinical Support [facility] [address] [place] [address] Leatha Cortes, CORRINA [address] [place] [address] documented as of this encounter Visit Diagnoses Not on filedocumented in this encounter Care Teams Sourcing Internship Relationship Specialty Start Date End Date Joy Villar FNP [address] [place] [address] PCP - General Family Medicine 11/21/21 Wu Gallardo [address] [place] [address] Neurosurgery 02/19/24 Lazaro Healy MD [address] [place] [address] Gastroenterology 02/19/24 documented as of this encounter
--- OUTSIDE RECORDS SUMMARY | 2024-04-20 07:24 | XMS_ITS | Patient Health Record ---
Author Organization [facility] Address [address] [place] [address] Care Team Providers Care Head Screen Worker Name Role Phone ADIRÁN JAMISON MD Primary Care Provider Lazaro Venegas Unavailable [phone] ALLERGIES Allergen (clinical drug ingredient) Drug/Non Drug Allergy documented on EMR Reaction Allergy Type Onset Date Status naproxen Naproxen Unknown Drug Allergy Active RESULTS Component Value Reference Range Notes Electrolytes Reviewed date:09/22/2023 12:37:18 PM Interpretation: Performing Lab:[facility], [address] [place] [phone] Notes/Report: Sodium 140 135-145 mmol/L Potassium 4.2 3.3-5.1 mmol/L Chloride 103 96-108 mmol/L Carbon Dioxide 31 22-29 mmol/L Anion Gap 10 12-20 Creatinine Reviewed date:09/22/2023 12:37:02 PM Interpretation: Performing Lab:[facility], [address] [place] [phone] Notes/Report: Creatinine 0.61 0.5-1.4 mg/dL Estimated Glomerular Filt Rate > 60 NOTE: For -Mozambican individuals, multiply the result by 1.210. Chronic Kidney Disease: Estimated GFR < 60 mL/min/1.73m2 Severe Kidney Disease: Estimated GFR < 15 mL/min/1.73m2 Amylase Reviewed date:09/22/2023 12:36:54 PM Interpretation: Performing Lab:[facility], [address] [place] [phone] Notes/Report: Amylase 98 28-100 U/L Lipase Reviewed date:09/22/2023 12:36:47 PM Interpretation: Performing Lab:[facility], [address] [place] [phone] Notes/Report: Lipase 36 8-78 U/L Complete Blood Count Auto Di ff Reviewed date:09/22/2023 12:35:57 PM Interpretation: Performing Lab:[facility], [address] [place] [phone] Notes/Report: White Blood Count 8.5 4.8-10.8 X10*3/uL [...] Panel Reviewed date:09/22/2023 12:36:17 PM Interpretation: Performing Lab:[facility], [address] [place] [phone] Notes/Report: Bilirubin Total 0.3 0.0-1.0 mg/dL Bilirubin Direct 0.1 0.0-0.5 mg/dL Aspartate Amino Transferase 46 5-31 U/L Alanine Aminotransferase 43 0-31 U/L Total Protein 7.0 6.5-8.0 g/dL Albumin Level 4.1 3.5-5.0 g/dL Alkaline Phosphatase 78 39-117 U/L Blood Urea Nitrogen Reviewed date:09/22/2023 12:36:40 PM Interpretation: Performing Lab:[facility], [address] [place] [phone] Notes/Report: Blood Urea Nitrogen 10 9-16 mg/dL US abdomen complete Reviewed date:01/09/2024 11:00:02 PM Interpretation: Performing Lab: Notes/Report: [address] [address] Ultrasound Report Signed Patient: Elin Jacobson MR# : [id number] : 1965 Acct:[id number] Age/Sex: 58 / F ADM Date: 10/06/23 Loc: HO.US Attending Dr: Lazaro Healy MD Ordering Physician: Lazaro Healy MD Date of Service: 10/06/23 Procedure(s): US abdomen complete Accession Number(s): [id number] cc: Adrián JamisonP; Lazaro Healy MD EXAMINATION: [...] in OV> 10/24/23 2240 DD/ 0845 TD/TT: Biology Teacher: MEDARDO Pathology (Not yet reviewed by provider) Interpretation: Performing Lab:[facility], [address] [place] [phone] Notes/Report: Glucose, Whole Blood Reviewed date:01/12/2024 06:01:17 PM Interpretation: Performing Lab:[facility], [address] [place] [phone] Notes/Report: Glucose, Whole Blood 133 60-115 mg/dL METER # : [id number] REASON FOR REFERRAL Referring Provider First Name ADRIÁN Referring Provider Last Name SHAHEEN Referred Organization [facility] Referred Provider Lazaro Healy Referred Address [address] [place] [phone],[place] Referred Provider Specialty Gastroentero logy Referral Priority Routine Referring Provider First Name ADRIÁN Referring Provider Last Name SHAHEEN Referred Organization [facility] Referred Provider Lazaro Healy Referred Address [address] [place] [phone],[place] Referred Provider Specialty Gastroentero logy General Notes Margo Mullins 024 02:01:20 PM EST > requested a new [facility] referral from Adrián Jamison's office ([facility]) for visit with Dr. Healy on 05-10-2023. [phone] Referral Priority Routine MEDICATIONS Medication SIG (Take, [...] (R10.10) Active confirmed Upper abdomina l pain (13621624) Problem Chronic constipation (K59.09) Active confirmed Chronic constipation (007620881) Problem Gastritis, chronic (K29.50) Active confirmed Chronic gastritis (6499777) VITAL SIGNS Blood pressure diastolic 00 mm Hg 09/22/2023 Height 4 ft 10 in in 09/22/2023 Blood pressure systolic 00 mm Hg 09/22/2023 Weight 154 lbs 09/22/2023 BMI 32.18 kg/m2 09/22/2023 Encounters Encounter Location Date Provider Diagnosis [facility] Outpatient [address] [place] [phone] 01/11/2024 Lazaro Healy 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 ; Hiatal hernia K44.9 ; Gastritis, chronic K29.50 and Abdominal pain R10.9 [facility] [address] [place] [phone] 09/22/2023 Lazaro Healy Upper abdominal pain R10.10 and Chronic constipation K59.09 [facility] [address] [place] [phone] 01/06/2024 Lazaro Healy ASSESSMENTS Encounter Date Diagnosis Assessment Notes Treatment Notes Treatment Clinical Notes 01/11/2024 Hiatal hernia (ICD-10 - K44.9) 01/11/2024 Other specified disease of esophagus (ICD-10 - K22.89) 09/22/2023 Upper abdominal pain (ICD-10 - R10.10) Do not take the Victoza for 3 days before the colonoscopy Do take the Metformin on the morning of the upper endoscopy 09/22/2023 Chronic constipation (ICD-10 - K59.09) 01/11/2024 Gastritis, chronic (ICD-10 - K29.50) 01/11/2024 Abdominal pain (ICD-10 - R10.9) 09/22/2023 Other Need upper endo and colonoscopy op notes/path from [facility] approx 2014 PLAN OF TREATMENT Pending Test Test Name Order Date BUN 09/22/2023 LIVER PROFILE 09/22/2023 CBC w DIFF 09/22/2023 Pathology 01/11/2024 US abdomen complete 09/22/2023 Future Test Test Name Order Date UPPER GI ENDOSCOPY 09/22/2023 Next Appt Details Provider Name:Lazaro Healy , 05/10/2024 10:20:00 AM, [address], [address], [place], [address], Insurance Providers Payer Name Payer Address Payer Phone Subscriber Number Group Number Insured Name Patient Relationship to Insured Coverage Start Date Coverage End Date MED[employer] [address] [place] [phone] [id number] ELIN JACOBSON Self - patient is the insured MEDICAL (GENERAL) HISTORY Medical History History ICD Code IDDM Arthritis Hypertension Hypothryroidism Asthma Denies MT,CVA,renal disease Gastritis-EGD approx [address] Gomez s Colonosocpy approx [address] Urrutia Depression and anxiety Chronic pain-back, neck, etc Migraines Surgical History Surgery Date(Month/Year) back shoulders section tubal ligation appendectomy
--- OUTSIDE RECORDS SUMMARY | 2024-04-20 07:24 | XMS_ITS ---
Author Organization [facility] Address [address] [place] [address] Care Team Providers Care Semiconductor Development Technician Name Role Phone ADRIÁN JAMISON MD Primary Care Provider Unavaila Lazaro Rayo Unavailable [phone] bryant Encounters Encounter Location Date Provider Diagnosis [facility] [address] [place] [address] 01/06/2024 Lazaro Healy PLAN OF TREATMENT Next Appt Details Provider Name:Lazaro Healy , 05/10/2024 10:20:00 AM, [address], [address], [place], [address],
--- OUTSIDE RECORDS SUMMARY | 2024-04-20 07:24 | XMS_ITS | Encounter Summary ---
Author Organization [facility] [facility] Address [address] 7[address] [place] [address] Care Team Providers Care Steel Erector Name Role Phone Joy Villar Primary Care Provider [phone] Wu Gallardo Unavailable [phone] Lazaro Healy MD Unavailable Reason for Visit * Reason Onset Date Comments Medication Question 03/17/2023 Encounter Details Date Type Department Care Team ([facility] Contact Info) Description 03/17/2023 Telephone [facility] [address] [place], [place] [phone] Joy Villar FNP [address] [place], [place] [phone] Medication Question Social History Tobacco Use Types Packs/Day Years [...] encounter Miscellaneous Notes * Telephone Encounter - Eunice Bowser RN - 04/14/2023 9:07 AM EST Placed call to pt regarding message below. Pt informed of lab results. Pt advised to keep upcoming appt with PCP to discuss further POC. Pt agrees with plan. * Telephone Encounter - SHANICE Goldsmith - 04/13/2023 8:45 PM EST Following pt for hypokalemia. Please let her know that repeat potassium has improved to 3.7. In normal range. I will plan to follow up with her during upcoming appt on 04/20/23. Thank you! Lab Results Component Value Date K 3.7 04/08/2023 K 3.3 03/24/2023 K 3.0 (L) 03/18/2023 K 3.0 (L) 03/11/2023 * Telephone Encounter - Eunice Bowser RN - 03/31/2023 12:38 PM EST Noted thank you. * Telephone Encounter - SHANICE Goldsmith - 03/31/2023 12:35 PM EST Thank you very much! I sent in hydrochlorothiazide and discontinued the chlorthalidone. * Telephone Encounter - Eunice Bowser RN - 03/31/2023 10:07 AM EST Placed call to pt regarding message below. Pt informed of results and PCP recommendations. Pt agrees to switch chlorthalidone to hydrochlorothiazide. Pt advised on side effects of hydrochlorothiazide. Pt also informed of further BW needed after 5 day course of K supplement. Pt was scheduled with PCP for f/u on 04/20/23. Please send the hydrochlorothiazide to pt pharmacy. * Telephone Encounter - Leatha Moore RN - 03/17/2023 3:34 PM EST TC to pt regarding message below from PCP, called via PI ID# [id number]. Pt verbalized understanding. Also stated she did not repeat BMP yet, states she will tomorrow. * Telephone Encounter - SHANICE Goldsmith - 03/17/2023 3:15 PM EST Hello, acute pain management after surgery is typically managed through the surgeon's office. Pt iscurrently on chronic opioid therapy, which will likely need to be increased during acute recovery from surgery. [facility] performed surgery. Please encourage her to follow up with their office for adjustment. Call us with any difficulties. Side note: she was also supposed to repeat BMP before surgery because of hypokalemia (3.0) noted during pre-op. If possible, please ask if she repeated the labs when she calls back, thank you! * Telephone Encounter - Leatha Moore RN - 03/17/2023 2:47 PM EST Tc from pt requesting for oxyCODONE (Roxicodone) 5 MG immediate release tablet to be a higher dosage with instructions to be changed to every four hours due to surgery on arm pt had yesterday (03/17). TC to pt to clarify, no answer. Last refill of Oxycodone 5mg was on 03/01/23 qty 112. Please advise. * Telephone Encounter - Kaley Rose - 03/17/2023 9:45 AM EST Tc from pt requesting for oxyCODONE (Roxicodone) 5 MG immediate release tablet to be a higher dosage with instructions to be changed to every four hours due to surgery on arm pt had yesterday (03/17). Please contact pt at [phone] (Algerian) documented in this encounter Plan of Treatment Upcoming Encounters Date Type Department Care Team (Late st Contact Info) Description 07/05/2024 10:00 AM EDT Clinical Support [facility] [address] [place] [address] Leatha Cortes, CORRINA [address] [place] [address] documented as of this encounter Visit Diagnoses Not on filedocumented in this encounter Additional Health Concerns Assessment Noted Time PHQ-9 Depression Total Score: 0 08/13/19 23 11:11 AM EDT documented as of this encounter Care Teams Steel Erector Relationship Specialty Start Date End Date Joy Villar FNP [address] [place] [address] PCP - General Family Medicine 11/21/21 Wu Gallardo [address] [place] [address] Neurosurgery 02/19/24 Lazaro Healy MD [address] [place] [address] Gastroenterology 02/19/24 documented as of this encounter
--- OUTSIDE RECORDS SUMMARY | 2024-04-20 07:25 | XMS_ITS | Encounter Summary ---
Author Organization [facility], Address [address] [place] [address] Phone Care Team Providers Care Silk Spotter Name Role Phone Unavailable Primary Care Provider Unavailabl e Reason for Visit * Reason Comments Med Refill Encounter Details Date Type Department Care Team (Late st Contact Info) Description 03/19/2024 Refill [facility], [address] [place] [address] Simba Olsen MD [address] [place] [phone] Social History Tobacco Use Types Packs/Day Years [...]
--- OUTSIDE RECORDS SUMMARY | 2024-04-20 07:25 | XMS_ITS | Encounter Summary ---
Author Organization [employer] [facility] Address [address] 7t [place] [address] Care Team Providers Care Bar Finish Operator Name Role Phone Joy Villar SHANICE Primary Care Provider [phone] Wu Gallardo Unavailable [phone] Lazaro Healy MD Unavailable Encounter Details Date Type Department Care Team (Latest Contact Info) Description 04/04/2024 Travel Social History Tobacco Use Types Packs/Day Years [...] Description 07/05/2024 10:00 AM EDT Clinical Support [facility] MED & PEDS [address] [place] [address] Leatha Cortes RN [address] [place] [address] documented as of this encounter Visit Diagnoses Not on filedocumented in this encounter Additional Health Concerns Assessment Noted Time PHQ-9 Depression Total Score: 7 02/19/20 24 11:25 AM EST documented as of this encounter Care Teams Bar Finish Operator Relationship Specialty Start Date End Date Joy Villar FNP [address] [place] [address] PCP - General Family Medicine 11/21/21 Wu Gallardo [address] [place] [address] Neurosurgery 02/19/24 Lazaro Healy MD [address] [place] [address] Gastroenterology 02/19/24 documented as of this encounter
--- OUTSIDE RECORDS SUMMARY | 2024-04-20 07:25 | XMS_ITS | Encounter Summary ---
Author Organization [facility] Address [address] 7[address] [place] [address] Care Team Providers Care Fruit Distributor Name Role Phone Joy Villar SHANICE Primary Care Provider [phone] Wu Gallardo Unavailable [phone] Lazaro Healy MD Unavailable Encounter Details Date Type Department Care Team ([facility] Contact Info) Description 06/03/2022 Orders Only [facility] [address] [place] [address] Mayra Frye LPN Social History Tobacco Use [...] suspected to have Coronavirus/COVID-19? No / Unsure 06/01/2022 9:23 AM EST documented as of this encounter Plan of Treatment Upcoming Encounters Date Type Department Care Team (Late st Contact Info) Description 07/05/2024 10:00 AM EDT Clinical Support [facility] [address] [place] [address] Leatha Cortes, CORRINA [address] [place] [address] documented as of this encounter Visit Diagnoses Not on filedocumented in this encounter Care Teams Fruit Distributor Relationship Specialty Start Date End Date Joy Villar FNP [address] [place] [address] PCP - General Family Medicine 11/21/21 Wu Gallardo [address] [place] [address] Neurosurgery 02/19/24 Lazaro Healy MD [address] [place] [address] Gastroenterology 02/19/24 documented as of this encounter
--- OUTSIDE RECORDS SUMMARY | 2024-04-20 07:25 | XMS_ITS | Encounter Summary ---
Author Organization [employer] [facility] Address [address] [place] [address] Care Team Providers Care Director Of Home Health Services Name Role Phone Joy Villar Primary Care Provider [phone] Wu Gallardo Unavailable [phone] Lazaro Healy MD Unavailable Reason for Visit * Reason Onset Date Comments Nurse Triage 03/29/2024 Encounter Details Date Type Department Care Team (Late st Contact Info) Description 03/29/2024 Telephone [facility] [address] [place] [address] Joy Villar FNP [address] [place], [place] [phone] Nurse Triage Social History Tobacco Use Types Packs/Day Years [...] encounter Miscellaneous Notes * Telephone Encounter - Ozzy Hernandez - 03/29/2024 9:54 AM EST TC from pt requesting medication refill. Medications needing refill: oxyCODONE (Roxicodone) 10 MG immediate release tablet To be sent to: [facility] [place], [place] - [address] documented in this encounter Plan of Treatment Upcoming Encounters Date Type Department Care Team ([facility] st Contact Info) Description 07/05/2024 10:00 AM EDT Clinical Support [facility] MED & PEDS [address] [place] [address] Leatha Cortes RN [address] [place] [address] documented as of this encounter Visit Diagnoses Diagnosis Chronic low back pain, unspecified back pain laterality, unspecified whether sciatica present Subacromial impingement of left shoulder documented in this encounter Additional Health Concerns Assessment Noted Time PHQ-9 Depression Total Score: 7 02/19/20 24 11:25 AM EST documented as of this encounter Care Teams Director Of Home Health Services Relationship Specialty Start Date End Date Joy Villar FNP [address] [place] [address] PCP - General Family Medicine 11/21/21 Wu Gallardo [address] [place] [address] Neurosurgery 02/19/24 Lazaro Healy MD [address] [place] [address] Gastroenterology 02/19/24 documented as of this encounter
--- OUTSIDE RECORDS SUMMARY | 2024-04-20 07:25 | XMS_ITS | Encounter Summary ---
Author Organization [employer] Address [address] 7[address] [place] [address] Care Team Providers Care Official Court Reporter Name Role Phone Joy Villar Primary Care Provider [phone] Wu Gallardo Unavailable [phone] Lazaro Healy MD Unavailable Reason for Visit * Reason Comments Med Refill Encounter Details Date Type Department Care Team (Late st Contact Info) Description 04/15/[address] [facility] [address] [place] [address] Joy Villar FNP [address] [place], [place] [phone] Type 2 diabetes mellitus without complication, without long-term current use of insulin ([facility]) Social History Tobacco Use Types Packs/Day Years [...] the past 12 months, has t he [employer], gas, oil or water [employer] threatened to shut off services in your [...] 10:00 AM EDT Clinical Support [facility] PEDS [address] [place] [address] Leatha Cortes, CORRINA [address] [place] [address] documented as of this encounter Visit Diagnoses Diagnosis Type 2 diabetes mellitus without complication, without long-term current use of insulin ([facility]) documented in this encounter Additional Health Concerns Assessment Noted Time PHQ-9 Depression Total Score: 7 02/19/20 24 11:25 AM EST documented as of this encounter Care Teams Official Court Reporter Relationship Specialty Start Date End Date Joy Villar FNP [address] [place] [address] PCP - General Family Medicine 11/21/21 Wu Gallardo [address] [place] [address] Neurosurgery 02/19/24 Lazaro Healy MD [address] [place] [address] Gastroenterology 02/19/24 documented as of this encounter
--- OUTSIDE RECORDS SUMMARY | 2024-04-20 07:25 | XMS_ITS | Encounter Summary ---
Author Organization [employer] Address [address] 7[address] [place] [address] Care Team Providers Care Machine Operator Hop Worker Name Role Phone AntwanJoy vergara SHANICE Primary Care Provider [phone] Wu Gallardo Unavailable [phone] Lazaro Healy MD Unavailable Reason for Visit * Reason Comments controlled substance treatment Encounter Details Date Type Department Care Team (Latest Contact Info) Description 04/04/2024 10:00 AM EST Clinical Support [facility] [address] [place] [address] Leatha Cortes, RN [address] [place], [place] [phone] Chronic low back pain, unspecified back pain laterality, unspecified whether sciatica present Social History Tobacco Use Types Packs/Day Years [...] the past 12 months, has t he [employer], gas, oil or water company threatened to [...] AM EDT documented as of this encounter Progress Notes * Leatha Cortes RN - 04/04/2024 10:00 AM EST S: CRYSTAL GROWER [place]. Prescribed Oxycodone 10mg Q8 PRN. Per PCP dose was increased to 10mg tid following shoulder surgery. Pt continues to deny smoking, illicit drug use, ETOH use or Marijuana use. States her current pain is a 10/10, states didn't take med yet. States Oxycodone usually provides 80% pain relief. States takes Tylenol PRN. Last PCP visit was 02/17/24. No questions/ concerns at this time. O: Pt currently prescribed Oxycodone 10mg Q 8hr PRN. AMUSEMENT MACHINE MECHANIC verified today. Rx last filled on 04/02/24. Pill count performed. Pt has 79 pills at this time, 77 expected. Medication is not overused by patient. Utox performed, positive for OXY only, as expected. .Fentanyl testing: negative Lot# [id number] Exp: 03-11-25 A: CRYSTAL GROWER Contract Revisit: Chronic Opioid use related to pain. P: Pt to continue taking medication only as prescribed; Next CRYSTAL GROWER appointment scheduled for 07/05/24 @ 10am. F/U sooner PRN. Pt verbalized understanding and agreed to plan. documented in this encounter Plan of Treatment Upcoming Encounters Date Type Department Care Team (Late st Contact Info) Description 07/05/2024 10:00 AM EDT Clinical Support [facility] [address] [place] [address] Leatha Cortes RN [address] [place] [address] documented as of this encounter Procedures Procedure Name Priority Date/Time Associated Diagnosis Comments POCT MARGO-14 URINE DRUG SCREEN Routine 04/04/2024 10:28 AM EST Chronic low back pain, unspecified back pain laterality, unspecified whether sciatica present documented in this encounter Results * POCT MARGO-14 Urine Drug Screen (04/04/2024 10:28 AM EST) Oxycodone Screen, Urine Positive Urine Urine specimen obtained by clean catch procedure / Unknown 04/04/2024 10:28 AM EST Narrative Leatha Cortes RN - 04/04/2024 10:28 AM EST Lot# [id number] Exp: 03-03-25 Joy PRASAD POINT OF CARE TEST ENTER/EDIT ORDERABLES Final Result documented in this encounter Visit Diagnoses Diagnosis Chronic low back pain, unspecified back pain laterality, unspecified whether sciatica present documented in this encounter Additional Health Concerns Assessment Noted Time PHQ-9 Depression Total Score: 7 02/19/20 24 11:25 AM EST documented as of this encounter Care Teams Machine Operator Hop Worker Relationship Specialty Start Date End Date Joy Villar FNP [address] [place] [address] PCP - General Family Medicine 11/21/21 Wu Gallardo [address] [place] [address] Neurosurgery 02/19/24 Lazaro Healy MD [address] [place] [address] Gastroenterology 02/19/24 documented as of this encounter
== END 2024-04-20 07:22 | disposition home or self-care (01) ==
LOC: HO.CT 07:21
PROVIDERS: PCP Registered Nurse; Visit Provider Physician Assistant
DX: M54.16 Radiculopathy, lumbar region (principal)
CPT/HCPCS: 72131

== ENCOUNTER → 2024-04-20 07:24 | Outpatient (BNV) | payer MEDICAID, SELFPAY | PROVIDERS: PCP Registered Nurse; Visit Provider Specialist | DX: M54.16 Radiculopathy, lumbar region (principal) | CPT/HCPCS: 72131 ==

== ENCOUNTER 2024-04-25 12:27 | Outpatient (REF) | payer MEDICAID, SELFPAY ==
--- OUTSIDE RECORDS SUMMARY | 2024-04-26 16:15 | XMS_ITS | Encounter Summary ---
Author Organization [facility] Address [address] [place] [address] Care Team Providers Care Supervisor Chassis Assembly Name Role Phone Joy Villar SHANICE Primary Care Provider [phone] Wu Gallardo Unavailable [phone] Lazaro Healy MD Unavailable Encounter Details Date Type Department Care Team (Late st Contact Info) Description 04/14/2022 Orders Only [facility] CHC MED & PEDS [address] [place] [address] Marya Frye LPN Social History Tobacco Use Types [...] Description 07/05/2024 10:00 AM EDT Clinical Support [facility] MED & PEDS [address] [place] [address] Leatha Cortes, CORRINA [address] [place] [address] documented as of this encounter Visit Diagnoses Not on filedocumented in this encounter Care Teams Supervisor Chassis Assembly Relationship Specialty Start Date End Date Joy Villar FNP [address] [place] [address] PCP - General Family Medicine 11/21/21 Wu Gallardo [address] [place] [address] Neurosurgery 02/19/24 Lazaro Healy MD [address] [place] [address] Gastroenterology 02/19/24 documented as of this encounter
--- OUTSIDE RECORDS SUMMARY | 2024-04-26 16:15 | XMS_ITS | Encounter Summary ---
Author Organization [employer] Address [address] 7t [place] [address] Care Team Providers Care Attache Name Role Phone Joy Villar SHANICE Primary Care Provider Wu Gallardo Unavailable [phone] Lazaro Healy MD Unavailable Encounter Details Date Type Department Care Team (Late Contact Info) Description 04/13/2022 Orders Only [facility] MEDICINE [address] [place], [place] [phone] [place] Walton LPN Social History Tobacco Use [...] Description 07/05/2024 10:00 AM EDT Clinical Support [facility] CHC MED & PEDS [address] [place], [place] [phone] Leatha Cortes, RN [address] [place], [place] [phone] documented as of this encounter Visit Diagnoses Not on filedocumented in this encounter Care Teams Attache Relationship Specialty Start Date End Date Joy Villar FNP [address] [place] [address] PCP - General Family Medicine 11/21/21 Wu Gallardo [address] [place] [address] Neurosurgery 02/19/24 Lazaro Healy MD [address] [place] [address] Gastroenterology 02/19/24 documented as of this encounter
--- OUTSIDE RECORDS SUMMARY | 2024-04-26 16:15 | XMS_ITS ---
Author Organization [facility] Address [address] [place] [address] Care Team Providers Care Planning Official Name Role Phone ADRIÁN JAMISON MD Primary Care Provider Lazaro Venegas Unavailable [phone] REASON FOR VISIT upper abdominal pain PROBLEMS Problem Type ICD Code Onset Dates Problem Status W/U Status Risk SNOMED Code Notes Problem Gastritis, chronic (K29.50) Active confirmed Chronic gastritis (7457479) Encounters Encounter Location Date Provider Diagnosis [facility] [place] [address] [place] [phone] 01/11/2024 Lazaro Healy Other specified di sease [...] Name:Lazaro Healy , 05/10/2024 10:20:00 AM, [address], [address], [place], [address],
--- OUTSIDE RECORDS SUMMARY | 2024-04-26 16:15 | XMS_ITS | Encounter Summary ---
Author Organization [employer] Address [address] [facility] [address] [place] [address] Care Team Providers Care Orthopedics Pediatric Physician Name Role Phone Joy Villar Primary Care Provider [phone] Wu Gallardo Unavailable [phone] Lazaro Healy MD Unavailable Encounter Details Date Type Department Care Team (Late Contact Info) Description 03/08/2022 Telephone [facility] MEDICINE [address] [place] [address] Joy Villar FNP [address] [place], [place] [phone] Social History Tobacco Use Types Packs/Day Years [...] Description 07/05/2024 10:00 AM EDT Clinical Support [facility] CHC MED & PEDS [address] [place], [place] [phone] Leatha Cortes, CORRINA [address] [place], [place] [phone] documented as of this encounter Visit Diagnoses Not on filedocumented in this encounter Care Teams Orthopedics Pediatric Physician Relationship Specialty Start Date End Date Joy Villar FNP [address] [place] [address] PCP - General Family Medicine 11/21/21 Wu Gallardo [address] [place] [address] Neurosurgery 02/19/24 Lazaro Healy MD [address] [place] [address] Gastroenterology 02/19/24 documented as of this encounter
--- OUTSIDE RECORDS SUMMARY | 2024-04-26 16:15 | XMS_ITS ---
Author Organization [facility] Address [address] [place] [address] Care Team Providers Care Departmental Shipping Clerk Name Role Phone ADRIÁN JAMISON MD Primary Care Provider Unavaila Lazaro Rayo Unavailable [phone] bryant Encounters Encounter Location Date Provider Diagnosis [facility] [address] [place] [address] 01/06/2024 Lazaro Healy PLAN OF TREATMENT Next Appt Details Provider Name:Lazaro Healy , 05/10/2024 10:20:00 AM, [address], [address], [place], [address],
--- OUTSIDE RECORDS SUMMARY | 2024-04-26 16:16 | XMS_ITS | Encounter Summary ---
Author Organization [facility] Address [address] [place] [address] Phone Care Team Providers Care Preparer Name Role Phone Unavailable Primary Care Provider Unavailabl e Encounter Details Date Type Department Care Team (Late st Contact Info) Description 12/15/2021 Documentation Only [facility], [address] [place] [phone] Tami Prescott PA [address] [place] [address] Social History Tobacco Use Types Packs/Day Years [...]
--- OUTSIDE RECORDS SUMMARY | 2024-04-26 16:16 | XMS_ITS | Patient Health Record ---
Author Organization [facility] Address [address] [place] [address] Care Team Providers Care Marketing Professor Name Role Phone ADRIÁN JAMISON MD Primary Care Provider Lazaro Venegas Unavailable [phone] ALLERGIES Allergen (clinical drug ingredient) Drug/Non Drug Allergy documented on EMR Reaction Allergy Type Onset Date Status naproxen Naproxen Unknown Drug Allergy Active RESULTS Component Value Reference Range Notes Electrolytes Reviewed date:09/22/2023 12:37:18 PM Interpretation: Performing Lab:[facility], [address] [place] [phone] Notes/Report: Sodium 140 135-145 mmol/L Potassium 4.2 3.3-5.1 mmol/L Chloride 103 96-108 mmol/L Carbon Dioxide 31 22-29 mmol/L Anion Gap 10 12-20 Creatinine Reviewed date:09/22/2023 12:37:02 PM Interpretation: Performing Lab:[facility], [address] [place] [phone] Notes/Report: Creatinine 0.61 0.5-1.4 mg/dL Estimated Glomerular Filt Rate > 60 NOTE: For -Northern Irish individuals, multiply the result by 1.210. Chronic Kidney Disease: Estimated GFR < 60 mL/min/1.73m2 Severe Kidney Disease: Estimated GFR < 15 mL/min/1.73m2 Amylase Reviewed date:09/22/2023 12:36:54 PM Interpretation: Performing Lab:[facility], [address] [place] [phone] Notes/Report: Amylase 98 28-100 U/L Lipase Reviewed date:09/22/2023 12:36:47 PM Interpretation: Performing Lab:[facility], [address] [place] [phone] Notes/Report: Lipase 36 8-78 U/L Complete Blood Count Auto Di ff Reviewed date:09/22/2023 12:35:57 PM Interpretation: Performing Lab:[facility], [address] [place] [phone] Notes/Report: White Blood Count 8.5 4.8-10.8 X10*3/uL [...] Panel Reviewed date:09/22/2023 12:36:17 PM Interpretation: Performing Lab:[facility], [address] [place] [phone] Notes/Report: Bilirubin Total 0.3 0.0-1.0 mg/dL Bilirubin Direct 0.1 0.0-0.5 mg/dL Aspartate Amino Transferase 46 5-31 U/L Alanine Aminotransferase 43 0-31 U/L Total Protein 7.0 6.5-8.0 g/dL Albumin Level 4.1 3.5-5.0 g/dL Alkaline Phosphatase 78 39-117 U/L Blood Urea Nitrogen Reviewed date:09/22/2023 12:36:40 PM Interpretation: Performing Lab:[facility], [address] [place] [phone] Notes/Report: Blood Urea Nitrogen 10 9-16 mg/dL US abdomen complete Reviewed date:01/09/2024 11:00:02 PM Interpretation: Performing Lab: Notes/Report: [address] [address] Ultrasound Report Signed Patient: Elin Jacobson MR# : [id number] : 1965 Acct:[id number] Age/Sex: 58 / F ADM Date: 10/06/23 Loc: HO.US Attending Dr: Lazaro Healy MD Ordering Physician: Lazaro Healy MD Date of Service: 10/06/23 Procedure(s): US abdomen complete Accession Number(s): [id number] cc: Adrián JamisonP; Lazaro Healy MD EXAMINATION: [...] in OV> 10/24/23 2240 DD/ 0845 TD/TT: Saw Offbearer: MEDARDO Pathology (Not yet reviewed by provider) Interpretation: Performing Lab:[facility], [address] [place] [phone] Notes/Report: Glucose, Whole Blood Reviewed date:01/12/2024 06:01:17 PM Interpretation: Performing Lab:[facility], [address] [place] [phone] Notes/Report: Glucose, Whole Blood 133 60-115 mg/dL METER # : [id number] REASON FOR REFERRAL Referring Provider First Name ADRIÁN Referring Provider Last Name SHAHEEN Referred Organization [facility] Referred Provider Lazaro Healy Referred Address [address] [place] [phone],[place] Referred Provider Specialty Gastroentero logy Referral Priority Routine Referring Provider First Name ADRIÁN Referring Provider Last Name SHAHEEN Referred Organization [facility] Referred Provider Lazaro Healy Referred Address [address] [place] [phone],[place] Referred Provider Specialty Gastroentero logy General Notes Margo Mullins 024 02:01:20 PM EST > requested a new [facility] referral from Adrián Jamison's office ([facility]) for visit with Dr. Healy on 05-10-2023. [phone] Referral Priority Routine MEDICATIONS Medication SIG (Take, [...] (R10.10) Active confirmed Upper abdomina l pain (22470929) Problem Chronic constipation (K59.09) Active confirmed Chronic constipation (449191803) Problem Gastritis, chronic (K29.50) Active confirmed Chronic gastritis (4155232) VITAL SIGNS Blood pressure diastolic 00 mm Hg 09/22/2023 Height 4 ft 10 in in 09/22/2023 Blood pressure systolic 00 mm Hg 09/22/2023 Weight 154 lbs 09/22/2023 BMI 32.18 kg/m2 09/22/2023 Encounters Encounter Location Date Provider Diagnosis [facility] [address] [place] [id number] 01/11/2024 Lazaro Healy 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 ; Hiatal hernia K44.9 ; Gastritis, chronic K29.50 and Abdominal pain R10.9 [facility] [address] [place] [phone] 09/22/2023 Lazaro Healy Upper abdominal pain R10.10 and Chronic constipation K59.09 [facility] [address] [place] [phone] 01/06/2024 Lazaro Healy ASSESSMENTS Encounter Date Diagnosis [...] [place] endo and [place] [facility] [place] PLAN [place] TREATMENT Pending Test Test Name Order Date BUN 09/22/2023 LIVER PROFILE 09/22/2023 CBC w DIFF 09/22/2023 Pathology 01/11/2024 US abdomen complete 09/22/2023 Future Test Test Name Order Date UPPER GI ENDOSCOPY 09/22/2023 Next Appt Details Provider Name:Lazaro Healy , 05/10/2024 10:20:00 AM, [address], [address], [place], [address], Insurance Providers Payer Name Payer Address Payer Phone Subscriber Number Group Number Insured Name Patient Relationship to Insured Coverage Start Date Coverage End Date [employer] [place] [address] [place] [address] [id number] ELIN JACOBSON Self - patient is the insured MEDICAL (GENERAL) HISTORY Medical History History ICD Code IDDM Arthritis Hypertension Hypothryroidism Asthma Denies MS,CVA,renal disease Gastritis-EGD approx [address] Gomez s Colonosocpy approx [address] Urrutia Depression and anxiety Chronic pain-back, neck, etc Migraines Surgical History Surgery Date(Month/Year) back shoulders section tubal ligation appendectomy
--- OUTSIDE RECORDS SUMMARY | 2024-04-26 16:16 | XMS_ITS | Encounter Summary ---
Author Organization [facility] Address [address] [address] [place] [address] Care Team Providers Care Process Control Manager Name Role Phone AntwanJoy vergara SHANICE Primary Care Provider [phone] Wu Gallardo Unavailable [phone] Lazaro Healy MD Unavailable Encounter Details Date Type Department Care Team (Late st Contact Info) Description 04/20/2024 Orders Only [facility] External Provider, [facility] Social History Tobacco Use Types Packs/Day Years [...] Upcoming Encounters Date Type Department Care Team ([facility] st Contact Info) Description 07/05/2024 10:00 AM EDT Clinical Support [facility] [address] [place] [address] Leatha Cortes, RN [address] [place] [address] documented as of this encounter Procedures Procedure Name Priority Date/Time Associated Diagnosis Comments CT LUMBAR SPINE WO CONTRAST Routine 04/21/2024 7:28 AM EST documented in this encounter Results * CT Lumbar Spine w/o Contrast (04/21/2024 7:28 AM EST) Anatomical Region Laterality Modality Spine, L-spine Computed Tomogra phy 04/21/2024 7:28 AM EST Narrative 04/21/2024 7:29 AM EST ? [facility] ?[address] ?[place] [address] ? CT Scan Report ? Signed ? Patient: Elin Johnson ?MR# ?? : [id number] ? : 1965 ?Acct:[id number] ? Age/Sex: 58 / F ?ADM Date: 01/24/25 ? Loc: HO.CT ? Attending Dr: Igor SCHULTE ? Ordering Physician: Igor Walker ?? Date of Service: 04/20/24 ?? Procedure(s): CT lumbar spine wo IV con ?? Accession Number(s): [id number] ? cc: Joy Villar PERFORATOR TYPIST; Igor Walker ? Report Number: ?? [id number]: Total DLP = ??661.00 mGy-cm ? CLINICAL [...] ? DD/ 7 ? TD/TT: 04/21/24727 ? Rn Wound Care: ? Procedure Note Ilana Russo - 04/21/[address] [place] [address] [address] Scan Report Signed Patient: Elin Johnson MMR# : [id number] : 1965Acct:[id number] Age/Sex: 58 / FADM Date: 04/20/24 Loc: HO.CT Attending Dr: Igor SCHULTE Ordering Physician: Igor Walker Date of Service: 04/20/24 Procedure(s): CT lumbar spine wo IV con Accession Number(s): [id number] cc: Joy Villar PERFORATOR TYPIST; Igor Walker Report Number: [id number]: Total DLP = 661.00 mGy-cm CLINICAL HISTORY: [...] This document has been electronically signed by: Praish Sharma MD on 04/21/2024 07:28:24 Dictated By: Parish Sharma MD Signed By: <Electronically signed by Parish Sharma MD in OV> 04/21/24727 DD/ 7 TD/TT: 04/21/24727 Rn Wound Care: [facility] External Provider IMG CT PROCEDURES Final Result documented in this encounter Visit Diagnoses Not on filedocumented in this encounter Additional Health Concerns Assessment Noted Time PHQ-9 Depression Total Score: 7 02/19/20 24 11:25 AM EST documented as of this encounter Care Teams Process Control Manager Relationship Specialty Start Date End Date Joy Villar FNP [address] [place] [address] PCP - General Family Medicine 11/21/21 Wu Gallardo [address] [place] [address] Neurosurgery 02/19/24 Lazaro Healy MD [address] [place] [address] Gastroenterology 02/19/24 documented as of this encounter
--- OUTSIDE RECORDS SUMMARY | 2024-04-26 16:16 | XMS_ITS ---
Author Organization [facility] Address [address] [place] [address] Care Team Providers Care Assignment Editor Name Role Phone ADRIÁN JAMISON MD Primary Care Provider Lazaro Venegas [phone] ALLERGIES Allergen (clinical drug ingredient) Drug/Non Drug Allergy documented on EMR Reaction Allergy Type Onset Date Status naproxen Naproxen Unknown Drug Allergy Active RESULTS Component Value Reference Range Notes Electrolytes Reviewed date:09/22/2023 12:37:18 PM Interpretation: Performing Lab:[facility], [address] [place] [phone] Notes/Report: Sodium 140 135-145 mmol/L Potassium 4.2 3.3-5.1 mmol/L Chloride 103 96-108 mmol/L Carbon Dioxide 31 22-29 mmol/L Anion Gap 10 12-20 Creatinine Reviewed date:09/22/2023 12:37:02 PM Interpretation: Performing Lab:[facility], [address] [place] [phone] Notes/Report: Creatinine 0.61 0.5-1.4 mg/dL Estimated Glomerular Filt Rate > 60 NOTE: For -Mexican individuals, multiply the result by 1.210. Chronic Kidney Disease: Estimated GFR < 60 mL/min/1.73m2 Severe Kidney Disease: Estimated GFR < 15 mL/min/1.73m2 Amylase Reviewed date:09/22/2023 12:36:54 PM Interpretation: Performing Lab:[facility], [address] [place] [phone] Notes/Report: Amylase 98 28-100 U/L Lipase Reviewed date:09/22/2023 12:36:47 PM Interpretation: Performing Lab:[facility], [address] [facility], [place] [address] Notes/Report: Lipase 36 8-78 U/L REASON FOR [...] (R10.10) Active confirmed Upper abdomina l pain (19424261) Problem Chronic constipation (K59.09) Active confirmed Chronic constipation (782977194) VITAL SIGNS BMI 32.18 kg/m2 09/22/2023 Blood pressure systolic 00 mm Hg 09/22/19 24 Blood pressure diastolic 00 mm Hg 024 Height 4 ft 10 in in 09/22/2023 Weight 154 lbs 09/22/2023 Encounters Encounter Location Date Provider Diagnosis [facility] [address] [place] [address] 09/22/2023 Lazaro Healy Upper abdominal pain R10.10 [...] upper endo and colonoscopy [place] [facility] [place] Treatment Notes Assessment Notes Upper abdominal pain Do not take the Victoza for 3 days before the colonoscopy Do take the Metformin on the morning of the upper endoscopy Other Need upper endo and colonoscopy op notes/path [place] [facility] [place] Pending Test Test Name Order Date BUN 09/22/2023 LIVER PROFILE 09/22/2023 CBC w DIFF 09/22/2023 US abdomen complete 09/22/2023 Future Test Test Name Order Date UPPER GI ENDOSCOPY 09/22/2023 Next Appt Details Follow Up: prn, Reason: Provider Name:Lazaro Healy , 05/10/2024 10:20:00 AM, [address], [address], [place], [address], Progress Notes * Examination Category Sub-Category Detail [...]
--- OUTSIDE RECORDS SUMMARY | 2024-04-26 16:16 | XMS_ITS | Clinical Summary ---
Author Organization [employer] Address [address] [place] [address] Care Team Providers Care Chemistry Specialist Name Role Phone AntwanJoy vergara SHANICE Primary Care Provider [phone] Wu Gallardo Unavailable [phone] Lazaro Healy MD Unavailable Allergies Active Allergy [...] 30 tablet 3 024 Active Continuous Glucose Animal Caretaker (FreeStyle Moose 2 Pedro) deviceIndicatio ns:Type 2 diabetes mellitus with hypoglycemia without coma, unspecified whether before school insulin use (CMS/HCC),Hypog lycemia Scan sensor every 8 hours 1 each Active Continuous Glucose Sensor (FreeStyle Moose 2 Sensor) miscIndications :Type 2 diabetes mellitus with hypoglycemia without coma, unspecified whether before school insulin use (CMS/HCC),Hypog lycemia Apply 1 sensor [...] 2 diabetes mellitus without complication, unspecified whether before school insulin use (CMS/HCC) TAKE 1 TABLET BY MOUTH THREE TIMES DAILY IN THE MORNING, AT NOON, AND AT BEDTIME 270 tablet 1 Active losartan (Cozaar) 50 MG tabletIndicatio ns:Type 2 diabetes mellitus with hyperglycemia, without long-term current use of insulin ([facility]) TAKE 1 TABLET BY MOUTH EVERY MORNING 90 tablet 3 024 Active hydroCHLOROthia zide (HYDRODiuril) 25 MG tablet TAKE 1 TABLET BY MOUTH EVERY MORNING 90 tablet 1 025 Active insulin glargine (Lantus SoloStar) 100 UNIT/ML penIndications: Type 2 diabetes mellitus without complication, without long-term current use of insulin ([facility]) INJECT 5 UNITS SUBCUTANEOUSLY AT BEDTIME FOR [...] start before April 26, 2024. 84 tablet Active phenazopyridine (Pyridium) 200 MG tablet Take 1 tablet (200 mg) by mouth with breakfast, with lunch, and with evening meal for 2 days. 6 tablet 025 2024 Active nitrofurantoin, macrocrystal-mo nohydrate, (Macrobid) 100 MG capsule Take 1 capsule (100 mg) by mouth 2 times daily for 5 days. 10 capsule 025 2024 Active insulin glargine (Lantus SoloStar) 100 UNIT/ML penIndications: Type 2 diabetes mellitus without complication, without long-term current use of insulin (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 Need to review routine screenings and health history at follow up appt. Cervical radiculopathy 06/29/2021 Overview (02/17/2024): 05/10/23: [facility] Pain Management - Dr. Galloway. Interlaminar cervical [...] consult scheduled with Neurosurgery. Continues following with [facility] Program. Obstructive sleep apnea syndrome 04/20/2021 Hypertension [...] -ED precautions Type 2 diabetes mellitus, wi out long-term current use of insulin 04/13/2019 Assessment [...] with lifestyle interventions -CGM Approval 08/15/23: FRANCA #[id number] (exp: 08/14/24). Improvement in A1c and hypoglycemic [...] with lifestyle interventions -CGM Approval 08/15/23: FRANCA #[id number] (exp: 08/14/24). Improvement in A1c and hypoglycemic [...] Hypothyroid 02/07/2015 Overview (08/13/2023): Previously following with [facility] Endo Continues on levothyroxine 88mcg daily Lab [...] oxycodone PRN May consider second opinion in [place] Assessment & Plan (08/15/2022 7:45 PM EDT): [...] BID Continues carafate 1g TID Following with [facility] GI - Dr. Healy EGD Dec 2023: [...] Encounters Date Type Department Care Team Description 04/26/2024 Travel 04/25/2024 5:00 PM EST Office Visit [facility] [address] [place] [address] Dysuria (Primary Dx); Hypertension, unspecified type 04/23/2024 Refill [facility] MEDIC[facility] [address] [place] [address] Phalen, Joy, RETAIL EVENT COORDINATOR Chronic low back pain, unspecified back pain laterality, unspecified whether sciatica present; Subacromial impingement of left shoulder 04/20/2024 Orders Only [facility] External Provider, [facility] 04/15/2024 Refill [facility] [address] [place] [address] Joy Villar, RETAIL EVENT COORDINATOR Type 2 diabetes mellitus without complication, without long-term current use of insulin (CMS/HCC) 04/04/2024 10:00 AM EST Clinical Support [facility]ED[facility] [address] [place] [address] Leatha Cortes RN Chronic low back pain, unspecified back pain laterality, unspecified whether sciatica present 04/04/2024 Travel 03/29/2024 Telephone [facility] MED[facility] [address] [place] [address] Joy Villar FNP Nurse Triage 03/19/2024 Refill [facility] [address] [place] [address] Joy Villar, RETAIL EVENT COORDINATOR Type 2 diabetes mellitus with hyperglycemia, without long-term current use of insulin (CMS/HCC) 03/12/2024 Refill [facility] [address] [place] [address] Joy Villar, RETAIL EVENT COORDINATOR Type 2 diabetes mellitus without complication, unspecified whether before school insulin use (CMS/HCC) 02/27/2024 Refill [facility] MED[facility] [address] [place] [address] Joy Villar, RETAIL EVENT COORDINATOR Chronic low back pain, unspecified back pain laterality, unspecified whether sciatica present; Subacromial impingement of left shoulder 02/17/2024 9:00 AM EST Office Visit [facility] [address] [place] [address] Joy Villar, RETAIL EVENT COORDINATOR Type 2 diabetes mellitus without complication, without long-term current use of insulin (CMS/HCC) (Primary Dx); Cervical radiculopathy; Gastroesophageal reflux disease, unspecified whether esophagitis present; Insomnia, unspecified type; Depression, unspecified depression type; Tachycardia 02/17/2024 Travel 02/15/2024 Refill [facility] [address] [place] [address] Joy Villar FNP Moderate persistent asthma without complication (Primary Dx) 02/14/2024 Telephone [facility] MED[facility]INE [address] [place] [phone] Bernadette Martinez MA Chart Prep 02/09/2024 Refill [facility] [address] [place] [address] Tiffanie Maurer MD Diabetes mellitus type 2, noninsulin dependent ([facility]) 02/09/2024 Refill [facility] [address] [place] [address] Joy Villar FNP Seasonal allergies; Diabetes mellitus type 2, noninsulin dependent ([facility]) 02/07/2024 Telephone [facility] [address] [place] [address] Joanne Higgins RN Results 02/03/2024 Refill [facility] [address] [place] [address] Leatha Cortes RN Chronic low back pain, unspecified back pain laterality, unspecified whether sciatica present; Subacromial impingement of left shoulder 02/03/2024 Telephone [facility] [address] [place] [phone] Joy Villar FNP medication refill 02/03/[address] [address] Joy Villar FNP Call Back Request from [...] Sign Reading Time Taken Comments Blood Pressure 153/98 04/25/2024 5:17 PM EST Pulse 97 04/25/2024 5:17 PM EST Temperature 36.5 ??C (97.7 ??F) 04/25/2024 5:17 PM ES T Respiratory Rate 20 04/25/2024 5:17 PM EST Oxygen Saturation 97% 04/25/2024 5:17 PM EST Inhaled Oxygen Concentration - - Weight 75.1 kg (165 lb 9.6 oz) 04/25/2024 5:17 P M EST Height 149.9 cm (4' 11 ) 04/25/2024 5:17 PM EST Body Mass Index 33.45 04/25/2024 5:17 PM EST Plan of Treatment Upcoming Encounters Date Type Department Care Team (Late st Contact Info) Description 07/05/2024 10:00 AM EDT Clinical Support [facility] [address] [place] [address] Leatha Cortes, RN [address] [place] [address] Health Maintenance Due Date Last Done Comments [...] 05/06/2024 05/06/2023, 01/26, 09/21/2021, Additional history exists Diabetes: Hemoglobin A1C 08/16/2024 024, 11/11/2023, 08/12/2023, Additional history exists Diabetes: Foot Exam 11/10/2024 11/11/2023, 11/11/2023, 11/11/2023, Additional history exists Depression Screening 02/18/2025 02/19/2024, 02/19/20 Tobacco Screening 04/25/2025 04/25/2024 Pap Smear 11/04/2025 11/04/2022 Colonoscopy 02/23/2026 02/24/2016 [...] Name Priority Date/Time Associated Diagnosis Comments POCT URINALYSIS DIPSTICK Routine 04/25/2024 5:[address] LUMBAR SPINE WO CONTRAST Routine 04/21/2024 [...] Relevant to Health Maintenance Results * POCT urinalysis dipstick manually resulted (04/25/2024 5:50 PM EST) Color, UA Yellow Clarity, UA Clear Glucose, UA Negative Bilirubin, UA Negative Ketones, UA Negative Spec Grav, UA 1.020 Blood, UA Negative Negative, None Detected pH, UA 5.5 Protein, UA Negative Urobilinogen, UA 0.2 Leukocytes, UA Negative Negative, Rare, Trace Nitrite, UA Negative Negative, None Detected Appearance, UA clear QC Media Lot # [id number] Lot# Expiration Date [id number] Urine 04/25/2024 5:50 PM EST Natanael Guadarrama MD POINT OF CARE TEST ENTER/EDIT OR DERABLES Final Result * CT Lumbar Spine w/o Contrast (04/21/2024 7:28 AM EST) Anatomical Region Laterality Modality Spine, L-spine Computed Tomogra phy 04/21/2024 7:28 AM EST Narrative 04/21/2024 7:29 AM EST ? [facility] ?[address] ?[place] [address] ? CT Scan Report ? Signed ? Patient: Elin Johnson ?MR# ?? : [id number] ? : 1965 ?Acct:[id number] ? Age/Sex: 58 / F ?ADM Date: 01/24/25 ? Loc: HO.CT ? Attending Dr: Igor SCHULTE ? Ordering Physician: Igor Walker ?? Date of Service: 04/20/24 ?? Procedure(s): CT lumbar spine wo IV con ?? Accession Number(s): [id number] ? cc: Joy Villar RETAIL EVENT COORDINATOR; Igor Walker ? Report Number: ?? [id number]: Total DLP = ??661.00 mGy-cm ? CLINICAL [...] ? DD/ 7 ? TD/TT: 04/21/24727 ? Dry Box Tender: ? Procedure Note Donmarysolter, Image - 04/21/[address] [place] [address] [address] Scan Report Signed Patient: Elin Johnson MMR# : [id number] : 1965Acct:[id number] Age/Sex: 58 / FADM Date: 04/20/24 Loc: HO.CT Attending Dr: Igor SCHULTE Ordering Physician: Igor Walker Date of Service: 04/20/24 Procedure(s): CT lumbar spine wo IV con Accession Number(s): [id number] cc: Joy VillarP; Igor Walker Report Number: [id number]: Total DLP = 661.00 mGy-cm CLINICAL HISTORY: [...] in OV> 04/21/24727 DD/ 7 TD/TT: 04/21/24727 Dry Box Tender: [facility] External Provider IMG CT PROCEDURES Final Result * POCT MARGO-14 Urine Drug Screen (04/04/2024 10:28 AM EST) Oxycodone Screen, Urine Positive Urine Urine specimen obtained by clean catch procedure / Unknown 04/04/2024 10:28 AM EST Narrative Leatha Cortes RN - 04/04/2024 10:28 AM EST Lot# [id number] Exp: 03-03-25 Result [facility] Joy Phalen [facility] POINT OF CARE TEST ENTER/EDIT ORDERABLES Final Result * POCT HGB A1C (02/17/2024 9:42 AM EST) Hemoglobin A1C 6.0 4.0 - 6.0 % QC Media Lot # [id number] Lot# Expiration Date [id number] Blood 02/17/2024 9:42 AM EST [facility] POINT [facility]ARE [facility] ENTER/EDIT ORDERABLES Final Result * POCT Glucose (02/17/2024 9:42 AM EST) Glucose Blood, POC 147 60 - 200 mg/dL QC Media Lot # [id number] Lot# Expiration Date [id number] Blood Capillary blood specimen / Unknown 02/17/2024 9:42 AM EST Joy Phalen [facility] POINT OF CARE TEST ENTER/EDIT ORDERABLES Final Result * FL BARIUM SWALLOW MODIFIED (02/06/2024 8:53 AM EST) Anatomical Region Laterality Modality Head, Neck Radiographic Farida ging 02/06/2024 8:53 AM EST Narrative 02/06/2024 4:48 PM EST ? [facility] ?[address] ?[place] [address] ? Fluoroscopy Report ? Signed ? Patient: Elin Johnson ?MR# ?? : [id number] ? : 1965 ?Acct:[id number] ? Age/Sex: 58 / F ?ADM Date: 02/06/24 ? Loc: HO.XRAY ? Attending Dr: Joy PRASAD ? Ordering Physician: Joy Villar ?? Date of Service: 02/06/24 ?? Procedure(s): FL Modified Barium Swallow ?? Accession Number(s): [id number] ? cc: Joy Villar ? EXAMINATION: ?? [...] 02/06/24 1647 ? DD/ 0853 ? TD/TT: 02/06/24 0928 ? Dry Box Tender: ? Procedure Note Donotuseinterpreter, Image - 02/06/[address] [address] Fluoroscopy Report Signed Patient: Elin Johnson MMR# : [id number] : 1965Acct:[id number] Age/Sex: 58 / FADM Date: 02/06/24 Loc: HOOMARI Attending Dr: Joy PRASAD Ordering Physician: Joy Villar Date of Service: 02/06/24 Procedure(s): FL Modified Barium Swallow Accession Number(s): [id number] cc: Joy Villar EXAMINATION: Modified Barium Swallow [...] by: Nick Enamorado MD 02/06/2024 04:45 PM [facility] Dictated By: Renzo Bran Signed By: <Electronically signed by Renzo Bran in OV> 02/06/24 1645 <Electronically signed by Nick Enamorado MD in OV> 02/06/24 1647 DD/ 2 TD/TT: 02/06/24927 Dry Box Tender: Joy PRASAD IMG FLUOROSCOPY PROCEDURES Fin al Result * Albumin, Random Urine W/Creatinine (05/06/2023 11:36 AM EST) Creatinine, Urine 107.54 mg/dL [facility] Microalbumin Urine 11.0 mg/L [facility] Microalbum Creatinine Ratio Ur 10.2 <30 ug/mg cr [facility] Comment:Albumin/Creatinine R atio Reference Ranges: Normal: < 30 ug/mg creatinine Microalbuminuria: 30 - 300 ug/mg creatinineClinical Albuminuria: > 300 ug/mg creatinine Urine 05/06/2023 11:3 6 AM EST 05/06/2023 3:21 PM EST Joy PRASAD LAB URINE ORDERABLES Final Res ult [facility] [address] [place] [phone] * Lipid Panel, Standard (05/06/2023 10:12 AM EST) Triglycerides 56 <150 mg/dL [facility] Comment:Desirable Triglyceri de: less than 150 mg/dLBorderline High Triglyceride 150-199 mg/dLHigh Triglyceride: 200-499 mg/dLVery High Triglyceride: greater than or equal to 5OO mg/dL Cholesterol 117 <200 mg/dL [facility] Comment:Desirable Cholestero l: less than 200 mg/dLBorderline High Cholesterol: 200-239 mg/dLHigh Cholesterol: greater than 239 mg/dL LDL Cholesterol Calculated 40 <100 mg/dL [facility] Comment:Desirable LDL: less than 100 mg/dLNear Optimal/Above Optimal LDL: 110- 129 mg/dLBorderline High LDL: 130-159 mg/dLHigh LDL: 160-189 mg/dLVery High LDL: greater than or equal to 190 mg/dL HDL Cholesterol 66 >40 mg/dL [facility] Comment:Desirable HDL: great er than 40 mg/dL Note: This HDL assay may give artificially low results in patients with liver disease. Blood Venous blood specimen / Unknown 05/06/2023 10:12 AM EST 05/06/2023 2:15 PM EST us Joy Villar RETAIL EVENT COORDINATOR LAB BLOOD ORDERABLES Final Res ult [facility] [address] [place] [address] [phone] * BI Mammogram Screening Tomosynthesis Bilateral (05/05/2023 12:24 PM EST) Anatomical Region Laterality Modality Breast Bilateral Mammography 05/05/2023 12:2 4 PM EST Narrative 05/30/2023 2:43 PM EST ? [facility] ? [address] ?[place] [address] ? Mammography Report ? Signed ? Patient: Elin Johnson ?MR# ?? : [id number] ? : 1965 ?Acct:[id number] ? Age/Sex: 57 / F ?ADM Date: 05/05/23 ? Loc: HO.MAMMO ? Attending Dr: Shasha Fournier TRANSITION LEAD ? Ordering Physician: Shasha Fournier TRANSITION LEAD ?Results: 1Negativ ?? e ? Date of Service: 05/05/23 ?Follow Up: 1 Year From Orig ?? inal Mammogram ? Procedure(s): MM tomosynthesis screening BI ?? Accession Number(s): [id number] ? cc: Shasha Fournier TRANSITION LEAD; Joy Villar RETAIL EVENT COORDINATOR ? EXAMINATION: ?? MM SCREENING DIGITAL BREAST [...] for their next mammogram. ? Dictated By: ?Moskos,Gina MD ? Signed By: ?<Electronically signed by Gina Jackson MD in OV> ? 05/30/23 1439 ? DD/ 1224 ? TD/TT: ? Dry Box Tender: ? Procedure Note Ilana Russo - 05/30/2023 Inderjit [facility] [address] [place], [place] [address] Mammography Report Signed Patient: Elin Johnson MMR# : [id number] : 1965Acct:[id number] Age/Sex: 57 / FADM Date: 05/05/23 Loc: HO.MAMMO Attending Dr: Shasha Fournier NP Ordering Physician: Shasha Fournier NPResults: 1Negativ e Date of Service: 05/05/23Follow Up: 1 Year From Orig ina Mammogram Procedure(s): MM tomosynthesis screening BI Accession Number(s): [id number] cc: Shasha Fournier NP; Joy Villar RETAIL EVENT COORDINATOR EXAMINATION: MM SCREENING DIGITAL BREAST TOMOSYNTHESIS, BILATERAL [...] in OV> 05/30/23 1439 DD/ 1224 TD/TT: Dry Box Tender: Shasha Fournier RETAIL EVENT COORDINATOR IMG BI PROCEDURES Final Result * (ABNORMAL) Diabetes Eye Exam (02/10/2023) Eye Exam Abnormal( A) Normal Comment:mild 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 Langley 02/10/2023 Historical Provider HEALTH MAINTENANCE Final Result * HIV Ab/Ag ([place] [facility]) (11/05/2022 8:59 AM EDT) Pathologist [facility] HIV AB/AG Nonreactive Nonreactive [facility] Comment:HIV-1 p24 Ag and/or HIV-1/HIV-2 Ab not detected.A test result that is nonreactive does not exclude thepossibility of exposure to or infection with HIV-1 and/orHIV-2. Nonreactive results in this assay for individualswith prior exposure to HIV-1 and/or HIV-2 may be due toantigen and antibody levels that are below the limit ofdetection of this assay.The [employer] Material Worker HIV Ag/Ab Combo assay result andsupplemental assay results should be interpreted inconjunction with the patient's clinical presentation,history and other laboratory results. If the results areinconsistent with clinical evidence, additional testing issuggested to confirm the result. 11/05/2022 8:59 AM EDT 11/05/2022 11:13 AM EDT us Joy Villar [facility] LAB BLOOD ORDERABLES Final Res ult [facility] [address] [place] [phone] * Hepatitis C Viral RNA, Quantitative, Real-Time PCR (11/05/2022 8:59 AM EDT) [facility] Hepatitis C Viral Load <15 NOT DETECTED NOT DETECTED IU/mL [facility] HCV Log PCR <1.18 NOT DETECTED NOT DETECTED Log IU/mL [facility] Comment:This test was perfor med using Real-Time Polymerase ChainReaction.Reportable Range: 15 IU/mL to 100,000,000 IU/mL(1.18 Log IU/mL to 8.00 Log IU/mL).The analytical performance characteristics of thisassay have been determined by [facility].The modifications have not been cleared or approved bythe FDA. This assay has been validated pursuant to theCLIA regulations and is used for clinical purposes.For more information on this test, go to:http://education.[employer].Makara/faq/FHD43o2(This link is being provided for informational/educational purposes only.)THIS TEST WAS PERFORMED AT:[employer] [place] [id number] COTTO MD Blood 11/05/2022 8:59 AM EDT 11/05/2022 11:13 AM EDT Joy Villar [facility] LAB BLOOD ORDERABLES Final Res ult Performing Organization Address [facility] Co de Phone Number [facility] [address] [place] [phone] * HPV mRNA E6/E7 w/Reflex to HPV Genotypes 16, 18/45 (11/04/2022 12:00 AM EDT) HPV nRNA E6/E7 Not Detected Not Detected [facility] Comment:Methodology: Transcr iption-Mediated AmplificationThis assay detects E6/E7 viral messenger RNA (mRNA) from 14high-risk HPV types (16,18,31,33,35,39,45,51,52,56,58,59,66,68).Cervical sources are required for HPV testing.If a vaginal source from a patient who has had atotal hysterectomy with removal of cervix wassubmitted, please contact the testing laboratoryfor alternative testing options.For additional information, please refer tohttp://education.[employer]/faq/KYD839x2(This link if provided for information/educational purposes only.)THIS TEST WAS PERFORMED AT:[employer] [place] [id number] COTTO MD HPV mRNA E6/E7 TNP [facility] HPV 16 RNA TNP [facility] HPV 18/45 RNA [facility] 11/04/2022 11/05/2022 9:3 0 AM EDT Joy Villar RETAIL EVENT COORDINATOR LAB CYTOLOGY ORDERABLES Final Result Performing Organization Address [facility]/ZIP Co de Phone Number [facility] [address] [place] [phone] * Pap Smear (11/04/2022 12:00 AM EDT) Swab Cervical swab / Unknown 11/04/2022 11/05/2022 9:30 AM EDT [facility] - 11/23/2022 10:21 AM EDT ----- ------- Name: Elin Johnson ? Age/Sex: 57/F ? : 1965 Unit#: [id number] ?? Attend Dr: Joy Villar ?Re11/04/22 ?Status: DEP REF ? Location: HO.HHCLNP ? Disch: ? ----- ------- SPEC : [id number] ?RECD: 11/05/22-929 ? STATUS: ??SOUT ? REQ NUM: [id number] ? VIRY: 11/04/22-0000 ? SUBM DR: Joy Villar ? ENTERED: ??11/05/22-3 ?SP TYPE: Pap Smr ?OTHR : ? [...] 66, 68) ?? HPV testing performed by [facility], [place], [place]. ??See reference laboratory ?? pion of the EMR for entire report. ?Clinical Information LMP:Postmenopausal Previous PAP test:10/18/17, WNL ? Material Received ?? ThinPrep-Cervical ----- ------- Signed (signature on file) ELVIA Valenzuela (ASCP) 11/23/22 1021 ? ----- ------- ? END OF REPORT ? Joy Villar RETAIL EVENT COORDINATOR LAB CYTOLOGY ORDERABLES Final Result [facility] [address] [place] [address] [phone] * Colonoscopy (02/24/2016) [facility] Colonoscopy Normal Normal Historical Provider HEALTH MAINTENANCE Final Result from Last 3 Months or Most Recently Relevant to Health Maintenance [facility] Care Teams Chemistry Specialist Relationship Specialty Start Date End Date Joy Villar FNP [address] [place] [phone] PCP - General Family Medicine 11/21/21 Wu Gallardo [address] [place] [address] Neurosurgery 02/19/24 Lazaro Healy MD [address] [place] [address] Gastroenterology 02/19/24
--- OUTSIDE RECORDS SUMMARY | 2024-04-26 16:16 | XMS_ITS | Encounter Summary ---
Author Organization [employer] Address [address] [facility] [address] 7t [place] [address] Care Team Providers Care Shared Services And Outsourcing Manager Name Role Phone Joy Villar Primary Care Provider [phone] Wu Gallardo Unavailable [phone] Lazaro Healy MD Unavailable Reason for Visit * Reason Onset Date Comments Medication Question 03/17/2023 Encounter Details Date Type Department Care Team ([facility] Contact Info) Description 03/17/2023 Telephone [facility] MED & PEDS [address] [place], [place] [phone] Joy Villar FNP 505 [place], [place] [phone] Medication Question Social History Tobacco Use Types [...] below from PCP, called via PI ID# [id number]. Pt verbalized understanding. Also stated she did not repeat BMP yet, states she will tomorrow. * Telephone Encounter - SHANICE Goldsmith - 03/17/2023 3:15 PM EST Hello, acute pain management after surgery is typically managed through the surgeon's office. Pt iscurrently on chronic opioid therapy, which will likely need to be increased during acute recovery from surgery. [facility] performed surgery. Please encourage her to [...] had yesterday (03/17). Please contact pt at [phone] (Greenlandic) documented in this encounter Plan of Treatment Upcoming Encounters Date Type Department Care Team (Late st Contact Info) Description 07/05/2024 10:00 AM EDT Clinical Support [facility] MED & PEDS [address] [place] [address] Leatha Cortes, CORRINA 505 [place] [address] documented as of this encounter Visit Diagnoses Not on filedocumented in this encounter Additional Health Concerns Assessment Noted Time PHQ-9 Depression Total Score: 0 08/13/19 23 11:11 AM EDT documented as of this encounter Care Teams Shared Services And Outsourcing Manager Relationship Specialty Start Date End Date Joy Villar FNP [address] [place] [address] PCP - General Family Medicine 11/21/21 Wu Gallardo [address] [place] [address] Neurosurgery 02/19/24 Lazaro Healy MD [address] [place] [address] Gastroenterology 02/19/24 documented as of this encounter
--- OUTSIDE RECORDS SUMMARY | 2024-04-26 16:16 | XMS_ITS | Encounter Summary ---
Author Organization [employer] Address [address] 7t [place] [address] Care Team Providers Care Police Aide Name Role Phone Joy Villar Primary Care Provider Wu Gallardo Unavailable [phone] Lazaro Healy MD Unavailable Reason for Visit * Reason Onset Date Comments triage 05/28/2022 Encounter Details Date Type Department Care Team (Late st Contact Info) Description 05/28/2022 Telephone [facility] MED[facility]INE [address] [place] [address] Joy Villar FNP [address] [place], [place] [phone] triage Social History Tobacco Use Types Packs/Day [...] 05/28/2022 12:44 PM EST Triage call with [place] Staff Development Manager ID [id number] Pt reports canceled 900am apt today. Pt [...] Description 07/05/2024 10:00 AM EDT Clinical Support [facility] MED & PEDS [address] [place] [address] Leatha Cortes, RN 505 [place] [address] documented as of this encounter Visit Diagnoses Not on filedocumented in this encounter Care Teams Police Aide Relationship Specialty Start Date End Date Joy Villar FNP [address] [place] [address] PCP - General Family Medicine 11/21/21 Wu Gallardo [address] [place] [address] [address] [place] [address] Neurosurgery 02/19/24 Lazaro Healy MD [address] [place] [address] Gastroenterology 02/19/24 documented as of this encounter
--- OUTSIDE RECORDS SUMMARY | 2024-04-26 16:16 | XMS_ITS | Encounter Summary ---
Author Organization [employer] Address [address] [facility] [address] 7t [place] [address] Care Team Providers Care Gas Line Installer Supervisor Name Role Phone Joy Villar SHANICE Primary Care Provider [phone] Wu Gallardo Unavailable [phone] Lazaro Healy MD Unavailable Encounter Details Date Type Department Care Team (Late st Contact Info) Description 09/07/2022 Orders Only [facility] MEDICINE [address] [place] [address] Angeles Walton LPN Social History Tobacco Use [...] 10:00 AM EDT Clinical Support [facility] MED & PEDS 505 [place] [address] Leatha Cortes, RN [address] [place] [address] documented as of this encounter Visit Diagnoses Not on filedocumented in this encounter Additional Health Concerns Assessment Noted Time PHQ-9 Depression Total Score: 0 08/13/19 23 11:11 AM EDT documented as of this encounter Care Teams Gas Line Installer Supervisor Relationship Specialty Start Date End Date Joy Villar FNP [address] [place] [address] PCP - General Family Medicine 11/21/21 Wu Gallardo [address] [place] [address] Neurosurgery 02/19/24 Lazaro Healy MD [address] [place] [address] Gastroenterology 02/19/24 documented as of this encounter
--- OUTSIDE RECORDS SUMMARY | 2024-04-26 16:16 | XMS_ITS | Encounter Summary ---
Author Organization [facility], Address [address] [place] [address] Phone Care Team Providers Care Care Services Manager Name Role Phone Unavailable Primary Care Provider Unavailabl e Reason for Visit * Reason Comments Med Refill Encounter Details Date Type Department Care Team (Late st Contact Info) Description 03/19/2024 Refill [facility], [address] [place] [address] Simba Olsen MD [address] [place] [id number] Social History Tobacco Use Types Packs/Day Years [...]
--- OUTSIDE RECORDS SUMMARY | 2024-04-26 16:16 | XMS_ITS | Encounter Summary ---
Author Organization [employer] Address [address] 7t [place] [address] Care Team Providers Care Program Coordinator Name Role Phone Joy Villar Primary Care Provider [phone] Wu Gallardo Unavailable [phone] Lazaro Healy MD Unavailable Reason for Visit * Reason Onset Date Comments Nurse Triage 03/29/2024 Encounter Details Date Type Department Care Team (Late st Contact Info) Description 03/29/2024 Telephone [facility] MEDICINE [address] [place] [address] Joy Villar FNP [address] [place], [place] [phone] Nurse Triage Social History Tobacco Use Types [...] immediate release tablet To be sent to: [facility] [place], [place] - [address] [facility] documented in this encounter Plan of Treatment Upcoming Encounters Date Type Department Care Team ([facility] st Contact Info) Description 07/05/2024 10:00 AM EDT Clinical Support [facility] MED & PEDS 505 [place] [address] Leatha Cortes RN 505 [place] [address] documented as of this encounter Visit Diagnoses Diagnosis Chronic low back pain, unspecified back pain laterality, unspecified whether sciatica present Subacromial impingement of left shoulder documented in this encounter Additional Health Concerns Assessment Noted Time PHQ-9 Depression Total Score: 7 02/19/20 24 11:25 AM EST documented as of this encounter Care Teams Program Coordinator Relationship Specialty Start Date End Date Joy Villar FNP 230 [place] [address] PCP - General Family Medicine 11/21/21 Wu Gallardo [address] [place] [address] Neurosurgery 02/19/24 Lazaro Healy MD [address] [place] [address] Gastroenterology 02/19/24 documented as of this encounter
--- OUTSIDE RECORDS SUMMARY | 2024-04-26 16:16 | XMS_ITS | Encounter Summary ---
Author Organization [employer] Address [address] [facility] [address] 7[address] [place] [address] Care Team Providers Care Timber Harvester Operator Name Role Phone Joy Villar SHANICE Primary Care Provider [phone] Wu Gallardo Unavailable [phone] Lazaro Healy MD Unavailable Encounter Details Date [...] Description 07/05/2024 10:00 AM EDT Clinical Support [facility] PEDS 505 [place] [address] Leatha Cortes RN 505 [place] [address] documented as of this encounter Visit Diagnoses Not on filedocumented in this encounter Additional Health Concerns Assessment Noted Time PHQ-9 Depression Total Score: 7 02/19/20 24 11:25 AM EST documented as of this encounter Care Teams Timber Harvester Operator Relationship Specialty Start Date End Date Joy Villar FNP 230 [place] [address] PCP - General Family Medicine 11/21/21 Wu Gallardo [address] [place] [address] Neurosurgery 02/19/24 Lazaro Healy MD [address] [place] [address] Gastroenterology 02/19/24 documented as of this encounter
--- OUTSIDE RECORDS SUMMARY | 2024-04-26 16:16 | XMS_ITS | Encounter Summary ---
Author Organization [employer] Address [address] 7[address] [place] [address] Care Team Providers Care Senior Software Test Engineer Name Role Phone Joy Villar SHANICE Primary Care Provider [phone] Wu Gallardo Unavailable [phone] Lazaro Healy MD Unavailable Encounter Details Date Type Department Care Team (Late Contact Info) Description 06/03/2022 Orders Only [facility] MED & PEDS [address] [place] [address] Mayra Frye LPN Social History Tobacco Use [...] 07/05/2024 10:00 AM EDT Clinical Support [facility] MED & PEDS [address] [place] [address] Leatha Cortes, CORRINA 505 [place] [address] documented as of this encounter Visit Diagnoses Not on filedocumented in this encounter Care Teams Senior Software Test Engineer Relationship Specialty Start Date End Date Joy Villar FNP [address] [place] [address] PCP - General Family Medicine 11/21/21 Wu Gallardo [address] [place] [address] Neurosurgery 02/19/24 Lazaro Healy MD [address] [place] [address] Gastroenterology 02/19/24 documented as of this encounter
--- OUTSIDE RECORDS SUMMARY | 2024-04-26 16:16 | XMS_ITS | Encounter Summary ---
Author Organization [employer] Address [address] [facility] [address] [facility] [address] 7t [place] [address] Care Team Providers Care Blanket Winder Helper Name Role Phone Joy Villar Primary Care Provider [phone] Wu Gallardo Unavailable [phone] Lazaro Healy MD Unavailable Reason for Visit * Reason Comments Med Refill Encounter Details Date Type Department Care Team (Late st Contact Info) Description 04/15/2024 Refill [facility] MEDICINE [address] [place] [address] Joy Villar FNP [address] [place], [place] [phone] Type 2 diabetes mellitus without complication, without long-term current use of insulin ([facility]) Social History Tobacco Use Types [...] the past 12 months, has t he [employer], gas, oil or water [employer] threatened to shut off services in your [...] 07/05/2024 10:00 AM EDT Clinical Support [facility] MED & PEDS 505 [place] [address] Leatha Cortes, CORRINA 505 [place] [address] documented as of this encounter Visit Diagnoses Diagnosis Type 2 diabetes mellitus without complication, without long-term current use of insulin ([facility]) documented in this encounter Additional Health Concerns Assessment Noted Time PHQ-9 Depression Total Score: 7 02/19/20 24 11:25 AM EST documented as of this encounter Care Teams Blanket Winder Helper Relationship Specialty Start Date End Date Joy Villar FNP 230 [place] [address] PCP - General Family Medicine 11/21/21 Wu Gallardo [address] [place] [address] Neurosurgery 02/19/24 Lazaro Healy MD [address] [place] [address] Gastroenterology 02/19/24 documented as of this encounter
--- OUTSIDE RECORDS SUMMARY | 2024-04-26 16:16 | XMS_ITS | Encounter Summary ---
Author Organization [employer] Address [address] 7t [place] [address] Care Team Providers Care Marketing Manager Health Communications Name Role Phone Joy Villar Primary Care Provider [phone] Wu Gallardo Unavailable [phone] Lazaro Healy MD Unavailable Reason for Visit * Reason Onset Date Comments Med Refill 04/23/2024 Encounter Details Date Type Department Care Team (Late st Contact Info) Description 04/23/2024 Refill [facility] MEDICINE [address] [place] [address] Joy Villar FNP [address] [place], [place] [phone] Chronic low back pain, unspecified back pain [...] immediate release tablet To be sent to: [facility] documented in this encounter Plan of Treatment Upcoming Encounters Date Type Department Care Team (Late st Contact Info) Description 07/05/2024 10:00 AM EDT Clinical Support [facility] MED & PEDS 505 [place] [address] Leatha Cortes, RN 505 [place] [address] documented as of this encounter Visit Diagnoses Diagnosis Chronic low back pain, unspecified back pain laterality, unspecified whether sciatica present Subacromial impingement of left shoulder documented in this encounter Additional Health Concerns Assessment Noted Time PHQ-9 Depression Total Score: 7 02/19/20 24 11:25 AM EST documented as of this encounter Care Teams Marketing Manager Health Communications Relationship Specialty Start Date End Date Joy Villar FNP 230 [place] [address] PCP - General Family Medicine 11/21/21 Wu Gallardo [address] [place] [address] Neurosurgery 02/19/24 Lazaro Healy MD [address] [place] [address] Gastroenterology 02/19/24 documented as of this encounter
--- OUTSIDE RECORDS SUMMARY | 2024-04-26 16:16 | XMS_ITS | Encounter Summary ---
Author Organization [employer] Address [address] [facility] [address] 7t [place] [address] Care Team Providers Care Stock Handler Floorperson Name Role Phone Joy Villar Primary Care Provider [phone] Wu Gallardo Unavailable [phone] Lazaro Healy MD Unavailable Reason for Visit * Reason Onset Date Comments Call Back Request 02/03/2024 Encounter Details Date Type Department Care Team ([facility] st Contact Info) Description 02/03/2024 Telephone [facility] MEDICINE [address] [place], [place] [phone] Joy Villar FNP [address] [place], [place] [phone] Call Back Request Social History Tobacco Use [...] 02/03/2024 8:18 AM EST Cyrus Nash with [facility] requesting call back to verify if pcp would like to do a regular barium swallow due to the modified having to be done with speech and hearing. Please contact Charity at [phone]. documented in this encounter Plan of Treatment Upcoming Encounters Date Type Department Care Team (Late st Contact Info) Description 07/05/2024 10:00 AM EDT Clinical Support [facility] MED & PEDS 505 [place] [address] Leatha Cortes, RN 505 [place] [address] documented as of this encounter Visit Diagnoses Diagnosis Dysphagia, unspecified type- Primary documented in this encounter Additional Health Concerns Assessment Noted Time PHQ-9 Depression Total Score: 0 08/13/19 23 11:11 AM EDT documented as of this encounter Care Teams Stock Handler Floorperson Relationship Specialty Start Date End Date Joy Villar FNP 230 [place] [address] PCP - General Family Medicine 11/21/21 Wu Gallardo [address] [place] [address] Neurosurgery 02/19/24 Lazaro Healy MD [address] [place] [address] Gastroenterology 02/19/24 documented as of this encounter
--- OUTSIDE RECORDS SUMMARY | 2024-04-26 16:16 | XMS_ITS | Clinical Summary ---
Author Organization [facility], Address [address] [place] [address] [place] [address] Phone Care Team Providers Care Woodwind Reeds Cutter Name Role Phone Unavailable Primary Care Provider [...] Refill [facility], [address] [place] [address] Simba Olsen MD from Last 3 Months [...] AM EST) Hemoglobin A1C 6.5(H) (4.0-5.6) % [facility] Comment: MONITORING: In known diabetic patients, hemoglobin A1c targets should be discussed with health care provider. DIAGNOSTIC USE: ??The [place] Diabetes Association (ADA) and the World Health [...] Supplement 1 Testing performed or reported by [facility], a Service of [facility], [address] [place] [address] Cesilia Saavedra MD, Square Shear Operator Blood (Blood, Venous) 05/05/2020 9:43 AM EST 05/05/2020 9:44 AM EST us Simba Olsen MD LAB BLOOD ORDERABLES Final Resul t [facility] from Last 3 Months or Most Recently Relevant to Health Maintenance Insurance [place]ICAID [place]
--- OUTSIDE RECORDS SUMMARY | 2024-04-26 16:16 | XMS_ITS | Continuity of Care Document ---
Author Organization [facility] Address [address] [place] [address] Phone Care Team Providers Care Guest Services Director Name Role Phone Jan Dawson MD Unavailable Unavailable Procedures Procedure Date OFFICE/OUTPATIENT VISIT, EST HEMOGLOBIN Clinic Visit OFFICE/OUTPATIENT VISIT, NEW Advance Directives Directive Yes / No Effective Date File Name No Information Encounters Encounter Description Practice Location Reason(s) For Visit Diagnoses Date Provider Providers Copied on Encounter OFFICE/OUTPATI ENT VISIT, EST [facility], [address] [place] [address], [address], tel:[phone] [facility] No Information Eunice Montoya. [address], [place], [id number], [place]. tel:[phone] OFFICE/OUTPATI ENT VISIT, NEW [facility], [address] [place] [address], [address], tel:[phone] [facility] No Information Oleksandr Cruz. [address] [place], [address], [place]. tel:[phone] Family History Family Member Type Diagnosis Age At Onset No Information Payers Payer name Insurance type Covered constitution party ID Authoriza tion(s) [facility] [id number] [facility] [id number] Social History Type Description Quantity Date Captured Comments Sex Female Smoking Status No Information Chief Complaint And Reason For Visit No Information History Of Present Illness Encounter Date Complaint History Of Prese nt Illness No Information Instructions Date Instruction Additional Infor mation No Information Assessments Type Assessment Date No Information
--- OUTSIDE RECORDS SUMMARY | 2024-04-26 16:16 | XMS_ITS | Encounter Summary ---
Author Organization [employer] Address [address] 7t [place] [address] Care Team Providers Care Website Programmer Name Role Phone Joy Villar Primary Care Provider [phone] Wu Gallardo Unavailable [phone] Lazaro Healy MD Unavailable Reason for Visit * Reason Onset Date Comments Med Refill 10/31/2023 Encounter Details Date Type Department Care Team (Late st Contact Info) Description 10/31/2023 Telephone [facility] MEDICINE [address] [place], [place] [phone] Joy Villar FNP [address] [place], [place] [phone] Med Refill Social History Tobacco Use Types [...] immediate release tablet To be sent to: [facility] - [place], [place] - [address] [place] [address] documented in this encounter Plan of Treatment Upcoming Encounters Date Type Department Care Team ([facility] st Contact Info) Description 07/05/2024 10:00 AM EDT Clinical Support [facility] MED & PEDS [address] [place] [address] Leatha Cortes, CORRINA [address] [place] [address] documented as of this encounter Visit Diagnoses Not on filedocumented in this encounter Additional Health Concerns Assessment Noted Time PHQ-9 Depression Total Score: 0 08/13/19 23 11:11 AM EDT documented as of this encounter Care Teams Website Programmer Relationship Specialty Start Date End Date Joy Villar FNP [address] [place] [address] PCP - General Family Medicine 11/21/21 Wu Gallardo [address] [place] [address] Neurosurgery 02/19/24 Lazaro Healy MD [address] [place] [address] Gastroenterology 02/19/24 documented as of this encounter
--- OUTSIDE RECORDS SUMMARY | 2024-04-26 16:16 | XMS_ITS | Encounter Summary ---
Author Organization [employer] Address [address] [address] 7t [place] [address] Care Team Providers Care Planning Consultant Name Role Phone Joy Villar SHANICE Primary Care Provider Wu Gallardo Unavailable [phone] Lazaro Healy MD Unavailable Encounter Details Date Type Department Care Team (Latest Contact Info) Description 04/26/2024 Travel Social History Tobacco Use Types Packs/Day [...] 10:00 AM EDT Clinical Support [facility]EDS 505 [place] [address] Leatha Cortes RN 505 [place] [address] documented as of this encounter Visit Diagnoses Not on filedocumented in this encounter Additional Health Concerns Assessment Noted Time PHQ-9 Depression Total Score: 7 02/19/20 24 11:25 AM EST documented as of this encounter Care Teams Planning Consultant Relationship Specialty Start Date End Date Joy Villar FNP [address] [place] [address] PCP - General Family Medicine 11/21/21 Wu Gallardo [address] [place] [address] Neurosurgery 02/19/24 Lazaro Healy MD [address] [place] [address] Gastroenterology 02/19/24 documented as of this encounter
--- OUTSIDE RECORDS SUMMARY | 2024-04-26 16:16 | XMS_ITS | Encounter Summary ---
Author Organization [employer] Address [address] [place] [address] Care Team Providers Care Glass Curvature Gauger Name Role Phone AntwanJoy vergara SHANICE Primary Care Provider [phone] Wu Gallardo Unavailable Lazaro Healy MD Unavailable Reason for Visit * Reason Comments controlled substance treatment Encounter Details Date Type Department Care Team (Latest Contact Info) Description 04/04/2024 10:00 AM EST Clinical Support [facility] MED & PEDS [address] [place] [address] Leatha Cortes, RN [address] [place], [place] [phone] Chronic low back pain, unspecified back pain [...] the past 12 months, has t he [employer], gas, oil or water company threatened to [...] RN - 04/04/2024 10:00 AM EST S: FLAT CUTTER [place]. Prescribed Oxycodone 10mg Q8 PRN. Per [...] currently prescribed Oxycodone 10mg Q 8hr PRN. DIGITAL MARKETING PROGRAM MANAGER verified today. Rx last filled on 04/02/24. Pill count performed. Pt has 79 pills at this time, 77 expected. Medication is not overused by patient. Utox performed, positive for OXY only, as expected. .Fentanyl testing: negative Lot# [id number] Exp: 03-11-25 A: FLAT CUTTER Contract Revisit: Chronic Opioid use related to pain. P: Pt to continue taking medication only as prescribed; Next FLAT CUTTER appointment scheduled for 07/05/24 @ 10am. F/U sooner PRN. Pt verbalized understanding and agreed to plan. documented in this encounter Plan of Treatment Upcoming Encounters Date Type Department Care Team (Late st Contact Info) Description 07/05/2024 10:00 AM EDT Clinical Support [facility] MED & PEDS [address] [place] [address] Leatha Cortes RN [address] [place] [address] documented as of this encounter Procedures Procedure [...] RN - 04/04/2024 10:28 AM EST Lot# [id number] Exp: 03-03-25 Joy PRASAD POINT OF CARE TEST ENTER/EDIT ORDERABLES Final Result documented in this encounter Visit Diagnoses Diagnosis Chronic low back pain, unspecified back pain laterality, unspecified whether sciatica present documented in this encounter Additional Health Concerns Assessment Noted Time PHQ-9 Depression Total Score: 7 02/19/20 24 11:25 AM EST documented as of this encounter Care Teams Glass Curvature Gauger Relationship Specialty Start Date End Date Joy Villar FNP [address] [place] [address] PCP - General Family Medicine 11/21/21 Wu Gallardo [address] [place] [address] Neurosurgery 02/19/24 Lazaro Healy MD [address] [place] [address] Gastroenterology 02/19/24 documented as of this encounter
== END 2024-04-25 12:28 | disposition home or self-care (01) ==
LOC: HO.HHCLNP 12:27
PROVIDERS: Visit Provider Emergency Medicine
DX: R30.0 Dysuria (principal)
CPT/HCPCS: 87086

== ENCOUNTER 2024-04-25 13:52 | Outpatient (AMB) | payer MEDICAID, SELFPAY ==
--- NOTE | 2024-04-25 13:57 | HO.SPINEOV ---
Intake Visit Reasons: f/up CT scan Intake Note: Ms. David Argueta is here today to f/u on the result of her CT. Data Entry Machine Operator Required: Yes Data Entry Machine Operator Name: Tablet Allergies aspirin [ASA] Allergy (Intermediate, Verified 12/29/23 06:09) RASH cortisone [CORTISONE] Allergy (Intermediate, Verified 12/29/23 06:09) BAD REACTION ibuprofen Allergy (Intermediate, Verified 01/06/24 13:30) Rash naproxen [From Naprosyn] Allergy (Intermediate, Verified 12/29/23 06:09) RASH, ITCHING, rash Assessment & Plan Assessment & Plan (1) Lumbar radiculopathy: Code(s): M54.16 - Radiculopathy, lumbar region Category: Medical Plan Data Entry Machine Operator [id number] utilized for this visit Today I saw Elin for subsequent follow-up to review her CT scan. Previously we had discussed evaluating her fusion at L4-5 and L5-S1 for arthrodesis, as she continues to have severe low back pain despite surgical correction. It appears that the fusion construct at L4-5 has fused well, as has the construct at L5-S1. We reviewed these findings during this visit. I do not believe there is subsequent surgical intervention that will help her with her low back pain. I encouraged her to continue follow up with her pain management provider in [place] that she has been seeing. I also advised that she discuss the possibility of spinal cord stimulator for pain relief. She understands and agrees to this plan. There is no need for continued routine follow-up. Igor Gallardo MD,PhD [facility] Coding Level of Care Code Est Pt Level 3 (20372) Diagnoses Lumbar radiculopathy M54.16
--- OUTSIDE RECORDS SUMMARY | 2024-04-25 16:09 | XMS_ITS ---
Author Organization [facility] Address [address] [place] [address] Care Team Providers Care Catering Barista Name Role Phone ADRIÁN JAMISON MD Primary Care Provider Unavaila Lazaro Rayo Unavailable [phone] bryant Encounters Encounter Location Date Provider Diagnosis [facility] [address] [place] [address] 01/06/2024 Lazaro Healy PLAN OF TREATMENT Next Appt Details Provider Name:Lazaro Healy , 05/10/2024 10:20:00 AM, [address], [address], [place], [address],
--- OUTSIDE RECORDS SUMMARY | 2024-04-25 16:09 | XMS_ITS | Encounter Summary ---
Author Organization [employer] Address [address] 7t [place] [address] Care Team Providers Care School Bus Driver/Teacher Assistant Name Role Phone Joy Villar SHANICE Primary Care Provider [phone] Wu Gallardo Unavailable [phone] Lazaro Healy MD Unavailable Encounter Details Date Type Department Care Team (Late Contact Info) Description 04/14/2022 Orders Only [facility] [address] [place] [address] Mayra Frye LPN Social History Tobacco Use [...] Department Care Team (Late Contact Info) Description 04/25/2024 5:00 PM EST Office Visit [facility] [address] [place] [address] 07/05/2024 10:00 AM EDT Clinical Support [facility] [address] [place] [address] Leatha Cortes, CORRINA [address] [place] [address] documented as of this encounter Visit Diagnoses Not on filedocumented in this encounter Care Teams School Bus Driver/Teacher Assistant Relationship Specialty Start Date End Date Joy Villar FNP [address] [place] [address] PCP - General Family Medicine 11/21/21 Wu Gallardo [address] [place] [address] Neurosurgery 02/19/24 Lazaro Healy MD [address] [place] [address] Gastroenterology 02/19/24 documented as of this encounter
--- OUTSIDE RECORDS SUMMARY | 2024-04-25 16:09 | XMS_ITS ---
Author Organization [facility] Address [address] [place] [address] Care Team Providers Care Data Clerk Name Role Phone ADRIÁN JAMISON MD Primary Care Provider Lazaro Venegas Unavailable [phone] REASON FOR VISIT upper abdominal pain PROBLEMS Problem Type ICD Code Onset Dates Problem Status W/U Status Risk SNOMED Code Notes Problem Gastritis, chronic (K29.50) Active confirmed Chronic gastritis (0171107) Encounters Encounter Location Date Provider Diagnosis [facility] Outpatient [address] [place] [id number] 01/11/2024 Lazaro Healy Other specified di sease [...] Name:Lazaro Healy , 05/10/2024 10:20:00 AM, [address], [address], [place], [address],
--- OUTSIDE RECORDS SUMMARY | 2024-04-25 16:09 | XMS_ITS ---
Author Organization [facility] Address [address] [place] [address] Care Team Providers Care Plant Chief Name Role Phone ADRIÁN JAMISON MD Primary Care Provider Lazaro Venegas [phone] ALLERGIES Allergen (clinical drug ingredient) Drug/Non Drug Allergy documented on EMR Reaction Allergy Type Onset Date Status naproxen Naproxen Unknown Drug Allergy Active RESULTS Component Value Reference Range Notes Electrolytes Reviewed date:09/22/2023 12:37:18 PM Interpretation: Performing Lab:[facility], [address] [place] [phone] Notes/Report: Sodium 140 135-145 mmol/L Potassium 4.2 3.3-5.1 mmol/L Chloride 103 96-108 mmol/L Carbon Dioxide 31 22-29 mmol/L Anion Gap 10 12-20 Creatinine Reviewed date:09/22/2023 12:37:02 PM Interpretation: Performing Lab:[facility], [address] [place] [phone] Notes/Report: Creatinine 0.61 0.5-1.4 mg/dL Estimated Glomerular Filt Rate > 60 NOTE: For -Martiniquais individuals, multiply the result by 1.210. Chronic Kidney Disease: Estimated GFR < 60 mL/min/1.73m2 Severe Kidney Disease: Estimated GFR < 15 mL/min/1.73m2 Amylase Reviewed date:09/22/2023 12:36:54 PM Interpretation: Performing Lab:[facility], [address] [place] [phone] Notes/Report: Amylase 98 28-100 U/L Lipase Reviewed date:09/22/2023 12:36:47 PM Interpretation: Performing Lab:[facility], [address] [facility], [place] [address] Notes/Report: Lipase 36 8-78 U/L REASON FOR [...] (R10.10) Active confirmed Upper abdomina l pain (64815975) Problem Chronic constipation (K59.09) Active confirmed Chronic constipation (874348518) VITAL SIGNS BMI 32.18 kg/m2 09/22/2023 Blood pressure systolic 00 mm Hg 09/22/19 24 Blood pressure diastolic 00 mm Hg 024 Height 4 ft 10 in in 09/22/2023 Weight 154 lbs 09/22/2023 Encounters Encounter Location Date Provider Diagnosis [facility] [address] [place] [address] 09/22/2023 Lazaro Healy Upper abdominal pain R10.10 [...] upper endo and colonoscopy op notes/path from [facility] 2014 PLAN OF TREATMENT Treatment Notes Assessment Notes Upper abdominal pain Do not take the Victoza for 3 days before the colonoscopy Do take the Metformin on the morning of the upper endoscopy Other Need upper endo and colonoscopy op notes/path from [facility] 2014 Pending Test Test Name Order Date BUN 09/22/2023 LIVER PROFILE 09/22/2023 CBC w DIFF 09/22/2023 US abdomen complete 09/22/2023 Future Test Test Name Order Date UPPER GI ENDOSCOPY 09/22/2023 Next Appt Details Follow Up: prn, Reason: Provider Name:Lazaro Healy , 05/10/2024 10:20:00 AM, [address], [address], [place], [address], Progress Notes * Examination Category Sub-Category Detail [...]
--- OUTSIDE RECORDS SUMMARY | 2024-04-25 16:09 | XMS_ITS | Encounter Summary ---
Author Organization [employer] Address [address] [facility] 7t [place] [address] Care Team Providers Care Solar Electric Installer Name Role Phone Joy Villar Primary Care Provider [phone] Wu Gallardo Unavailable [phone] Lazaro Healy MD Unavailable Encounter Details Date Type Department Care Team (Late st Contact Info) Description 03/08/2022 Telephone [facility] MED[facility] [address] [place], [place] [phone] Joy Villar FNP 505 [place], [place] [phone] Social History Tobacco Use Types Packs/Day Years [...] Care Team (Late st Contact Info) Description 04/25/2024 5:00 PM EST Office Visit [facility] [address] [place], [place] [phone] 07/05/2024 10:00 AM EDT Clinical Support [facility] [address] [place], [place] [phone] Leatha Cortes, RN [address] [place], [place] [phone] documented as of this encounter Visit Diagnoses Not on filedocumented in this encounter Care Teams Solar Electric Installer Relationship Specialty Start Date End Date Joy Villar FNP [address] [place] [address] PCP - General Family Medicine 11/21/21 Wu Gallardo [address] [place] [address] Neurosurgery 02/19/24 Lazaro Healy MD [address] [place] [address] Gastroenterology 02/19/24 documented as of this encounter
--- OUTSIDE RECORDS SUMMARY | 2024-04-25 16:09 | XMS_ITS | Encounter Summary ---
Author Organization [employer] Address [address] 7t [place] [address] Care Team Providers Care Fundraising Specialist Name Role Phone Joy Villar SHANICE Primary Care Provider [phone] Wu Gallardo Unavailable [phone] Lazaro Healy MD Unavailable Encounter Details Date Type Department Care Team (Late Contact Info) Description 04/13/2022 Orders Only [facility] MEDICINE [address] [place], [place] [phone] Angeles Walton LPN Social History Tobacco Use [...] Description 04/25/2024 5:00 PM EST Office Visit [facility] [address] [place] [address] 07/05/2024 10:00 AM EDT Clinical Support [facility] [address] [place], [place] [phone] Leatha Cortes, RN 505 [place] [address] documented as of this encounter Visit Diagnoses Not on filedocumented in this encounter Care Teams Fundraising Specialist Relationship Specialty Start Date End Date Joy Villar FNP [address] [place] [address] PCP - General Family Medicine 11/21/21 Wu Gallardo [address] [place] [address] Neurosurgery 02/19/24 Lazaro Healy MD [address] [place] [address] Gastroenterology 02/19/24 documented as of this encounter
--- OUTSIDE RECORDS SUMMARY | 2024-04-25 16:10 | XMS_ITS | Encounter Summary ---
Author Organization [employer] Address [address] 7t [place] [address] Care Team Providers Care Wedding Planner Name Role Phone Joy Villar Primary Care Provider Wu Gallardo Unavailable [phone] Lazaro Healy MD Unavailable Reason for Visit * Reason Onset Date Comments triage 05/28/2022 Encounter Details Date Type Department Care Team (Late st Contact Info) Description 05/28/2022 Telephone [facility] MEDICINE [address] [place] [address] Joy Villar FNP [address] [place], [place] [phone] triage Social History Tobacco Use Types Packs/Day [...] 05/28/2022 12:44 PM EST Triage call with [employer] Return Repairer ID [id number] Pt reports canceled 900am apt today. Pt [...] Description 04/25/2024 5:00 PM EST Office Visit [facility] [address] [place] [address] 07/05/2024 10:00 AM EDT Clinical Support [facility]EDS [address] [place] [address] Leatha Cortes, RN 505 [place] [address] documented as of this encounter Visit Diagnoses Not on filedocumented in this encounter Care Teams Wedding Planner Relationship Specialty Start Date End Date Joy Villar FNP [address] [place] [address] PCP - General Family Medicine 11/21/21 Wu Gallardo [address] [place] [address] Neurosurgery 02/19/24 Lazaro Healy MD [address] [place] [address] Gastroenterology 02/19/24 documented as of this encounter
--- OUTSIDE RECORDS SUMMARY | 2024-04-25 16:10 | XMS_ITS | Encounter Summary ---
Author Organization [employer] Address [address] 7t [place] [address] Care Team Providers Care Drawing Instructor Name Role Phone Joy Villar Primary Care Provider [phone] Wu Gallardo Unavailable [phone] Lazaro Healy MD Unavailable Reason for Visit * Reason Onset Date Comments Medication Question 03/17/2023 Encounter Details Date Type Department Care Team ([facility] Contact Info) Description 03/17/2023 Telephone [facility] [address] [place], [place] [phone] Joy Villar FNP [address] [place], [place] [phone] Medication Question Social History Tobacco Use Types [...] below from PCP, called via PI ID# [id number]. Pt verbalized understanding. Also stated she did not repeat BMP yet, states she will tomorrow. * Telephone Encounter - SHANICE Goldsmith - 03/17/2023 3:15 PM EST Hello, acute pain management after surgery is typically managed through the surgeon's office. Pt iscurrently on chronic opioid therapy, which will likely need to be increased during acute recovery from surgery. [facility] Ortho performed surgery. Please encourage her to [...] had yesterday (03/17). Please contact pt at [phone] (Cuban) documented in this encounter Plan of Treatment Upcoming Encounters Date Type Department Care Team (Late st Contact Info) Description 04/25/2024 5:00 PM EST Office Visit [facility] [address] [place] [address] 07/05/2024 10:00 AM EDT Clinical Support [facility]EDS [address] [place] [address] Leatha Cortes, CORRINA 505 [place] [address] documented as of this encounter Visit Diagnoses Not on filedocumented in this encounter Additional Health Concerns Assessment Noted Time PHQ-9 Depression Total Score: 0 08/13/19 23 11:11 AM EDT documented as of this encounter Care Teams Drawing Instructor Relationship Specialty Start Date End Date Joy Villar FNP [address] [place] [address] PCP - General Family Medicine 11/21/21 Wu Gallardo [address] [place] [address] Neurosurgery 02/19/24 Lazaro Healy MD [address] [place] [address] Gastroenterology 02/19/24 documented as of this encounter
--- OUTSIDE RECORDS SUMMARY | 2024-04-25 16:10 | XMS_ITS | Encounter Summary ---
Author Organization [employer] Address [address] 7t [place] [address] Care Team Providers Care Farm Assistant Name Role Phone Joy Villar Primary Care Provider [phone] Wu Gallardo Unavailable [phone] Lazaro Healy MD Unavailable Reason for Visit * Reason Onset Date Comments Nurse Triage 03/29/2024 Encounter Details Date Type Department Care Team (Late st Contact Info) Description 03/29/2024 Telephone [facility] MEDICINE [address] [place] [address] Joy Villar FNP [address] [place], [place] [phone] Nurse Triage Social History Tobacco Use Types [...] immediate release tablet To be sent to: [facility] - [place], [place] - [address] [place] [address] documented in this encounter Plan of Treatment Upcoming Encounters Date Type Department Care Team ([facility] st Contact Info) Description 04/25/2024 5:00 PM EST Office Visit [facility] 230 [place] [address] 07/05/2024 10:00 AM EDT Clinical Support [facility] [address] [place] [address] Leatha Cortes, CORRINA 505 [place] [address] documented as of this encounter Visit Diagnoses Diagnosis Chronic low back pain, unspecified back pain laterality, unspecified whether sciatica present Subacromial impingement of left shoulder documented in this encounter Additional Health Concerns Assessment Noted Time PHQ-9 Depression Total Score: 7 02/19/20 24 11:25 AM EST documented as of this encounter Care Teams Farm Assistant Relationship Specialty Start Date End Date Joy Villar FNP [address] [place] [address] PCP - General Family Medicine 11/21/21 Wu Gallardo [address] [place] [address] Neurosurgery 02/19/24 Lazaro Healy MD [address] [place] [address] Gastroenterology 02/19/24 documented as of this encounter
--- OUTSIDE RECORDS SUMMARY | 2024-04-25 16:10 | XMS_ITS | Encounter Summary ---
Author Organization [employer] Address [address] 7t [place] [address] Care Team Providers Care Carpet Sewer Name Role Phone AntwanJoy vergara SHANICE Primary Care Provider [phone] Wu Gallardo Unavailable [phone] Lazaro Healy MD Unavailable Encounter Details Date Type Department Care Team (Late st Contact Info) Description 04/20/2024 Orders Only [facility] External Provider, [facility] Social History Tobacco Use Types Packs/Day Years [...] Description 04/25/2024 5:00 PM EST Office Visit [facility] [address] [place] [address] 07/05/2024 10:00 AM EDT Clinical Support [facility] 505 [place] [address] Leatha Cortes, RN 505 [place] [address] documented as of this encounter Procedures Procedure Name Priority Date/Time Associated Diagnosis Comments CT LUMBAR SPINE WO CONTRAST Routine 04/21/2024 7:28 AM EST documented in this encounter Results * CT Lumbar Spine w/o Contrast (04/21/2024 7:28 AM EST) Anatomical Region Laterality Modality Spine, L-spine Computed Tomogra phy 04/21/2024 7:28 AM EST Narrative 04/21/2024 7:29 AM EST ? [facility] ?[address] ?[place] [address] ? CT Scan Report ? Signed ? Patient: David Argueta,Elin M ?MR# ?? : [id number] ? : 1965 ?Acct:[id number] ? Age/Sex: 58 / F ?ADM Date: 01/24/25 ? Loc: HO.CT ? Attending Dr: Igor SCHULTE ? Ordering Physician: Igor Walker ?? Date of Service: 04/20/24 ?? Procedure(s): CT lumbar spine wo IV con ?? Accession Number(s): [id number] ? cc: Joy Villar CONSULTING TECHNICAL DIRECTOR; Igor Walker ? Report Number: ?? [id number]: Total DLP = ??661.00 mGy-cm ? CLINICAL HISTORY: M54.16 - Radiculopathy, lumbar region ? CT lumbar spine without contrast ? Comparison: None ? Findings: ?? Vertebral alignment is within normal limits. ?? No acute fractures or dislocations. ?? Iatrogenic findings with intact well-positioned surgical hardware from L4 ?? through S1 levels. ?? No significant degenerative change. ? There is right renal parenchymal calculus. ?? Otherwise unremarkable visualized abdominal contents. ? IMPRESSION: ?? No acute findings. ? This document has been electronically signed by: Parish Sharma MD on ?? 04/21/2024 07:28:24 ? Dictated By: ?Parish Sharma MD ? Signed By: ?<Electronically signed by Parish Sharma MD in OV> ?04/21/24 0728 ? DD/ 7 ? TD/TT: 04/21/24727 ? Cryogenics Repairer: ? Procedure Note Karan, Image - 04/21/[address] [place] [address] [address] Scan Report Signed Patient: Elin Johnson MMR# : [id number] : 1965Acct:[id number] Age/Sex: 58 / FADM Date: 04/20/24 Loc: HO.CT Attending Dr: Igor SCHULTE Ordering Physician: Igor Walker Date of Service: 04/20/24 Procedure(s): CT lumbar spine wo IV con Accession Number(s): [id number] cc: Joy VillarP; Igor Walker Report Number: [id number]: Total DLP = 661.00 mGy-cm CLINICAL HISTORY: M54.16 - Radiculopathy, lumbar region CT lumbar spine without contrast Comparison: None Findings: Vertebral alignment is within normal limits. No acute fractures or dislocations. Iatrogenic findings with intact well-positioned surgical hardware from L4 through S1 levels. No significant degenerative change. There is right renal parenchymal calculus. Otherwise unremarkable visualized abdominal contents. IMPRESSION: No acute findings. This document has been electronically signed by: Parish Sharma MD on 04/21/2024 07:28:24 Dictated By: Parish Sharma MD Signed By: <Electronically signed by Parish Sharma MD in OV> 04/21/24727 DD/ 7 TD/TT: 04/21/24727 Cryogenics Repairer: [facility] External Provider IMG CT PROCEDURES Final Result documented in this encounter Visit Diagnoses Not on filedocumented in this encounter Additional Health Concerns Assessment Noted Time PHQ-9 Depression Total Score: 7 02/19/20 24 11:25 AM EST documented as of this encounter Care Teams Carpet Sewer Relationship Specialty Start Date End Date Joy Villar FNP [address] [place] [address] PCP - General Family Medicine 11/21/21 Wu Gallardo [address] [place] [address] Neurosurgery 02/19/24 Lazaro Healy MD [address] [place] [address] Gastroenterology 02/19/24 documented as of this encounter
--- OUTSIDE RECORDS SUMMARY | 2024-04-25 16:10 | XMS_ITS | Continuity of Care Document ---
Author Organization [facility] Address [address] [place] [address] Phone Care Team Providers Care Software Team Leader Name Role Phone Jan Dawson MD Unavailable Unavailable Procedures Procedure Date OFFICE/OUTPATIENT VISIT, EST HEMOGLOBIN Clinic Visit OFFICE/OUTPATIENT VISIT, NEW Advance Directives Directive Yes / No Effective Date File Name No Information Encounters Encounter Description Practice Location Reason(s) For Visit Diagnoses Date Provider Providers Copied on Encounter OFFICE/OUTPATI ENT VISIT, EST [facility], [address] [place] [address], [address], tel:[phone] [facility] No Information Eunice Montoya. [address] [place], [place], [id number], [place]. tel:[phone] OFFICE/OUTPATI ENT VISIT, NEW [facility], [address] [place] [address], [address], tel:[phone] [facility] No Information Oleksandr Cruz. [address] [place], [address], [place]. tel:[phone] Family History Family Member Type Diagnosis Age At Onset No Information Payers Payer name Insurance type Covered democrat ID Authoriza tion(s) [facility] [id number] [facility] [id number] Social History Type Description Quantity Date Captured Comments Sex Female Smoking Status No Information Chief Complaint And Reason For Visit No Information History Of Present Illness Encounter Date Complaint History Of Prese nt Illness No Information Instructions Date Instruction Additional Infor mation No Information Assessments Type Assessment Date No Information
--- OUTSIDE RECORDS SUMMARY | 2024-04-25 16:10 | XMS_ITS | Encounter Summary ---
Author Organization [employer] Address [address] 7t [place] [address] Care Team Providers Care Jig Grinder Set Up Operator Name Role Phone Joy Villar SHANICE Primary Care Provider [phone] Wu Gallardo Unavailable [phone] Lazaro Healy MD Unavailable Encounter Details Date Type Department [facility] Description 06/03/2022 Orders Only [facility] MED & PEDS [address] [place] [address] Mayra Frye LPN Social History Tobacco Use [...] Description 04/25/2024 5:00 PM EST Office Visit [facility] W[facility] [address] [place], [place] [phone] 07/05/2024 10:00 AM EDT Clinical Support [facility] MED [facility] PEDS [address] [place] [address] Leatha Cortes, RN [address] [place] [address] documented as of this encounter Visit Diagnoses Not on filedocumented in this encounter Care Teams Jig Grinder Set Up Operator Relationship Specialty Start Date End Date Joy Villar FNP [address] [place] [address] PCP - General Family Medicine 11/21/21 Wu Gallardo [address] [place] [address] Neurosurgery 02/19/24 Lazaro Healy MD [address] [place] [address] Gastroenterology 02/19/24 documented as of this encounter
--- OUTSIDE RECORDS SUMMARY | 2024-04-25 16:10 | XMS_ITS | Encounter Summary ---
Author Organization [employer] Address [address] [place] [address] Care Team Providers Care Chute Operator Name Role Phone Joy Villar Primary Care Provider [phone] Wu Gallardo Unavailable [phone] Lazaro Healy MD Unavailable Reason for Visit * Reason Onset Date Comments Call Back Request 02/03/2024 Encounter Details Date Type Department Care Team ([facility] st Contact Info) Description 02/03/2024 Telephone [facility] MEDICINE [address] [place], [place] [phone] Joy Villar FNP [address] [place], [place] [phone] Call Back Request Social History Tobacco Use [...] 02/03/2024 8:18 AM EST Cyrus Nash [place] [facility] to verify if pcp would like to do a regular barium swallow due to the modified having to be done with speech and hearing. Please contact Charity at [phone]. documented in this encounter Plan of Treatment Upcoming Encounters Date Type Department Care Team (Late st Contact Info) Description 04/25/2024 5:00 PM EST Office Visit [facility] WALK-IN CENTER [address] [place] [address] 07/05/2024 10:00 AM EDT Clinical Support [facility] CHC MED & PEDS [address] [place] [address] Leatha Cortes, RN [address] [place] [address] documented as of this encounter Visit Diagnoses Diagnosis Dysphagia, unspecified type- Primary documented in this encounter Additional Health Concerns Assessment Noted Time PHQ-9 Depression Total Score: 0 08/13/19 23 11:11 AM EDT documented as of this encounter Care Teams Chute Operator Relationship Specialty Start Date End Date Joy Villar FNP [address] [place] [address] PCP - General Family Medicine 11/21/21 Wu Gallardo [address] [place] [address] Neurosurgery 02/19/24 Lazaro Healy MD [address] [place] [address] Gastroenterology 02/19/24 documented as of this encounter
--- OUTSIDE RECORDS SUMMARY | 2024-04-25 16:10 | XMS_ITS | Encounter Summary ---
Author Organization [facility] Address [address] [place] [address] Phone Care Team Providers Care Public Records Researcher Name Role Phone Unavailable Primary Care Provider Unavailabl e Encounter Details Date Type Department Care Team (Late st Contact Info) Description 12/15/2021 Documentation Only [facility], [address] [place] [id number] Tami Prescott PA [address] [place] [phone] Social History Tobacco Use Types Packs/Day Years [...]
--- OUTSIDE RECORDS SUMMARY | 2024-04-25 16:10 | XMS_ITS | Encounter Summary ---
Author Organization [employer] Address [address] [place] [address] Care Team Providers Care Disintegrator Operator Name Role Phone AntwanJoy vergara SHANICE Primary Care Provider [phone] Wu Gallardo Unavailable [phone] Lazaro Healy MD Unavailable Reason for Visit * Reason Comments controlled substance treatment Encounter Details Date Type Department Care Team (Latest Contact Info) Description 04/04/2024 10:00 AM EST Clinical Support [facility] [address] [place] [address] Leatha Cortes, RN [address] [place], [place] [phone] Chronic low back pain, unspecified back pain [...] the past 12 months, has t he [employer], gas, oil or water company threatened to [...] RN - 04/04/2024 10:00 AM EST S: FENCE MANUFACTURE SUPERVISOR [place]. Prescribed Oxycodone 10mg Q8 PRN. Per [...] currently prescribed Oxycodone 10mg Q 8hr PRN. PESTICIDE USE MEDICAL COORDINATOR verified today. Rx last filled on 04/02/24. Pill count performed. Pt has 79 pills at this time, 77 expected. Medication is not overused by patient. Utox performed, positive for OXY only, as expected. .Fentanyl testing: negative Lot# [id number] Exp: 03-11-25 A: FENCE MANUFACTURE SUPERVISOR Contract Revisit: Chronic Opioid use related to pain. P: Pt to continue taking medication only as prescribed; Next FENCE MANUFACTURE SUPERVISOR appointment scheduled for 07/05/24 @ 10am. F/U sooner PRN. Pt verbalized understanding and agreed to plan. documented in this encounter Plan of Treatment Upcoming Encounters Date Type Department Care Team (Late st Contact Info) Description 04/25/2024 5:00 PM EST Office Visit [facility] WALK-IN CENTER [address] [place] [address] 07/05/2024 10:00 AM EDT Clinical Support [facility] CHC MED & PEDS [address] [place] [address] Leatha Cortes, RN [address] [place] [address] documented as of this encounter Procedures Procedure [...] RN - 04/04/2024 10:28 AM EST Lot# [id number] Exp: 03-03-25 Joy PRASAD POINT OF CARE TEST ENTER/EDIT ORDERABLES Final Result documented in this encounter Visit Diagnoses Diagnosis Chronic low back pain, unspecified back pain laterality, unspecified whether sciatica present documented in this encounter Additional Health Concerns Assessment Noted Time PHQ-9 Depression Total Score: 7 02/19/20 24 11:25 AM EST documented as of this encounter Care Teams Disintegrator Operator Relationship Specialty Start Date End Date Joy Villar FNP [address] [place] [address] PCP - General Family Medicine 11/21/21 Wu Gallardo [address] [place] [address] Neurosurgery 02/19/24 Lazaro Healy MD [address] [place] [address] Gastroenterology 02/19/24 documented as of this encounter
--- OUTSIDE RECORDS SUMMARY | 2024-04-25 16:10 | XMS_ITS | Clinical Summary ---
Author Organization [facility], Address [address] [place] [address] [place] [address] Phone Care Team Providers Care Sagger Maker Name Role Phone Unavailable Primary Care Provider [...] Refill [facility], [address] [place] [address] Simba Olsen MD from Last 3 Months [...] AM EST) Hemoglobin A1C 6.5(H) (4.0-5.6) % [facility] Comment: MONITORING: In known diabetic patients, hemoglobin A1c targets should be discussed with health care provider. DIAGNOSTIC USE: ??The [place] Diabetes [employer] (ADA) and the World Health [...] Supplement 1 Testing performed or reported by [facility], a Service of [facility], [address] [place] [address] Cesilia Saavedra MD, [employer] Blood (Blood, Venous) 05/05/2020 9:43 AM EST 05/05/2020 9:44 AM EST us Simba Olsen MD LAB BLOOD ORDERABLES Final Resul t [facility] from Last 3 Months or Most Recently Relevant to Health Maintenance Insurance MEDICAID [place]
--- OUTSIDE RECORDS SUMMARY | 2024-04-25 16:10 | XMS_ITS | Encounter Summary ---
Author Organization [employer] Address [address] [place] [address] Care Team Providers Care Molding Sander Name Role Phone Joy Villar Primary Care Provider [phone] Wu Gallardo Unavailable [phone] Lazaro Healy MD Unavailable Reason for Visit * Reason Onset Date Comments Med Refill 04/23/2024 Encounter Details Date Type Department Care Team (Late st Contact Info) Description 04/23/2024 Refill [facility] MEDICINE [address] [place] [address] Joy Villar FNP [address] [place], [place] [phone] Chronic low back pain, unspecified back pain laterality, unspecified whether sciatica present; Subacromial impingement of left shoulder Social History Tobacco Use Types Packs/Day Years [...] the past 12 months, has t he [employer], gas, oil or water company threatened to [...] encounter Miscellaneous Notes * Telephone Encounter - Claudia Hoyt - 04/23/2024 9:16 AM EST TC from pt requesting medication refill. Medications needing refill : oxyCODONE (Roxicodone) 10 MG immediate release tablet To be sent to: [facility] documented in this encounter Plan of Treatment Upcoming Encounters Date Type Department Care Team (Late st Contact Info) Description 04/25/2024 5:00 PM EST Office Visit [facility] WALK-IN CENTER [address] [place] [address] 07/05/2024 10:00 AM EDT Clinical Support [facility] CHC MED & PEDS [address] [place] [address] Leatha Cortes, CORRINA [address] [place] [address] documented as of this encounter Visit Diagnoses Diagnosis Chronic low back pain, unspecified back pain laterality, unspecified whether sciatica present Subacromial impingement of left shoulder documented in this encounter Additional Health Concerns Assessment Noted Time PHQ-9 Depression Total Score: 7 02/19/20 24 11:25 AM EST documented as of this encounter Care Teams Molding Sander Relationship Specialty Start Date End Date Joy Villar FNP [address] [place] [address] PCP - General Family Medicine 11/21/21 Wu Gallardo [address] [place] [address] Neurosurgery 02/19/24 Lazaro Healy MD [address] [place] [address] Gastroenterology 02/19/24 documented as of this encounter
--- OUTSIDE RECORDS SUMMARY | 2024-04-25 16:10 | XMS_ITS | Encounter Summary ---
Author Organization [employer] Address [address] [place] [address] Care Team Providers Care Chemical Dependency Therapist Name Role Phone Joy Villar SHANICE Primary Care Provider [phone] Wu Gallardo Unavailable Lazaro Healy MD Unavailable Encounter Details Date Type Department Care Team (Late st Contact Info) Description 09/07/2022 Orders Only [facility] MEDICINE [address] [place] [address] Angeles Walton LPN Social History Tobacco Use [...] Office Visit [facility] WALK-IN CENTER [address] [place] [address] 07/05/2024 10:00 AM EDT Clinical Support [facility] CHC MED & PEDS [address] [place] [address] Leatha Cortes, RN [address] [place] [address] documented as of this encounter Visit Diagnoses Not on filedocumented in this encounter Additional Health Concerns Assessment Noted Time PHQ-9 Depression Total Score: 0 08/13/19 23 11:11 AM EDT documented as of this encounter Care Teams Chemical Dependency Therapist Relationship Specialty Start Date End Date Joy Villar FNP [address] [place] [address] PCP - General Family Medicine 11/21/21 Wu Gallardo [address] [place] [address] Neurosurgery 02/19/24 Lazaro Healy MD [address] [place] [address] Gastroenterology 02/19/24 documented as of this encounter
--- OUTSIDE RECORDS SUMMARY | 2024-04-25 16:10 | XMS_ITS | Clinical Summary ---
Author Organization [employer] Address [address] [place] [address] Care Team Providers Care [place] Miner Name Role Phone AntwanJoy vergara SHANICE Primary Care Provider [phone] Wu Gallardo Unavailable [phone] Lazaro Healy MD Unavailable Allergies Active Allergy [...] 30 tablet 3 024 Active Continuous Glucose Packaging Specialist (FreeStyle Moose 2 [place]) deviceIndicatio ns:Type 2 diabetes mellitus with hypoglycemia without coma, unspecified whether terminal superintendent insulin use (CMS/HCC),Hypog lycemia Scan sensor every 8 hours 1 each Active Continuous Glucose Sensor (FreeStyle Moose 2 Sensor) miscIndications :Type 2 diabetes mellitus with hypoglycemia without coma, unspecified whether terminal superintendent insulin use (CMS/HCC),Hypog lycemia Apply 1 sensor [...] 2 diabetes mellitus without complication, unspecified whether terminal superintendent insulin use (CMS/HCC) TAKE 1 TABLET BY MOUTH THREE TIMES DAILY IN THE MORNING, AT NOON, AND AT BEDTIME 270 tablet 1 Active losartan (Cozaar) 50 MG tabletIndicatio ns:Type 2 diabetes mellitus with hyperglycemia, without long-term current use of insulin ([facility]) TAKE 1 TABLET BY MOUTH EVERY MORNING 90 tablet 3 024 Active hydroCHLOROthia zide (HYDRODiuril) 25 MG tablet TAKE 1 TABLET BY MOUTH EVERY MORNING 90 tablet 1 025 Active insulin glargine (Lantus SoloStar) 100 UNIT/ML penIndications: Type 2 diabetes mellitus without complication, without long-term current use of insulin ([facility]) INJECT 5 UNITS SUBCUTANEOUSLY AT BEDTIME FOR FOURTEEN DAYS AFTER INJECTION DE ESTEROIDE 15 mL 1 025 Active oxyCODONE (Roxicodone) 10 MG immediate release tabletIndicatio ns:Chronic low back pain, unspecified back pain laterality, unspecified whether sciatica present,Subacro mial impingement of left shoulder Take 1 tablet (10 mg) by mouth every 8 (eight) hours if needed for severe pain. Do not start before April 26, 2024. 84 tablet 025 Active insulin glargine (Lantus SoloStar) 100 UNIT/ML penIndications: Type 2 diabetes mellitus without complication, without long-term current use of insulin ([facility]) INJECT 5 UNITS SUBCUTANEOUSLY AT [...] eorder (will not trigger notification to Pharmacy)) oxyCODONE (Roxicodone) 10 MG immediate release tabletIndicatio ns:Chronic low back pain, unspecified back pain laterality, unspecified whether sciatica present,Subacro mial impingement of left shoulder Take 1 tablet (10 mg) by mouth every 8 (eight) hours if needed for severe pain. 84 tablet 025 2024 Discontinued(R eorder (will not trigger notification to Pharmacy)) Active Problems Problem Noted Date Diagnosed Date Insomnia 02/19/2024 Assessment & Plan (02/19/2024 11:23 AM EST): -Bridge rx, covering for psych x 30 days Long-term current use of opiate analgesic 2023 Overview (12/27/2023): Medication: oxycodone 10mg TID Indication: lumbar protrusion and spinal canal stenosis (see M54.9) Last RFP WRITER Agreement: 01/27/23 Tier II (RFP WRITER visits every 3 months) Upper abdominal pain [...] Overview (06/01/2023): -S/p surgery on 03/16/23 at [facility] -Continues with home physical therapy and following [...] 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 Need to review routine screenings and health history at follow up appt. Cervical radiculopathy 06/29/2021 Overview (02/17/2024): 05/10/23: [facility] Pain Management - Dr. Galloway. Interlaminar cervical [...] consult scheduled with Neurosurgery. Continues following with RFP WRITER Program. Obstructive sleep apnea syndrome 04/20/2021 Hypertension [...] BP normalize. If continues to be low, [facility] call Cards office for further management. -ED precautions Type 2 diabetes mellitus, [facility] long-term current use of insulin 04/13/2019 [...] cont with lifestyle interventions -CGM Approval 08/15/23: [place] #[id number] (exp: 08/14/24). Improvement in A1c and hypoglycemic [...] with lifestyle interventions -CGM Approval 08/15/23: FRANCA #[id number] (exp: 08/14/24). Improvement in A1c and hypoglycemic [...] Hypothyroid 02/07/2015 Overview (08/13/2023): Previously following with [facility] Endo Continues on levothyroxine 88mcg daily Lab [...] oxycodone PRN May consider second opinion in [place] Assessment & Plan (08/15/2022 7:45 PM EDT): [...] BID Continues carafate 1g TID Following with [facility] GI - Dr. Healy EGD Dec 2023: [...] Encounters Date Type Department Care Team Description 04/23/2024 Refill [facility] [address] [place] [address] Joy Villar FNP Chronic low back pain, unspecified back pain laterality, unspecified whether sciatica present; Subacromial impingement of left shoulder 04/20/2024 Orders Only [facility] External Provider, [facility] 04/15/2024 Refill [facility] [address] [place] [address] Joy Villar FNP Type 2 diabetes mellitus without complication, without long-term current use of insulin ([facility]) 04/04/2024 10:00 AM EST Clinical Support [facility] [address] [place] [address] Leatha Cortes RN Chronic low back pain, unspecified back pain laterality, unspecified whether sciatica present 04/04/2024 Travel 03/29/2024 Telephone [facility] [address] [place] [address] Joy Villar FNP Nurse Triage 03/19/2024 Refill [facility] [address] [place] [address] Joy Villar, CAFETERIA MONITOR Type 2 diabetes mellitus with hyperglycemia, without long-term current use of insulin (CMS/HCC) 03/12/2024 Refill [facility] [address] [place] [address] Joy Villar FNP Type 2 diabetes mellitus without complication, unspecified whether terminal superintendent insulin use (CMS/HCC) 02/27/2024 Refill [facility] [address] [place] [address] Joy Villar FNP Chronic low back pain, unspecified back pain laterality, unspecified whether sciatica present; Subacromial impingement of left shoulder 02/17/2024 9:00 AM EST Office Visit [facility] [address] [place] [address] Joy Villar FNP Type 2 diabetes mellitus without complication, without long-term current use of insulin (CMS/HCC) (Primary Dx); Cervical radiculopathy; Gastroesophageal reflux disease, unspecified whether esophagitis present; Insomnia, unspecified type; Depression, unspecified depression type; Tachycardia 02/17/2024 Travel 02/15/2024 Refill [facility] [address] [place] [address] Joy Villar FNP Moderate persistent asthma without complication (Primary Dx) 02/14/2024 Telephone [facility] [address] [place] [address] Bernadette Martinez MA Chart Prep 02/09/2024 Refill [facility] [address] [place] [address] Tiffanie Maurer MD Diabetes mellitus type 2, noninsulin dependent (CMS/HCC) 02/09/2024 Refill [facility] [address] [place], [place] [phone] Joy Villar FNP Seasonal allergies; Diabetes mellitus type 2, noninsulin dependent ([facility]) 02/07/2024 Telephone [facility] [address] [place] [address] Joanne Higgins RN Results 02/03/2024 Refill [facility] [address] [place] [address] Leatha Cortes RN Chronic low back pain, unspecified back pain laterality, unspecified whether sciatica present; Subacromial impingement of left shoulder 02/03/2024 Telephone [facility] [address] [place] [address] Joy Villar FNP medication refill 02/03/2024 Telephone [facility] [address] [place] [address] Joy Villar FNP Call Back Request from [...] Description 04/25/2024 5:00 PM EST Office Visit [facility] [address] [place] [address] 07/05/2024 10:00 AM EDT Clinical Support [facility] [address] [place] [address] Leatha Cortes, RN [address] [place] [address] Health Maintenance Due Date Last Done Comments CT Colonography 1965 Dental Oral Exam 1965 Dental Prophylaxis 1965 Dental X-Ray: Bitewings 1965 Dental X-Ray: Full Mouth 1965 FIT DNA/Cologuard 1965 FIT 1965 FOBT 1965 Sigmoidoscopy 1965 Alcohol/Substance Use Screening 1977 COVID-19 Vaccine ( season) 2023 11/23/2021, 02/27/2021, 08/20/2020, Additional history exists Eye Exam 02/11/2024 02/10/2023 SDOH Screening 04/27/2024 04/27/2023 Mammogram 05/05/2024 05/05/2023, 07/0 03/2021, 11/17/2018, Additional history exists Diabetes: Urine Protein Screening 05/06/2024 05/06/2023, 09/21/2021, 09/08/2020, Additional history exists Lipid Panel 05/06/2024 05/06/2023, 01/26, 09/21/2021, Additional history exists Tobacco Screening 08/11/2024 08/12/2023 Diabetes: Hemoglobin A1C 08/16/20242 024, 11/11/2023, 08/12/2023, Additional history exists Diabetes: Foot Exam 11/10/2024 11/11/2023, 11/11/2023, 11/11/2023, Additional history exists Depression Screening 02/18/2025 02/19/2024, 02/19/20 Pap Smear 11/04/2025 11/04/2022 Colonoscopy 02/23/2026 02/24/2016 [...] Hepatitis C Screening Completed 11/05/2022 Pneumococcal Vaccine: 50+ Years Completed 01/28/2023, 09/20/2017, 07/21/2016 Influenza Vaccine Completed [...] WO CONTRAST Routine 04/21/2024 7:28 AM EST POCT MARGO-14 URINE DRUG SCREEN Routine 04/04/2024 [...] TOMOSYNTHESIS BILATERAL Routine 05/05/2023 12:24 PM EST DIABETES EYE EXAM Routine 02/10/2023 Type 2 [...] EDT Encounter for screening for cervical cancer HM COLONOSCOPY Routine 02/24/2016 from Last 3 Months or Most Recently Relevant to Health Maintenance Results * CT Lumbar Spine w/o Contrast (04/21/2024 7:28 AM EST) Anatomical Region Laterality Modality Spine, L-spine Computed Tomogra phy 04/21/2024 7:28 AM EST Narrative 04/21/2024 7:29 AM EST ? [facility] ?[address] ?[place] [address] ? CT Scan Report ? Signed ? Patient: Elin Johnson ?MR# ?? : [id number] ? : 1965 ?Acct:[id number] ? Age/Sex: 58 / F ?ADM Date: 04/20/24 ? Loc: HO.CT ? Attending Dr: Igor SCHULTE ? Ordering Physician: Igor Walker ?? Date of Service: 04/20/24 ?? Procedure(s): CT lumbar spine wo IV con ?? Accession Number(s): [id number] ? cc: Joy Villar CAFETERIA MONITOR; Igor Walker ? Report Number: ?? [id number]: Total DLP = ??661.00 mGy-cm ? CLINICAL [...] signed by Parish Sharma MD in OV> ?04/21/24727 ? DD/ 7 ? TD/TT: 04/21/24727 ? Machine Welder: ? Procedure Note Ilana Russo - 04/21/[address] [address] [address] Scan Report Signed Patient: Elin Johnson MMR# : [id number] : 1965Acct:[id number] Age/Sex: 58 / FADM Date: 04/20/24 Loc: HO.CT Attending Dr: Igor SCHULTE Ordering Physician: Igor Walker Date of Service: 04/20/24 Procedure(s): CT lumbar spine wo IV con Accession Number(s): [id number] cc: Joy Villar; Igor Walker Report Number: [id number]: Total DLP = 661.00 mGy-cm CLINICAL HISTORY: [...] in OV> 04/21/24727 DD/ 7 TD/TT: 04/21/24727 Machine Welder: [facility] External Provider IMG CT PROCEDURES Final Result * POCT MARGO-14 Urine Drug Screen (04/04/2024 10:28 AM EST) Oxycodone Screen, Urine Positive Urine Urine specimen obtained by clean catch procedure / Unknown 04/04/2024 10:28 AM EST Narrative Leatha Cortes RN - 04/04/2024 10:28 AM EST Lot# [id number] Exp: 03-03-25 Joy PRASAD POINT OF CARE TEST ENTER/EDIT ORDERABLES Final Result * POCT HGB A1C (02/17/2024 9:42 AM EST) Hemoglobin A1C 6.0 4.0 - 6.0 % QC Media Lot # [id number] Lot# Expiration Date 81,026 Blood 02/17/2024 9:42 AM EST Joykeely Villar CAFETERIA MONITOR POINT OF CARE TEST ENTER/EDIT ORDERABLES Final Result * POCT Glucose (02/17/2024 9:42 AM EST) Glucose Blood, POC 147 60 - 200 mg/dL QC Media Lot # [id number] Lot# Expiration Date 482,025 Blood Capillary blood specimen / Unknown 02/17/2024 9:42 AM EST Joy Antwanursula CAFETERIA MONITOR POINT OF CARE TEST ENTER/EDIT ORDERABLES Final Result * FL BARIUM SWALLOW MODIFIED (02/06/2024 8:53 AM EST) Anatomical Region Laterality Modality Head, Neck Radiographic Farida ging 02/06/2024 8:53 AM EST Narrative 02/06/2024 4:48 PM EST ? [facility] ?[address] ?[place] [address] ? Fluoroscopy Report ? Signed ? Patient: Elin Johnson ?MR# ?? : [id number] ? : 1965 ?Acct:[id number] ? Age/Sex: 58 / F ?ADM Date: 02/06/24 ? Loc: HO.XRAY ? Attending Dr: Joy PRASAD ? Ordering Physician: Joy Villar ?? Date of Service: 02/06/24 ?? Procedure(s): FL Modified Barium Swallow ?? Accession Number(s): [id number] ? cc: Joy Villar ? EXAMINATION: ?? [...] ? DD/ 0853 ? TD/TT: 02/06/24927 ? Machine Welder: ? Procedure Note Karan, Image - 02/06/2024 [place] [address] Fluoroscopy Report Signed Patient: Elin Johnson [facility]# : [id number] : 1965Acct:[id number] Age/Sex: 58 / FADM Date: 02/06/24 Loc: ALEX Attending Dr: Joy PRASAD Ordering Physician: Joy Villar Date of Service: 02/06/24 Procedure(s): FL Modified Barium Swallow Accession Number(s): [id number] cc: Joy Villar EXAMINATION: Modified Barium Swallow [...] <Electronically signed by Renzo Bran in OV> 02/06/241644 <Electronically signed by Nick Enamorado MD in OV> 02/06/241646 DD/ 2 TD/TT: 02/06/24927 Machine Welder: Joy PRASAD IMG FLUOROSCOPY PROCEDURES Fin al Result * Albumin, Random Urine W/Creatinine (05/06/2023 11:36 AM EST) Creatinine, Urine 107.54 mg/dL [facility] Microalbumin Urine 11.0 mg/L [facility] Microalbum Creatinine Ratio Ur 10.2 <30 ug/mg cr [facility] Comment:Albumin/Creatinine R atio Reference Ranges: Normal: < 30 ug/mg creatinine Microalbuminuria: 30 - 300 ug/mg creatinineClinical Albuminuria: > 300 ug/mg creatinine Urine 05/06/2023 11:3 6 AM EST 05/06/2023 3:21 PM EST us Joy PRASAD LAB URINE ORDERABLES Final Res ult [facility] [address] [place] [phone] * Lipid Panel, Standard (05/06/2023 10:12 AM EST) Triglycerides 56 <150 mg/dL [facility] Comment:Desirable Triglyceri de: less than 150 mg/dLBorderline High Triglyceride 150-199 mg/dLHigh Triglyceride: 200-499 mg/dLVery High Triglyceride: greater than or equal to 5OO mg/dL Cholesterol 117 <200 mg/dL [facility] Comment:Desirable Cholestero l: less than 200 mg/dLBorderline High Cholesterol: 200-239 mg/dLHigh Cholesterol: greater than 239 mg/dL LDL Cholesterol Calculated 40 <100 mg/dL [facility] Comment:Desirable LDL: less than 100 mg/dLNear Optimal/Above Optimal LDL: 110- 129 mg/dLBorderline High LDL: 130-159 mg/dLHigh LDL: 160-189 mg/dLVery High LDL: greater than or equal to 190 mg/dL HDL Cholesterol 66 >40 mg/dL [facility] Comment:Desirable HDL: great er than 40 mg/dL Note: This HDL assay may give artificially low results in patients with liver disease. Blood Venous blood specimen / Unknown 05/06/2023 10:12 AM EST 05/06/2023 2:15 PM EST us Joy Villar CAFETERIA MONITOR LAB BLOOD ORDERABLES Final Res ult [facility] [address] [place] [phone] * BI Mammogram Screening Tomosynthesis Bilateral (05/05/2023 12:24 PM EST) Anatomical Region Laterality Modality Breast Bilateral Mammography 05/05/2023 12:2 4 PM EST Narrative 05/30/2023 2:43 PM EST ? [facility] [place] ? [address] [facility] ?[place] [address] ? Mammography Report ? Signed ? Patient: Elin Johnson ?MR# ?? : [id number] ? : 1965 ?Acct:[id number] ? Age/Sex: 57 / F ?ADM Date: 02/08/24 ? Loc: HO.MAMMO ? Attending Dr: Shasha Fournier ELECTROLYSIS ENGINEER ? Ordering Physician: Shasha Fournier ELECTROLYSIS ENGINEER ?Results: 1Negativ ?? e ? Date of Service: 05/05/23 ?Follow Up: 1 Year From Orig ?? inal Mammogram ? Procedure(s): MM tomosynthesis screening BI ?? Accession Number(s): [id number] ? cc: Shasha Fournier ELECTROLYSIS ENGINEER; Joy Villar CAFETERIA MONITOR ? EXAMINATION: ?? MM SCREENING DIGITAL BREAST TOMOSYNTHESIS, BILATERAL ? CLINICAL INFORMATION: ? Screening. Asymptomatic. ? COMPARISON: ?? Mammography: This study is compared with prior exams dating back to ?? 2019. ? TECHNIQUE: ?? Digital breast tomosynthesis is [...] 1439 ? DD/ 1224 ? TD/TT: ? Machine Welder: ? Procedure Note Donotuseinterpreter, Image - 05/30/2023 [facility] [address] [place] [address] Mammography Report Signed Patient: Elin Johnson MMR# : [id number] : 1965Acct:[id number] Age/Sex: 57 / FADM Date: 05/05/23 Loc: HO.MAMMO Attending Dr: Shasha Fournier NP Ordering Physician: Shasha Fournier NPResults: 1Negativ e Date of Service: 05/05/23Follow Up: 1 Year From Orig inal Mammogram Procedure(s): MM tomosynthesis screening BI Accession Number(s): [id number] cc: Shasha Fournier ELECTROLYSIS ENGINEER; Joy Villar CAFETERIA MONITOR EXAMINATION: MM SCREENING DIGITAL BREAST TOMOSYNTHESIS, BILATERAL [...] in OV> 05/30/23 1439 DD/ 1224 TD/TT: Machine Welder: Shasha Fournier CAFETERIA MONITOR IMG BI PROCEDURES Final Result * (ABNORMAL) Diabetes Eye Exam (02/10/2023) Pathologist [facility] Eye Exam Abnormal( A) Normal Comment:mild 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 Langley 02/10/2023 Historical Provider HEALTH MAINTENANCE Final Result * HIV Ab/Ag ([facility]) (11/05/2022 8:59 AM EDT) [facility] HIV AB/AG Nonreactive Nonreactive [facility] Comment:HIV-1 p24 Ag and/or HIV-1/HIV-2 Ab not detected.A test result that is nonreactive does not exclude thepossibility of exposure to or infection with HIV-1 and/orHIV-2. Nonreactive results in this assay for individualswith prior exposure to HIV-1 and/or HIV-2 may be due toantigen and antibody levels that are below the limit ofdetection of this assay.The [employer] Mechanic HIV Ag/Ab Combo assay result andsupplemental assay results should be interpreted inconjunction with the patient's clinical presentation,history and other laboratory results. If the results areinconsistent with clinical evidence, additional testing issuggested to confirm the result. 11/05/2022 8:59 AM EDT 11/05/2022 11:13 AM EDT Joy Villar CAFETERIA MONITOR LAB BLOOD ORDERABLES Final Res ult [facility] [address] [place] [phone] * Hepatitis C Viral RNA, Quantitative, Real-Time PCR (11/05/2022 8:59 AM EDT) [facility] Hepatitis C Viral Load <15 NOT DETECTED NOT DETECTED IU/mL [facility] HCV Log PCR <1.18 NOT DETECTED NOT DETECTED Log IU/mL [facility] Comment:This test was perfor med using Real-Time Polymerase ChainReaction.Reportable Range: 15 IU/mL to 100,000,000 IU/mL(1.18 Log IU/mL to 8.00 Log IU/mL).The analytical performance characteristics of thisassay have been determined by [facility].The modifications have not been cleared or approved bythe FDA. This assay has been validated pursuant to theCLIA regulations and is used for clinical purposes.For more information on this test, go to:http://Classiqs.Fast FiBR/faq/OLL38x6(This link is being provided for informational/educational purposes only.)THIS TEST WAS PERFORMED AT:[facility] [place] [phone] COTTO MD Blood 11/05/2022 8:59 AM EDT 11/05/2022 11:13 AM EDT us Joy Villar CAFETERIA MONITOR LAB BLOOD ORDERABLES Final Res ult [facility] [address] [place] [phone] * HPV mRNA E6/E7 w/Reflex to HPV Genotypes 16, 18/45 (11/04/2022 12:00 AM EDT) HPV nRNA E6/E7 Not Detected Not Detected [facility] Comment:Methodology: Transcr iption-Mediated AmplificationThis assay detects E6/E7 viral messenger RNA (mRNA) from 14high-risk HPV types (16,18,31,33,35,39,45,51,52,56,58,59,66,68).Cervical sources are required for HPV testing.If a vaginal source from a patient who has had atotal hysterectomy with removal of cervix wassubmitted, please contact the testing laboratoryfor alternative testing options.For additional information, please refer tohttp://education.Fast FiBR/faq/MMX393m8(This link if provided for information/educational purposes only.)THIS TEST WAS PERFORMED AT:[facility] [place] [phone] COTTO MD HPV mRNA E6/E7 TNP [facility] HPV 16 RNA TNP [facility] HPV 18/45 RNA TNP [facility] 11/04/2022 11/05/2022 9:3 0 AM EDT Joy PRASAD LAB CYTOLOGY ORDERABLES Final Result [facility] [address] [place] [address] [phone] * Pap Smear (11/04/2022 12:00 AM EDT) Swab Cervical swab / Unknown 11/04/2022 11/05/2022 9:30 AM EDT Narrative [facility] - 11/23/2022 10:21 AM EDT ----- ------- Name: Elin Johnson ? Age/Sex: 57/F ? : 1965 Unit#: [id number] ?? Attend Dr: Joy Villar ?Re11/04/22 ?Status: DEP REF ? Location: HO.HHCLNP ? Disch: ? ----- ------- SPEC : [id number] ?RECD: 11/05/22 ? STATUS: ??SOUT ? REQ NUM: [id number] ? VIRY: 11/04/22-0000 ? SUBM DR: Joy Villar ? ENTERED: ??11/05/22 ?SP TYPE: Pap Smr [...] 66, 68) ?? HPV testing performed by [facility], [place], [place]. ??See reference laboratory ?? pion of the EMR for entire report. ?Clinical Information LMP:Postmenopausal Previous PAP test:10/18/17, WNL ? Material Received ?? ThinPrep-Cervical ----- ------- Signed (signature on file) ELVIA Valenzuela (ASCP) 11/23/22 1021 ? ----- ------- ? END OF REPORT ? Joy Villar [facility] CYTOLOGY ORDERABLES Final Result [facility] [address] [place] [phone] [phone] * Colonoscopy (02/24/2016) Colonoscopy Normal Normal Historical Provider HEALTH MAINTENANCE Final Result from Last 3 Months or Most Recently Relevant to Health Maintenance Insurance [facility] C3 Care Teams [employer] [place] Miner Relationship Specialty Start Date End Date Joy Villar FNP [address] [place] [phone] PCP - General Family Medicine 11/21/21 Wu Gallardo [address] [place] [address] Neurosurgery 02/19/24 Lazaro Healy MD [address] [place] [address] Gastroenterology 02/19/24
--- OUTSIDE RECORDS SUMMARY | 2024-04-25 16:10 | XMS_ITS | Patient Health Record ---
Author Organization [facility] Address [address] [place] [address] Care Team Providers Care Trading Manager Name Role Phone ADRIÁN JAMISON MD Primary Care Provider Lazaro Venegas Unavailable [phone] ALLERGIES Allergen (clinical drug ingredient) Drug/Non Drug Allergy documented on EMR Reaction Allergy Type Onset Date Status naproxen Naproxen Unknown Drug Allergy Active RESULTS Component Value Reference Range Notes Electrolytes Reviewed date:09/22/2023 12:37:18 PM Interpretation: Performing Lab:[facility], [address] [place] [phone] Notes/Report: Sodium 140 135-145 mmol/L Potassium 4.2 3.3-5.1 mmol/L Chloride 103 96-108 mmol/L Carbon Dioxide 31 22-29 mmol/L Anion Gap 10 12-20 Creatinine Reviewed date:09/22/2023 12:37:02 PM Interpretation: Performing Lab:[facility], [address] [place] [phone] Notes/Report: Creatinine 0.61 0.5-1.4 mg/dL Estimated Glomerular Filt Rate > 60 NOTE: For -Armenian individuals, multiply the result by 1.210. Chronic Kidney Disease: Estimated GFR < 60 mL/min/1.73m2 Severe Kidney Disease: Estimated GFR < 15 mL/min/1.73m2 Amylase Reviewed date:09/22/2023 12:36:54 PM Interpretation: Performing Lab:[facility], [address] [place] [phone] Notes/Report: Amylase 98 28-100 U/L Lipase Reviewed date:09/22/2023 12:36:47 PM Interpretation: Performing Lab:[facility], [address] [place] [phone] Notes/Report: Lipase 36 8-78 U/L Complete Blood Count Auto Di ff Reviewed date:09/22/2023 12:35:57 PM Interpretation: Performing Lab:[facility], [address] [place] [phone] Notes/Report: White Blood Count 8.5 4.8-10.8 X10*3/uL [...] Panel Reviewed date:09/22/2023 12:36:17 PM Interpretation: Performing Lab:[facility], [address] [place] [phone] Notes/Report: Bilirubin Total 0.3 0.0-1.0 mg/dL Bilirubin Direct 0.1 0.0-0.5 mg/dL Aspartate Amino Transferase 46 5-31 U/L Alanine Aminotransferase 43 0-31 U/L Total Protein 7.0 6.5-8.0 g/dL Albumin Level 4.1 3.5-5.0 g/dL Alkaline Phosphatase 78 39-117 U/L Blood Urea Nitrogen Reviewed date:09/22/2023 12:36:40 PM Interpretation: Performing Lab:[facility], [address] [place] [phone] Notes/Report: Blood Urea Nitrogen 10 9-16 mg/dL US abdomen complete Reviewed date:01/09/2024 11:00:02 PM Interpretation: Performing Lab: Notes/Report: [address] [address] Ultrasound Report Signed Patient: Elin Jacobson MR# : [id number] : 1965 Acct:[id number] Age/Sex: 58 / F ADM Date: 10/06/23 Loc: HO.US Attending Dr: Lazaro Healy MD Ordering Physician: Lazaro Healy MD Date of Service: 10/06/23 Procedure(s): US abdomen complete Accession Number(s): [id number] cc: Adrián JamisonP; Lazaro Healy MD EXAMINATION: [...] in OV> 10/24/23 2240 DD/ 0845 TD/TT: Help Desk Consultant: MEDARDO Pathology (Not yet reviewed by provider) Interpretation: Performing Lab:[facility], [address] [place] [phone] Notes/Report: Glucose, Whole Blood Reviewed date:01/12/2024 06:01:17 PM Interpretation: Performing Lab:[facility], [address] [place] [phone] Notes/Report: Glucose, Whole Blood 133 60-115 mg/dL METER # : [id number] REASON FOR REFERRAL Referring Provider First Name ADRIÁN Referring Provider Last Name SHAHEEN Referred Organization [facility] Referred Provider Lazaro Healy Referred Address [address] [place] [phone],[place] Referred Provider Specialty Gastroentero logy Referral Priority Routine Referring Provider First Name ADRIÁN Referring Provider Last Name SHAHEEN Referred Organization [facility] Referred Provider Lazaro Healy Referred Address [address] [place] [phone],[place] Referred Provider Specialty Gastroentero logy General Notes Margo Mullins 024 02:01:20 PM EST > requested a new [facility] referral from Adrián Jamison's office ([facility]) for visit with Dr. Healy on 05-10-2023. [phone] Referral Priority Routine MEDICATIONS Medication SIG (Take, [...] (R10.10) Active confirmed Upper abdomina l pain (37950816) Problem Chronic constipation (K59.09) Active confirmed Chronic constipation (078210431) Problem Gastritis, chronic (K29.50) Active confirmed Chronic gastritis (3464996) VITAL SIGNS Blood pressure diastolic 00 mm Hg 09/22/2023 Height 4 ft 10 in in 09/22/2023 Blood pressure systolic 00 mm Hg 09/22/2023 Weight 154 lbs 09/22/2023 BMI 32.18 kg/m2 09/22/2023 Encounters Encounter Location Date Provider Diagnosis [facility] [place] [address] [place] [id number] 01/11/2024 Lazaro Healy 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 ; Hiatal hernia K44.9 ; Gastritis, chronic K29.50 and Abdominal pain R10.9 [facility] [address] [place] [phone] 09/22/2023 Lazaro Healy Upper abdominal pain R10.10 and Chronic constipation K59.09 [facility] [address] [place] [phone] 01/06/2024 Lazaro Healy ASSESSMENTS Encounter Date Diagnosis [...] upper endo and colonoscopy op notes/path from [facility] appro[place] 2014 PLAN OF TREATMENT Pending Test Test Name Order Date BUN 09/22/2023 LIVER PROFILE 09/22/2023 CBC w DIFF 09/22/2023 Pathology 01/11/2024 US abdomen complete 09/22/2023 Future Test Test Name Order Date UPPER GI ENDOSCOPY 09/22/2023 Next Appt Details Provider Name:Lazaro Healy , 05/10/2024 10:20:00 AM, [address], [address], [place], [address], Insurance Providers Payer Name Payer Address Payer Phone Subscriber Number Group Number Insured Name Patient Relationship to Insured Coverage Start Date Coverage End Date [employer] [address] [place] [phone] [id number] ELIN JACOBSON Self - patient is the insured MEDICAL (GENERAL) HISTORY Medical History History ICD Code IDDM Arthritis Hypertension Hypothryroidism Asthma Denies HI,CVA,renal disease Gastritis-EGD approx [address] Gomez s Colonosocpy approx [address] Urrutia Depression and anxiety Chronic pain-back, neck, etc Migraines Surgical History Surgery Date(Month/Year) back shoulders section tubal ligation appendectomy
--- OUTSIDE RECORDS SUMMARY | 2024-04-25 16:10 | XMS_ITS | Encounter Summary ---
Author Organization [employer] Address [address] [place] [address] Care Team Providers Care Building Services Technician Name Role Phone Joy Villar Primary Care Provider [phone] Wu Gallardo Unavailable [phone] Lazaro Healy MD Unavailable Reason for Visit * Reason Onset Date Comments Med Refill 10/31/2023 Encounter Details Date Type Department Care Team (Late st Contact Info) Description 10/31/2023 Telephone [facility] MEDICINE [address] [place], [place] [phone] Joy Villar FNP [address] [place], [place] [phone] Med Refill Social History Tobacco Use Types [...] immediate release tablet To be sent to: [facility] - [place], [place] - [address] [place] [address] documented in this encounter Plan of Treatment Upcoming Encounters Date Type Department Care Team ([facility] Contact Info) Description 04/25/2024 5:00 PM EST Office Visit [facility] WALK-IN CENTER [address] [place] [address] 07/05/2024 10:00 AM EDT Clinical Support [facility] CHC MED & PEDS [address] [place] [address] Leatha Cortes, CORRINA [address] [place] [address] documented as of this encounter Visit Diagnoses Not on filedocumented in this encounter Additional Health Concerns Assessment Noted Time PHQ-9 Depression Total Score: 0 08/13/19 23 11:11 AM EDT documented as of this encounter Care Teams Building Services Technician Relationship Specialty Start Date End Date Joy Villar FNP [address] [place] [address] PCP - General Family Medicine 11/21/21 Wu Gallardo [address] [place] [address] Neurosurgery 02/19/24 Lazaro Healy MD [address] [place] [address] Gastroenterology 02/19/24 documented as of this encounter
--- OUTSIDE RECORDS SUMMARY | 2024-04-25 16:11 | XMS_ITS | Encounter Summary ---
Author Organization [employer] Address [address] 7t [place] [address] Care Team Providers Care Life Skills Coach Name Role Phone Joy Villar Primary Care Provider [phone] Wu Gallardo Unavailable [phone] Lazaro Healy MD Unavailable Reason for Visit * Reason Comments Med Refill Encounter Details Date Type Department Care Team (Late st Contact Info) Description 04/15/2024 Refill [facility] MEDICINE [address] [place] [address] Joy Villar FNP [address] [place], [place] [phone] Type 2 diabetes mellitus without complication, without long-term current use of insulin ([facility]) Social History Tobacco Use Types Packs/Day Years [...] the past 12 months, has t he [employer], gas, oil or water [employer] threatened to shut off services in your [...] Description 04/25/2024 5:00 PM EST Office Visit [facility] WALK-IN CENTER [address] [place] [address] 07/05/2024 10:00 AM EDT Clinical Support [facility] CHC MED & PEDS [address] [place] [address] Leatha Cortes, RN [address] [place] [address] documented as of this encounter Visit Diagnoses Diagnosis Type 2 diabetes mellitus without complication, without long-term current use of insulin ([facility]) documented in this encounter Additional Health Concerns Assessment Noted Time PHQ-9 Depression Total Score: 7 02/19/20 24 11:25 AM EST documented as of this encounter Care Teams Life Skills Coach Relationship Specialty Start Date End Date Joy Villar FNP [address] [place] [address] PCP - General Family Medicine 11/21/21 Wu Gallardo [address] [place] [address] Neurosurgery 02/19/24 Lazaro Healy MD [address] [place] [address] Gastroenterology 02/19/24 documented as of this encounter
--- OUTSIDE RECORDS SUMMARY | 2024-04-25 16:11 | XMS_ITS | Encounter Summary ---
Author Organization [employer] Address [address] 7t [place] [address] Care Team Providers Care Fat Purification Worker Name Role Phone Joy Villar SHANICE Primary Care Provider [phone] Wu Gallardo Unavailable [phone] Lazaro Healy MD Unavailable Encounter Details Date [...] [facility] [address] [place] [address] 07/05/2024 10:00 AM EDT Clinical Support [facility] CHC MED & PEDS [address] [place] [address] Leatha Cortes, RN [address] [place] [address] documented as of this encounter Visit Diagnoses Not on filedocumented in this encounter Additional Health Concerns Assessment Noted Time PHQ-9 Depression Total Score: 7 02/19/20 24 11:25 AM EST documented as of this encounter Care Teams Fat Purification Worker Relationship Specialty Start Date End Date Joy Villar FNP [address] [place] [address] PCP - General Family Medicine 11/21/21 Wu Gallardo [address] [place] [address] Neurosurgery 02/19/24 Lazaro Healy MD [address] [place] [address] Gastroenterology 02/19/24 documented as of this encounter
--- OUTSIDE RECORDS SUMMARY | 2024-04-25 16:11 | XMS_ITS | Encounter Summary ---
Author Organization [facility], Address [address] [place] [address] Phone Care Team Providers Care Ships Equipment Engineer Name Role Phone Unavailable Primary Care Provider Unavailabl e Reason for Visit * Reason Comments Med Refill Encounter Details Date Type Department Care Team (Late st Contact Info) Description 03/19/2024 Refill [facility], [address] [place] [address] Simba Olsen MD [address] [place] [phone] Social History Tobacco Use Types Packs/Day Years [...]
== END 2024-04-25 14:25 | disposition home or self-care (01) ==
PROVIDERS: PCP Registered Nurse; Visit Provider Physician Assistant
DX: M54.16 Radiculopathy, lumbar region (principal)
CPT/HCPCS: 99213

== ENCOUNTER → 2024-04-25 13:52 | Outpatient (BNVA) | payer MEDICAID, SELFPAY | PROVIDERS: PCP Registered Nurse; Visit Provider Physician Assistant | DX: M54.16 Radiculopathy, lumbar region (principal) | CPT/HCPCS: 99212 ==

== ENCOUNTER 2024-05-08 12:33 | Outpatient (REF) | payer MEDICAID, SELFPAY | END 2024-05-08 12:34 | disposition home or self-care (01) | LOC: HO.MAMMO 12:33 | PROVIDERS: PCP Registered Nurse; Visit Provider Registered Nurse | DX: Z12.31 Encounter for screening mammogram for malignant neoplasm of breast (principal) | CPT/HCPCS: 77063; 77067 ==

== ENCOUNTER → 2024-05-08 13:00 | Outpatient (BNV) | payer MEDICAID, SELFPAY | PROVIDERS: PCP Registered Nurse; Visit Provider Internal Medicine | DX: Z12.31 Encounter for screening mammogram for malignant neoplasm of breast (principal) | CPT/HCPCS: 77063; 77067 ==

== ENCOUNTER 2024-06-22 11:50 | Outpatient (REF) | payer MEDICAID, SELFPAY ==
[2024-06-22 14:49] LABS: Alanine Aminotransferase 44 U/L (0-31); Albumin Level 3.9 g/dL (3.5-5.0); Alkaline Phosphatase 85 U/L (39-117); Anion Gap 11 (12-20); Aspartate Amino Transferase 43 U/L (5-31); Bilirubin Total 0.5 mg/dL (0.0-1.0); Blood Urea Nitrogen 13 mg/dL (9-16); Calcium 9.7 mg/dL (8.4-10.2); Carbon Dioxide 28 mmol/L (22-29); Chloride 105 mmol/L (96-108); Cholesterol 86 mg/dL (<200); Estimated Glomerular Filt Rate > 60; Glucose Random 72 mg/dL (60-115); HDL Cholesterol 45 mg/dL (>40); LDL Cholesterol Calculated 28 mg/dL (<100); Potassium 3.8 mmol/L (3.3-5.1); Sodium 140 mmol/L (135-145); Total Protein 6.7 g/dL (6.5-8.0); Triglycerides 65 mg/dL (<150)
[2024-06-22 14:54] LABS: Creatinine Urine 46.52 mg/dL; Microalbum/Creatinine Ratio Ur 12.8 ug/mg cr (<30)
[2024-06-22 15:07] LABS: Vitamin B12 566 pg/mL (200-900)
== END 2024-06-22 11:51 | disposition home or self-care (01) ==
LOC: HO.CHCLDS 11:50
PROVIDERS: Visit Provider Registered Nurse
DX: E11.9 Type 2 diabetes mellitus without complications (principal)
CPT/HCPCS: 36415; 80053; 80061; 82043; 82570; 82607

== ENCOUNTER 2024-07-18 08:53 | Outpatient (AMB) | payer MEDICAID, SELFPAY ==
--- NOTE | 2024-07-18 08:56 | A.OFFVIS_ITS ---
Vital Signs 07/18/24 08:57 Height 4 ft 11 in Weight 158 lb BMI 31.9 BP 116/66 Blood Pressure Location Lt brachial Position Sitting Respiration 16 Pulse 97 Pulse Source Pulse Oximeter Pulse Oximetry (%) 96 Oxygen Delivery Method Room Air Intake Visit Reasons: Failed back syndrome, lumbar spine [employer] Required: Yes [employer] Services: [employer] Present [employer] Name: [id number] Nayan Allergies aspirin [ASA] Allergy (Intermediate, Verified 07/18/24 08:59) RASH cortisone [CORTISONE] Allergy (Intermediate, Verified 07/18/24 08:59) BAD REACTION ibuprofen Allergy (Intermediate, Verified 07/18/24 08:59) Rash naproxen [From Naprosyn] Allergy (Intermediate, Verified 07/18/24 08:59) RASH, ITCHING, rash Medication List - Last Reconciled 07/18/24 by Giana Claire LPN acetaminophen 1 - 2 tabs PO TID PRN albuterol sulfate 90 mcg/actuation 1 inh inhalation QID ascorbic acid (vitamin C) (Vitamin C) 1 tab PO DAILY cholecalciferol (vitamin D3) (Vitamin D3) 50 mcg PO DAILY cyclobenzaprine 5 mg PO TID PRN docusate sodium (Colace) 100 mg PO BID dulaglutide (Trulicity) 1.5 mg subcut QWEEK escitalopram oxalate 20 mg PO QPM ezetimibe (Zetia) 10 mg PO BEDTIME fluticasone propion-salmeterol 500-50 mcg/dose (Advair Diskus) 1 puff PO BID fluticasone propionate 50 mcg/actuation 2 sprays intranasal QAM hydrochlorothiazide 25 mg PO DAILY insulin glargine (Lantus U-100 Insulin) 5 units subcut QPM levothyroxine 88 mcg PO DAILY loratadine 10 mg PO DAILY losartan 50 mg PO DAILY 30 days metformin 1,000 mg PO BIDWMEAL nifedipine ER 60 mg PO DAILY omeprazole 1 cap PO BID oxycodone 10 mg PO Q8H PRN rosuvastatin 40 mg PO DAILY sucralfate 10 mL PO QID zolpidem 10 mg PO BEDTIME PRN HPI Comments Details: Elin is in my office with complains on lower back pain. In the past she was subject of multiple cervical injections. Her lower back pain she preferred to address at [facility]. She went for the consult with our neurosurgical office. They did not recommend any surgeries. They did not recommend any continuous injections on her lumbar spine. They recommended spinal cord stimulator. I gave today to the patient brochures about spinal cord stimulator, I also gave her brochure about pain pump. She appears to be pressure just about spinal cord stimulator. She stated that her aunt went for the procedure and became incapacitated. I told her read the brochure and if she is interested give me a call we will discuss risks and benefits of the procedure. In the past she received epidural steroid injection injection C5-C6 interlaminar epidural on 10/04/2023. She reports 60% of the pain relief for the past month since the injection. This is 4. Injection for her. Previously she had the same procedure on 05/10/2023. She reported again 3-4 months of the pain relief. She reports that pain started to come back just 1 week ago. I will schedule her for repeat of the C5-C6 interlaminar epidural steroid injection. Before that she had 2 injections at the same level with similar or better results. She reports very good activities of daily living at looks like that her injection goes not more frequently than 1 in 6 months. She continues to take gabapentin. She is very satisfied with her care. Prior: very pleasant 56 years old female who was seen in this office for cervicalgia disc degeneration of cervical spine with radiculopathy.? She went for right-sided interlaminar epidural steroid injection C5-C6 on 11/10/2021.? She reports 50% pain improvement after the injection.? She reports better mobility, better social interactions better activity of daily living.? Her pain came back in February and we scheduled her for C6-C7 epidural steroid injection on 04/06/2022.? She reported 1 month of complete pain relief.? She reported 8 months of pain relief, she reported better mobility better activities of daily living better social interactions. She requests me to perform the same procedure again.? She appears to be allergic to ChloraPrep and this time we will make her prep with Betadine. [facility] Medical History (Updated 03/15/24 @ 10:50 by FRANCA Claudio) Scratching Migraine headache GERD (gastroesophageal reflux disease) Chronic back pain Anxiety and depression Elevated cholesterol Right rotator cuff tear Vitamin D deficiency Rotator cuff dysfunction Bursitis of right shoulder HLD (hyperlipidemia) Type 2 diabetes mellitus Hypothyroidism Hypertension Asthma Dyspepsia Surgical History (Updated 01/19/24 @ 11:10 by FRANCA Claudio) Hx of cervical discectomy History of arthroscopy of left shoulder (03/16/23) History of surgery on arm Hx of section Hx of colonoscopy History of esophagogastroduodenoscopy (EGD) History of appendectomy Previous back surgery (~2004) Family History Father Diabetes Mother Diabetes Social History (Updated 12/15/23 @ 10:48 by Ayesha Chowdhury RN) Household Members: Other 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 Housing: Apartment Are you a primary director of managed care to a significant other at home: No Do you presently have visiting nurse or other home services: No Alcohol intake: never Patient Tobacco Use Status: Former Tobacco user Tobacco use type: Cigarette Current occupational status: disabled Current occupation: Right Handed Review of Systems Const All systems reviewed & are unremarkable except as noted in HPI and below Physical Exam Vital Signs: Last Vital Signs Pulse 97 07/18/24 08:57 Resp 16 07/18/24 08:57 BP 116/66 07/18/24 08:57 Pulse Ox 96 07/18/24 08:57 Oxygen Delivery Method Room Air 07/18/24 08:57 BMI result Body Mass Index 31.9 Const General: healthy appearing and acute distress mild Orientation/consciousness: patient oriented x3 Limitations: no limitations Chest Chest palpation & inspection: normal inspection of the chest Resp Effort & Inspection: normal respiratory effort, able to speak in complete sentences, normal respiratory pattern, no audible wheezes and no cough GI Inspection: Yes normal to inspection Back/Spine/Pelvis Other: Limited range of motion of the cervical spine, palpation of the paraspinal spinal region on the posterior surface of the neck reveals severe tenderness. Neuro General: patient oriented x3 Assessment & Plan Assessment & Plan (1) Cervical radiculopathy: Code(s): M54.12 - Radiculopathy, cervical region Category: Medical (2) Degeneration, intervertebral disc, cervical: Code(s): M50.30 - Other cervical disc degeneration, unspecified cervical region Category: Medical (3) Chronic pain syndrome: Code(s): G89.4 - Chronic pain syndrome Category: Medical Plan She is in my office with complains on lower back pain. She went for consult with neurosurgeon. Discussion is as above. They recommended spinal cord stimulator.. I from myself added pain pump. I gave her brochure to read. She will make an appointment with me if she is interested. Careful explanation was given how to obtain most information from the manufacture's companies. In the past: Five times injection of the C6-C7 epidural steroid injection interlaminar was performed once in October of 2021 , once in March, once on 11/30/2022 and once in May 102023 and once in September of 2023. She reports almost 60 % pain relief after 5th injection. It has been 1 month. She reports moderate pain 3-4 out of 10 to before the procedure pain was 10/10. Knee injection as needed but not sooner than 03/01/2023. It lasted 8 months last time. She needs Betadine for the prep instead of ChloraPrep. Coding Level of Care Code Est Pt Level 3 (90305) Diagnoses Cervical radiculopathy M54.12 Degeneration, intervertebral disc, cervical M50.30 Chronic pain syndrome G89.4
[2024-07-18 08:57] VITALS: BP 116/66; PULSE 97; RESP 16; O2SAT 96; BMI 31.9
--- OUTSIDE RECORDS SUMMARY | 2024-07-18 09:32 | XMS_ITS | Encounter Summary ---
Author Organization [employer] Address [address] 7t [place] [address] Care Team Providers Care Customer Engagement Specialist Name Role Phone Joy Villar SHANICE Primary Care Provider [phone] Wu Gallardo Unavailable [phone] Lazaro Healy MD Unavailable Encounter Details Date Type Department Care Team (Late Contact Info) Description 04/13/2022 Orders Only [facility] MEDICINE [address] [place], [place] [phone] Angelse Walton LPN Social History Tobacco Use Types [...] Department Care Team (Late Contact Info) Description 2024 9:30 AM EDT Clinical Support [facility] MED & PEDS [address] [place], [place] [phone] Leatha Cortes, RN [address] [place], [place] [phone] documented as of this encounter Visit Diagnoses Not on filedocumented in this encounter Care Teams Customer Engagement Specialist Relationship Specialty Start Date End Date Joy Villar FNP [address] [place] [address] PCP - General Family Medicine 11/21/21 Wu Gallardo [address] [place] [address] Neurosurgery 02/19/24 Lazaro Healy MD [address] [place] [address] Gastroenterology 02/19/24 documented as of this encounter
--- OUTSIDE RECORDS SUMMARY | 2024-07-18 09:32 | XMS_ITS | Encounter Summary ---
Author Organization [facility] [employer] Address [address] [place] [address] Phone Care Team Providers Care Tuna Purse Seiner Name Role Phone Unavailable Primary Care Provider Unavailabl e Encounter Details Date Type Department Care Team (Late st Contact Info) Description 12/15/2021 Documentation Only [facility], [address] [place] [phone] Tami Prescott PA Social History Tobacco Use Types Packs/Day Years [...]
--- OUTSIDE RECORDS SUMMARY | 2024-07-18 09:32 | XMS_ITS | Encounter Summary ---
Author Organization [employer] Address [address] 7[address] [place] [address] Care Team Providers Care Facility Operations Manager Name Role Phone Joy Villar Primary Care Provider [phone] Wu Gallardo Unavailable [phone] Lazaro Healy MD Unavailable Reason for Visit * Reason Onset Date Comments Med Refill 06/25/2024 Encounter Details Date Type Department Care Team (Late st Contact Info) Description 06/25/2024 Telephone [facility] [address] [place], [place] [phone] Joy Villar FNP [address] [place], [place] [phone] Med Refill Social History Tobacco Use Types [...] housing situation today? I have yifan hunter 06/22/[address] you li ve. Do you have problems with any of the following? None of the above 06/22/2024 Food Insecurity Answer Date Recorded Within the past 12 months, y ou worried that your food would run out before you got money to buy more: Never True 06/22/2024 Within the past 12 months,th e food you bought just didn't last and you didn't have enough money to get more: Never True Transportation Answer Date Recorded In the past 12 months, has l ack of transportation kept you from medical appts, meetings, work or from getting things needed for daily living? No 06/22/2024 Utilities Answer Date Recorded In the past 12 months, has t he electric, gas, oil or water company threatened to shut off services in your home? No 06/22/2024 Depression Answer Date Recorded Patient Health Questionnaire-2 Score 1 02/19/2024 Internet Access Answer Date Recorded Internet Access Q1 Yes 06/22/2024 Internet Access Q2 Not on file 06/22/2024 Comments Unknown Sex and Gender Information Value Date Recorded Sex Assigned at Female 01/25/2022 10:14 AM EDT Legal Sex Female 10:14 AM EDT Gender Identity Female 01/25/2022 10:14 AM EDT Sexual Orientation Don't know 01/25/2022 10 :14 AM EDT documented as of this encounter Miscellaneous Notes * Telephone Encounter - Wyatt Patrick - 06/25/2024 11:09 AM EDT TC from pt requesting medication refill. Medications needing refill : oxyCODONE (Roxicodone) 10 MG immediate release tablet To be sent to: [facility] pharmacy documented in this encounter Plan of Treatment Upcoming Encounters Date Type Department Care Team (Late st Contact Info) Description 2024 9:30 AM EDT Clinical Support [facility] MED & PEDS [address] [place] [address] Leatha Cortes, CORRINA [address] [place] [address] documented as of this encounter Visit Diagnoses Not on filedocumented in this encounter Additional Health Concerns Assessment Noted Time PHQ-9 Depression Total Score: 7 02/19/20 24 11:25 AM EST documented as of this encounter Care Teams Facility Operations Manager Relationship Specialty Start Date End Date Joy Villar FNP [address] [place] [address] PCP - General Family Medicine 11/21/21 Wu Gallardo [address] [place] [address] Neurosurgery 02/19/24 Lazaro Healy MD [address] [place] [address] Gastroenterology 02/19/24 documented as of this encounter
--- OUTSIDE RECORDS SUMMARY | 2024-07-18 09:32 | XMS_ITS | Encounter Summary ---
Author Organization [facility], Address [address] [place] [address] Phone Care Team Providers Care Foundry Laborer Coreroom Name Role Phone Unavailable Primary Care Provider Unavailabl e Reason for Visit * Reason Comments Med Refill Encounter Details Date Type Department Care Team (Late st Contact Info) Description 03/19/2024 Refill [facility], [address] [place] [address] Simba Olsen MD [address] [place] [phone] Social History Tobacco Use Types Packs/Day Years [...]
--- OUTSIDE RECORDS SUMMARY | 2024-07-18 09:32 | XMS_ITS | Encounter Summary ---
Author Organization [employer] [facility] Address [address] 7t [place] [address] Care Team Providers Care Electrician Manager Name Role Phone Joy Villar SHANICE Primary Care Provider [phone] Wu Gallardo Unavailable [phone] Lazaro Healy MD Unavailable Encounter Details Date Type Department Care Team (Late st Contact Info) Description 04/14/2022 Orders Only [facility] MED & PEDS [address] [place] [address] Mayra Frye LPN Social History Tobacco Use [...] Description 2024 9:30 AM EDT Clinical Support [facility] MED & PEDS [address] [place] [address] Leatha Cortes, CORRINA [address] [place] [address] documented as of this encounter Visit Diagnoses Not on filedocumented in this encounter Care Teams Electrician Manager Relationship Specialty Start Date End Date Joy Villar FNP [address] [place] [address] PCP - General Family Medicine 11/21/21 Wu Gallardo [address] [place] [address] Neurosurgery 02/19/24 Lazaro Healy MD [address] [place] [address] Gastroenterology 02/19/24 documented as of this encounter
--- OUTSIDE RECORDS SUMMARY | 2024-07-18 09:32 | XMS_ITS | Encounter Summary ---
Author Organization [employer] Address [address] 7t [place] [address] Care Team Providers Care Volunteer Coordinator Name Role Phone AntwanJoy vergara SHANICE Primary Care Provider [phone] Wu Gallardo Unavailable [phone] Lazaro Healy MD Unavailable Encounter Details Date Type Department Care Team (Late st Contact Info) Description 07/17/2024 Orders Only [facility] [address] [place], [place] [phone] Provider, MD Jordan Social History Tobacco Use Types Packs/Day Years [...] Description 2024 9:30 AM EDT Clinical Support [facility] MED & PEDS [address] [place] [address] Leatha Cortes, RN [address] [place] [address] documented as of this encounter Procedures Procedure Name Priority Date/Time Associated Diagnosis Comments DIABETES EYE EXAM Routine 06/14/2024 4:01 PM EDT documented in this encounter Results * Diabetes Eye Exam (06/14/2024 4:01 PM EDT) Historical Provider HEALTH MAINTENANCE Final Result documented in this encounter Visit Diagnoses Not on filedocumented in this encounter Additional Health Concerns Assessment Noted Time PHQ-9 Depression Total Score: 7 02/19/20 24 11:25 AM EST documented as of this encounter Care Teams Volunteer Coordinator Relationship Specialty Start Date End Date Joy Villar FNP [address] [place] [address] PCP - General Family Medicine 11/21/21 Wu Gallardo [address] [place] [address] Neurosurgery 02/19/24 Lazaro Healy MD [address] [place] [address] Gastroenterology 02/19/24 documented as of this encounter
--- OUTSIDE RECORDS SUMMARY | 2024-07-18 09:32 | XMS_ITS | Encounter Summary ---
Author Organization [facility] Address [address] 7t [place] [address] Care Team Providers Care Newspaper Inserter Name Role Phone Joy Villar Primary Care Provider [phone] Wu Gallardo Unavailable [phone] Lazaro Healy MD Unavailable Encounter Details Date Type Department Care Team (Late Contact Info) Description 03/08/2022 Telephone [facility] MEDICINE [address] [place] [address] Joy Villar FNP [address] [place], [place] [phone] Social History Tobacco Use Types Packs/Day Years [...] Description 2024 9:30 AM EDT Clinical Support [facility] MED & PEDS [address] [place], [place] [phone] Leatha Cortes, CORRINA [address] [place], [place] [phone] documented as of this encounter Visit Diagnoses Not on filedocumented in this encounter Care Teams Newspaper Inserter Relationship Specialty Start Date End Date Joy Villar FNP [address] [place] [address] PCP - General Family Medicine 11/21/21 uW Gallardo [address] [place] [address] Neurosurgery 02/19/24 Lazaro Healy MD [address] [place] [address] Gastroenterology 02/19/24 documented as of this encounter
--- OUTSIDE RECORDS SUMMARY | 2024-07-18 09:32 | XMS_ITS | Clinical Summary ---
Author Organization [facility], Address [address] [place] [address] [place] [address] Phone Care Team Providers Care Advertising Director Name Role Phone Unavailable Primary Care Provider [...] 021 Hypothyroidism 04/13/2019 12/14/2020 Migraine 04/13/2019 12/14/2020 Immunizations Immunization Administration Dates Next Due Influenza, Quadrivalent, Preservative [...] Last Done Comments Breast Cancer Screening 1965 Hepatitis B Vaccine (1 of 3 - 19+ 3-dose series) 1984 Pneumococcal Vaccine: 50+ Ye ars (1 of 2 - PCV) 1984 Colorectal Cancer Screening: Annual FOBT 2014 Colorectal Cancer Screening: Colonoscopy 2014 Colorectal Cancer Screening: Sigmoidoscopy 2014 Diabetes: Ophthalmology Exam 04/13/2019 Diabetes: Pedal Pulse Checked 04/13/2019 Diabetes: Sensory Foot Exam 04/13/2019 Diabetes: Visual Foot Exam 04/13/2019 Diabetes: Hemoglobin A1C 08/02/2020 05/05/2020, 03/29 Influenza Vaccine (Season Ended) 2024 12/28/19 20 Procedures Procedure Name Priority Date/Time Associated Diagnosis Comments HEMOGLOBIN A1C Routine 05/05/2020 9:43 AM EST Type 2 diabetes mellitus, not otherwise specified (HCC) from Last 3 Months or Most Recently Relevant to Health Maintenance Results * (ABNORMAL) Hemoglobin A1c (05/05/2020 9:43 AM EST) Hemoglobin A1C 6.5(H) (4.0-5.6) % [facility] Comment: MONITORING: In known diabetic patients, hemoglobin A1c targets should be discussed with health care provider. DIAGNOSTIC USE: ??The [employer] Diabetes Association (ADA) and the World Health [...] Supplement 1 Testing performed or reported by [facility], a Service of [facility], [address] [place] [address] Cesilia Saavedra MD, Tech Brazer Tester Blood (Blood, Venous) 05/05/2020 9:43 AM EST 05/05/2020 9:44 AM EST us Simba Olsen MD LAB BLOOD ORDERABLES Final Resul t [facility] from Last 3 Months or Most Recently Relevant to Health Maintenance Insurance [place]
--- OUTSIDE RECORDS SUMMARY | 2024-07-18 09:32 | XMS_ITS | Encounter Summary ---
Author Organization [employer] Address [address] [place] [address] Care Team Providers Care Comprehensive Ophthalmologist Name Role Phone Joy Villar Primary Care Provider [phone] Wu Gallardo Unavailable Lazaro Healy MD Unavailable Encounter Details Date Type Department Care Team (Late st Contact Info) Description 05/17/2024 Orders Only [facility] PEDS [address] [place], [place] [phone] Joy Villar FNP [address] [place], [place] [phone] Type 2 diabetes mellitus without complication, unspecified whether prison insulin use ([facility]) Social History Tobacco Use Types Packs/Day Years [...] Description 2024 9:30 AM EDT Clinical Support [facility] [address] [place] [address] Leatha Cortes, RN [address] [place] [address] documented as of this encounter Visit Diagnoses Diagnosis Type 2 diabetes mellitus without complication, unspecified whether prison insulin use ([facility]) documented in this encounter Additional Health Concerns Assessment Noted Time PHQ-9 Depression Total Score: 7 02/19/20 24 11:25 AM EST documented as of this encounter Care Teams Comprehensive Ophthalmologist Relationship Specialty Start Date End Date Joy Villar FNP [address] [place] [address] PCP - General Family Medicine 11/21/21 Wu Gallardo [address] [place] [address] Neurosurgery 02/19/24 Lazaro Healy MD [address] [place] [address] Gastroenterology 02/19/24 documented as of this encounter
--- OUTSIDE RECORDS SUMMARY | 2024-07-18 09:32 | XMS_ITS | Encounter Summary ---
Author Organization [employer] Address [address] 7[address] [place] [address] Care Team Providers Care Personal Lines Insurance Agent Name Role Phone Joy Villar SHANICE Primary Care Provider [phone] Wu Gallardo Unavailable [phone] Lazaro Healy MD Unavailable Encounter Details Date Type Department Care Team ([facility] Contact Info) Description 06/03/2022 Orders Only [facility] MED & PEDS [address] [place] [address] Mayra Frye LPN Social History Tobacco Use [...] 2024 9:30 AM EDT Clinical Support [facility] MED & PEDS [address] [place] [address] Leatha Cortes, RN [address] [place] [address] documented as of this encounter Visit Diagnoses Not on filedocumented in this encounter Care Teams Personal Lines Insurance Agent Relationship Specialty Start Date End Date Joy Villar FNP [address] [place] [address] PCP - General Family Medicine 11/21/21 Wu Gallardo [address] [place] [address] Neurosurgery 02/19/24 Lazaro Healy MD [address] [place] [address] Gastroenterology 02/19/24 documented as of this encounter
--- OUTSIDE RECORDS SUMMARY | 2024-07-18 09:32 | XMS_ITS | Encounter Summary ---
Author Organization [email or web address] Address [address] 7[address] [place] [address] Care Team Providers Care Dock Supervisor Name Role Phone Joy Villar Primary Care Provider [phone] Wu Gallardo Unavailable [phone] Lazaro Healy MD Unavailable Reason for Visit * Reason Onset Date Comments Medication Question 03/17/2023 Encounter Details Date Type Department Care Team ([facility] Contact Info) Description 03/17/2023 Telephone [facility] MED & PEDS [address] [place], [place] [phone] Joy Villar FNP [address] [place], [place] [phone] Medication Question Social History Tobacco Use Types [...] below from PCP, called via PI ID# [id number]. Pt verbalized understanding. Also stated she did not repeat BMP yet, states she will tomorrow. * Telephone Encounter - SHANICE Goldsmith - 03/17/2023 3:15 PM EST Hello, acute pain management after surgery is typically managed through the surgeon's office. Pt iscurrently on chronic opioid therapy, which will likely need to be increased during acute recovery from surgery. [facility] Ortho performed surgery. Please encourage her to [...] had yesterday (03/17). Please contact pt at [phone] ([place]) documented in this encounter Plan of Treatment Upcoming Encounters Date Type Department Care Team (Late st Contact Info) Description 2024 9:30 AM EDT Clinical Support [facility] MED & PEDS [address] [place] [address] Leatha Cortes, CORRINA [address] [place] [address] documented as of this encounter Visit Diagnoses Not on filedocumented in this encounter Additional Health Concerns Assessment Noted Time PHQ-9 Depression Total Score: 0 08/13/19 23 11:11 AM EDT documented as of this encounter Care Teams Dock Supervisor Relationship Specialty Start Date End Date Joy Villar FNP [address] [place] [address] PCP - General Family Medicine 11/21/21 Wu Gallardo [address] [place] [address] Neurosurgery 02/19/24 Lazaro Healy MD [address] [place] [address] Gastroenterology 02/19/24 documented as of this encounter
--- OUTSIDE RECORDS SUMMARY | 2024-07-18 09:32 | XMS_ITS | Encounter Summary ---
Author Organization [employer] Address [address] [place] [address] Care Team Providers Care Mixed Livestock Farmer Name Role Phone Joy Villar Primary Care Provider [phone] Wu Gallardo Unavailable [phone] Lazaro Healy MD Unavailable Reason for Visit * Reason Onset Date Comments triage 05/28/2022 Encounter Details Date Type Department Care Team (Late st Contact Info) Description 05/28/2022 Telephone [facility] MED[facility]INE [address] [place] [address] Joy Villar FNP [address] [place], [place] [phone] triage Social History Tobacco Use Types Packs/Day [...] 05/28/2022 12:44 PM EST Triage call with [place] Life Skills Coordinator Volunteer ID [id number] Pt reports canceled 900am apt today. Pt [...] 2024 9:30 AM EDT Clinical Support [facility] MED & PEDS 505 [place] [address] Leatha Cortes, RN 505 [place] [address] documented as of this encounter Visit Diagnoses Not on filedocumented in this encounter Care Teams Mixed Livestock Farmer Relationship Specialty Start Date End Date Joy Villar FNP [address] [place] [address] PCP - General Family Medicine 11/21/21 Wu Gallardo [address] [place] [address] [address] [place] [address] Neurosurgery 02/19/24 Lazaro Healy MD [address] [place] [address] Gastroenterology 02/19/24 documented as of this encounter
--- OUTSIDE RECORDS SUMMARY | 2024-07-18 09:32 | XMS_ITS | Encounter Summary ---
Author Organization [email or web address] Address [address] [place] [address] Care Team Providers Care Mix Technician Name Role Phone Joy Villar Primary Care Provider [phone] Wu Gallardo Unavailable [phone] Lazaro Healy MD Unavailable Reason for Visit * Reason Onset Date Comments Med Refill 10/31/2023 Encounter Details Date Type Department Care Team (Late st Contact Info) Description 10/31/2023 Telephone [facility] MEDICINE [address] [place], [place] [phone] Joy Villar FNP [address] [place], [place] [phone] Med Refill Social History Tobacco Use Types [...] immediate release tablet To be sent to: [facility] - [place], [place] - [address] [place] [address] documented in this encounter Plan of Treatment Upcoming Encounters Date Type Department Care Team ([facility] st Contact Info) Description 2024 9:30 AM EDT Clinical Support [facility] MED & PEDS 505 [place] [address] Leatha Cortes, CORRINA 505 [place] [address] documented as of this encounter Visit Diagnoses Not on filedocumented in this encounter Additional Health Concerns Assessment Noted Time PHQ-9 Depression Total Score: 0 08/13/19 23 11:11 AM EDT documented as of this encounter Care Teams Mix Technician Relationship Specialty Start Date End Date Joy Villar FNP [address] [place] [address] PCP - General Family Medicine 11/21/21 Wu Gallardo [address] [place] [address] Neurosurgery 02/19/24 Lazaro Healy MD [address] [place] [address] Gastroenterology 02/19/24 documented as of this encounter
--- OUTSIDE RECORDS SUMMARY | 2024-07-18 09:32 | XMS_ITS | Encounter Summary ---
Author Organization [employer] Address [address] 7[address] [place] [address] Care Team Providers Care Hand Wood Sander Name Role Phone Joy Villar SHANICE Primary Care Provider [phone] Wu Gallardo Unavailable [phone] Lazaro Healy MD Unavailable Encounter Details Date Type Department Care Team (Late st Contact Info) Description 09/07/2022 Orders Only [facility] MEDICINE [address] [place] [address] Angeles Walton LPN Social History Tobacco Use [...] Description 2024 9:30 AM EDT Clinical Support [facility] MED & PEDS 505 [place] [address] Leatha Cortes, RN [address] [place] [address] documented as of this encounter Visit Diagnoses Not on filedocumented in this encounter Additional Health Concerns Assessment Noted Time PHQ-9 Depression Total Score: 0 08/13/19 23 11:11 AM EDT documented as of this encounter Care Teams Hand Wood Sander Relationship Specialty Start Date End Date Joy Villar FNP [address] [place] [address] PCP - General Family Medicine 11/21/21 Wu Gallardo [address] [place] [address] Neurosurgery 02/19/24 Lazaro Healy MD [address] [place] [address] Gastroenterology 02/19/24 documented as of this encounter
--- OUTSIDE RECORDS SUMMARY | 2024-07-18 09:32 | XMS_ITS | Clinical Summary ---
Author Organization [employer] Address [address] [place] [address] Care Team Providers Care Hoisting Machine Operator Name Role Phone AntwanJoy vergara SHANICE Primary Care Provider [phone] Wu Gallardo Unavailable [phone] Lazaro Healy MD Unavailable Allergies Active Allergy [...] 4-6 TIMES DAILY 100 each 11 Active NIFEdipine XL (Procardia XL) 60 MG 24 hr tablet Take 60 mg by mouth in the morning. 023 Active Alcohol Swabs (Alcohol Prep) 70 % pads USE TWICE DAILY 100 each 11 023 Active sucralfate (Carafate) 1 GM/10ML suspensionIndic ations:Gastroes ophageal reflux disease, unspecified whether esophagitis present TAKE 10ml BY MOUTH THREE TIMES DAILY 1 HOUR BEFORE MEALS AND AT BEDTIME ON AN EMPTY STOMACH 420 mL 2 024 Active cyclobenzaprine (Flexeril) 5 MG tabletIndicatio ns:Cervical radiculopathy,S ubacromial impingement of left shoulder Take 1 tablet (5 mg) by mouth if needed in the morning, at noon, and at bedtime for muscle spasms. 30 tablet 3 024 Active Continuous Glucose Sensor (FreeStyle Moose 2 Sensor) miscIndications :Type 2 diabetes mellitus with hypoglycemia without coma, unspecified whether longterm insulin use ([facility]),Hypog lycemia Apply 1 sensor every 14 days 2 each 11 Active levothyroxine (Synthroid, Levoxyl) 88 MCG tablet [...] AT BEDTIME 90 tablet 3 024 Active cholecalciferol (D3 Super Strength) 50 MCG (2000 UT) capsule TAKE 1 CAPSULE BY MOUTH EVERY MORNING 90 capsule 3 024 Active omeprazole (PriLOSEC) [address] capsule TAKE 1 CAPSULE BY MOUTH TWICE DAILY 1 HOUR BEFORE MEALS 180 capsule 3 024 Active Ascorbic Acid (vitamin C) 500 MG tabletIndicatio ns:Seasonal allergies TAKE 1 TABLET BY MOUTH TWICE DAILY IN THE MORNING AND AT BEDTIME 180 tablet 3 024 Active metFORMIN (Glucophage) 1000 MG tabletIndicatio ns:Diabetes mellitus type 2, noninsulin dependent (CMS/HCC) TAKE 1 TABLET BY MOUTH TWICE DAILY IN THE MORNING AND IN THE EVENING WITH MEALS 180 tablet 3 024 Active Advair Diskus 500-50 MCG/ACT aerosol powderIndicatio ns:Moderate persistent asthma without complication INHALE 1 PUFF BY MOUTH TWICE DAILY RINSE MOUTH AFTER USING. 60 each 11 024 Active zolpidem (Ambien) 10 MG tabletIndicatio ns:Insomnia, unspecified type Take 1 tablet (10 mg) by mouth if needed at bedtime for sleep. 30 tablet 024 Active escitalopram (Lexapro) 20 MG tabletIndicatio ns:Depression, unspecified depression type Take 1 tablet (20 mg) by mouth in the evening. TAKE 1 TABLET BY MOUTH EVERY EVENING (APPLY LAS 800PM) 30 tablet 024 Active losartan (Cozaar) 50 MG tabletIndicatio ns:Type 2 diabetes mellitus with hyperglycemia, without long-term current use of insulin (CMS/HCC) TAKE 1 TABLET BY MOUTH EVERY MORNING 90 tablet 3 024 Active hydroCHLOROthia zide (HYDRODiuril) 25 MG tablet TAKE 1 TABLET BY MOUTH EVERY MORNING 90 tablet 1 025 Active insulin glargine (Lantus SoloStar) 100 UNIT/ML penIndications: Type 2 diabetes mellitus without complication, without long-term current use of insulin (CMS/HCC) INJECT 5 UNITS SUBCUTANEOUSLY AT BEDTIME FOR FOURTEEN DAYS AFTER INJECTION DE ESTEROIDE 15 mL 1 025 Active Continuous Glucose Party Chief (FreeStyle Moose 2 [place]) deviceIndicatio ns:Type 2 diabetes mellitus with hypoglycemia without coma, unspecified whether terminal makeup operator insulin use (CMS/HCC),Hypog lycemia USE DIRECTED TO TEST BLOOD SUGAR EVERY 8 HOURS 1 each 2 025 Active Trulicity 1.5 MG/0.5ML solution auto-injector INJECT ONE PEN (=1.5MG) SUBCUTANEOUSLY ONCE A WEEK DIRECTED 2 mL 3 025 Active rosuvastatin (Crestor) 40 MG tabletIndicatio ns:Hypercholest erolemia Take 1 tablet (40 mg) by mouth at bedtime. (Cholesterol) 90 tablet 3 025 Active FREESTYLE LITE test stripIndication s:Type 2 diabetes mellitus without complication, without long-term current use of insulin ([facility]) TEST BLOOD SUGAR 4-6 TIMES PER DAY 150 strip 11 025 Active Continuous Glucose Party Chief (FreeStyle Moose 2 [place]) deviceIndicatio ns:Type 2 diabetes mellitus without complication, without long-term current use of insulin ([facility]) Use as directed to monitor glucose ever 8 hours. 1 each 025 Active oxyCODONE (Roxicodone) 10 MG immediate release tabletIndicatio ns:Chronic low back pain, unspecified back pain laterality, unspecified whether sciatica present,Subacro mial impingement of left shoulder Take 1 tablet (10 mg) by mouth every 8 (eight) hours if needed for severe pain. 84 tablet 025 Active FREESTYLE LITE test stripIndication s:Type 2 diabetes mellitus without complication, without long-term current use of insulin ([facility]) TEST BLOOD SUGAR 4-6 TIMES PER DAY 150 strip 11 025 2024 Discontinued(R eorder (will not trigger notification to Pharmacy)) acarbose (Precose) 50 MG tabletIndicatio ns:Type 2 diabetes mellitus without complication, unspecified whether longterm insulin use ([facility]) TAKE 1 TABLET BY MOUTH THREE TIMES DAILY IN THE MORNING, AT NOON, AND AT BEDTIME 270 tablet 1 025 2024 Discontinued(T herapy completed) oxyCODONE (Roxicodone) 10 MG immediate release tabletIndicatio [...] current use of opiate analgesic 2023 Overview (06/24/2024): Medication: oxycodone 10mg TID Indication: lumbar protrusion and spinal canal stenosis (see M54.9) Last POOL TABLE OPERATOR Agreement: 01/18/24 Tier II (POOL TABLE OPERATOR visits every 3 months) Upper abdominal pain [...] Overview (06/01/2023): -S/p surgery on 03/16/23 at [facility] -Continues with home physical therapy and following [...] Failed back syndrome of lumbar spine 10/05/2022 Assessment & Plan (06/24/2024 3:05 PM EDT): - Hx of previous L4-5 posterior instrumented fusion, and L5-S1 interbody fusion with no posterior instrumentation at this level. - [facility] consult Mar 2024: Do not suspect surgical intervention would be of benefit to pt - Referral to [facility] Pain Management placed 06/22/24 Migraine 10/05/2022 Myalgia 10/05/2022 Sacroiliac joint dysfunction of both sides 10/05 Facet arthropathy 08/15/2022 Assessment & Plan (08/15/2022 7:47 PM EDT): See below Routine health maintenance 08/11/2022 Overview (06/24/2024): DEXA: September 2021 WNL Mammo: Apr 2024 - BIRADS 2 Pap: 10/18/17 - NILM, HPV neg Colonoscopy: 2015 - WNL. Following with [facility] - Dr. Healy Optometry: SONID[place] Jan 2023 w/ Dr. 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 Need to review routine screenings and health history at follow up appt. Cervical radiculopathy 06/29/2021 Overview (02/17/2024): 05/10/23: [facility] Pain Management - Dr. Galloway. Interlaminar cervical [...] consult scheduled with Neurosurgery. Continues following with POOL TABLE OPERATOR Program. Obstructive sleep apnea syndrome 04/20/2021 Hypertension [...] use of insulin 04/13/2019 Assessment & Plan (06/24/2024 3:03 PM EDT): Lab Results Component Value Date HGBA1C 6.1 (A) 06/22/2024 A1c well controlled Monofilament testin11/11/23 abnormal/decreased sensation. Declined referral to podiatry. Reviewed foot care measures. Medications: Metformin 1000mg BID Trulicity 1.5mg subcutaneous weekly Insulin only following steroid injections: Lantus 5 units nightly x 2 weeks following steroid injections. Reviewed med safety and monitoring Previous medications: - Acarbose 50mg TID (DC as well controlled w/o med) -Encouraged to cont with lifestyle interventions -CGM Approval 08/15/23: FRANCA #[id number] (exp: 08/14/24). Improvement in A1c and hypoglycemic awareness noted with CGM. CGM data reviewed: 02/17/24 Assessment & Plan (02/19/2024 11:17 AM EST): [...] with lifestyle interventions -CGM Approval 08/15/23: FRANCA #[id number] (exp: 08/14/24). Improvement in A1c and hypoglycemic [...] with lifestyle interventions -CGM Approval 08/15/23: FRANCA #[id number] (exp: 08/14/24). Improvement in A1c and hypoglycemic [...] Hypothyroid 02/07/2015 Overview (08/13/2023): Previously following with [facility] Endo Continues on levothyroxine 88mcg daily Lab [...] oxycodone PRN May consider second opinion in [place] Assessment & Plan (08/15/2022 7:45 PM EDT): [...] BID Continues carafate 1g TID Following with [facility] GI - Dr. Healy EGD [...] Encounters Date Type Department Care Team Description 07/17/2024 Orders Only [facility] [employer] [facility] [address] [place], [place] [phone] Provider, MD Jordan 07/05/2024 10:00 AM EDT Clinical Support [facility] [address] [place] [address] Leatha Cortes, CORRINA Failed back syndrome of lumbar spine (Primary Dx) 07/05/2024 Travel 06/25/2024 Refill [facility] [address] [place] [address] Leatha Cortes RN Chronic low back pain, unspecified back pain laterality, unspecified whether sciatica present; Subacromial impingement of left shoulder 06/25/2024 Telephone [facility] [address] [place] [phone] Joy Villar FNP Med Refill 06/22/2024 11:00 AM EDT Office Visit [facility] [address] [place] [address] Joy Villar FNP Failed back syndrome of lumbar spine (Primary Dx); Type 2 diabetes mellitus without complication, without long-term current use of insulin ([facility]); Routine health maintenance; Long-term current use of opiate analgesic 06/22/2024 Travel 06/21/2024 Telephone [facility] [address] [place] [address] Joy Villar FNP Chart Prep 06/08/2024 Population Health Risk Score [facility] [address] [place] [phone] Provider, Population Health Generic 06/03/2024 Refill [facility] [address], [place] [phone] Joy Villar FNP Hypercholesterolemia 05/25/2024 Refill [facility] [address] [place] [address] Joy Villar FNP Chronic low back pain, unspecified back pain laterality, unspecified whether sciatica present; Subacromial impingement of left shoulder 05/23/2024 Refill [facility] [address] [place] [address] PhalDarryl vergarale, DRY ICE MACHINE OPERATOR 05/17/2024 Orders Only [facility] [address] [place] [address] Phalen Joy, DRY ICE MACHINE OPERATOR Type 2 diabetes mellitus without complication, unspecified whether longterm insulin use ([facility]) 05/17/2024 Telephone [facility] [address] [place] [address] Phalen Joy, DRY ICE MACHINE OPERATOR April05/11/2024 Refill [facility] [address] [place] [address] Phalursula Joy, DRY ICE MACHINE OPERATOR Type 2 diabetes mellitus without complication, without long-term current use of insulin ([facility]) 05/08/2024 Orders Only [facility] [address] [place] [address] Phalursula Joy, DRY ICE MACHINE OPERATOR 05/08/2024 Refill [facility] [address] [place] [address] Phalen Joy, DRY ICE MACHINE OPERATOR Type 2 diabetes mellitus with hypoglycemia without coma, unspecified whether terminal makeup operator insulin use ([facility]); Hypoglycemia 04/27/2024 Telephone [facility] [address] [place] [phone] Melvina Chapman RN Results 04/27/2024 Orders Only [facility] [address] [place] [phone] Natanael Guadarrama MD Dysuria (Primary Dx) 04/26/2024 Travel 04/25/2024 5:00 PM EST Office Visit [facility] [address] [place] [phone] Dysuria (Primary Dx); Hypertension, unspecified type 04/23/2024 Refill [facility] [address] [place] [phone] PhalDarryl vergarale, DRY ICE MACHINE OPERATOR Chronic low back pain, unspecified back pain laterality, unspecified whether sciatica present; Subacromial impingement of left shoulder 04/20/2024 Orders Only [facility] External Provider, [facility] from Last 3 Months Immunizations Name Administration [...] Sign Reading Time Taken Comments Blood Pressure 134/78 06/22/2024 11:05 AM EDT Pulse 87 06/22/2024 11:05 AM EDT Temperature 36.7 ??C (98 ??F) 06/22/2024 11:05 AM EDT Respiratory Rate 18 06/22/2024 11:05 AM EDT Oxygen Saturation 96% 06/22/2024 11:05 AM EDT Inhaled Oxygen Concentration - - Weight 72.3 kg (159 lb 8 oz) 06/22/2024 11:05 AM EDT Height 149.9 cm (4' 11 ) 06/22/2024 11:05 AM EDT Body Mass Index 32.22 06/22/2024 11:05 AM EDT Plan of Treatment Upcoming Encounters Date Type Department Care Team (Late st Contact Info) Description 2024 9:30 AM EDT Clinical Support [facility] [address] [place] [address] Leatha Cortes, CORRINA [address] [place] [address] Health Maintenance Due Date Last Done Comments CT Colonography 1965 Dental Oral Exam 1965 Dental Prophylaxis 1965 Dental X-Ray: Bitewings 1965 Dental X-Ray: Full Mouth 1965 FIT DNA/Cologuard 1965 FIT 1965 FOBT 1965 Sigmoidoscopy 1965 Alcohol/Substance Use Screening 1977 COVID-19 Vaccine ( season) 2023 11/23/2021, 02/27/2021, 08/20/2020, Additional history exists Diabetes: Foot Exam 11/10/2024 11/11/2023, 11/11/2023, 11/11/2023, Additional history exists Diabetes: Hemoglobin A1C 12/23/2024 025, 02/17/2024, 11/11/2023, Additional history exists Depression Screening 02/18/2025 02/19/2024, 02/19/20 Mammogram 05/08/2025 05/08/2024, 02/0 10/2023, 09/25/2021, Additional history exists Eye Exam 06/14/2025 06/14/2024, 032 , 02/10/2023 Diabetes: Urine Protein Screening 06/22/2025 06/22/2024, 05/06/2023, 09/21/2021, Additional history exists Lipid Panel 06/22/2025 06/22/2024, 02/0 11/2023, 02/11/2022, Additional history exists SDOH Screening 06/22/2025 06/22/2024 Tobacco Screening 06/22/2025 06/22/2024 Pap Smear 11/04/2025 11/04/2022 Colonoscopy 02/23/2026 02/24/2016 [...] Comments POCT MARGO-14 URINE DRUG SCREEN Routine 07/05/2024 9:59 AM EDT Failed back syndrome of lumbar spine POCT GLYCATED HEMOGLOBIN, TOTAL Routine 06/22/2024 12:17 PM EDT Type 2 diabetes mellitus without complication, without long-term current use of insulin ([facility]/HCC) ALBUMIN, RANDOM URINE W/CREATININE Routine 06/22/2024 11:57 AM EDT Type 2 diabetes mellitus without complication, without long-term current use of insulin (CMS/HCC) VITAMIN B12 Routine 06/22/2024 11:52 AM EDT Type 2 diabetes mellitus without complication, without long-term current use of insulin (CMS/HCC) COMPREHENSIVE METABOLIC PANEL Routine 06/22/2024 11:52 AM EDT Type 2 diabetes mellitus without complication, without long-term current use of insulin (CMS/HCC) LIPID PANEL, STANDARD Routine 06/22/2024 11:52 AM EDT Type 2 diabetes mellitus without complication, without long-term current use of insulin ([facility]) POCT GLUCOSE Routine 06/22/2024 11:19 AM EDT Type 2 diabetes mellitus without complication, without long-term current use of insulin ([facility]) DIABETES EYE EXAM Routine 06/14/2024 4:01 PM EDT BI MAMMOGRAM SCREENING TOMOSYNTHESIS BILATERAL Routine 05/08/2024 12:45 PM EST CULTURE, URINE, ROUTINE Routine 04/25/2024 5:57 PM EST Dysuria POCT URINALYSIS DIPSTICK Routine 04/25/2024 5:[address] LUMBAR SPINE WO CONTRAST Routine 04/21/2024 7:28 AM EST HEPATITIS C VIRAL RNA, QUANTITATIVE, REAL-TIME PCR [...] Results * POCT MARGO-14 Urine Drug Screen (07/05/2024 9:59 AM EDT) Oxycodone Screen, Urine Positive Urine Urine specimen obtained by clean catch procedure / Unknown 07/05/2024 9:59 AM EDT Narrative Leatha Cortes RN - 07/05/2024 9:59 AM EDT Lot# [id number] Exp: 11-14-25 Joy Villar DRY ICE MACHINE OPERATOR POINT OF CARE TEST ENTER/EDIT ORDERABLES Final Result * (ABNORMAL) POCT HGB A1C (06/22/2024 12:17 PM EDT) Hemoglobin A1C 6.1(A) 4.0 - 6.0 % QC Media Lot # [id number] Lot# Expiration Date Blood 06/22/2024 12:1 7 PM EDT Joy Villar DRY ICE MACHINE OPERATOR POINT OF CARE TEST ENTER/EDIT ORDERABLES Final Result * Albumin, Random Urine W/Creatinine (06/22/2024 11:57 AM EDT) Creatinine, Urine 46.52 mg/dL [facility] Microalbumin Urine 6.0 mg/L [facility] Microalbum Creatinine Ratio Ur 12.8 <30 ug/mg cr [facility] Comment:Albumin/Creatinine R atio Reference Ranges: Normal: < 30 ug/mg creatinine Microalbuminuria: 30 - 300 ug/mg creatinineClinical Albuminuria: > 300 ug/mg creatinine Urine 06/22/2024 11:5 7 AM EDT 06/22/2024 2:05 PM EDT Joy Villar [facility] URINE ORDERABLES Final Res ult [facility] [address] [place] [phone] * Vitamin B12 (06/22/2024 11:52 AM EDT) Vitamin B12 566 200 - 900 pg/mL [facility] Comment:NORMAL 200-900 PG/ML INDETERMINATE 160-199 PG/ML DEFICIENT < 160 PG/ML Blood Venous blood specimen / Unknown 06/22/2024 11:52 AM EDT 06/22/2024 2:08 PM EDT Joy Villar [facility] BLOOD ORDERABLES Final Res ult Performing Organization Address [facility] Co de Phone Number [facility] [address] [place] [address] [phone] * Lipid Panel, Standard (06/22/2024 11:52 AM EDT) Triglycerides 65 <150 mg/dL [facility] Comment:Desirable Triglyceri de: less than 150 mg/dLBorderline High Triglyceride 150-199 mg/dLHigh Triglyceride: 200-499 mg/dLVery High Triglyceride: greater than or equal to 5OO mg/dL Cholesterol 86 <200 mg/dL [facility] Comment:Desirable Cholestero l: less than 200 mg/dLBorderline High Cholesterol: 200-239 mg/dLHigh Cholesterol: greater than 239 mg/dL LDL Cholesterol Calculated 28 <100 mg/dL [facility] Comment:Desirable LDL: less than 100 mg/dLNear Optimal/Above Optimal LDL: 110- 129 mg/dLBorderline High LDL: 130-159 mg/dLHigh LDL: 160-189 mg/dLVery High LDL: greater than or equal to 190 mg/dL HDL Cholesterol 45 >40 mg/dL [facility] Comment:Desirable HDL: great er than 40 mg/dL Note: This HDL assay may give artificially low results in patients with liver disease. Blood Venous blood specimen / Unknown 06/22/2024 11:52 AM EDT 06/22/2024 2:08 PM EDT Joy Villar DRY ICE MACHINE OPERATOR LAB BLOOD ORDERABLES Final Res ult Performing Organization Address [facility]/ZIP Co de Phone Number [facility] [address] [place] [address] [phone] * (ABNORMAL) Comprehensive Metabolic Panel (06/22/2024 11:52 AM EDT) Sodium 140 135 - 145 mmol/L [facility] Potassium 3.8 3.3 - 5.1 mmol/L [facility] Chloride 105 96 - 108 mmol/L [facility] Carbon Dioxide 28 22 - 29 mmol/L [facility] Anion Gap 11(L) 12 - 20 [facility] Urea Nitrogen (BUN) 13 9 - 16 mg/dL [facility] Creatinine, Serum 0.62 0.5 - 1.4 mg/dL [facility] Estimated Glomerular Filt Rate >60 [facility] Comment:Chronic Kidney Disea se: Estimated GFR < 60 mL/min/1.85p5Tbvsje Kidney Disease: Estimated GFR < 15 mL/min/1.73m2 Glucose 72 60 - 115 mg/dL [facility] Calcium 9.7 8.4 - 10.2 mg/dL [facility] Bilirubin, Total 0.5 0.0 - 1.0 mg/dL [facility] Aspartate Amino Transferase 43(H) 5 - 31 U/L [facility] Alanine Aminotransferase 44(H) 0 - 31 U/L [facility] Total Protein 6.7 6.5 - 8.0 g/dL [facility] Albumin Level 3.9 3.5 - 5.0 g/dL [facility] Alkaline Phosphatase 85 39 - 117 U/L [facility] Blood Venous blood specimen / Unknown 06/22/2024 11:52 AM EDT 06/22/2024 2:08 PM EDT us Joy [facility]AS[facility] LAB BLOOD ORDERABLES Final Res ult [facility] [address] [place] [phone] * POCT Glucose (06/22/2024 11:19 AM EDT) Glucose Blood, POC 100 60 - 200 mg/dL QC Media Lot # [id number] Lot# Expiration Date [id number] Blood Capillary blood specimen / Unknown 06/22/2024 11:19 AM EDT us Joy Villar DRY ICE MACHINE OPERATOR POINT OF CARE TEST ENTER/EDIT ORDERABLES Final Result * Hm Diabetes Eye Exam (06/14/2024 4:01 PM EDT) us Historical Provider MD HEALTH MAINTENANCE Final Result * BI Mammogram Screening Tomosynthesis Bilateral (05/08/2024 12:45 PM EST) Anatomical Region Laterality Modality Breast Bilateral Mammography 05/08/2024 12:4 5 PM EST Narrative 05/17/2024 1:54 PM EST ? [facility] [place] ? [address] ?[place], [place] [id number] ? Mammography Report ? Signed ? Patient: Elin Johnson ?MR# ?? : [id number] ? : 1965 ?Acct:[id number] ? Age/Sex: 58 / F ?ADM Date: 05/08/24 ? Loc: HO.MAMMO ? Attending Dr: Joy Villar DRY ICE MACHINE OPERATOR ? Ordering Physician: Aurea,Joy DRY ICE MACHINE OPERATOR ?Results: 2Benig ?? n Findings ? Date of Service: 05/08/24 ?Follow Up: 1 Year From Orig ?? inal Mammogram ? Procedure(s): MM tomosynthesis screening BI ?? Accession Number(s): [id number] ? cc: Joy Villar DRY ICE MACHINE OPERATOR ? EXAMINATION: ?? MM SCREENING DIGITAL BREAST TOMOSYNTHESIS, BILATERAL ? CLINICAL INFORMATION: ? Screening. Asymptomatic. ? COMPARISON: ?? Mammography: Comparison is made with available priors ? TECHNIQUE: ?? Digital breast mammography with tomosynthesis is performed in both the ?? craniocaudal and mediolateral oblique views along with computer-aided ?? detection (CAD). ? FINDINGS: ?? There are scattered areas of fibroglandular density (ACR BI-RADS breast ?? composition Category b). ?? Focal asymmetry central outer right breast stable dating back to 2020. ?? There are no significant masses, abnormal calcifications, or other ?? abnormalities. ? MM/MM tomosynthesis screening BI ?? IMPRESSION: ?? No mammographic evidence of malignancy. ? ASSESSMENT: ? BI-RADS BI-RADS 2 - Benign Findings ? RECOMMENDATION: ?? Routine annual mammography screening. ? 1 year F/U ? This examination should not preclude the clinical evaluation of a ?? suspicious palpable abnormality. ? This patient's information was entered into a reminder system with a ?? target due date for their next mammogram. ? Electronically signed by: ??Elizabeth Sue DO ??05/17/2024 01:52 PM EST ? Dictated By: ?Elizabeth Sue DO ? Signed By: ?<Electronically signed by Elizabeth Sue, DO in OV> ? 05/17/24 1352 ? DD/ 1245 ? TD/TT: 05/08/24 1300 ? Finisher Fine Diamond Dies: ? Procedure Note Karan, Image - 05/17/2024 [facility] [address] [place] [address] Dr. Jansen, [place] [id number] Mammography Report Signed Patient: Elin Johnson MMR# : [id number] : 1965Acct:[id number] Age/Sex: 58 / FADM Date: 05/08/24 Loc: HO.MAMMO Attending Dr: Joy Villar DRY ICE MACHINE OPERATOR Ordering Physician: Joy Villar FNPResults: 2Benig n Findings Date of Service: 05/08/24Follow Up: 1 Year From Orig inal Mammogram Procedure(s): MM tomosynthesis screening BI Accession Number(s): [id number] cc: Joy Villar DRY ICE MACHINE OPERATOR EXAMINATION: MM SCREENING DIGITAL BREAST TOMOSYNTHESIS, BILATERAL CLINICAL INFORMATION: Screening. Asymptomatic. COMPARISON: Mammography: Comparison is made with available priors TECHNIQUE: Digital breast mammography with tomosynthesis is performed in both the craniocaudal and mediolateral oblique views along with computer-aided detection (CAD). FINDINGS: There are scattered areas of fibroglandular density (ACR BI-RADS breast composition Category b). Focal asymmetry central outer right breast stable dating back to 2020. There are no significant masses, abnormal calcifications, or other abnormalities. MM/MM tomosynthesis screening BI IMPRESSION: No mammographic evidence of malignancy. ASSESSMENT: BI-RADS BI-RADS 2 - Benign Findings RECOMMENDATION: Routine annual mammography screening. 1 year F/U This examination should not preclude the clinical evaluation of a suspicious palpable abnormality. This patient's information was entered into a reminder system with a target due date for their next mammogram. Electronically signed by: Elizabeth Sue DO 05/17/2024 01:52 PM EST Dictated By: Elizabeth Sue DO Signed By: <Electronically signed by Elizabeth Sue DO in OV> 05/17/24 1352 DD/ 1245 TD/TT: 05/08/24 1300 Finisher Fine Diamond Dies: Joy Villar DRY ICE MACHINE OPERATOR IMG BI PROCEDURES Final Result * Culture, Urine, Routine (04/25/2024 5:57 PM EST) Urine Urine specimen obtained by clean catch procedure / Unknown 04/25/2024 5:57 PM EST 04/26/2024 12:28 PM EST Comment:RUST Narrative [facility] - 04/27/2024 9:14 AM EST Urine Culture No growth. Specimen Source: Urine clean catch Natanael Guadarrama MD LAB MICROBIOLOGY - GENERAL ORDER SANDY Final Result [facility] [address] [place] [phone] * POCT urinalysis dipstick manually resulted (04/25/2024 [...] Media Lot # [id number] Lot# Expiration Date [id number] Urine 04/25/2024 5:50 PM EST Natanael Guadarrama MD POINT OF CARE TEST ENTER/EDIT OR DERABLES Final Result * CT Lumbar Spine w/o Contrast (04/21/2024 7:28 AM EST) Anatomical Region Laterality Modality Spine, L-spine Computed Tomogra phy 04/21/2024 7:28 AM EST Narrative 04/21/2024 7:29 AM EST ? [facility] ?[address] ?[place] [address] ? CT Scan Report ? Signed ? Patient: Elin Johnson ?MR# ?? : [id number] ? : 1965 ?Acct:[id number] ? Age/Sex: 58 / F ?ADM Date: 04/20/24 ? Loc: HO.CT ? Attending Dr: Igor SCHULTE ? Ordering Physician: Igor Walker ?? Date of Service: 04/20/24 ?? Procedure(s): CT lumbar spine wo IV con ?? Accession Number(s): [id number] ? cc: Joy VillarP; Igor Walker ? Report Number: ?? [id number]: Total DLP = ??661.00 mGy-cm ? CLINICAL [...] ? DD/ 7 ? TD/TT: 04/21/24727 ? Finisher Fine Diamond Dies: ? 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 Nonreactive results in this assay for individualswith prior exposure to HIV-1 and/or HIV-2 may be due toantigen and antibody levels that are below the limit ofdetection of this assay.The [employer] HIV Ag/Ab Combo assay result andsupplemental assay results should be interpreted inconjunction with the patient's clinical presentation,history and other laboratory results. If the results areinconsistent with clinical evidence, additional testing issuggested to confirm the result. 11/05/2022 8:59 AM EDT 11/05/2022 11:13 AM EDT us Joy Villar DRY ICE MACHINE OPERATOR LAB BLOOD ORDERABLES Final Res ult [facility] [address] [place] [phone] * Hepatitis C Viral RNA, Quantitative, Real-Time PCR (11/05/2022 8:59 AM EDT) [facility] Hepatitis C Viral Load <15 NOT DETECTED NOT DETECTED IU/mL [facility] HCV Log PCR <1.18 NOT DETECTED NOT DETECTED Log IU/mL [facility] Comment:This test was perfor med using Real-Time Polymerase ChainReaction.Reportable Range: 15 IU/mL to 100,000,000 IU/mL(1.18 Log IU/mL to 8.00 Log IU/mL).The analytical performance characteristics of thisassay have been determined by [facility].The modifications have not been cleared or approved bythe FDA. This assay has been validated pursuant to theCLIA regulations and is used for clinical purposes.For more information on this test, go to:http://education.[employer].Avaz/faq/BEE61v4(This link is being provided for informational/educational purposes only.)THIS TEST WAS PERFORMED AT:[facility] [place] [id number] COTTO MD Blood 11/05/2022 8:59 AM EDT 11/05/2022 11:13 AM EDT Joy Villar [facility] LAB BLOOD ORDERABLES Final Res ult Performing Organization Address [facility] Co de Phone Number [facility] [address] [place] [phone] * HPV mRNA E6/E7 w/Reflex to HPV Genotypes 16, 18/45 (11/04/2022 12:00 AM EDT) HPV nRNA E6/E7 Not Detected Not Detected [facility] Comment:Methodology: Transcr iption-Mediated AmplificationThis assay detects E6/E7 viral messenger RNA (mRNA) from 14high-risk HPV types (16,18,31,33,35,39,45,51,52,56,58,59,66,68).Cervical sources are required for HPV testing.If a vaginal source from a patient who has had atotal hysterectomy with removal of cervix wassubmitted, please contact the testing laboratoryfor alternative testing options.For additional information, please refer tohttp://education.[employer]/faq/FYW749t5(This link if provided for information/educational purposes only.)THIS TEST WAS PERFORMED AT:[facility] [place] [phone] COTTO MD HPV mRNA E6/E7 TNP [facility] HPV 16 RNA TNP [facility] HPV 18/45 RNA [facility] 11/04/2022 11/05/2022 9:3 0 AM EDT us Joy MARIAP LAB CYTOLOGY ORDERABLES Final Result Performing Organization Address City/[facility]/ZIP Co de Phone Number [facility] [address] [place] [address] [phone] * Pap Smear (11/04/2022 12:00 AM EDT) Swab Cervical swab / Unknown 11/04/2022 11/05/2022 9:30 AM EDT Narrative [facility] - 11/23/2022 10:21 AM EDT ----- ------- Name: Elin Johnson ? Age/Sex: 57/F ? : 1965 Unit#: [id number] ?? Attend Dr: Joy Villar ?Re11/04/22 ?Status: DEP REF ? Location: HO.HHCLNP ? Disch: ? ----- ------- SPEC : [id number] ?RECD: 11/05/22-929 ? STATUS: ??SOUT ? REQ NUM: [id number] ? VIRY: 11/04/22-0000 ? SUBM DR: Joy Villar ? ENTERED: ??11/05/22-1133 ?SP TYPE: Pap Smr ?OTHR : ? [...] 66, 68) ?? HPV testing performed by [facility], [place], [place]. ??See reference laboratory ?? pion of the EMR for entire report. ?Clinical Information LMP:Postmenopausal Previous PAP test:10/18/17, WNL ? Material Received ?? ThinPrep-Cervical ----- ------- Signed (signature on file) ELVIA Valenzuela (ASCP) 11/23/22 1021 ? ----- ------- ? END OF REPORT ? Joy Villar DRY ICE MACHINE OPERATOR LAB CYTOLOGY ORDERABLES Final Result [facility] [address] [place] [address] [phone] * Colonoscopy (02/24/2016) Pathologist [facility] Colonoscopy Normal Normal Historical Provider HEALTH MAINTENANCE Final Result from Last 3 Months or Most Recently Relevant to Health Maintenance Insurance [facility] C3 Care Teams Hoisting Machine Operator Relationship Specialty Start Date End Date Joy Villar FNP [address] [place] [address] PCP - General Family Medicine 11/21/21 Wu Gallardo [address] [place] [address] Neurosurgery 02/19/24 Lazaro Healy MD [address] [place] [address] Gastroenterology 02/19/24
--- OUTSIDE RECORDS SUMMARY | 2024-07-18 09:32 | XMS_ITS | Encounter Summary ---
Author Organization [employer] Address [address] [place] [address] Care Team Providers Care Sales Representative Health Insurance Name Role Phone Joy Villar Primary Care Provider Wu Gallardo Unavailable [phone] Lazrao Healy MD Unavailable Reason for Visit * Reason Onset Date Comments Call Back Request 02/03/2024 Encounter Details Date Type Department Care Team ([facility] st Contact Info) Description 02/03/2024 Telephone [facility] [address] [place], [place] [phone] Joy Villar FNP [address] [place], [place] [phone] Call Back Request Social History Tobacco Use [...] 02/03/2024 8:18 AM EST Cyrus Nash with [facility] requesting call back to verify if pcp would like to do a regular barium swallow due to the modified having to be done with speech and hearing. Please contact Charity at [phone]. documented in this encounter Plan of Treatment Upcoming Encounters Date Type Department Care Team (Late st Contact Info) Description 2024 9:30 AM EDT Clinical Support [facility] [address] [place] [address] Leatha Cortes, RN [address] [place] [address] documented as of this encounter Visit Diagnoses Diagnosis Dysphagia, unspecified type- Primary documented in this encounter Additional Health Concerns Assessment Noted Time PHQ-9 Depression Total Score: 0 08/13/19 23 11:11 AM EDT documented as of this encounter Care Teams Sales Representative Health Insurance Relationship Specialty Start Date End Date Joy Villar FNP [address] [place] [address] PCP - General Family Medicine 11/21/21 Wu Gallardo [address] [place] [address] Neurosurgery 02/19/24 Lazaro Healy MD [address] [place] [address] Gastroenterology 02/19/24 documented as of this encounter
== END 2024-07-18 09:18 | disposition home or self-care (01) ==
LOC: HO.PMC 08:54
PROVIDERS: PCP Registered Nurse; Referring Provider Registered Nurse; Visit Provider Anesthesiology
DX: M54.12 Radiculopathy, cervical region (principal); M50.30 Other cervical disc degeneration, unspecified cervical region; G89.4 Chronic pain syndrome
CPT/HCPCS: 99213

== ENCOUNTER → 2024-07-18 08:53 | Outpatient (BNVA) | payer MEDICAID, SELFPAY | PROVIDERS: PCP Registered Nurse; Referring Provider Registered Nurse; Visit Provider Anesthesiology | DX: M54.12 Radiculopathy, cervical region (principal); M50.30 Other cervical disc degeneration, unspecified cervical region; G89.4 Chronic pain syndrome | CPT/HCPCS: 99212 ==

== ENCOUNTER 2024-08-22 08:56 | Outpatient (REF) | payer MEDICAID, SELFPAY ==
--- OUTSIDE RECORDS SUMMARY | 2024-08-22 09:19 | XMS_ITS | Encounter Summary ---
Author Organization [employer] Address [address] [facility] 7t [place] [address] Care Team Providers Care Social Problems Specialist Name Role Phone Joy Villar Primary Care Provider [phone] Wu Gallardo Unavailable [phone] Lazaro Healy MD Unavailable Encounter Details Date Type Department Care Team (Late st Contact Info) Description 03/08/2022 Telephone [facility] [address] [place], [place] [phone] Joy Villar FNP [address] [place], [place] [phone] Social History Tobacco Use Types Packs/Day Years [...] Description 2024 9:30 AM EDT Clinical Support [facility] [address] [place], [place] [phone] Leatha Cortes, CORRINA [address] [place], [place] [phone] 10/10/2024 9:00 AM EDT Office Visit [facility] [address] [place], [place] [phone] Joy Villar FNP [address] [place] [address] documented as of this encounter Visit Diagnoses Not on filedocumented in this encounter Care Teams Social Problems Specialist Relationship Specialty Start Date End Date Joy Villar FNP [address] [place] [address] PCP - General Family Medicine 11/21/21 Wu Gallardo [address] [place] [address] Neurosurgery 02/19/24 Lazaro Healy MD [address] [place] [address] Gastroenterology 02/19/24 documented as of this encounter
[2024-08-22 11:07] LABS: MANUAL DIFF FLAG NO
[2024-08-22 11:16] LABS: Basophils Percent Auto 0.6 % (0-2); Eosinophils Absolute Auto 0.1 X10*3/uL (0.0-0.4); Eosinophils Percent Auto 1.3 % (0-4); Hematocrit 40.5 % (37.0-47.0); Imm Gran Abs Auto 0.02 X10*3/uL (0.00-0.03); Imm Gran Pct Auto 0.3 % (0.0-0.4); Lymphocytes Percent Auto 28.7 % (20-40); Mean Corpuscular HGB Conc 34.6 g/dl (31.0-35.0); Mean Corpuscular Hemoglobin 30.8 pg (27.0-33.0); Mean Platelet Volume 9.8 fL (9.4-12.3); Monocytes Absolute Auto 0.6 X10*3/uL (0.1-1.2); Monocytes Percent Auto 8.6 % (2-11); Neutrophils Absolute Auto 4.2 x10*3/uL (2.0-8.3); Neutrophils Percent Auto 60.5 % (45-73); Platelet Count 300 X10*3/uL (160-400); Red Blood Count 4.55 X10*6/uL (4.20-5.50); Red Cell Distribution Width 12.3 % (11.0-16.0); White Blood Count 6.9 X10*3/uL (4.8-10.8)
[2024-08-22 12:29] LABS: Alanine Aminotransferase 85 U/L (0-31); Albumin Level 4.3 g/dL (3.5-5.0); Alkaline Phosphatase 83 U/L (39-117); Amylase 140 U/L (28-100); Anion Gap 12 (12-20); Aspartate Amino Transferase 60 U/L (5-31); Blood Urea Nitrogen 9 mg/dL (9-16); Calcium 9.6 mg/dL (8.4-10.2); Carbon Dioxide 31 mmol/L (22-29); Chloride 100 mmol/L (96-108); Estimated Glomerular Filt Rate > 60; Glucose Random 137 mg/dL (60-115); Lipase 63 U/L (8-78); Potassium 3.4 mmol/L (3.3-5.1); Sodium 140 mmol/L (135-145)
[2024-08-22 13:10] LABS: Bilirubin Total 0.7 mg/dL (0.0-1.0)
== END 2024-08-22 08:57 | disposition home or self-care (01) ==
LOC: HO.HHCL 08:56
PROVIDERS: Visit Provider Internal Medicine
DX: R10.13 Epigastric pain (principal)
CPT/HCPCS: 36415; 80053; 82150; 83690; 85025

== ENCOUNTER 2024-08-24 07:56 | Day surgery (SDC) | payer MEDICAID, SELFPAY ==
--- OUTSIDE RECORDS SUMMARY | 2024-08-07 15:42 | XMS_ITS | Clinical Summary ---
Author Organization [facility], Address [address] [place] [address] [place] [address] Phone Care Team Providers Care Manager Lvn Name Role Phone Unavailable Primary Care Provider [...] DAILY IN THE MORNING AND AT BEDTIME 04/04/19 21 Active cholecalcifero l (VITAMIN D-3) 50 MCG (2000 UT) capsule Take 2,000 Units by mouth 1 (one) time each day 04/04/19 21 Active Victoza 18 MG/3ML injection INJECT 1.8 MG SUBCUTANEOUSLY ONCE DAILY DIRECTED 04/04/19 21 Active losartan (COZAAR) 50 MG tablet Take 50 mg by mouth 04/04/19 21 Active metFORMIN (GLUCOPHAGE) 1000 MG tablet TAKE 1 TABLET BY MOUTH TWICE DAILY IN THE MORNING AND IN THE EVENING WITH FOOD 04/04/19 21 Active omeprazole (PriLOSEC) [address] capsule TAKE 1 CAPSULE BY MOUTH TWICE DAILY 1 HOUR BEFORE BREAKFAST AND 1 HOUR BEFORE SUPPER 04/04/19 21 Active oxyCODONE (ROXICODONE) 5 MG immediate release tablet Take 5 mg by mouth 4 (four) times a day if needed 04/22/19 21 Active zolpidem (AMBIEN) 10 MG tablet Take 10 mg by mouth at night if needed 04/04/19 21 Active acetaminophen (Arthritis Pain Relief) 650 MG [...] BY MOUTH EVERY MORNING 90 tablet 3 12/07/19 23 Active escitalopram (LEXAPRO) 20 MG tablet TAKE 1 TABLET BY MOUTH EVERY EVENING A LAS 8PM 11/09/19 23 Active levothyroxine (SYNTHROID, LEVOTHROID) 100 MCG tablet TAKE 1 TABLET BY MOUTH EVERY MORNING BEFORE MEALS 11/26/19 23 Active metFORMIN (GLUCOPHAGE) 500 MG tablet TAKE 1 TABLET BY MOUTH TWICE DAILY IN THE MORNING AND IN THE EVENING WITH FOOD 09/15/19 23 Active NIFEdipine XL (PROCARDIA XL) 60 MG 24 hr tablet TAKE 1 TABLET BY MOUTH EVERY MORNING 30 tablet 11 03/29/19 24 025 Discontin ued(Side effects) Active Problems Problem Noted Date Diagnosed Date Chronic kidney disease stage 1 12/06/2022 Stage 3a chronic kidney disease 04/13/2019 Hypertensive disorder 04/13/2019 Type 2 diabetes mellitus 04/13/2019 Resolved Problems Problem Noted Date Diagnosed Date Resolved Date Asthma 04/13/2019 12/14/2020 Disorder of kidney 04/13/2019 Gastroesophageal reflux disease 04/13/2019 12/14/2020 Hypercholesterolemia 04/13/2019 021 Hypothyroidism 04/13/2019 12/14/2020 Migraine 04/13/2019 12/14/2020 Encounters Date Type Department Care Team Description 08/02/2024 Orders Only [facility], [address] [place] [address] Chichi Lopez from Last 3 Months Immunizations Immunization Administration Dates Next Due Influenza, [...] of 3 - 19+ 3-dose series) 1984 02/07/2015, 09/10/2013, 08/08/2013 Colorectal Cancer Screening: Annual FOBT 2014 Colorectal Cancer Screening: Colonoscopy 2014 Colorectal Cancer Screening: Sigmoidoscopy 2014 Diabetes: Ophthalmology Exam 04/13/2019 Diabetes: Pedal Pulse Checked 04/13/2019 Diabetes: Sensory Foot Exam 04/13/2019 Diabetes: Visual Foot Exam 04/13/2019 Diabetes: Hemoglobin A1C 09/22/2024 025, 05/05/2020, 04/19/2019 Pneumococcal Vaccine: 50+ Years Completed 01/28/2023, 09/20/2017, 07/21/2016 Pneumococcal Vaccine: Peds ( 0 to 5 Years) and At-Risk Patients (6 to 49 Years) Discontinued 01/28/2023, 09/20/2017, 07/21/2016 Influenza Vaccine Completed 01/03/2024, , 02/11/2022, Additional history exists Procedures Procedure Name Priority Date/Time Associated Diagnosis Comments HEMOGLOBIN A1C Routine 05/05/2020 9:43 AM EST Type 2 diabetes mellitus, not otherwise specified (HCC) from Last 3 Months or Most Recently Relevant to Health Maintenance Results * (ABNORMAL) Hemoglobin A1c (05/05/2020 9:43 AM EST) Hemoglobin A1C 6.5(H) (4.0-5.6) % [facility] Comment: MONITORING: In known diabetic patients, hemoglobin A1c targets should be discussed with health care provider. DIAGNOSTIC USE: ??The [place] Diabetes Association (ADA) and the World Health [...] Supplement 1 Testing performed or reported by [facility], a Service of [facility], [address] [place] [phone] Cesilia Saavedra MD, Varnish Dipper Blood (Blood, Venous) 05/05/2020 9:43 AM EST 05/05/2020 9:44 AM EST Simba Olsen MD LAB BLOOD ORDERABLES Final Resul t BAY from Last 3 Months or Most Recently Relevant to Health Maintenance Insurance Medicaid [place]
--- OUTSIDE RECORDS SUMMARY | 2024-08-07 15:42 | XMS_ITS | Encounter Summary ---
Author Organization [facility] Address [address] [place] [address] Phone Care Team Providers Care Production Clerks Supervisor Name Role Phone Unavailable Primary Care Provider Unavailabl e Encounter Details Date Type Department Care Team (Late st Contact Info) Description 08/02/2024 Orders Only [facility], [address] [place] [address] Chichi Lopez [address] [place] [address] Social History Tobacco Use Types Packs/Day Years [...]
--- OUTSIDE RECORDS SUMMARY | 2024-08-07 15:42 | XMS_ITS | Encounter Summary ---
Author Organization [facility] Address [address] [place] [address] Phone Care Team Providers Care Fountain Jerk Name Role Phone Unavailable Primary Care Provider Unavailabl e Encounter Details Date Type Department Care Team (Late st Contact Info) Description 12/15/2021 Documentation Only [facility], [address] [place] [phone] Tami Prescott PA Social History Tobacco Use [...]
--- OUTSIDE RECORDS SUMMARY | 2024-08-07 15:42 | XMS_ITS | Encounter Summary ---
Author Organization [facility] [place], Address [address] [place] [address] Phone Care Team Providers Care Healthcare Educator Name Role Phone Unavailable Primary Care Provider Unavailabl e Reason for Visit * Reason Comments Med Refill Encounter Details Date Type Department Care Team (Late st Contact Info) Description 03/19/2024 Refill [facility] [place], [address] [place] [address] Simba Olsen MD [address] [place] [phone] Social History Tobacco Use Types Packs/Day Years [...]
--- NOTE | 2024-08-23 13:12 | P.CONAN_ITS ---
Documented by User: Justina Forrest NP 08/23/24 13:15 HPI - Anesthesia Eval Consult details Narrative: 58yo F for Colonoscopy Anesthesia Pre-Procedure Meds Is the patient on any of the following meds?: GLP1/DPP4 PMFSH Active Problems Active Problems: All Active Problems Lumbar radiculopathy (Acute) S/P cervical spinal fusion (Acute) Subacromial impingement of left shoulder (Acute) Internal derangement of left shoulder (Acute) Peripheral neuropathy (Acute) Chronic pain syndrome (Acute) Degeneration, intervertebral disc, cervical (Acute) Chest discomfort (Acute) Cervical radiculopathy (Acute) Other and unspecified hyperlipidemia (Acute) Essential hypertension (Acute) Type 2 diabetes mellitus with unspecified complications (Acute) Precordial chest pain (Acute) S/P rotator cuff repair (Acute) Right rotator cuff tear (Acute) Vitamin D deficiency (Acute) Hypothyroidism (Acute) Rotator cuff dysfunction (Acute) Bursitis of right shoulder (Acute) Hypertension (Acute) Type 2 diabetes mellitus (Acute) HLD (hyperlipidemia) (Acute) Past Medical History Medical History (Updated 03/15/24 @ 10:50 by FRANCA Claudio) Scratching Migraine headache GERD (gastroesophageal reflux disease) Chronic back pain Anxiety and depression Elevated cholesterol Right rotator cuff tear Vitamin D deficiency Rotator cuff dysfunction Bursitis of right shoulder HLD (hyperlipidemia) Type 2 diabetes mellitus Hypothyroidism Hypertension Asthma Dyspepsia Family History Family History Father Diabetes Mother Diabetes Family history of problems with anesthesia: No Surgical History Surgical History (Updated 01/19/24 @ 11:10 by FRANCA Claudio) Hx of cervical discectomy History of arthroscopy of left shoulder (03/16/23) History of surgery on arm Hx of section Hx of colonoscopy History of esophagogastroduodenoscopy (EGD) History of appendectomy Previous back surgery (~2004) History of Problems with Anesthesia: No Social History Social History (Updated 12/15/23 @ 10:48 by Ayesha Chowdhury RN) Household Members: Other Household Members Other:: [employer] Housing: Apartment Are you a primary school childcare attendant to a significant other at home: No Do you presently have visiting nurse or other home services: No Alcohol intake: never Patient Tobacco Use Status: Former Tobacco user Tobacco use type: Cigarette Advance Directives: No Advance Directives Information Provided: Yes Current occupational status: disabled Current occupation: Right Handed Meds Allergies Allergy/AdvReac Type Severity Reaction Status Date / Time aspirin [ASA] Allergy Intermediate RASH Verified 07/18/24 08:59 cortisone [CORTISONE] Allergy Intermediate BAD Verified 07/18/24 08:59 REACTION ibuprofen Allergy Intermediate Rash Verified 07/18/24 08:59 naproxen [From Naprosyn] Allergy Intermediate RASH, Verified 07/18/24 08:59 ITCHING, rash Home Medications ?Medication ?Instructions ?Recorded ?Confirmed ?Last Taken ?Type nifedipine 60 mg tablet,extended 60 mg PO DAILY 01/17/20 08/24/24 12/29/23 History release acetaminophen 500 mg tablet 1 - 2 tab PO TID PRN Pain 05/30/20 08/24/24 Unknown History ascorbic acid (vitamin C) 500 mg 1 tab PO DAILY 05/30/20 08/24/24 Unknown History tablet (Vitamin C) fluticasone 500 mcg-salmeterol 50 1 puff PO BID 05/30/20 08/24/24 Unknown History mcg/dose blistr powdr for inhalation (Advair Diskus) fluticasone propionate 50 2 spray intranasal QAM 05/30/20 08/24/24 06/04/20 05:00 History mcg/actuation nasal spray,suspension omeprazole 20 mg capsule,delayed 1 cap PO BID 05/30/20 08/24/24 12/29/23 History release escitalopram oxalate 20 mg tablet 20 mg PO QPM 10/04/23 08/24/24 Unknown History oxycodone 10 mg tablet 10 mg PO Q8H PRN severe pain 10/04/23 08/24/24 Unknown History zolpidem 10 mg tablet 10 mg PO BEDTIME PRN Insomnia 10/04/23 08/24/24 Unknown History cholecalciferol (vitamin D3) 50 50 mcg PO DAILY 12/15/23 08/24/24 Unknown History mcg (2,000 unit) tablet (Vitamin D3) dulaglutide 1.5 mg/0.5 mL 1.5 mg subcut QWEEK 12/15/23 08/24/24 01/04/24 History subcutaneous pen injector (Trulicity) ezetimibe 10 mg tablet (Zetia) 10 mg PO BEDTIME 12/15/23 08/24/24 Unknown History hydrochlorothiazide 25 mg tablet 25 mg PO DAILY 12/15/23 08/24/24 Unknown History insulin glargine 100 unit/mL 5 unit subcut QPM 12/15/23 08/24/24 Unknown History subcutaneous solution (Lantus U-100 Insulin) levothyroxine 88 mcg tablet 88 mcg PO DAILY 12/15/23 08/24/24 01/11/24 06:00 History loratadine 10 mg tablet 10 mg PO DAILY 12/15/23 08/24/24 12/29/23 History metformin 1,000 mg tablet 1,000 mg PO BIDWMEAL 12/15/23 08/24/24 Unknown History rosuvastatin 40 mg tablet 40 mg PO DAILY 12/15/23 08/24/24 Unknown History sucralfate 100 mg/mL oral 10 ml PO QID 12/15/23 08/24/24 Unknown History suspension albuterol sulfate 90 mcg/actuation 1 inh inhalation QID 07/18/24 08/24/24 Unknown History aerosol inhaler Exam Pertinent Lab Results Pertinent Lab Results: Laboratory Tests 08/22/24 08:58 WBC 6.9 Hgb 14.0 Hct 40.5 Plt Count 300 Sodium 140 Potassium 3.4 Chloride 100 Carbon Dioxide 31 H BUN 9 Creatinine 0.69 Assessment and Plan Assessment Anesthesia Assessment: Chart Reviewed Final Anesthetic Review Family History of Problems with Anesthesia: No History of Problems with Anesthesia: No Documented by User: Bailey Landa MD 08/24/24 08:20 [facility] Past Medical History Medical History (Updated 03/15/24 @ 10:50 by FRANCA Claudio) Scratching Migraine headache GERD (gastroesophageal reflux disease) Chronic back pain Anxiety and depression Elevated cholesterol Right rotator cuff tear Vitamin D deficiency Rotator cuff dysfunction Bursitis of right shoulder HLD (hyperlipidemia) Type 2 diabetes mellitus Hypothyroidism Hypertension Asthma Dyspepsia Family History Family History Father Diabetes Mother Diabetes Surgical History Surgical History (Updated 01/19/24 @ 11:10 by FRANCA Claudio) Hx of cervical discectomy History of arthroscopy of left shoulder (03/16/23) History of surgery on arm Hx of section Hx of colonoscopy History of esophagogastroduodenoscopy (EGD) History of appendectomy Previous back surgery (~2004) Social History Social History (Updated 12/15/23 @ 10:48 by Ayesha Chowdhury RN) Household Members: Other Household Members Other:: [employer] Housing: Apartment Are you a primary school childcare attendant to a significant other at home: No Do you presently have visiting nurse or other home services: No Alcohol intake: never Patient Tobacco Use Status: Former Tobacco user Tobacco use type: Cigarette Advance Directives: No Advance Directives Information Provided: Yes Current occupational status: disabled Current occupation: Right Handed Meds Allergies Allergy/AdvReac Type Severity Reaction Status Date / Time aspirin [ASA] Allergy Intermediate RASH Verified 07/18/24 08:59 cortisone [CORTISONE] Allergy Intermediate BAD Verified 07/18/24 08:59 REACTION ibuprofen Allergy Intermediate Rash Verified 07/18/24 08:59 naproxen [From Naprosyn] Allergy Intermediate RASH, Verified 07/18/24 08:59 ITCHING, rash Home Medications ?Medication ?Instructions ?Recorded ?Confirmed ?Last Taken ?Type nifedipine 60 mg tablet,extended 60 mg PO DAILY 01/17/20 08/24/24 12/29/23 History release acetaminophen 500 mg tablet 1 - 2 tab PO TID PRN Pain 05/30/20 08/24/24 Unknown History ascorbic acid (vitamin C) 500 mg 1 tab PO DAILY 05/30/20 08/24/24 Unknown History tablet (Vitamin C) fluticasone 500 mcg-salmeterol 50 1 puff PO BID 05/30/20 08/24/24 Unknown History mcg/dose blistr powdr for inhalation (Advair Diskus) fluticasone propionate 50 2 spray intranasal QAM 05/30/20 08/24/24 06/04/20 05:00 History mcg/actuation nasal spray,suspension omeprazole 20 mg capsule,delayed 1 cap PO BID 05/30/20 08/24/24 12/29/23 History release escitalopram oxalate 20 mg tablet 20 mg PO QPM 10/04/23 08/24/24 Unknown History oxycodone 10 mg tablet 10 mg PO Q8H PRN severe pain 10/04/23 08/24/24 Unknown History zolpidem 10 mg tablet 10 mg PO BEDTIME PRN Insomnia 10/04/23 08/24/24 Unknown History cholecalciferol (vitamin D3) 50 50 mcg PO DAILY 12/15/23 08/24/24 Unknown History mcg (2,000 unit) tablet (Vitamin D3) dulaglutide 1.5 mg/0.5 mL 1.5 mg subcut QWEEK 12/15/23 08/24/24 01/04/24 History subcutaneous pen injector (Trulicity) ezetimibe 10 mg tablet (Zetia) 10 mg PO BEDTIME 12/15/23 08/24/24 Unknown History hydrochlorothiazide 25 mg tablet 25 mg PO DAILY 12/15/23 08/24/24 Unknown History insulin glargine 100 unit/mL 5 unit subcut QPM 12/15/23 08/24/24 Unknown History subcutaneous solution (Lantus U-100 Insulin) levothyroxine 88 mcg tablet 88 mcg PO DAILY 12/15/23 08/24/24 01/11/24 06:00 History loratadine 10 mg tablet 10 mg PO DAILY 12/15/23 08/24/24 12/29/23 History metformin 1,000 mg tablet 1,000 mg PO BIDWMEAL 12/15/23 08/24/24 Unknown History rosuvastatin 40 mg tablet 40 mg PO DAILY 12/15/23 08/24/24 Unknown History sucralfate 100 mg/mL oral 10 ml PO QID 12/15/23 08/24/24 Unknown History suspension albuterol sulfate 90 mcg/actuation 1 inh inhalation QID 07/18/24 08/24/24 Unknown History aerosol inhaler Exam Airway Mallampati Class: II (missing couole teeth, denies anything loose, tongue with multiple lesions/nodules ) TM Dist: >3cm Neck ROM: Full Heart: rrr Lungs: cta Assessment and Plan Assessment Anesthesia Assessment: Anesthesia Plan Discussed Final Anesthetic Review NPO: Yes ASA Class: III Final Preanesthetic Review: No Changes in Pt Med Stat, Meds/Allgs Chart Reviewed and Consent Obtained/Reviewed Patient Risk: Low Procedure Risk: Low Anesthetic Plan Anesthetic Plan: MAC: Disposition: Standard PACU
[2024-08-24 08:04] VITALS: BMI 32.6
[2024-08-24 08:19] LABS: Glucose, Whole Blood 100 mg/dL (60-115)
[2024-08-24] MEDS: Lactated Ringers 1,000 ML 100 ML IVCONT (08:26)
[2024-08-24 08:28] VITALS: BP 105/68; PULSE 100; RESP 18; TEMP 36.8; O2SAT 95
[2024-08-24 10:25] VITALS: BP 85/53; PULSE 70; RESP 18; TEMP 36.3; O2SAT 97
--- NOTE | 2024-08-24 10:28 | P.BOP_ITS ---
Brief Operative Note Date of Service: 08/24/24 Pre-op diagnosis: Screening Post-op diagnosis: other (Diverticulosis) Procedure: Colonoscopy to the cecum Surgeon: Lazaro Healy MD Anesthesia: MAC Was an Dynamic Etching Processor used for this Procedure?: No Estimated blood loss (mL): 0 Pathology: none sent Condition: stable Disposition: PACU
[2024-08-24 10:40] VITALS: BP 110/69; PULSE 87; RESP 18; O2SAT 97
--- NOTE | 2024-08-24 10:48 | OP_ITS ---
DATE OF SERVICE: 08/24/2024 SURGEON: Lazaro Healy MD INDICATIONS: The patient presents for evaluation of colorectal cancer screening. Full consent was obtained from her for this, including risks of bleeding and perforation. PREOPERATIVE DIAGNOSIS: POSTOPERATIVE DIAGNOSIS: PROCEDURE PERFORMED: ESTIMATED BLOOD LOSS: COMPLICATIONS: ANESTHESIA: Medication used, monitored anesthesia care. ASSISTANTS: SPECIMENS: PROCEDURE: Colonoscopy to the cecum. PREOPERATIVE DIAGNOSES: Colorectal cancer screening. POSTOPERATIVE DIAGNOSES: Diverticulosis and internal hemorrhoids. DESCRIPTION OF PROCEDURE: The patient was placed in the left lateral decubitus position. The digital rectal exam revealed no abnormalities. The Olympus video pediatric colonoscope was entered into the rectum and advanced easily to the cecum. Once in the cecum, after a lot of irrigation and suctioning, I was able to visualize cecal pouch well. The appendiceal orifice appeared normal. The ileocecal valve appeared normal. There was transillumination of light deep in the right lower quadrant. The scope was slowly withdrawn assessing all mucosal surfaces carefully. For the most part, preparation was excellent throughout the colon, although there was some suctioning and irrigation required. I did not visualize any sign of polyps, colitis, nor angiodysplasia. There was a mild amount of sigmoid diverticulosis. In the rectum, scope was retroflexed visualizing internal hemorrhoids, but no other pathology. The rectal mucosa appeared normal. Scope was straightened and withdrawn from the patient. She tolerated the procedure well, returned to recovery area in stable condition. IMPRESSION: 1. Diverticulosis. 2. Internal hemorrhoids. PLAN: Given the patient's negative exam, I would recommend a followup coloscopy in 10 years for further screening. She was advised to continue her daily omeprazole and MiraLAX for the reflux and constipation, respectively. She will otherwise see me on a p.r.n. basis. MD AVA Ryder/KIRSTIN / [phone] IZAIAH
[2024-08-24 10:55] VITALS: BP 115/87; PULSE 81; RESP 18; O2SAT 97
== END 2024-08-24 11:23 | disposition home or self-care (01) ==
PROVIDERS: PCP Registered Nurse; Visit Provider Internal Medicine
PROC: 0DJD8ZZ Inspection of Lower Intestinal Tract, Via Natural or Artificial Opening Endoscopic (ICD-10-PCS; CPT 45378; principal; 2024-08-24 09:30)
DX: Z12.11 Encounter for screening for malignant neoplasm of colon (principal); K57.30 Diverticulosis of large intestine without perforation or abscess without bleeding; K64.8 Other hemorrhoids; K59.09 Other constipation; R10.11 Right upper quadrant pain; K21.9 Gastro-esophageal reflux disease without esophagitis; I10 Essential (primary) hypertension; E11.9 Type 2 diabetes mellitus without complications; E03.9 Hypothyroidism, unspecified; J45.909 Unspecified asthma, uncomplicated; G89.29 Other chronic pain; M54.9 Dorsalgia, unspecified; F41.8 Other specified anxiety disorders; Z79.51 Long term (current) use of inhaled steroids; Z79.4 Long term (current) use of insulin; Z79.84 Long term (current) use of oral hypoglycemic drugs; Z79.899 Other long term (current) drug therapy; Z87.891 Personal history of nicotine dependence; Z98.890 Other specified postprocedural states
CPT/HCPCS: 45378; 82947; J2003; J2704; J3010

== ENCOUNTER 2024-08-24 12:50 | Outpatient (REF) | payer MEDICAID, SELFPAY ==
--- OUTSIDE RECORDS SUMMARY | 2024-08-24 13:05 | XMS_ITS | Encounter Summary ---
Author Organization [employer] Address [address] [facility] [address] [place] [address] Care Team Providers Care Director Web Name Role Phone Joy Villar Primary Care Provider [phone] Wu Gallardo Unavailable [phone] Lazaro Healy MD Unavailable Encounter Details Date Type Department Care Team (Late st Contact Info) Description 03/08/2022 Telephone [facility] MEDICINE [address] [place], [place] [phone] Joy Villar FNP [address] [place], [place] [phone] Social History Tobacco Use Types Packs/Day Years [...] Description 2024 9:30 AM EDT Clinical Support [facility] MED & PEDS [address] [place], [place] [phone] Leatha Cortes, CORRINA [address] [place], [place] [phone] 10/10/2024 9:00 AM EDT Office Visit [facility] [address] [place], [place] [phone] Joy Villar FNP [address] [place] [address] documented as of this encounter Visit Diagnoses Not on filedocumented in this encounter Care Teams Director Web Relationship Specialty Start Date End Date Joy Villar FNP [address] [place] [address] PCP - General Family Medicine 11/21/21 Wu Gallardo [address] [place] [address] Neurosurgery 02/19/24 Lazaro Healy MD [address] [place] [address] Gastroenterology 02/19/24 documented as of this encounter
[2024-08-24 15:10] LABS: Prothrombin Time 11.9 SEC (10.9-12.4)
[2024-08-24 15:53] LABS: Iron 44 mcg/dL (30-160); Percent Iron Saturation 13 % (15-50); Total Iron Binding Capacity 337 mcg/dL (228-428); Unsaturated Iron Binding 293 ug/dL
[2024-08-24 16:07] LABS: Ferritin 26 ng/mL (10-250)
[2024-08-25 05:33] LABS: IgA 150 mg/dL (47-310); IgG 834 mg/dL (600-1640); IgM 111 mg/dL (50-300)
== END 2024-08-24 12:51 | disposition home or self-care (01) ==
LOC: HO.CHCLDS 12:50
PROVIDERS: Visit Provider Internal Medicine
DX: R74.01 Elevation of levels of liver transaminase levels (principal)
CPT/HCPCS: 36415; 82728; 82784; 83540; 85610

== ENCOUNTER 2024-10-18 07:43 | Outpatient (REF) | payer MEDICAID, SELFPAY ==
--- OUTSIDE RECORDS SUMMARY | 2010-05-02 06:00 | XMS_ITS | Continuity of Care Document ---
Author Organization [facility] Address [address] [place] [id number] Phone Care Team Providers Care Press Loader Name Role Phone Jan Dawson MD Unavailable Unavailable Procedures Procedure Date OFFICE/OUTPATIENT VISIT, EST HEMOGLOBIN Clinic Visit OFFICE/OUTPATIENT VISIT, NEW Advance Directives Directive Yes / No Effective Date File Name No Information Encounters Encounter Description Practice Location Reason(s) For Visit Diagnoses Date Provider Providers Copied on Encounter OFFICE/OUTPATI ENT VISIT, EST [facility], [address] [place] [address], [id number], tel:[phone] [facility] No Information Eunice Montoya. [address], [place], [id number], [place]. tel:[phone] OFFICE/OUTPATI ENT VISIT, NEW [facility], [address] [place] [address], [id number], tel:[phone] [facility] No Information Oleksandr Cruz. [address] [place], [address], [place]. tel:[phone] Family History Family Member Type Diagnosis Age At Onset No Information Payers Payer name Insurance type Covered republican ID Authoriza tion(s) [facility] [id number] [facility] [id number] Social History Type Description Quantity Date Captured Comments Sex Female Smoking Status No Information Chief Complaint And Reason For Visit No Information History Of Present Illness Encounter Date Complaint History Of Prese nt Illness No Information Instructions Date Instruction Additional Infor mation No Information Assessments Type Assessment Date No Information
--- NOTE | ~2024-10-18 | US_ITS ---
EXAMINATION: US ABDOMEN COMPLETE CLINICAL INFORMATION: Transaminitis. COMPARISON: October 06, 2023. TECHNIQUE: Real-time ultrasound of the abdomen using grayscale technique. FINDINGS: PANCREAS: No peripancreatic fluid collections. ABDOMINAL AORTA: The proximal, mid, and distal segments are normal in caliber. INFERIOR VENA CAVA: Visualized portions are normal. LIVER: Liver measures 13 cm per technologist. No nodular surface. Normal echotexture. No solid or cystic lesion detected by the technologist. No intrahepatic biliary ductal dilatation. GALLBLADDER: Gallbladder is contracted. No pericholecystic fluid collection or gallbladder wall thickening. No gross intraluminal abnormality. COMMON BILE DUCT: 4 mm. RIGHT KIDNEY: 11 cm. Normal echotexture. Normal renal cortical thickness. No hydronephrosis. No gross solid or cystic lesion detected. LEFT KIDNEY: 11 cm. Normal echotexture. Normal renal cortical thickness. Focal cortical defect in the midportion. No gross solid or cystic lesion detected. No hydronephrosis. . SPLEEN: 10 cm. No focal lesion.. FREE FLUID: None. US/US abdomen complete IMPRESSION: No cholelithiasis. No hydronephrosis. No ascites. Normal-sized liver and spleen. Electronically signed by: Ricky Robles MD 10/18/2024 09:11 AM EDT
--- OUTSIDE RECORDS SUMMARY | 2024-10-18 07:46 | XMS_ITS | Clinical Summary ---
Author Organization [facility], Address [address] [place] [address] [place] [address] Phone Care Team Providers Care Soccer Coach Name Role Phone Unavailable Primary Care Provider [...] IN THE EVENING WITH FOOD 3 Active Active Problems Problem Noted Date Diagnosed [...] Only [facility] [address] [place] [address] Chichi Lopez from Last 3 Months [...] Visual Foot Exam 04/13/2019 Diabetes: Hemoglobin A1C 09/22/202406/22/ 025, 05/05/2020, 04/19/2019 Influenza Vaccine (#1) 2024 4, 01/28/2023, 02/11/2022, Additional history exists Pneumococcal Vaccine: 50+ Years Completed 01/28/2023, 09/20/2017, 07/21/2016 Pneumococcal Vaccine: Peds ( 0 to 5 Years) and At-Risk Patients (6 to 49 Years) Discontinued 01/28/2023, 09/20/2017, 07/21/2016 Procedures Procedure Name Priority Date/Time Associated Diagnosis Comments HEMOGLOBIN A1C Routine 05/05/2020 9:43 AM EST Type 2 diabetes mellitus, not otherwise specified (HCC) from Last 3 Months or Most Recently Relevant to Health Maintenance Results * (ABNORMAL) Hemoglobin A1c (05/05/2020 9:43 AM EST) Hemoglobin A1C 6.5(H) (4.0-5.6) % [facility] Comment: MONITORING: In known diabetic patients, hemoglobin A1c targets should be discussed with health care provider. DIAGNOSTIC USE: The [place] Diabetes Association (ADA) and the World Health [...] Supplement 1 Testing performed or reported by [facility], a Service of [facility], [address] [place] [id number] Cesilia Saavedra MD, [employer] Blood specimen (specimen) Venous blood / Unknown 05/05/2020 9:43 AM EST 05/05/2020 9:44 AM EST us Simba Olsen MD LAB BLOOD ORDERABLES Final Resul t [facility] from Last 3 Months or Most Recently Relevant to Health Maintenance Insurance Medicaid [place]
--- OUTSIDE RECORDS SUMMARY | 2024-10-18 07:46 | XMS_ITS | Encounter Summary ---
Author Organization [employer] Address [address] [facility] 7t [place] [address] Care Team Providers Care Program Aide Group Work Name Role Phone Joy Villar Primary Care Provider [phone] Wu Gallardo Unavailable [phone] Lazaro Healy MD Unavailable Encounter Details Date Type Department Care Team (Late st Contact Info) Description 03/08/[address] [facility] MEDICINE [address] [place], [place] [phone] Joy Villar FNP [address] [place], [place] [phone] Social History Tobacco Use Types Packs/Day Years [...] Department Care Team (Late Contact Info) Description 12/26/2024 9:00 AM EDT Clinical Support [facility] MED & PEDS [address] [place], [place] [phone] Leatha Cortes, CORRINA [address] [place], [place] [phone] documented as of this encounter Visit Diagnoses Not on filedocumented in this encounter Care Teams Program Aide Group Work Relationship Specialty Start Date End Date Joy Villar FNP [address] [place] [address] PCP - General Family Medicine 11/21/21 Wu Gallardo [address] [place] [address] Neurosurgery 02/19/24 Lazaro Healy MD [address] [place] [address] Gastroenterology 02/19/24 documented as of this encounter
[2024-10-18 09:02] LABS: Alanine Aminotransferase 67 U/L (0-31); Albumin Level 4.3 g/dL (3.5-5.0); Alkaline Phosphatase 94 U/L (39-117); Aspartate Amino Transferase 49 U/L (5-31); Total Protein 6.7 g/dL (6.5-8.0)
== END 2024-10-18 07:44 | disposition home or self-care (01) ==
LOC: HO.US 07:43
PROVIDERS: Absent Provider Registered Nurse; PCP Registered Nurse; Visit Provider Internal Medicine
DX: R74.01 Elevation of levels of liver transaminase levels (principal); E11.9 Type 2 diabetes mellitus without complications
CPT/HCPCS: 36415; 76700; 80076

== ENCOUNTER → 2024-10-18 07:54 | Outpatient (BNV) | payer MEDICAID, SELFPAY | PROVIDERS: Absent Provider Registered Nurse; PCP Registered Nurse; Visit Provider Radiology Diagnostic Radiology | DX: R74.01 Elevation of levels of liver transaminase levels (principal) | CPT/HCPCS: 76700 ==

== ENCOUNTER 2025-01-08 10:28 | Outpatient (REF) | payer MEDICAID, SELFPAY ==
--- OUTSIDE RECORDS SUMMARY | 2025-01-08 12:21 | XMS_ITS | Clinical Summary ---
Author Organization [facility], Address [address] [place] [address] [place] [address] Phone Care Team Providers Care Embedded Software Developer Name Role Phone Unavailable Primary Care Provider [...] AM EST) Hemoglobin A1C 6.5(H) (4.0-5.6) % [facility] Comment: MONITORING: In known diabetic patients, hemoglobin A1c targets should be discussed with health care provider. DIAGNOSTIC USE: The [place] Diabetes Association (ADA) and the World Health [...] Supplement 1 Testing performed or reported by [facility], a Service of [facility], [address] [place] [id number] Cesilia Saavedra MD, Route Carrier Blood specimen (specimen) Venous blood / Unknown 05/05/2020 9:43 AM EST 05/05/2020 9:44 AM EST us Simba Olsen MD LAB BLOOD ORDERABLES Final Resul t [facility] from Last 3 Months or Most Recently Relevant to Health Maintenance Insurance Medicaid [place]
--- OUTSIDE RECORDS SUMMARY | 2025-01-08 12:21 | XMS_ITS | Encounter Summary ---
Author Organization [facility], Address [address] [place] [address] Phone Care Team Providers Care Tree Worker Name Role Phone Unavailable Primary Care Provider Unavailabl e Reason for Visit * Reason Comments Med Refill Encounter Details Date Type Department Care Team (Late st Contact Info) Description 03/19/2024 Refill [facility], [address] [place] [address] Simba Olsen MD [address] [facility] [facility] [address] [place] [phone] Social History Tobacco Use Types Packs/Day Years [...]
--- OUTSIDE RECORDS SUMMARY | 2025-01-08 12:21 | XMS_ITS | Encounter Summary ---
Author Organization [facility] Address [address] [place] [address] Phone Care Team Providers Care Manager Oncology Name Role Phone Unavailable Primary Care Provider Unavailabl e Encounter Details Date Type Department Care Team (Late st Contact Info) Description 12/15/2021 Documentation Only [facility], [address] [place] [phone] Tami Prescott PA [address] [place] [phone] Social History Tobacco Use Types Packs/Day Years [...]
[2025-01-08 13:58] LABS: MANUAL DIFF FLAG NO
[2025-01-08 14:02] LABS: Hematocrit 40.8 % (37.0-47.0); Hemoglobin 13.4 g/dl (12.0-16.0); Imm Gran Abs Auto 0.01 X10*3/uL (0.00-0.03); Imm Gran Pct Auto 0.1 % (0.0-0.4); Lymphocytes Absolute Auto 2.0 X10*3/uL (1.2-4.9); Mean Corpuscular HGB Conc 32.8 g/dl (31.0-35.0); Mean Corpuscular Hemoglobin 30.1 pg (27.0-33.0); Mean Corpuscular Volume 91.7 fL (80.0-98.0); NRBC Abs Auto 0.000 X10*3/uL (0.0-0.012); NRBC Pct Auto 0.0 /100WBC (0.0-0.2); Platelet Count 277 X10*3/uL (160-400); Red Blood Count 4.45 X10*6/uL (4.20-5.50); White Blood Count 7.2 X10*3/uL (4.8-10.8)
[2025-01-08 14:14] LABS: Hemoglobin A1C 141.4672 umol/L; Total Hemoglobin (HGBA1C) 3424.4417 umol/L
[2025-01-08 14:41] LABS: Alanine Aminotransferase 81 U/L (0-31); Albumin Level 4.1 g/dL (3.5-5.0); Alkaline Phosphatase 80 U/L (39-117); Anion Gap 12 (12-20); Aspartate Amino Transferase 59 U/L (5-31); Blood Urea Nitrogen 11 mg/dL (9-16); Calcium 9.3 mg/dL (8.4-10.2); Carbon Dioxide 31 mmol/L (22-29); Chloride 103 mmol/L (96-108); Cholesterol 93 mg/dL (<200); Estimated Glomerular Filt Rate > 60; HDL Cholesterol 48 mg/dL (>40); Potassium 3.8 mmol/L (3.3-5.1); Sodium 142 mmol/L (135-145); Total Protein 6.6 g/dL (6.5-8.0); Triglycerides 43 mg/dL (<150)
[2025-01-08 15:21] LABS: Free T4 (Free Thyroxine) 1.36 ng/dL (0.71-1.85)
== END 2025-01-08 10:29 | disposition home or self-care (01) ==
LOC: HO.CHCLDS 10:28
DX: Z00.00 Encounter for general adult medical examination without abnormal findings (principal)
CPT/HCPCS: 36415; 80053; 80061; 83036; 84439; 84443; 85025

== ENCOUNTER 2025-02-25 10:05 | Outpatient (REF) | payer MEDICAID, SELFPAY ==
--- OUTSIDE RECORDS SUMMARY | 2025-02-25 12:39 | XMS_ITS | Encounter Summary ---
Author Organization [employer] Address [address] [facility] 7t [place] [address] Care Team Providers Care Head Golf Professional Name Role Phone AntwanJoy vergara SHANICE Primary Care Provider [phone] Wu Gallardo Unavailable [phone] Lazaro Healy MD Unavailable Reason for Referral * Consultation (Routine) - Closed Specialty Diagnoses / Procedures Referred By Contmilton t Referred To Contact Pharmacy Diagnoses Hypertension Eleonora Khoury MD [address] [place] [address] Phone: tel: fax: Referral ID Status Reason Start Date Expiration Date V isits Requested Visits Authorized [id number] Closed Continuity of Care 07/31/2024 07/31/2025 6 6 Encounter Details Date Type Department Care Team (Late st Contact Info) Description 07/31/[address] [facility] MEDICINE [address] [place] [address] [phone] Eleonora Khoury MD [address] [place], [place] [phone] Hypertension (Primary Dx) Social History Tobacco Use Types Packs/Day Years [...] Care Team (Late st Contact Info) Description 03/26/2025 10:30 AM EST Clinical Support [facility] MED & PEDS [address] [place] [address] Leatha Cortes RN [address] [place] [address] Scheduled Referrals Name Type Priority Associated Diagnoses Orde r Schedule Referral to Pharmacy MTM Outpatient Referral Routine Hypertension Ordered: 07/31/2024 documented as of this encounter Visit Diagnoses Diagnosis Hypertension- Primary Unspecified essential hypertension documented in this encounter Additional Health Concerns Assessment Noted Time PHQ-9 Depression Total Score: 7 02/19/20 24 11:25 AM EST documented as of this encounter Care Teams Head Golf Professional Relationship Specialty Start Date End Date Joy Villar FNP [address] [place] [address] PCP - General Family Medicine 11/21/21 Wu Gallardo [address] [place] [address] Neurosurgery 02/19/24 Lazaro Healy MD [address] [place] [address] Gastroenterology 02/19/24 documented as of this encounter
--- OUTSIDE RECORDS SUMMARY | 2025-02-25 12:39 | XMS_ITS | Encounter Summary ---
Author Organization [employer] Address [address] [facility] 7t [place] [address] Care Team Providers Care Instrument Lens Grinder Apprentice Name Role Phone Joy Villar Primary Care Provider [phone] Wu Gallardo Unavailable [phone] Lazaro Healy MD Unavailable Encounter Details Date Type Department Care Team (Late st Contact Info) Description 03/08/2022 Telephone [facility] MEDICINE [address] [place], [place] [phone] Joy Villar FNP [address] [place], [place] [phone] Social History Tobacco Use Types Packs/Day Years [...] Department Care Team (Late Contact Info) Description 03/26/2025 10:30 AM EST Clinical Support [facility] CH[facility] MED & PEDS [address] [place], [place] [phone] Leatha Cortes, CORRINA [address] [place], [place] [phone] documented as of this encounter Visit Diagnoses Not on filedocumented in this encounter Care Teams Instrument Lens Grinder Apprentice Relationship Specialty Start Date End Date Joy Villar FNP [address] [place] [address] PCP - General Family Medicine 11/21/21 Wu Gallardo [address] [place] [address] Neurosurgery 02/19/24 Lazaro Healy MD [address] [place] [address] Gastroenterology 02/19/24 documented as of this encounter
--- OUTSIDE RECORDS SUMMARY | 2025-02-25 12:39 | XMS_ITS | Encounter Summary ---
Author Organization [employer] Address [address] [facility] 7t [place] [address] Care Team Providers Care Procurement Forester Name Role Phone Joy Villar Primary Care Provider [phone] Wu Gallardo Unavailable [phone] Lazaro Healy MD Unavailable Encounter Details Date Type Department Care Team (Late st Contact Info) Description 05/17/2024 Orders Only [facility] MED & PEDS [address] [place], [place] [phone] Joy Villar FNP [address] [place], [place] [phone] Type 2 diabetes mellitus without complication, unspecified whether keno terminal operator insulin use ([facility]) Social History Tobacco Use Types Packs/Day Years [...] Description 03/26/2025 10:30 AM EST Clinical Support [facility] MED & PEDS [address] [place] [address] Leatha Cortes, RN [address] [place] [address] documented as of this encounter Visit Diagnoses Diagnosis Type 2 diabetes mellitus without complication, unspecified whether keno terminal operator insulin use documented in this encounter Additional Health Concerns Assessment Noted Time PHQ-9 Depression Total Score: 7 02/19/20 24 11:25 AM EST documented as of this encounter Care Teams Procurement Forester Relationship Specialty Start Date End Date Joy Villar FNP [address] [place] [address] PCP - General Family Medicine 11/21/21 Wu Gallardo [address] [place] [address] Neurosurgery 02/19/24 Lazaro Healy MD [address] [place] [address] Gastroenterology 02/19/24 documented as of this encounter
--- OUTSIDE RECORDS SUMMARY | 2025-02-25 12:39 | XMS_ITS | Encounter Summary ---
Author Organization [employer] Address [address] [facility] 7t [place] [address] Care Team Providers Care Case Management Assistant Name Role Phone Joy Villar SHANICE Primary Care Provider [phone] Wu Gallardo Unavailable [phone] Lazaro Healy MD Unavailable Encounter Details Date Type Department Care Team (Late st Contact Info) Description 04/13/2022 Orders Only [facility] MEDICINE [address] [place] [address] Angeles Walton LPN Social History Tobacco Use [...] Description 03/26/2025 10:30 AM EST Clinical Support [facility] CHC MED & PEDS [address] [place], [place] [phone] Leatha Cortes, RN [address] [place], [place] [phone] documented as of this encounter Visit Diagnoses Not on filedocumented in this encounter Care Teams Case Management Assistant Relationship Specialty Start Date End Date Joy Villar FNP [address] [place] [address] PCP - General Family Medicine 11/21/21 Wu Gallardo [address] [place] [address] Neurosurgery 02/19/24 Lazaro Healy MD [address] [place] [address] Gastroenterology 02/19/24 documented as of this encounter
--- OUTSIDE RECORDS SUMMARY | 2025-02-25 12:39 | XMS_ITS | Encounter Summary ---
Author Organization [employer] Address [address] [facility] 7t [place] [address] Care Team Providers Care Client Advocate Name Role Phone Joy Villar Primary Care Provider [phone] Wu Gallardo Unavailable [phone] Lazaro Healy MD Unavailable Reason for Visit * Reason Onset Date Comments Med Refill 01/24/2025 Encounter Details Date Type Department Care Team (Late st Contact Info) Description 01/24/2025 Telephone [facility] MEDICINE [address] [place] [address] Joy Villar FNP [address] [place], [place] [phone] Med Refill Social History Tobacco Use Types Packs/Day Years Used Date Smoking Tobacco: Former Cigarettes Q uit: 2002 Passive Smoke Exposure: Past Smokeless Tobacco: Never Comments:15 years ago. 2022 [...] * Telephone Encounter - Ozzy Hernandez - 01/24/2025 9:26 AM EDT TC from pt requesting medication refill. Medications needing refill: oxyCODONE (Roxicodone) 10 MG immediate release tablet To be sent to: [facility] - [place], [place] - [address] [facility] documented in this encounter Plan of Treatment Upcoming Encounters Date Type Department Care Team (Late st Contact Info) Description 03/26/2025 10:30 AM EST Clinical Support [facility] MED & PEDS [address] [place] [address] Leatha Cortes, CORRINA [address] [place] [address] documented as of this encounter Visit Diagnoses Not on filedocumented in this encounter Additional Health Concerns Assessment Noted Time PHQ-9 Depression Total Score: 7 02/19/20 24 11:25 AM EST documented as of this encounter Care Teams Client Advocate Relationship Specialty Start Date End Date Joy Villar FNP [address] [place] [address] PCP - General Family Medicine 11/21/21 Wu Gallardo [address] [place] [address] Neurosurgery 02/19/24 Lazaro Healy MD [address] [place] [address] Gastroenterology 02/19/24 documented as of this encounter
--- OUTSIDE RECORDS SUMMARY | 2025-02-25 12:39 | XMS_ITS | Encounter Summary ---
Author Organization [employer] Address [address] [facility] 7t [place] [address] Care Team Providers Care Professor Of Management Name Role Phone Joy Villar Primary Care Provider [phone] Wu Gallardo Unavailable [phone] Lazaro Healy MD Unavailable Reason for Visit * Reason Onset Date Comments Med Refill 02/25/2025 Encounter Details Date Type Department Care Team ([facility] st Contact Info) Description 02/25/2025 Telephone [facility] MED & PEDS [address] [place], [place] [phone] Joy Villar FNP [address] [place], [place] [phone] Med Refill Social History Tobacco Use Types [...] encounter Miscellaneous Notes * Telephone Encounter - Nikolas Aranda - 02/25/2025 10:47 AM EST TC from pt requesting medication refill. Medications needing refill : oxyCODONE (Roxicodone) 10 MG immediate release tablet To be sent to: [facility] documented in this encounter Plan of Treatment Upcoming Encounters Date Type Department Care Team (Late st Contact Info) Description 03/26/2025 10:30 AM EST Clinical Support [facility] CHC MED & PEDS [address] [place] [address] Leatha Cortes, CORRINA [address] [place] [address] documented as of this encounter Goals Goal Patient Goal Type Associated Problems Recent Progress Patient-Stated? Author Help patients manage their type 2 diabetes Care Plan Help patients manage their type 2 diabetes No Mayra Novoa, PharmD Weekly blood pressure task Care Plan Weekly blood pressure task No Mayra Novoa, PharmD Help patients manage their type 2 diabetes Care Plan Help patients manage their type 2 diabetes No Mayra Novoa, PharmD Patient has diabetic eye disease Care Plan Patient has diabetic eye disease No Mayra Novoa, PharmD Help patients manage their type 2 diabetes Care Plan Help patients manage their type 2 diabetes No Mayra Novoa, PharmD Patient has chronic kidney disease Care Plan Patient has chronic kidney disease No Mayra Novoa, PharmD Weekly blood pressure task Care Plan Weekly blood pressure task No Mayra Novoa, PharmD Weekly blood pressure task Care Plan Weekly blood pressure task No Mayra Novoa, PharmD Patient has diabetic eye disease Care Plan Patient has diabetic eye disease No Mayra Novoa, PharmD Patient has diabetic eye disease Care Plan Patient has diabetic eye disease No Mayra Novoa, PharmD Patient has chronic kidney disease Care Plan Patient has chronic kidney disease No Mayra Novoa, PharmD Patient has chronic kidney disease Care Plan Patient has chronic kidney disease No Mayra Novoa, PharmD Weekly blood pressure task Care Plan Weekly blood pressure task No Phalen, Joy, TRUCK PACKER Weekly blood pressure task Care Plan Weekly blood pressure task No Phalen, Joy, TRUCK PACKER Weekly blood pressure task Care Plan Weekly blood pressure task No Phalen, Joy, TRUCK PACKER Patient has diabetic eye disease Care Plan Patient has diabetic eye disease No Phalen, Joy, TRUCK PACKER Patient has diabetic eye disease Care Plan Patient has diabetic eye disease No Phalen, Joy, TRUCK PACKER Patient has diabetic eye disease Care Plan Patient has diabetic eye disease No Phalen, Joy, TRUCK PACKER Patient has chronic kidney disease Care Plan Patient has chronic kidney disease No Phalen, Joy, TRUCK PACKER Patient has chronic kidney disease Care Plan Patient has chronic kidney disease No Phalen, Joy, TRUCK PACKER Patient has chronic kidney disease Care Plan Patient has chronic kidney disease No Phalen, Joy, TRUCK PACKER Weekly blood pressure task Care Plan Weekly blood pressure task No Aranda, Nikolas Weekly blood pressure task Care Plan Weekly blood pressure task No Aranda, Nikolas Weekly blood pressure task Care Plan Weekly blood pressure task No Aranda, Nikolas Patient has diabetic eye disease Care Plan Patient has diabetic eye disease No Aranda, Nikolas Patient has diabetic eye disease Care Plan Patient has diabetic eye disease No Aranda, Nikolas Patient has diabetic eye disease Care Plan Patient has diabetic eye disease No Manoj Nikolas Patient has chronic kidney disease Care Plan Patient has chronic kidney disease No Manoj Nikolas Patient has chronic kidney disease Care Plan Patient has chronic kidney disease No Manoj Nikolas Patient has chronic kidney disease Care Plan Patient has chronic kidney disease Nikolas Lynn Weekly blood pressure task Care Plan Weekly blood pressure task No Leatha Cortes RN Weekly blood pressure task Care Plan Weekly blood pressure task No Leatha Cortes RN Weekly blood pressure task Care Plan Weekly blood pressure task No Leatha Cortes RN Patient has diabetic eye disease Care Plan Patient has diabetic eye disease No Leatha Cortes RN Patient has diabetic eye disease Care Plan Patient has diabetic eye disease No Leatha Cortes RN Patient has diabetic eye disease Care Plan Patient has diabetic eye disease Leatha Pastor RN Patient has chronic kidney disease Care Plan Patient has chronic kidney disease No Leatha Cortes RN Patient has chronic kidney disease Care Plan Patient has chronic kidney disease No Leatha Cortes RN Patient has chronic kidney disease Care Plan Patient has chronic kidney disease No Leatha Cortes RN documented as of this encounter Visit Diagnoses Not on filedocumented in this encounter Additional Health Concerns Active Problems Noted Date Diagnosed Date Help patients manage their type 2 diabetes 02/07 Weekly blood pressure task 02/07/2025 Help patients manage their type 2 diabetes 02/07 Patient has diabetic eye disease 02/07/2025 Help patients manage their type 2 diabetes 02/07 Patient has chronic kidney disease 02/07/2025 Weekly blood pressure task 02/07/2025 Weekly blood pressure task 02/07/2025 Patient has diabetic eye disease 02/07/2025 Patient has diabetic eye disease 02/07/2025 Patient has chronic kidney disease 02/07/2025 Patient has chronic kidney disease 02/07/2025 Weekly blood pressure task 02/25/2025 Weekly blood pressure task 02/25/2025 Weekly blood pressure task 02/25/2025 Patient has diabetic eye disease 02/25/2025 Patient has diabetic eye disease 02/25/2025 Patient has diabetic eye disease 02/25/2025 Patient has chronic kidney disease 02/25/2025 Patient has chronic kidney disease 02/25/2025 Patient has chronic kidney disease 02/25/2025 Weekly blood pressure task 02/25/2025 Weekly blood pressure task 02/25/2025 Weekly blood pressure task 02/25/2025 Patient has diabetic eye disease 02/25/2025 Patient has diabetic eye disease 02/25/2025 Patient has diabetic eye disease 02/25/2025 Patient has chronic kidney disease 02/25/2025 Patient has chronic kidney disease 02/25/2025 Patient has chronic kidney disease 02/25/2025 Weekly blood pressure task 02/25/2025 Weekly blood pressure task 02/25/2025 Weekly blood pressure task 02/25/2025 Patient has diabetic eye disease 02/25/2025 Patient has diabetic eye disease 02/25/2025 Patient has diabetic eye disease 02/25/2025 Patient has chronic kidney disease 02/25/2025 Patient has chronic kidney disease 02/25/2025 Patient has chronic kidney disease 02/25/2025 Assessment Noted Time PHQ-9 Depression Total Score: 7 02/19/20 24 11:25 AM EST documented as of this encounter Care Teams Professor Of Management Relationship Specialty Start Date End Date Joy Villar FNP [address] [place] [address] PCP - General Family Medicine 11/21/21 Wu Gallardo [address] [place] [address] Neurosurgery 02/19/24 Lazaro Healy MD [address] [place] [address] Gastroenterology 02/19/24 documented as of this encounter
--- OUTSIDE RECORDS SUMMARY | 2025-02-25 12:39 | XMS_ITS | Encounter Summary ---
Author Organization [employer] Address [address] [facility] 7t [place] [address] Care Team Providers Care Special Education Tutor Name Role Phone Joy Villar Primary Care Provider [phone] Wu Gallardo Unavailable [phone] Lazaro Healy MD Unavailable Encounter Details Date Type Department Care Team (Late st Contact Info) Description 02/25/[address] [facility] CHC MED & PEDS [address] [place], [place] [phone] Joy Villar FNP 505 [place], [place] [phone] Hypothyroidism, unspecified type (Primary Dx) Social History Tobacco Use Types [...] Upcoming Encounters Date Type Department Care Team ([facility] st Contact Info) Description 03/26/2025 10:30 AM EST Clinical Support [facility] MED & PEDS [address] [place] [address] Leatha Cortes, RN [address] [place] [address] Scheduled Orders Name Type Priority Associated Diagnoses Orde r Schedule TSH W/Reflex to FT4 Lab Routine Hypothyroidism, unspecified type Expected: 02/25/2025 (Approximate), Expires: 02/25/2026 documented as of this encounter Goals Goal Patient Goal Type Associated Problems Recent Progress Patient-Stated? Author Help patients manage their type 2 diabetes Care Plan Help patients manage their type 2 diabetes No Mayra Novoa PharmD Weekly blood pressure task Care Plan Weekly blood pressure task No Mayra Novoa PharmD Help patients manage their type 2 diabetes Care Plan Help patients manage their type 2 diabetes No Mayra Novoa, PharmNga Patient has diabetic eye disease Care Plan Patient has diabetic eye disease No Mayra Novoa PharmD Help patients manage their type 2 diabetes Care Plan Help patients manage their type 2 diabetes No Mayra Novoa, PharmD Patient has chronic kidney disease Care Plan Patient has chronic kidney disease No Mayra Novoa PharmD Weekly blood pressure task Care Plan Weekly blood pressure task No Mayra Novoa PharmD Weekly blood pressure task Care Plan [...] Care Plan Weekly blood pressure task No Phalen Joy, CANE FEEDER Weekly blood pressure task Care Plan Weekly blood pressure task No Phalen, Joy, CANE FEEDER Weekly blood pressure task Care Plan Weekly blood pressure task No Phalen, Joy, CANE FEEDER Patient has diabetic eye disease Care Plan Patient has diabetic eye disease No Phalen, Joy, CANE FEEDER Patient has diabetic eye disease Care Plan Patient has diabetic eye disease No Phalen, Joy, CANE FEEDER Patient has diabetic eye disease Care Plan Patient has diabetic eye disease No Phalen, Joy, CANE FEEDER Patient has chronic kidney disease Care Plan Patient has chronic kidney disease No Phalen, Joy, CANE FEEDER Patient has chronic kidney disease Care Plan Patient has chronic kidney disease No Phalen, Joy, CANE FEEDER Patient has chronic kidney disease Care Plan Patient has chronic kidney disease No Phalen, Joy, CANE FEEDER Weekly blood pressure task Care Plan Weekly blood pressure task No Manoj Nikolas Weekly blood pressure task Care Plan Weekly blood pressure task No Manoj Nikolas Weekly blood pressure task Care Plan Weekly blood pressure task No Manoj Nikolas Patient has diabetic eye disease Care Plan Patient has diabetic eye disease No Manoj Nikolas Patient has diabetic eye disease Care Plan Patient has diabetic eye disease No Manoj Nikolas Patient has diabetic eye disease Care Plan Patient has diabetic eye disease No Nikolas Aranda Patient has chronic kidney disease Care Plan Patient has chronic kidney disease No Manoj Nikolas Patient has chronic kidney disease Care Plan Patient has chronic kidney disease No Manoj Nikolas Patient has chronic kidney disease Care Plan Patient has chronic kidney disease No Aranda, Nikolas Weekly blood pressure task Care Plan Weekly blood pressure task No Leatha Cortes RN Weekly blood pressure task Care Plan Weekly blood pressure task Leatha Pastor RN Weekly blood pressure task Care Plan Weekly blood pressure task Leatha Pastor RN Patient has diabetic eye disease Care Plan Patient has diabetic eye disease Leatha Pastor RN Patient has diabetic eye disease Care Plan Patient has diabetic eye disease Leatha Pastor RN Patient has diabetic eye disease Care Plan Patient has diabetic eye disease Leatha Pastor RN Patient has chronic kidney disease Care Plan Patient has chronic kidney disease Leatha Pastor RN Patient has chronic kidney disease Care Plan Patient has chronic kidney disease Leatha Pastor RN Patient has chronic kidney disease Care Plan Patient has chronic kidney disease Leatha Pastor RN documented as of this encounter Visit Diagnoses Diagnosis Hypothyroidism, unspecified type- Primary documented in this encounter Additional Health Concerns Active [...] documented as of this encounter Care Teams Special Education Tutor Relationship Specialty Start Date End Date Joy Villar FNP [address] [place] [address] PCP - General Family Medicine 11/21/21 Wu Gallardo [address] [place] [address] Neurosurgery 02/19/24 Lazaro Healy MD [address] [place] [address] Gastroenterology 02/19/24 documented as of this encounter
--- OUTSIDE RECORDS SUMMARY | 2025-02-25 12:39 | XMS_ITS | Encounter Summary ---
Author Organization [employer] Address [address] [facility] 7t [place] [address] Care Team Providers Care Lean Manager Name Role Phone Joy Villar Primary Care Provider [phone] Wu Gallardo Unavailable [phone] Lazaro Healy MD Unavailable Reason for Visit * Reason Onset Date Comments Call Back Request 02/03/2024 Encounter Details Date Type Department Care Team (Late st Contact Info) Description 02/03/2024 Telephone [facility] MEDICINE [address] [place], [place] [phone] Joy Villar FNP [address] [place], [place] [phone] Call Back Request Social History Tobacco Use [...] 02/03/2024 8:18 AM EST Cyrus Nash with [facility] requesting call back to verify if pcp would like to do a regular barium swallow due to the modified having to be done with speech and hearing. Please contact Charity at [phone]. documented in this encounter Plan of Treatment Upcoming Encounters Date Type Department Care Team (Late st Contact Info) Description 03/26/2025 10:30 AM EST [facility] Support [facility] MED & PEDS [address] [place] [address] Leatha Cortes, RN 505 [place] [address] documented as of this encounter Visit Diagnoses Diagnosis Dysphagia, unspecified type- Primary documented in this encounter Additional Health Concerns Assessment Noted Time PHQ-9 Depression Total Score: 0 08/13/19 23 11:11 AM EDT documented as of this encounter Care Teams Lean Manager Relationship Specialty Start Date End Date Joy Villar FNP [address] [place] [address] PCP - General Family Medicine 11/21/21 Wu Gallardo [address] [place] [address] Neurosurgery 02/19/24 Lazaro Healy MD [address] [place] [address] Gastroenterology 02/19/24 documented as of this encounter
--- OUTSIDE RECORDS SUMMARY | 2025-02-25 12:39 | XMS_ITS | Encounter Summary ---
Author Organization [employer] Address [address] [facility] 7t [place] [address] Care Team Providers Care Airline Dispatcher Name Role Phone Joy Villar SHANICE Primary Care Provider [phone] Wu Gallardo Unavailable [phone] Lazaro Healy MD Unavailable Encounter Details Date Type Department Care Team (Late st Contact Info) Description 04/14/2022 Orders Only [facility] MED & PEDS [address] [place] [address] Mayra Frye LPN Social History Tobacco Use [...] 10:30 AM EST Clinical Support [facility] MED & PEDS [address] [place] [address] Leatha Cortes, RN 505 [place] [address] documented as of this encounter Visit Diagnoses Not on filedocumented in this encounter Care Teams Airline Dispatcher Relationship Specialty Start Date End Date Joy Villar FNP [address] [place] [address] PCP - General Family Medicine 11/21/21 Wu Gallardo [address] [place] [address] Neurosurgery 02/19/24 Lazaro Healy MD [address] [place] [address] Gastroenterology 02/19/24 documented as of this encounter
--- OUTSIDE RECORDS SUMMARY | 2025-02-25 12:39 | XMS_ITS | Encounter Summary ---
Author Organization [employer] Address 75 [facility] 7t [place] [address] Care Team Providers Care Elevator Erector Name Role Phone Joy Villar Primary Care Provider [phone] Wu Gallardo Unavailable [phone] Lazaro Healy MD Unavailable Reason for Visit * Reason Comments Med Refill Encounter Details Date Type Department Care Team (Late st Contact Info) Description 02/25/[address] [facility] [address] [place], [place] [phone] Joy Villar FNP 505 [place], [place] [phone] Chronic low back pain, unspecified back pain [...] the past 12 months, has t he [employer], gas, oil or water company threatened to [...] Upcoming Encounters Date Type Department Care Team ([facility] st Contact Info) Description 03/26/2025 10:30 AM EST Clinical Support [facility] [address] [place] [address] Leatha Cortes, CORRINA 505 [place] [address] documented as of this encounter Goals Goal [...] Care Plan Weekly blood pressure task No NovoaMayra yee, PharmD Patient has diabetic eye disease Care Plan Patient has diabetic eye disease No NovoaMayra yee, PharmD Patient has diabetic eye disease Care Plan Patient has diabetic eye disease No Mayra Novoa, PharmD Patient has chronic kidney disease Care Plan Patient has chronic kidney disease No NovoaMayra yee, PharmD Patient has chronic kidney disease Care Plan Patient has chronic kidney disease No NovoaMayra yee, PharmD Weekly blood pressure task Care Plan Weekly blood pressure task No Phalen, Joy, SURFACER Weekly blood pressure task Care Plan Weekly blood pressure task No Phalen, Joy, SURFACER Weekly blood pressure task Care Plan Weekly blood pressure task No Phalen, Joy, SURFACER Patient has diabetic eye disease Care Plan Patient has diabetic eye disease No Phalen, Joy, SURFACER Patient has diabetic eye disease Care Plan Patient has diabetic eye disease No Phalen, Joy, SURFACER Patient has diabetic eye disease Care Plan Patient has diabetic eye disease No Phalen, Joy, SURFACER Patient has chronic kidney disease Care Plan Patient has chronic kidney disease No Phalen, Joy, SURFACER Patient has chronic kidney disease Care Plan Patient has chronic kidney disease No Phalen, Joy, SURFACER Patient has chronic kidney disease Care Plan Patient has chronic kidney disease No Phalen, Joy, SURFACER Weekly blood pressure task Care Plan Weekly blood pressure task No Nikolas Aranda Weekly blood pressure task Care Plan Weekly blood pressure task No Nikolas Aranda Weekly blood pressure task Care Plan Weekly blood pressure task No Nikolas Aranda Patient has diabetic eye disease Care Plan Patient has diabetic eye disease No Nikolas Aranda Patient has diabetic eye disease Care Plan Patient has diabetic eye disease No Nikolas Aranda Patient has diabetic eye disease Care Plan Patient has diabetic eye disease No Nikolas Aranda Patient has chronic kidney disease Care Plan Patient has chronic kidney disease No Nikolas Aranda Patient has chronic kidney disease Care Plan Patient has chronic kidney disease No Nikolas Aranda Patient has chronic kidney disease Care Plan Patient has chronic kidney disease No Nikolas Aranda Weekly blood pressure task Care Plan Weekly blood pressure task No Daly Cortesa, RN Weekly blood pressure task Care Plan [...] documented as of this encounter Care Teams Elevator Erector Relationship Specialty Start Date End Date Joy Villar FNP [address] [place] [address] PCP - General Family Medicine 11/21/21 Wu Gallardo [address] [place] [address] Neurosurgery 02/19/24 Lazaro Healy MD [address] [place] [address] Gastroenterology 02/19/24 documented as of this encounter
--- OUTSIDE RECORDS SUMMARY | 2025-02-25 12:40 | XMS_ITS | Encounter Summary ---
Author Organization [employer] Address 75 [facility] 7t [place] [address] Care Team Providers Care Community Service Worker Name Role Phone Joy Villar SHANICE Primary Care Provider [phone] Wu Gallardo Unavailable [phone] Lazaro Healy MD Unavailable Encounter Details Date Type Department Care Team ([facility] Contact Info) Description 06/03/2022 Orders Only [facility] MED & PEDS [address] [place] [address] Mayra Frye LPN Social History Tobacco Use [...] Description 03/26/2025 10:30 AM EST Clinical Support [facility] MED & PEDS [address] [place] [address] Leatha Cortes, RN 505 [place] [address] documented as of this encounter Visit Diagnoses Not on filedocumented in this encounter Care Teams Community Service Worker Relationship Specialty Start Date End Date Joy Villar FNP [address] [place] [address] PCP - General Family Medicine 11/21/21 Wu Gallardo [address] [place] [address] Neurosurgery 02/19/24 Lazaro Healy MD [address] [facility] [address] [place] [address] Gastroenterology 02/19/24 documented as of this encounter
--- OUTSIDE RECORDS SUMMARY | 2025-02-25 12:40 | XMS_ITS | Encounter Summary ---
Author Organization [employer] Address 75 [facility] 7t [place] [address] Care Team Providers Care Supervisor Accounting Clerks Name Role Phone Joy Villar Primary Care Provider [phone] Wu Gallardo Unavailable [phone] Lazaro Healy MD Unavailable Reason for Visit * Reason Onset Date Comments Med Refill 08/24/2024 Encounter Details Date Type Department Care Team (Late st Contact Info) Description 08/24/[address] [facility] [address] [place] [address] Joy Villar FNP [address] [place], [place] [phone] Med Refill Social History Tobacco Use Types [...] * Telephone Encounter - Ozzy Hernandez - 08/24/2024 2:31 PM EDT TC from pt requesting medication refill. Medications needing refill: oxyCODONE (Roxicodone) 10 MG immediate release tablet To be sent to: [facility] - [place], [place] - [address] [facility] documented in this encounter Plan of Treatment Upcoming Encounters Date Type Department Care Team (Late st Contact Info) Description 03/26/2025 10:30 AM EST Clinical Support [facility] MED & PEDS 505 [place] [address] Leatha Cortes, CORRNIA 505 [place] [address] documented as of this encounter Visit Diagnoses Not on filedocumented in this encounter Additional Health Concerns Assessment Noted Time PHQ-9 Depression Total Score: 7 02/19/20 24 11:25 AM EST documented as of this encounter Care Teams Supervisor Accounting Clerks Relationship Specialty Start Date End Date Joy Villar FNP 230 [place] [address] PCP - General Family Medicine 11/21/21 Wu Gallardo [address] [place] [address] Neurosurgery 02/19/24 Lazaro Healy MD [address] [place] [address] Gastroenterology 02/19/24 documented as of this encounter
--- OUTSIDE RECORDS SUMMARY | 2025-02-25 12:40 | XMS_ITS | Encounter Summary ---
Author Organization [employer] Address [address] [place] [address] 7t [place] [address] Care Team Providers Care Turf Farmer Name Role Phone Aurea Joy FNP Primary Care Provider [phone] Wu Gallardo Unavailable [phone] Lazaro Healy MD Unavailable Reason for Referral * Imaging (Routine) - Closed Specialty Diagnoses / Procedures Referred By Contac t Referred To Contact Radiology Diagnoses Transaminitis Procedures US Abdomen Complete Kath Lion MD 505 [place] [address] Phone: tel: fax: [address] [address] Phone: tel: fax: Referral ID Status Reason Start Date Expiration Date Visits Re quested Visits Authorized [id number] Closed 08/22/2024 08/22/2025 1 1 Encounter Details Date Type Department Care Team (Late st Contact Info) Description 08/22/2024 Orders Only [facility]S 505 [place], [place] [phone] Kath Lion MD 505 [place], [place] [phone] Transaminitis (Primary Dx) Social History Tobacco Use Types Packs/Day Years Used Date Smoking Tobacco: Former Cigarettes Q uit: 2003 Passive Smoke Exposure: Never Smokeless Tobacco: Never [...] housing situation today? I have yifanjocelin hunter 06/22/[address] you [...] ([facility] st Contact Info) Description 03/26/2025 10:30 AM EST Clinical Support [facility] MED & PEDS [address] [place] [address] Leatha Cortes, RN 505 [place] [address] Scheduled Orders Name Type Priority Associated Diagnoses Orde r Schedule Smooth Muscle Antibody with Reflex to Titer Lab Routine Transaminitis Expected: 08/22/2024 (Approximate), Expires: 08/22/2025 Alpha 1 Antitrypsin Lab Routine Transaminitis Expected: 08/22/2024 (Approximate), Expires: 08/22/2025 documented as of this encounter Procedures Procedure Name Priority Date/Time Associated Diagnosis Comments US ABDOMEN COMPLETE Routine 10/18/2024 8 :17 AM EDT Transaminitis IRON AND TOTAL IRON BINDING CAPACITY Routine 08/24/2024 12:57 PM EDT Transaminitis FERRITIN Routine 08/24/2024 12:57 PM EDT Transaminitis PROTHROMBIN TIME-INR Routine 08/24/2024 12:52 PM EDT Transaminitis IMMUNOGLOBULINS, QUANTITATIVE, IGA, IGG, IGM Routine 08/24/2024 12:52 PM EDT Transaminitis documented in this encounter Results * US Abdomen Complete (10/18/2024 8:17 AM EDT) Anatomical Region Laterality Modality Abdomen Ultrasound 10/18/2024 8:17 AM EDT Narrative 10/18/2024 9:14 AM EDT [place] [address] Ultrasound Report Signed Patient: Elin Johnson MR# : [id number] : 1965 Acct:[id number] Age/Sex: 59 / F ADM Date: 10/18/24 Loc: HO.US Attending Dr: Kath Lion MD Ordering Physician: Kaht Lion MD Date of Service: 10/18/24 Procedure(s): US abdomen complete Accession Number(s): [id number] cc: Kath Lion MD; Joy Villar SHANK CEMENTER HAND EXAMINATION: US ABDOMEN COMPLETE CLINICAL INFORMATION: Transaminitis. COMPARISON: October 06, 2023. TECHNIQUE: Real-time ultrasound of the abdomen using grayscale technique. FINDINGS: PANCREAS: No peripancreatic fluid collections. ABDOMINAL AORTA: The proximal, mid, and distal segments are normal in caliber. INFERIOR VENA CAVA: Visualized portions are normal. LIVER: Liver measures 13 cm per technologist. No nodular surface. Normal echotexture. No solid or cystic lesion detected by the technologist. No intrahepatic biliary ductal dilatation. GALLBLADDER: Gallbladder is contracted. No pericholecystic fluid collection or gallbladder wall thickening. No gross intraluminal abnormality. COMMON BILE DUCT: 4 mm. RIGHT KIDNEY: 11 cm. Normal echotexture. Normal renal cortical thickness. No hydronephrosis. No gross solid or cystic lesion detected. LEFT KIDNEY: 11 cm. Normal echotexture. Normal renal cortical thickness. Focal cortical defect in the midportion. No gross solid or cystic lesion detected. No hydronephrosis. . SPLEEN: 10 cm. No focal lesion.. FREE FLUID: None. US/US abdomen complete IMPRESSION: No cholelithiasis. No hydronephrosis. No ascites. Normal-sized liver and spleen. Electronically signed by: Ricky Robles MD 10/18/2024 09:11 AM EDT Dictated By: Ricky Eugene MD Signed By: <Electronically signed by Ricky Persaud MD in OV> 10/18/24 0911 DD/ 0817 TD/TT: 10/18/24 0851 Grain Cleaner And Transfer Operator: Procedure Note Donotuseinterpreter, Image - 10/18/[address] [address] Ultrasound Report Signed Patient: Elin Johnson MMR# : [id number] : 1965Acct:[id number] Age/Sex: 59 / FADM Date: 10/18/24 Loc: HO.US Attending Dr: Kath Lion MD Ordering Physician: Kath Lion MD Date of Service: 10/18/24 Procedure(s): US abdomen complete Accession Number(s): [id number] cc: Kath Lion MD; Joy Villar EXAMINATION: US ABDOMEN COMPLETE CLINICAL INFORMATION: Transaminitis. COMPARISON: October 06, 2023. TECHNIQUE: Real-time ultrasound of the abdomen using grayscale technique. FINDINGS: PANCREAS: No peripancreatic fluid collections. ABDOMINAL AORTA: The proximal, mid, and distal segments are normal in caliber. INFERIOR VENA CAVA: Visualized portions are normal. LIVER: Liver measures 13 cm per technologist. No nodular surface. Normal echotexture. No solid or cystic lesion detected by the technologist. No intrahepatic biliary ductal dilatation. GALLBLADDER: Gallbladder is contracted. No pericholecystic fluid collection or gallbladder wall thickening. No gross intraluminal abnormality. COMMON BILE DUCT: 4 mm. RIGHT KIDNEY: 11 cm. Normal echotexture. Normal renal cortical thickness. No hydronephrosis. No gross solid or cystic lesion detected. LEFT KIDNEY: 11 cm. Normal echotexture. Normal renal cortical thickness. Focal cortical defect in the midportion. No gross solid or cystic lesion detected. No hydronephrosis. . SPLEEN: 10 cm. No focal lesion.. FREE FLUID: None. US/US abdomen complete IMPRESSION: No cholelithiasis. No hydronephrosis. No ascites. Normal-sized liver and spleen. Electronically signed by: Ricky Robles MD 10/18/2024 09:11 AM EDT Dictated By: Ricky Eugene MD Signed By: <Electronically signed by Ricky Persaud MDin OV> 10/18/24 0911 DD/ 0817 TD/TT: 10/18/24 0851 Grain Cleaner And Transfer Operator: us Kath Lion MD IMG US PROCEDURES Edited Re sult - Final * (ABNORMAL) Iron And Total Iron Binding Capacity (08/24/2024 12:57 PM EDT) Iron 44 30 - 160 mcg/dL [facility] Total Iron Binding Capacity 337 228 - 428 mcg/dL [facility] Percent Iron Saturation 13(L) 15 - 50 % [facility] Unsaturated Iron Binding 293 ug/dL [facility] Blood Venous blood specimen / Unknown 08/24/2024 12:57 PM EDT 08/24/2024 2:51 PM EDT us Kath Lion MD LAB BLOOD ORDERABLES Final Result Performing Organization Address [facility] Co de Phone Number [facility] [address] [place] [phone] * Ferritin (08/24/2024 12:57 PM EDT) Ferritin 26 10 - 250 ng/mL [facility] Blood Venous blood specimen / Unknown 08/24/2024 12:57 PM EDT 08/24/2024 2:51 PM EDT us Kath Lion MD LAB BLOOD ORDERABLES Final Result Performing Organization Address [facility] Phone Number [facility] [address] [place] [phone] * Prothrombin Time-INR (08/24/2024 12:52 PM EDT) Prothrombin Time 11.9 10.9 - 12.4 SEC [facility] INTERNATIONAL NORM RATIO 1.0 0.9 - 1.1 [facility] Comment:INTERNATIONAL NORMAL IZED RATIO (INR) REFERENCE RANGES Reference RangeFor patients not on anticoagulant therapy: 0.9 - 1.1INR ranges for oral anticoagulanttherapy:For prevention and treatment of venous thrombosis and pulmonary embolism: 2.0 - 3.0For acute myocardial infarction with aspirin therapy: 2.0 - 3.0For acute myocardial infarction without aspirin therapy: 3.0 - 4.0For patients with mechanical prosthetic heart valves: 2.5 - 3.5 Blood Venous blood specimen / Unknown 08/24/2024 12:52 PM EDT 08/24/2024 2:51 PM EDT us Kath Lion MD LAB BLOOD ORDERABLES Final Result Performing Organization Address [facility] Co de Phone Number [facility] [address] [place] [address] [phone] * Immunoglobulins, Quantitative, IgA, IgG, IgM (08/24/2024 12:52 PM EDT) IMMUNOGLOBULIN G 834 600 - 1640 mg/dL [facility] IMMUNOGLOBULIN A 150 47 - 310 mg/dL [facility] Immunoglobulin M 111 50 - 300 mg/dL [facility] Comment:THIS TEST WAS PERFOR MED AT:[employer] [place] [phone] COTTO MD Blood Venous blood specimen / Unknown 08/24/2024 12:52 PM EDT 08/24/2024 2:51 PM EDT us Kath Lion MD LAB BLOOD ORDERABLES Final Result [facility] [address] [place] [address] [phone] documented in this encounter Visit Diagnoses Diagnosis Transaminitis- Primary Nonspecific elevation of levels of transaminase or lactic acid dehydrogenase (LDH) documented in this encounter Additional Health Concerns Assessment Noted Time PHQ-9 Depression Total Score: 7 02/19/20 24 11:25 AM EST documented as of this encounter Care Teams Turf Farmer Relationship Specialty Start Date End Date Joy Villar FNP [address] [place] [phone] PCP - General Family Medicine 11/21/21 Wu Gallardo [address] [place] [address] Neurosurgery 02/19/24 Lazaro Healy MD [address] [place] [address] Gastroenterology 02/19/24 documented as of this encounter
--- OUTSIDE RECORDS SUMMARY | 2025-02-25 12:40 | XMS_ITS | Encounter Summary ---
Author Organization [employer] Address 75 [facility] 7t [place] [address] Care Team Providers Care It Manager Name Role Phone AntwanJoy vergara SHANICE Primary Care Provider [phone] Wu Gallardo Unavailable [phone] Lazaro Healy MD Unavailable Encounter Details Date Type Department Care Team (Late st Contact Info) Description 07/17/2024 Orders Only [facility] [address] [place], [place] [phone] Provider, MD Jordan Social History Tobacco Use [...] Description 03/26/2025 10:30 AM EST Clinical Support [facility] MED & PEDS 505 [place] [address] Leatha Cortes, RN 505 [place] [address] documented as of this encounter Procedures Procedure [...] documented as of this encounter Care Teams It Manager Relationship Specialty Start Date End Date Joy Villar FNP [address] [place] [address] PCP - General Family Medicine 11/21/21 Wu Gallardo [address] [place] [address] Neurosurgery 02/19/24 Lazaro Healy MD [address] [place] [address] Gastroenterology 02/19/24 documented as of this encounter
--- OUTSIDE RECORDS SUMMARY | 2025-02-25 12:40 | XMS_ITS | Encounter Summary ---
Author Organization [employer] Address 75 [facility] 7t [place] [address] Care Team Providers Care Plate Painter Name Role Phone Joy Villar Primary Care Provider [phone] Wu Gallardo Unavailable [phone] Lazaro Healy MD Unavailable Reason for Visit * Reason Onset Date Comments Medication Question 03/17/2023 Encounter Details Date Type Department Care Team ([facility] Contact Info) Description 03/17/2023 Telephone [facility] MED & PEDS 505 [place], [place] [phone] Joy Villar FNP 505 [place], [place] [phone] Medication Question Social History Tobacco Use Types [...] below from PCP, called via PI ID# [id number]. Pt verbalized understanding. Also stated she did not repeat BMP yet, states she will tomorrow. * Telephone Encounter - SHANICE Goldsmith - 03/17/2023 3:15 PM EST Hello, acute pain management after surgery is typically managed through the surgeon's office. Pt iscurrently on chronic opioid therapy, which will likely need to be increased during acute recovery from surgery. [facility] Ortho performed surgery. Please encourage her to [...] had yesterday (03/17). Please contact pt at [phone] (Trinidadian) documented in this encounter Plan of Treatment Upcoming Encounters Date Type Department Care Team (Late st Contact Info) Description 03/26/2025 10:30 AM EST Clinical Support [facility] MED & PEDS [address] [place] [address] Leatha Cortes, CORRINA 505 [place] [address] documented as of this encounter Visit Diagnoses Not on filedocumented in this encounter Additional Health Concerns Assessment Noted Time PHQ-9 Depression Total Score: 0 08/13/19 23 11:11 AM EDT documented as of this encounter Care Teams Plate Painter Relationship Specialty Start Date End Date Joy Villar FNP [address] [place] [address] PCP - General Family Medicine 11/21/21 Wu Gallardo [address] [place] [address] Neurosurgery 02/19/24 Lazaro Healy MD [address] [place] [address] Gastroenterology 02/19/24 documented as of this encounter
--- OUTSIDE RECORDS SUMMARY | 2025-02-25 12:40 | XMS_ITS | Encounter Summary ---
Author Organization [employer] Address [address] [facility] 7t [place] [address] Care Team Providers Care Nail Tech Name Role Phone Joy Villar Primary Care Provider [phone] Wu Gallardo Unavailable [phone] Lazaro Healy MD Unavailable Reason for Visit * Reason Onset Date Comments triage 05/28/2022 Encounter Details Date Type Department Care Team ([facility] st Contact Info) Description 05/28/2022 Telephone [facility] MEDICINE [address] [place] [address] Joy Villar FNP [address] [place], [place] [phone] triage Social History Tobacco Use Types Packs/Day [...] 05/28/2022 12:44 PM EST Triage call with [place] [employer] [place] [id number] Pt reports canceled 900am apt today. Pt is calling to reschedule pain management apt. Home care reviewed with Pt. No apts available for next two weeks will send to Nursing team and pcp to schedule as apt available and Pt agrees. Protocol Used: Back [...] Description 03/26/2025 10:30 AM EST Clinical Support [facility] MED & PEDS [address] [place] [address] Leatha Cortes, CORRINA [address] [place] [address] documented as of this encounter Visit Diagnoses Not on filedocumented in this encounter Care Teams Nail Tech Relationship Specialty Start Date End Date Joy Villar FNP [address] [place] [address] PCP - General Family Medicine 11/21/[address] [place] [address] Neurosurgery 02/19/24 Lazaro Healy MD [address] [place] [address] Gastroenterology 02/19/24 documented as of this encounter
--- OUTSIDE RECORDS SUMMARY | 2025-02-25 12:40 | XMS_ITS | Encounter Summary ---
Author Organization [employer] Address 75 [facility] 7t [place] [address] Care Team Providers Care Gunner'S Mate M Name Role Phone Joy Villar SHANICE Primary Care Provider [phone] Wu Gallardo Unavailable [phone] Lazaro Healy MD Unavailable Encounter Details Date Type Department Care Team (Late st Contact Info) Description 09/07/2022 Orders Only [facility] MEDICINE [address] [place] [address] Angeles Walton LPN Social History Tobacco Use [...] Description 03/26/2025 10:30 AM EST Clinical Support [facility] MED & PEDS [address] [place] [address] Leatha Cortes, RN [address] [place] [address] documented as of this encounter Visit Diagnoses Not on filedocumented in this encounter Additional Health Concerns Assessment Noted Time PHQ-9 Depression Total Score: 0 08/13/19 11:11 AM EDT documented as of this encounter Care Teams Gunner'S Mate M Relationship Specialty Start Date End Date Joy Villar FNP [address] [place] [address] PCP - General Family Medicine 11/21/21 Wu Gallardo [address] [place] [address] Neurosurgery 02/19/24 Lazaro Healy MD [address] [place] [address] Gastroenterology 02/19/24 documented as of this encounter
--- OUTSIDE RECORDS SUMMARY | 2025-02-25 12:40 | XMS_ITS | Encounter Summary ---
Author Organization [employer] Address [address] [facility] 7[address] [place] [address] Care Team Providers Care Education Finance Processor Name Role Phone Joy Villar Primary Care Provider [phone] Wu Gallardo Unavailable [phone] Lazaro Healy MD Unavailable Reason for Visit * Reason Onset Date Comments Med Refill 08/27/2024 Encounter Details Date Type Department Care Team (Late st Contact Info) Description 08/27/2024 Telephone [facility] MEDICINE [address] [place] [address] Joy Villar FNP [address] [place], [place] [id number] Med Refill Social History Tobacco Use Types [...] * Telephone Encounter - Claudia Hoyt - 08/27/2024 9:04 AM EDT TC from pt requesting medication refill. Medications needing refill : oxyCODONE (Roxicodone) 10 MG immediate release tablet To be sent to: [facility] documented in this encounter Plan of Treatment Upcoming Encounters Date Type Department Care Team (Late st Contact Info) Description 03/26/2025 10:30 AM EST Clinical Support [facility] [address] [place] [address] Leatha Cortes, CORRINA [address] [place] [address] documented as of this encounter Visit Diagnoses Not on filedocumented in this encounter Additional Health Concerns Assessment Noted Time PHQ-9 Depression Total Score: 7 02/19/20 24 11:25 AM EST documented as of this encounter Care Teams Education Finance Processor Relationship Specialty Start Date End Date Joy Villar FNP [address] [place] [address] PCP - General Family Medicine 11/21/21 Wu Gallardo [address] [place] [address] Neurosurgery 02/19/24 Lazaro Healy MD [address] [place] [address] Gastroenterology 02/19/24 documented as of this encounter
--- OUTSIDE RECORDS SUMMARY | 2025-02-25 12:40 | XMS_ITS | Encounter Summary ---
Author Organization [employer] Address [address] [facility] 7[address] [place] [address] Care Team Providers Care Brushing Operator Name Role Phone Joy Villar Primary Care Provider [phone] Wu Gallardo Unavailable [phone] Lazaro Healy MD Unavailable Reason for Visit * Reason Onset Date Comments Med Refill 06/25/2024 Encounter Details Date Type Department Care Team (Late st Contact Info) Description 06/25/2024 Telephone [facility] MEDICINE [address] [place] [address] Joy Villar FNP [address] [place], [place] [phone] Med Refill Social History Tobacco Use Types [...] be sent to: [facility] pharmacy documented in this encounter Plan of Treatment Upcoming Encounters Date Type Department Care Team (Late st Contact Info) Description 03/26/2025 10:30 AM EST Clinical Support [facility] [address] [place] [address] Leatah Cortes, CORRINA [address] [place] [address] documented as of this encounter Visit Diagnoses Not on filedocumented in this encounter Additional Health Concerns Assessment Noted Time PHQ-9 Depression Total Score: 7 02/19/20 24 11:25 AM EST documented as of this encounter Care Teams Brushing Operator Relationship Specialty Start Date End Date Joy Villar FNP [address] [place] [address] PCP - General Family Medicine 11/21/21 Wu Gallardo [address] [place] [address] Neurosurgery 02/19/24 Lazaro Healy MD [address] [place] [address] Gastroenterology 02/19/24 documented as of this encounter
--- OUTSIDE RECORDS SUMMARY | 2025-02-25 12:40 | XMS_ITS | Encounter Summary ---
Author Organization [employer] Address [address] [facility] 7[address] [place] [address] Care Team Providers Care Cotton Classer Name Role Phone Joy Villar Primary Care Provider [phone] Wu Gallardo Unavailable [phone] Lazaro Healy MD Unavailable Reason for Visit * Reason Onset Date Comments Med Refill 10/31/2023 Encounter Details Date Type Department Care Team (Late st Contact Info) Description 10/31/2023 Telephone [facility] MEDICINE [address], [place] [phone] Joy Villar FNP [address] [place], [place] [phone] Med Refill Social History Tobacco Use Types [...] immediate release tablet To be sent to: [facility] - [place], [place] - [address] [place] [address] documented in this encounter Plan of Treatment Upcoming Encounters Date Type Department Care Team ([facility] st Contact Info) Description 03/26/2025 10:30 AM EST Clinical Support [facility] MED [facility] [address] [place] [address] Leatha Cortes, CORRINA [address] [place] [address] documented as of this encounter Visit Diagnoses Not on filedocumented in this encounter Additional Health Concerns Assessment Noted Time PHQ-9 Depression Total Score: 0 08/13/19 23 11:11 AM EDT documented as of this encounter Care Teams Cotton Classer Relationship Specialty Start Date End Date Joy Villar FNP [address] [place] [address] PCP - General Family Medicine 11/21/21 Wu Gallardo [address] [place] [address] Neurosurgery 02/19/24 Lazaro Healy MD [address] [place] [address] Gastroenterology 02/19/24 documented as of this encounter
--- OUTSIDE RECORDS SUMMARY | 2025-02-25 12:40 | XMS_ITS | Clinical Summary ---
Author Organization [employer] Address [address] [facility] [address] [place] [address] Care Team Providers Care Drying Supervisor Name Role Phone Joy Villar SHANICE Primary Care Provider [phone] Wu Gallardo Unavailable [phone] Lazaro Healy MD Unavailable Allergies Active Allergy [...] for allergies. 90 tablet 3 022 Active TRUEplus Lancets 33G misc TEST BLOOD SUGAR 4-6 TIMES DAILY 100 each 11 023 Active Alcohol Swabs (Alcohol Prep) 70 % pads USE TWICE DAILY 100 each 11 023 Active Acetaminophen Extra Strength 500 MG tabletIndicatio ns:Pain TAKE 1 TABLET BY MOUTH EVERY 6 HOURS NEEDED FOR MODERATE PAIN OR FOR HEADACHE 100 tablet 3 024 Active Advair Diskus 500-50 [...] hyperglycemia, without long-term current use of insulin (HCC) TAKE 1 TABLET BY MOUTH EVERY MORNING 90 tablet 3 024 Active Continuous Glucose Denitrator (FreeStyle Moose 2 [place]) deviceIndicatio ns:Type 2 diabetes mellitus with hypoglycemia without coma, unspecified whether intermediate frame tender insulin use (HCC),Hypoglyce caitlin USE DIRECTED TO TEST BLOOD SUGAR EVERY 8 HOURS 1 each 2 025 Active rosuvastatin (Crestor) 40 MG tabletIndicatio ns:Hypercholest erolemia Take 1 tablet (40 mg) by mouth at bedtime. (Cholesterol) 90 tablet 3 025 Active FREESTYLE LITE test stripIndication s:Type 2 diabetes mellitus without complication, without long-term current use of insulin (HCC) TEST BLOOD SUGAR 4-6 TIMES PER DAY 150 strip 11 02/14/20 25 2:54 PM EST 025 Active Continuous Glucose Denitrator (FreeStyle Moose 2 [place]) deviceIndicatio ns:Type 2 diabetes mellitus without complication, without long-term current use of insulin (HCC) Use as directed to monitor glucose ever 8 hours. 1 each 025 Active omeprazole (PriLOSEC) [address] capsuleIndicati ons:Epigastric pain,Gastroesop hageal reflux disease, unspecified whether esophagitis present TAKE 1 CAPSULE BY MOUTH TWICE DAILY 1 HOUR BEFORE MEALS 180 capsule 3 025 Active naloxone (Narcan) 4 mg/0.1 mL nasal spray Administer 1 spray (4 mg) into affected nostril(s) if needed for opioid reversal. May repeat every 2-3 minutes if needed, alternating nostrils, until medical assistance becomes available. 2 each 2 025 2025 Active albuterol 108 (90 Base) MCG/ACT inhalerIndicati ons:Mild persistent asthma without complication Inhale 2 puffs every 4 (four) hours if needed for wheezing. 18 g 3 025 2025 Active insulin glargine (Lantus SoloStar) 100 UNIT/ML penIndications: Type 2 diabetes mellitus without complication, without long-term current use of insulin (HCC) INJECT 5 UNITS SUBCUTANEOUSLY AT BEDTIME FOR 14 DAYS AFTER INJECTION OF ESTEROIDE 15 mL 1 Active ezetimibe (Zetia) 10 MG tabletIndicatio ns:Hyperlipidem ia, unspecified TAKE 1 TABLET BY MOUTH AT BEDTIME 90 tablet 3 Active fluticasone (Flonase) 50 MCG/ACT nasal sprayIndication s:Seasonal allergies INSTILL 2 SPRAYS IN EACH NOSTRIL EVERY MORNING NEEDED FOR CONGESTION OR FOR ALLERGIES 48 g 3 025 Active sucralfate (Carafate) 1 GM/10ML suspensionIndic ations:Gastroes ophageal reflux disease, unspecified whether esophagitis present TAKE 10 ML BY MOUTH THREE TIMES DAILY 1 HOUR BEFORE MEALS AND AT BEDTIME ON AN EMPTY STOMACH 420 mL 2 02/14/20 25 2:54 PM EST 025 Active Trulicity 1.5 MG/0.5ML solution auto-injector INJECT ONE PEN (=1.5MG) SUBCUTANEOUSLY ONCE A WEEK DIRECTED 2 mL 3 02/14/20 25 2:54 PM EST 025 Active Continuous Glucose Sensor (FreeStyle Moose 2 Sensor) miscIndications :Type 2 diabetes mellitus with hypoglycemia without coma, unspecified whether intermediate frame tender insulin use (HCC) USE DIRECTED TO TEST BLOOD SUGAR CHANGE EVERY 14 DAYS 2 each Active lidocaine-prilo ambika (Emla) 2.5-2.5 % creamIndication s:Neck pain Apply topically if needed in the morning and at bedtime for mild pain. 30 g 025 Active hydroCHLOROthia zide (HYDRODiuril) 25 MG tablet TAKE 1 TABLET BY MOUTH EVERY MORNING 90 tablet Active levothyroxine (Synthroid) 75 MCG tabletIndicatio ns:Hypothyroidi sm, unspecified type Take 1 tablet (75 mcg) by mouth before breakfast. 30 tablet 11 025 2025 Active Continuous Glucose Sensor (FreeStyle Moose 2 Plus Sensor) miscIndications :Type 2 diabetes mellitus without complication, without long-term current use of insulin (HCC) 1 each every 15 days. 2 each 02/15/20 25 10:31 AM EST Active oxyCODONE (Roxicodone) 10 MG immediate release tabletIndicatio ns:Chronic low back pain, unspecified back pain laterality, unspecified whether sciatica present,Subacro mial impingement of left shoulder Take 1 tablet (10 mg) by mouth every 8 (eight) hours if needed for severe pain. 84 tablet Active metFORMIN (Glucophage) 1000 MG tabletIndicatio ns:Diabetes mellitus type 2, noninsulin dependent (HCC) TAKE 1 TABLET BY MOUTH TWICE DAILY IN THE MORNING AND IN THE EVENING WITH MEALS 180 tablet 3 02/14/20 25 2:54 PM EST Active Ascorbic Acid (vitamin C) 500 MG tabletIndicatio ns:Seasonal allergies TAKE 1 TABLET BY MOUTH TWICE DAILY IN THE MORNING AND AT BEDTIME 180 tablet 3 02/14/20 25 2:54 PM EST 025 Active cholecalciferol (D3 Super Strength) 50 MCG (2000 UT) capsule TAKE 1 CAPSULE BY MOUTH EVERY MORNING 90 capsule 3 02/14/20 25 2:54 PM EST 025 Active cholecalciferol (D3 Super Strength) 50 MCG (2000 UT) capsule TAKE 1 CAPSULE BY MOUTH EVERY MORNING 90 capsule 3 024 2024 Discontinued(R eorder (will not trigger notification to Pharmacy)) Ascorbic Acid (vitamin C) 500 MG tabletIndicatio ns:Seasonal allergies TAKE 1 TABLET BY MOUTH TWICE DAILY IN THE MORNING AND AT BEDTIME 180 tablet 3 024 2024 Discontinued(R eorder (will not trigger notification to Pharmacy)) metFORMIN (Glucophage) 1000 MG tabletIndicatio ns:Diabetes mellitus type 2, noninsulin dependent (HCC) TAKE 1 TABLET BY MOUTH TWICE DAILY IN THE MORNING AND IN THE EVENING WITH MEALS 180 tablet 3 024 2024 Discontinued(R eorder (will not trigger notification to Pharmacy)) Active Problems Problem Noted Date Diagnosed Date Transaminitis 10/10/2024 Overview (10/10/2024): Lab Results Component Value Date AST 60 (H) 08/22/2024 ALT 85 (H) 08/22/2024 TOTPROTEIN 7.0 08/22/2024 ALB 4.3 08/22/2024 ALP 83 08/22/2024 TOTALBILIRUB 0.7 08/22/2024 Assessment & Plan (10/10/2024 9:45 AM EDT): Mildly elevated AST/ALT hovering in the 40s, although recent acute increase when seen for ASK visit in July 2024. Has US abdomen pending. No current abdominal pain. Encouraged lifestyle interventions, although limited ability to exercise given chronic pain. 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 Healy. Indication: upper abdominal pain. In the right lobe of the liver, there is a cluster of echogenic foci suggesting granulomas, similar to the 08/20/2020 CT scan. Otherwise unremarkable. Assessment & Plan (02/17/2024 9:59 AM EST): -Following with Dr. Healy. Cont current regimen, no acute pain/changes. Assessment & Plan (11/13/2023 7:26 AM EDT): -Following with Dr. Healy. Edgar current regimen, no acute pain/changes. Chronic constipation 11/11/2023 Subacromial impingement of left shoulder 024 Overview (06/01/2023): -S/p surgery on 03/16/23 at [facility] -Continues with home physical therapy and following [...] of lumbar spine 10/05/2022 Assessment & Plan (10/10/2024 10:03 AM EDT): - Hx of previous L4-5 posterior instrumented fusion, and L5-S1 interbody fusion with no posterior instrumentation at this level. - [facility] consult Mar 2024: Do not suspect surgical intervention would be of benefit to pt - 06/2024: Consult w/ [facility] Pain Management - Dr. Galloway. Plan for trial of spinal cord stimulator Assessment & Plan (06/24/2024 3:05 PM EDT): - Hx of previous L4-5 posterior instrumented fusion, and L5-S1 interbody fusion with no posterior instrumentation at this level. - [facility] consult Mar 2024: Do not suspect surgical intervention would be of benefit to pt - Referral to [facility] Pain Management placed 06/22/24 Migraine 10/05/2022 Myalgia 10/05/2022 Sacroiliac joint dysfunction of both sides 10/05 Facet arthropathy 08/15/2022 Assessment & Plan (08/15/2022 7:47 PM EDT): See below Routine health maintenance 08/11/2022 Overview (10/10/2024): DEXA: September 2021 WNL Mammo: Apr 2024 - BIRADS 2 Pap: 10/18/17 - NILM, HPV neg Colonoscopy: 07/2024 - WNL. Following with GI - Dr. Healy Optometry: [facility] May 2024 w/ Dr. Langley - no diabetic retinopathy Dental: referral to [facility] dental on 06/01/23 Assessment & Plan (11/13/2023 7:46 AM EDT): Exam completed today for physical for program. Need to review routine screenings and health history at follow up appt. Cervical radiculopathy 06/29/2021 Overview (02/17/2024): 05/10/23: [facility] Pain Management - Dr. Galloway. Interlaminar cervical [...] consult scheduled with Neurosurgery. Continues following with [employer] Program. Obstructive sleep apnea syndrome 04/20/2021 Hypertension 04/13/2019 Assessment & Plan (01/08/2025 10:23 AM EDT): BP at goal today <140/90 Continue on low sodium diet Continue on current medications Labs ordered today Assessment & Plan (10/10/2024 9:00 AM EDT): -BP regimen includes: Losartan 50mg daily Nifedipine 60mg XL daily Hydrochlorothiazide 25mg daily -Noted decrease in BP readings following steroid injections, tends to level off after a few weeks -Following steroid injections: Plan to hold losartan x 2 weeks. May resume is BP normalize. If continues to be low, pls call Cards office for further management. -ED precautions Assessment & Plan (08/12/2023 6:40 AM EDT): [...] (03/13/2023 3:34 PM EST): -BP regimen includes: Losartan 50mg daily Nifedipine 60mg XL daily Chlorthalidone 50mg daily -Noted decrease in BP readings following steroid injections, tends to level off after a few weeks -Following steroid injections: Plan to hold losartan x 2 weeks. May resume is BP normalize. If continues to be low, pls call Cards office for further management. -ED precautions Assessment & Plan (02/05/2023 6:25 PM EST): -BP regimen includes: Losartan 50mg daily Nifedipine 60mg XL daily Chlorthalidone 50mg daily -Noted decrease in BP readings following steroid injections, tends to level off after a few weeks -Plan to hold losartan x 2 weeks. May resume is BP normalize. If continues to be low, pls call Cards office for further management. -ED precautions Type 2 diabetes mellitus, wi out long-term current use of insulin 04/13/2019 Assessment & Plan (10/10/2024 10:04 AM EDT): Lab Results Component Value Date HGBA1C 6.2 (A) 08/21/2024 A1c well controlled Reviewed hypoglycemic awareness and management. Will not make any med changes today. Monofilament testin11/11/23 abnormal/decreased sensation. Declined referral to podiatry. Reviewed foot care measures. OPH: [facility] - Dr. Langley. CEE w/o diabetic retinopathy 05/2024 Medications: Metformin 1000mg BID Trulicity 1.5mg subcutaneous weekly Insulin only following steroid injections: Lantus 5 units nightly x 2 weeks following steroid injections. Reviewed med safety and monitoring Previous medications: - Acarbose 50mg TID (DC as well controlled w/o med) -Encouraged to cont with lifestyle interventions -CGM Approval 08/15/23: FRANCA #[id number] (exp: 08/14/24). Improvement in A1c and hypoglycemic awareness noted with CGM. CGM data reviewed: 02/17/24 Assessment & Plan (06/24/2024 3:03 PM EDT): [...] with lifestyle interventions -CGM Approval 08/15/23: FRANCA #[id number] (exp: 08/14/24). Improvement in A1c and hypoglycemic [...] with lifestyle interventions -CGM Approval 08/15/23: FRANCA #[id number] (exp: 08/14/24). Improvement in A1c and hypoglycemic [...] with lifestyle interventions -CGM Approval 08/15/23: FRANCA #[id number] (exp: 08/14/24). Improvement in A1c and hypoglycemic [...] Component Value Date HGBA1C 6.1 (A) 03/11/2023 A1c well controlled Continue Victoza 1.8mg subcutaneous QAM Continue metformin 1000mg BID Pt has been testing QID, encouraged to decrease to once daily testing FBG, and may decrease further to 1-2x/week in future Insulin only following steroid injections: Lantus 5 units nightly x 2 weeks following steroid injections. Reviewed med safety and monitoring -encouraged to cont with lifestyle interventions Assessment & Plan (03/13/2023 3:32 PM EST): Lab Results Component Value Date HGBA1C 6.1 (A) 03/11/2023 A1c well controlled Continue Victoza 1.8mg subcutaneous QAM Continue metformin 1000mg BID Pt has been testing QID, encouraged to decrease to once daily testing FBG, and may decrease further to 1-2x/week in future Insulin only following steroid injections: Lantus 5 units nightly x 2 weeks following steroid injections. Reviewed med safety and monitoring -encouraged to cont with lifestyle interventions Assessment & Plan (01/28/2023 7:15 AM EDT): Lab Results Component Value Date HGBA1C 7.2 (A) 01/18/2023 Continue Victoza 1.8mg subcutaneous QAM Continue metformin 1000mg BID Pt has been testing QID, encouraged to decrease to once daily testing FBG, and may decrease further to 1-2x/week in future Shared decision making to reintroduce insulin following steroid injections: Lantus 5 units nightly x 2 weeks following steroid injections. Reviewed med safety and monitoring -encouraged to cont with lifestyle interventions Assessment & Plan (01/24/2023 9:08 PM EDT): Lab Results Component Value Date HGBA1C 7.2 (A) 01/18/2023 Continue Victoza 1.8mg subcutaneous QAM Continue metformin 1000mg BID Pt has been testing QID, encouraged to decrease to once daily testing FBG, and may decrease further to 1-2x/week in future Shared decision making to reintroduce insulin following steroid injections: Lantus 5 units nightly [...] 2 diabetes mellitus 01/17/2017 Hypothyroid 02/07/2015 Overview (10/10/2024): Previously following with [facility] Endo Continues on levothyroxine 88mcg daily Lab Results Component Value Date TSH 0.35 06/29/2023 Assessment & Plan (01/08/2025 10:23 AM EDT): Will obtain labs today Assessment & Plan (06/01/2023 5:06 PM EST): [...] acupuncture. Continue following with Pain management for FOE Continue oxycodone PRN May consider second opinion in [place] Assessment & Plan (08/15/2022 7:45 PM EDT): Discussed treatment options including medications, injections, physical therapy, surgery, and non-Western medicine such as acupuncture. Continue following with Pain management for OFE Continue oxycodone PRN Depression 02/07/2015 Assessment & Plan (01/08/2025 10:23 AM EDT): Stable, continue with psych Assessment & Plan (02/19/2024 11:23 AM EST): -[facility] rx, covering for psych x 30 days Gastroesophageal reflux disease 02/07/2015 Overview (02/17/2024): Continues with omeprazole 20mg BID Continues carafate 1g TID Following with [facility] - Dr. Healy EGD Dec 2023: dx with gastritis and hiatal hernia. Neg H Pylori. Assessment & Plan (01/08/2025 10:23 AM EDT): Stable, continue with Carafate & PPI Following with [facility] HLD (hyperlipidemia) 02/07/2015 Obesity 02/07/2015 Resolved Problems [...] with her. Stage 3a chronic kidney disease (CMS/HCC) 04/13/2019 02/19/2024 Migraine without aura, not refractory 02/07/2015 12/01/2023 Asthma 02/07/2015 02/05/2023 Encounters Date Type Department Care Team Description 02/25/2025 Refill [facility] [address], [place] [phone] Joy Villar, CYTOLOGY SUPERVISOR Chronic low back pain, unspecified back pain laterality, unspecified whether sciatica present; Subacromial impingement of left shoulder 02/25/2025 Telephone [facility] [address], [place] [phone] Joy Villar, CYTOLOGY SUPERVISOR Med Refill 02/25/2025 Orders Only [facility] [address], [place] [phone] Joy Villar, CYTOLOGY SUPERVISOR Hypothyroidism, unspecified type (Primary Dx) 02/07/2025 Refill [facility] [address] [place] [address] Joy Villar FNP Diabetes mellitus type 2, noninsulin dependent (HCC); Seasonal allergies 01/24/2025 Refill [facility] [address] [place] [address] Leatha Cortes RN Chronic low back pain, unspecified back pain laterality, unspecified whether sciatica present; Subacromial impingement of left shoulder 01/24/2025 Telephone [facility] [address] [place] [address] Joy Villar FNP Med Refill 01/15/2025 Orders Only [facility] [address] [place] [address] Katie Grant CNP Hypothyroidism, unspecified type (Primary Dx) 01/10/2025 Refill [facility] [address] [place] [address] Nasir Mckeon MD 01/09/2025 Results Follow-Up [facility] [address] [place] [address] Katie Grant CNP Comprehensive Metabolic Panel, Lipid Panel, Standard, TSH W/Reflex to FT4, Additional followed-up results: 4 01/08/2025 9:45 AM EDT Office Visit [facility] [address] [place] [address] Katie Grant CNP Encounter for physical examination (Primary Dx); Type 2 diabetes mellitus with hypoglycemia without coma, unspecified whether intermediate frame tender insulin use (HCC); Neck pain; Encounter for immunization; Hypothyroidism, unspecified type; Hypertension, unspecified type; Depression, unspecified depression type; Gastroesophageal reflux disease, unspecified whether esophagitis present; Mild persistent asthma without complication 01/08/2025 Orders Only [facility] [address] [place] [address] Katie Grant CNP 01/08/2025 Travel 01/08/2025 Telephone [facility] [address] [place] [address] Joy Villar FNP chart prep 01/08/2025 Refill [facility] [address] [place] [address] Nasir Mckeon MD 01/03/2025 Refill [facility] [address] [place] [phone] Nasir Mckeon MD Neck pain 12/31/2024 Patient Outreach [facility] [address] [place] [phone] Joy Villar FNP Pre-visit Planning ([facility] screening completed on 06/22/24 ) 12/26/2024 9:00 AM EDT Clinical Support [facility] [address] [place] [address] Leatha Cortes RN Chronic low back pain, unspecified back pain laterality, unspecified whether sciatica present (Primary Dx) 12/26/2024 Refill [facility] [address] [place] [address] Leatha Cortes RN Chronic low back pain, unspecified back pain laterality, unspecified whether sciatica present; Subacromial impingement of left shoulder 12/26/2024 Travel 12/22/2024 Refill [facility] [address] [place] [address] Kath Lion MD Gastroesophageal reflux disease, unspecified whether esophagitis present 12/13/2024 Refill [facility] [address] [place] [phone] Joy Villar FNP Hyperlipidemia, unspecified; Seasonal allergies 12/05/2024 6:20 PM EDT Office Visit [facility] [address] [place] [phone] Nasir Mckeon MD Neck pain (Primary Dx) 12/05/2024 Travel 11/27/2024 Refill [facility] [address] [place] [phone] Joy Villar FNP Chronic low back pain, unspecified back pain laterality, unspecified whether sciatica present; Subacromial impingement of left shoulder from Last 3 Months Immunizations Immunization Administration Dates Next Due Hep B, adult 02/07/2015,09/10/2013,08/08/2013 INFLUENZA VACCINE QUADRIVALE NT RECOMBINANT PRESERVATIVE FREE RIV4 12/09/2020 Influenza injectable quadriv alent IIV4 with preservative 02/07/2015 Influenza injectable quadriv alent preservative free 01/28/2023,02/11/2022,12/27/2019,05/10,04/28/2018 Influenza, IIV3, injectable 01/15/2011 Influenza, seasonal, injecta ble, preservative free 01/08/2025,01/03/2024 Pneumococcal Conjugate PCV 20 01/28/2023 Pneumococcal Polysaccharide [...] Passive Smoke Exposure: Past Smokeless Tobacco: Never Tobacco Cessation:Counseling Given: Not [...] Sign Reading Time Taken Comments Blood Pressure 122/84 01/08/2025 9:49 AM EDT Pulse 88 01/08/2025 9:49 AM EDT Temperature 36.3 C (97.3 F) 01/08/2025 9:49 AM EDT Respiratory Rate 14 01/08/2025 9:49 AM EDT Oxygen Saturation 95% 01/08/2025 9:49 AM EDT Inhaled Oxygen Concentration - - Weight 70.3 kg (155 lb) 01/08/2025 9:49 AM EDT Height 149.9 cm (4' 11 ) 01/08/2025 9:49 AM EDT Body Mass Index 31.31 01/08/2025 9:49 AM EDT Plan of Treatment Upcoming Encounters Date Type Department Care Team (Late st Contact Info) Description 03/26/2025 10:30 AM EST Clinical Support [facility] [address] [place] [address] Leatha Cortes, CORRINA [address] [place] [address] Health Maintenance Due Date Last Done Comments CT Colonography 1965 Dental Oral Exam 1965 Dental Prophylaxis 1965 Dental X-Ray: Bitewings 1965 Dental X-Ray: Full Mouth 1965 FIT DNA/Cologuard 1965 FIT 1965 FOBT 1965 Sigmoidoscopy 1965 RSV Patients and Patients Aged 60 years or older (1 - Risk 50-74 years 1-dose series) 10/05/2015 Depression Screening 02/18/2025 02/19/2024, 02/19/20 Mammogram 05/08/2025 05/08/2024, 0210/2023, 09/25/2021, Additional history exists Eye Exam 06/14/2025 06/14/2024, 05/27, 02/10/2023 Diabetes: Urine Protein Screening 06/22/2025 06/22/2024, 05/06/2023, 09/21/2021, Additional history exists SDOH Screening 06/22/2025 06/22/2024 Diabetes: Hemoglobin A1C 07/09/2025 025, 01/08/2025, 08/21/2024, Additional history exists Alcohol/Substance Use Screening 10/10/2025 10/10/2024 Disability Screening 10/10/2025 10/10/2024 Pap Smear 11/04/2025 11/04/2022 COVID-19 Vaccine ( season) 2026 11/23/2021, 02/27/2021, 08/20/2020, Additional history exists Postponed from 11/26/2024 (Patient Refused) Diabetes: Foot Exam 01/08/2026 01/08/2025, 01/08/2025, 01/08/2025, Additional history exists Lipid Panel 01/08/2026 01/08/2025, 05/27, 05/06/2023, Additional history exists Tobacco Screening 01/08/2026 01/08/2025 Cervical Cancer Screening 11/05/2027 HPV/Cotest 11/05/2027 11/04/2022, 10/18/2017 DTaP/Tdap/Td Vaccines (3 - Td or Tdap) 07/28/2031 07/27/2021, 04/05/2011, 07/06/2001 Colonoscopy 08/24/2034 08/24/2024, 02/24/2016 Colorectal Cancer Screening 08/24/2034 Hepatitis B Vaccines Completed 02/07/2015, 09/10/2013, 08/08/2013 Zoster Vaccines Completed 10/02/2021, 11/13/2018 HIV Screening Completed 11/05/2022 Hepatitis C Screening Completed 11/05/2022 Pneumococcal Vaccine: 50+ Years Completed 01/28/2023, 09/20/2017, 07/21/2016 Influenza Vaccine Completed 01/08/2025, , 01/28/2023, Additional history exists HIB Vaccines Aged Out [...] patient's age to complete this topic Meningococcal B Vaccine Aged Out No l onger eligible based on patient's age to complete this topic Meningococcal Vaccine Aged Out No blanca rehana eligible based on patient's age to complete this topic RSV under 20 months Aged Out No longe r eligible based on patient's age to complete this topic Rotavirus Vaccines Aged Out No longer eligible based on patient's age to complete this topic Goals Goal Patient Goal Type Associated Problems Recent Progress Patient-Stated? Author Help patients manage their type 2 diabetes Care Plan Help patients manage their type 2 diabetes No Mayra Novoa, PharmNga Weekly blood pressure task Care Plan Weekly [...] chronic kidney disease No Mayra Novoa PharmD Patient has chronic kidney disease Care Plan Patient has chronic kidney disease No Mayra Novoa PharmD Weekly blood pressure task Care Plan Weekly blood pressure task No Phalen, Joy, CYTOLOGY SUPERVISOR Weekly blood pressure task Care Plan Weekly blood pressure task No Phalen, Joy, CYTOLOGY SUPERVISOR Weekly blood pressure task Care Plan Weekly blood pressure task No Phalen, Joy, CYTOLOGY SUPERVISOR Patient has diabetic eye disease Care Plan Patient has diabetic eye disease No Phalen, Joy, CYTOLOGY SUPERVISOR Patient has diabetic eye disease Care Plan Patient has diabetic eye disease No Phalen, Joy, CYTOLOGY SUPERVISOR Patient has diabetic eye disease Care Plan Patient has diabetic eye disease No Phalen, Joy, CYTOLOGY SUPERVISOR Patient has chronic kidney disease Care Plan Patient has chronic kidney disease No Phalen, Joy, CYTOLOGY SUPERVISOR Patient has chronic kidney disease Care Plan Patient has chronic kidney disease No Phalen, Joy, CYTOLOGY SUPERVISOR Patient has chronic kidney disease Care Plan Patient has chronic kidney disease No Phalen, Joy, CYTOLOGY SUPERVISOR Weekly blood pressure task Care Plan Weekly [...] Plan Patient has diabetic eye disease No Manoj, Nikolas Patient has chronic kidney disease Care Plan Patient has chronic kidney disease No Manoj Nikolas Patient has chronic kidney disease Care Plan Patient has chronic kidney disease No Manoj Nikolas Patient has chronic kidney disease Care Plan Patient has chronic kidney disease No Manoj Nikolas Weekly blood pressure task [...] chronic kidney disease No Leatha Cortes RN Procedures Procedure Name Priority Date/Time Associated Diagnosis Comments T4, FREE Routine 01/08/2025 10:30 AM EDT HEMOGLOBIN A1C Routine 01/08/2025 10:30 AM EDT Encounter for physical examination CBC WITH AUTO DIFFERENTIAL Routine 01/08/2025 10:30 AM EDT Encounter for physical examination TSH W/REFLEX TO FT4 Routine 01/08/2025 1 0:30 AM EDT Encounter for physical examination LIPID PANEL, STANDARD Routine 01/08/2025 10:30 AM EDT Encounter for physical examination COMPREHENSIVE METABOLIC PANEL Routine 01/08/2025 10:30 AM EDT Encounter for physical examination POCT GLYCATED HEMOGLOBIN, TOTAL Routine 01/08/2025 9:53 AM EDT Type 2 diabetes mellitus with hypoglycemia without coma, unspecified whether intermediate frame tender insulin use (HCC) POCT GLUCOSE Routine 01/08/2025 9:52 AM EDT Type 2 diabetes mellitus with hypoglycemia without coma, unspecified whether intermediate frame tender insulin use (HCC) POCT MARGO-14 URINE DRUG SCREEN Routine 12/26/2024 9:27 AM EDT Chronic low back pain, unspecified back pain laterality, unspecified whether sciatica present ALBUMIN, RANDOM URINE W/CREATININE Routine 06/22/2024 11:57 AM EDT Type 2 diabetes mellitus without complication, without long-term current use of insulin (CMS/HCC) HM DIABETES EYE EXAM Routine 06/14/2024 4:01 PM EDT BI MAMMOGRAM SCREENING TOMOSYNTHESIS BILATERAL Routine 05/08/2024 12:45 PM EST HEPATITIS C VIRAL RNA, QUANTITATIVE, REAL-TIME PCR Routine 11/05/2022 8:59 AM EDT Sexually transmitted disease counseling HIV ANTIBODY/ANTIGEN ([facility]) Routine 11/05/2022 8:59 AM EDT HPV MRNA E6/E7 REFLEX TO HPV 16, 18/45 Routine 11/04/2022 12:00 AM EDT PAP SMEAR Routine 11/04/2022 12:00 AM EDT Encounter for screening for cervical cancer HM COLONOSCOPY Routine 02/24/2016 from Last 3 Months or Most Recently Relevant to Health Maintenance Results * (ABNORMAL) TSH W/Reflex to FT4 (01/08/2025 10:30 AM EDT) TSH reflex Free T4 0.06(L) 0.32 - 4.0 uIU/mL [facility] Blood Venous blood specimen / Unknown 01/08/2025 10:30 AM EDT 01/08/2025 1:47 PM EDT [facility] LAB BLOOD ORDERABLES Tiffanie l Result [facility] [address] [place] [address] [phone] * CBC auto differential (01/08/2025 10:30 AM EDT) White Blood Count 7.2 4.8 - 10.8 X10*3/uL [facility] Red Blood Count 4.45 4.20 - 5.50 X10*6/uL [facility] Hemoglobin 13.4 12.0 - 16.0 g/dl [facility] Hematocrit 40.8 37.0 - 47.0 % [facility] Mean Corpuscular Volume 91.7 80.0 - 98.0 fL [facility] Mean Corpuscular Hemoglobin 30.1 27.0 - 33.0 pg [facility] Mean Corpuscular HGB Conc 32.8 31.0 - 35.0 g/dl [facility] Red Cell Distribution Width 13.0 11.0 - 16.0 % [facility] Platelet Count 277 160 - 400 X10*3/uL [facility] Mean Platelet Volume 10.0 9.4 - 12.3 fL [facility] Neutrophils Percent Auto 60.1 45 - 73 % [facility] Imm Gran Pct Auto 0.1 0.0 - 0.4 % [facility] Lymphocytes Percent Auto 27.4 20 - 40 % [facility] Monocytes Percent Auto 8.0 2 - 11 % [facility] Eosinophils Percent Auto 3.6 0 - 4 % [facility] Basophils Percent Auto 0.8 0 - 2 % [facility] NRBC Pct Auto 0.0 0.0 - 0.2 /100WBC [facility] Neutrophils Absolute Auto 4.3 2.0 - 8.3 x10*3/uL [facility] Imm Gran Abs Auto 0.01 0.00 - 0.03 X10*3/uL [facility] Lymphocytes Absolute Auto 2.0 1.2 - 4.9 X10*3/uL [facility] Monocytes Absolute Auto 0.6 0.1 - 1.2 X10*3/uL [facility] Eosinophils Absolute Auto 0.3 0.0 - 0.4 X10*3/uL [facility] Basophils Absolute Auto 0.1 0.0 - 0.2 X10*3/uL [facility] NRBC Abs Auto 0.000 0.0 - 0.012 X10*3/uL [facility] Blood Venous blood specimen / Unknown 01/08/2025 10:30 AM EDT 01/08/2025 1:55 PM EDT us Katie Grant DIRECTOR LEARNING SERVICES LAB BLOOD ORDERABLES Tiffanie l Result [facility] [address] [place] [phone] * T4, Free (01/08/2025 10:30 AM EDT) Free T4 (Free Thyroxine) 1.36 0.71 - 1.85 ng/dL [facility] 01/08/2025 10:3 0 AM EDT 01/08/2025 1:47 PM EDT [facility] LAB BLOOD ORDERABLES Tiffanie l Result Performing Organization Address [facility] Co de Phone Number [facility] [address] [place] [phone] * Hemoglobin A1c (01/08/2025 10:30 AM EDT) Pathologist [facility] Hemoglobin A1c 5.9 <6.0 % [facility] Comment:Hemoglobin A1C Refer ence Range Adults: 4.8 - 6.0 % Non diabetic: < 6.0 % Goal: < 7.0 %Additional Action Suggested: > 8.0 %Note: Hemoglobin A1c results are invalid for patients with abnormal amounts of HbF. Blood transfusions may impact the HbA1c concentration in the patient sample. Estimated Average Glucose 123 mg/dL [facility] Comment:eAG = Estimated ave rage glucose which is %A1C expressed asaverage glucose, using the formula of the W5Q-EwxewvhMprdoty Glucose study (ADAG), Diabetes Care, Vol.31,#8,2007 Blood Venous blood specimen / Unknown 01/08/2025 10:30 AM EDT 01/08/2025 1:55 PM EDT [facility] LAB BLOOD ORDERABLES Tiffanie l Result Performing Organization Address [facility]/ZIP Co de Phone Number [facility] [address] [place] [phone] * Lipid Panel, Standard (01/08/2025 10:30 AM EDT) Pathologist [facility] Triglycerides 43 <150 mg/dL [facility] Comment:Desirable Triglyceri de: less than 150 mg/dLBorderline High Triglyceride 150-199 mg/dLHigh Triglyceride: 200-499 mg/dLVery High Triglyceride: greater than or equal to 5OO mg/dL Cholesterol 93 <200 mg/dL [facility] Comment:Desirable Cholestero l: less than 200 mg/dLBorderline High Cholesterol: 200-239 mg/dLHigh Cholesterol: greater than 239 mg/dL LDL Cholesterol Calculated 37 <100 mg/dL [facility] Comment:Desirable LDL: less than 100 mg/dLNear Optimal/Above Optimal LDL: 110- 129 mg/dLBorderline High LDL: 130-159 mg/dLHigh LDL: 160-189 mg/dLVery High LDL: greater than or equal to 190 mg/dL HDL Cholesterol 48 >40 mg/dL [facility] Comment:Desirable HDL: great er than 40 mg/dL Note: This HDL assay may give artificially low results in patients with liver disease. Blood Venous blood specimen / Unknown 01/08/2025 10:30 AM EDT 01/08/2025 1:47 PM EDT [facility] LAB BLOOD ORDERABLES Tiffanie l Result [facility] [address] [place] [phone] * (ABNORMAL) Comprehensive Metabolic Panel (01/08/2025 10:30 AM EDT) Sodium 142 135 - 145 mmol/L [facility] Potassium 3.8 3.3 - 5.1 mmol/L [facility] Chloride 103 96 - 108 mmol/L [facility] Carbon Dioxide 31(H) 22 - 29 mmol/L [facility] Anion Gap 12 12 - 20 [facility] Urea Nitrogen (BUN) 11 9 - 16 mg/dL [facility] Creatinine, Serum 0.62 0.5 - 1.4 mg/dL [facility] Estimated Glomerular Filt Rate >60 [facility] Comment:Chronic Kidney Disea se: Estimated GFR < 60 mL/min/1.75z9Nzbrmm Kidney Disease: Estimated GFR < 15 mL/min/1.73m2 Glucose 114 60 - 115 mg/dL [facility] Calcium 9.3 8.4 - 10.2 mg/dL [facility] Bilirubin, Total 0.4 0.0 - 1.0 mg/dL [facility] Aspartate Amino Transferase 59(H) 5 - 31 U/L [facility] Alanine Aminotransferase 81(H) 0 - 31 U/L [facility] Total Protein 6.6 6.5 - 8.0 g/dL [facility] Albumin Level 4.1 3.5 - 5.0 g/dL [facility] Alkaline Phosphatase 80 39 - 117 U/L [facility] Blood Venous blood specimen / Unknown 01/08/2025 10:30 AM EDT 01/08/2025 1:47 PM EDT [facility] LAB BLOOD ORDERABLES Tiffanie l Result Performing Organization Address City/State/[facility] Co de Phone Number [facility] [address] [place] [phone] * (ABNORMAL) POCT A1c (01/08/2025 9:53 AM EDT) [facility] Hemoglobin A1C 5.9(A) 4.0 - 5.7 % QC Media Lot # Comment:[id number] Lot# Expiration Date Comment:07/19/2026 Blood 01/08/2025 9:53 AM EDT [facility] POINT OF CARE TEST ENTER/ EDIT ORDERABLES Final Result * POCT glucose manually resulted (01/08/2025 9:52 AM EDT) Pathologist [facility] Glucose Blood, POC 160 60 - 200 mg/dL [employer] Lot # Comment:[id number] Lot# Expiration Date Comment:05/05/2025 Blood Capillary blood specimen / Unknown 01/08/2025 9:52 AM EDT [facility] POINT OF CARE TEST ENTER/ EDIT ORDERABLES Final Result * (ABNORMAL) POCT MARGO-14 Urine Drug Screen (12/26/2024 9:27 AM EDT) THC Negative Negative Cocaine Screen, Urine Negative Negative Opiate Screen, Urine Negative Negative Methamphetamine Screen Urine Negative Negative Amphetamine Screen, Urine Negative Negative Benzodiazepines Screen, Urine Negative Negative Barbiturate Screen, Urine Negative Negative Methadone Screen, Urine Negative Negative Buprenophine Screen, Urine Negative Negative TCA, Urine Negative Negative MDMA Urine Negative Negative ng/mL Oxycodone Screen, Urine Positive(A) Negative Phencyclidine (PCP), Urine Negative Negative Propoxyphene, Urine Negative Negative Fentanyl, Urine Negative Negative Urine Urine specimen obtained by clean catch procedure / Unknown 12/26/2024 9:27 AM EDT Narrative Leatha Cortes RN - 12/26/2024 9:27 AM EDT . Internal Pass Control Lot# [id number] Exp: 01-25-26 Joy MARIAP POINT OF CARE TEST ENTER/EDIT ORDERABLES Final Result * Albumin, Random Urine W/Creatinine (06/22/2024 11:57 AM EDT) Creatinine, Urine 46.52 mg/dL [facility] Microalbumin Urine 6.0 mg/L [facility] Microalbum Creatinine Ratio Ur 12.8 <30 ug/mg cr [facility] Comment:Albumin/Creatinine R atio Reference Ranges: Normal: < 30 ug/mg creatinine Microalbuminuria: 30 - 300 ug/mg creatinineClinical Albuminuria: > 300 ug/mg creatinine Urine 06/22/2024 11:5 7 AM EDT 06/22/2024 2:05 PM EDT Joy PRASAD LAB URINE ORDERABLES Final Res ult [facility] [address] [place] [phone] * Diabetes Eye Exam (06/14/2024 4:01 PM EDT) us Historical Provider MD HEALTH MAINTENANCE Final Result * BI Mammogram Screening Tomosynthesis Bilateral (05/08/2024 12:45 PM EST) Anatomical Region Laterality Modality Breast Bilateral Mammography 05/08/2024 12:4 5 PM EST Narrative 05/17/2024 1:54 PM EST [facility] [address] [place], [place] [address] Mammography Report Signed Patient: Elin Johnson MR# : [id number] : 1965 Acct:[id number] Age/Sex: 58 / F ADM Date: 05/08/24 Loc: HO.MAMMO Attending Dr: Joy Villar CYTOLOGY SUPERVISOR Ordering Physician: Joy Villar Results: 2Benig n Findings Date of Service: 05/08/24 Follow Up: 1 Year From Orig ina Mammogram Procedure(s): MM tomosynthesis screening BI Accession Number(s): [id number] cc: Joy Villar CYTOLOGY SUPERVISOR EXAMINATION: MM SCREENING DIGITAL BREAST TOMOSYNTHESIS, BILATERAL [...] 05/17/24 1352 DD/ 1245 TD/TT: 05/08/24 1300 Induction Brazer: Procedure Note Donmarysolter, Image - 05/17/2024 [facility] [address] [place] [address] Mammography Report Signed Patient: Elin Johnson MMR# : [id number] : 1965Acct:[id number] Age/Sex: 58 / FADM Date: 05/08/24 Loc: HO.MAMMO Attending Dr: Joy Villar CYTOLOGY SUPERVISOR Ordering Physician: Joy VillarPResults: 2Benig n Findings Date of Service: 05/08/24Follow Up: 1 Year From Orig inal Mammogram Procedure(s): MM tomosynthesis screening BI Accession Number(s): [id number] cc: Joy Villar CYTOLOGY SUPERVISOR EXAMINATION: MM SCREENING DIGITAL BREAST TOMOSYNTHESIS, BILATERAL [...] by: Elizabeth Sue DO 05/17/2024 01:52 PM [facility] Dictated By: Elizabeth Sue DO Signed By: <Electronically signed by Elizabeth Sue DO in OV> 05/17/24 1352 DD/ 1245 TD/TT: 05/08/24 1300 Induction Brazer: us Joy MARIAP IMG BI PROCEDURES Final Result * HIV Ab/Ag ([place] [facility]) (11/05/2022 8:59 AM EDT) HIV AB/AG Nonreactive Nonreactive [facility] Comment:HIV-1 p24 Ag and/or HIV-1/HIV-2 Ab not detected.A test result that is nonreactive does not exclude thepossibility of exposure to or infection with HIV-1 and/orHIV-2. Nonreactive results in this assay for individualswith prior exposure to HIV-1 and/or HIV-2 may be due toantigen and antibody levels that are below the limit ofdetection of this assay.The [employer] HIV Ag/Ab Combo assay result andsupplemental assay results should be interpreted inconjunction with the patient's clinical presentation,history and other laboratory results. If the results areinconsistent with clinical evidence, additional testing issuggested to confirm the result. 11/05/2022 8:59 AM EDT 11/05/2022 11:13 AM EDT Joy MARIAP LAB BLOOD ORDERABLES Final Res ult [facility] [address] [place] [phone] * Hepatitis C Viral RNA, Quantitative, Real-Time PCR (11/05/2022 8:59 AM EDT) Hepatitis C Viral Load <15 NOT DETECTED NOT DETECTED IU/mL [facility] HCV Log PCR <1.18 NOT DETECTED NOT DETECTED Log IU/mL [facility] Comment:This test was perfor med using Real-Time Polymerase ChainReaction.Reportable Range: 15 IU/mL to 100,000,000 IU/mL(1.18 Log IU/mL to 8.00 Log IU/mL).The analytical performance characteristics of thisassay have been determined by [facility].The modifications have not been cleared or approved bythe FDA. This assay has been validated pursuant to theIA regulations and is used for clinical purposes.For more information on this test, go to:http://[employer]Vidcaster/faq/MZK10y4(This link is being provided for informational/educational purposes only.)THIS TEST WAS PERFORMED AT:[employer] [address] [id number] COTTO MD Blood 11/05/2022 8:59 AM EDT 11/05/2022 11:13 AM EDT Joy Villar [facility] BLOOD ORDERABLES Final Res ult [facility] [address] [place] [phone] * HPV mRNA E6/E7 w/Reflex to HPV Genotypes 16, 18/45 (11/04/2022 12:00 AM EDT) HPV nRNA E6/E7 Not Detected Not Detected [facility] Comment:Methodology: Transcr iption-Mediated AmplificationThis assay detects E6/E7 viral messenger RNA (mRNA) from 14high-risk HPV types (16,18,31,33,35,39,45,51,52,56,58,59,66,68).Cervical sources are required for HPV testing.If a vaginal source from a patient who has had atotal hysterectomy with removal of cervix wassubmitted, please contact the testing laboratoryfor alternative testing options.For additional information, please refer tohttp://education.[employer]idcaster/faq/LNV171t7(This link if provided for information/educational purposes only.)THIS TEST WAS PERFORMED AT:[employer] [place] [id number] COTTO MD HPV mRNA E6/E7 TNP [facility] HPV 16 RNA TNP [facility] HPV 18/45 RNA [facility] 11/04/2022 11/05/2022 9:3 0 AM EDT Joy PRASAD LAB CYTOLOGY ORDERABLES Final Result [facility] [address] [place] [phone] * Pap Smear (11/04/2022 12:00 AM EDT) Swab Cervical swab / Unknown 11/04/2022 11/05/2022 9:30 AM EDT Narrative [facility] - 11/23/2022 10:21 AM EDT ----- ------- Name: Elin Johnson Age/Sex: 57/F : 1965 Unit#: [id number] Attend Dr: Joy Villar Re11/04/22 Status: DEP [facility]ch[facility] ----- ------- SPEC : [id number] RECD: 11/05/22 STATUS: MANUELA MONTERROSO NUM: [id number] VIRY: 11/04/22-[address]: Joy Villar ENTERED: 11/05/22 SP TYPE: Pap Smr OTHR DR: ORDERED: Pap Smear Interpretation Satisfactory for evaluation. Atrophic. Negative for intraepithelial lesion or malignancy. HPV mRNA E6/E7: NOT DETECTED This assay detects E6/E7 viral messenger RNA (mRNA) from 14 high-risk HPV types (16, 18, 31, 33, 35, 39, 45, 51, 52, 56, 58, 59, 66, 68) HPV testing performed by [facility], [place], [place]. See reference laboratory pion of the EMR for entire report. Clinical Information LMP:Postmenopausal Previous PAP test:10/18/17, WNL Material Received ThinPrep-Cervical ----- ------- Signed (signature on file) ELVIA Valenzuela (ASCP) 11/23/22 1021 ----- ------- END OF REPORT Joy PRASAD LAB CYTOLOGY ORDERABLES Final Result [facility] [address] [place] [phone] * Colonoscopy (02/24/2016) Colonoscopy Normal Normal Historical Provider HEALTH MAINTENANCE Final Result from Last 3 Months or Most Recently Relevant to Health Maintenance Additional Health Concerns Active Problems Noted Date [...] 02/25/2025 Patient has chronic kidney disease 02/25/2025 Insurance [facility] C3 Care Teams Drying Supervisor Relationship Specialty Start Date End Date Joy Villar FNP [address] [place] [address] PCP - General Family Medicine 11/21/21 Wu Gallardo [address] [place], [place] Neurosurgery 02/19/24 Lazaro Healy MD [address] [place], [place] Gastroenterology 02/19/24
--- OUTSIDE RECORDS SUMMARY | 2025-02-25 12:41 | XMS_ITS | Encounter Summary ---
Author Organization [employer] Address [address] [facility] [facility] [address] [place] [address] Care Team Providers Care Commercial Real Estate Underwriter Name Role Phone Joy Villar Primary Care Provider [phone] uW Gallardo Unavailable [phone] Lazaro Healy MD Unavailable Reason for Visit * Reason Onset Date Comments Med Refill 09/25/2024 Encounter Details Date Type Department Care Team (Late st Contact Info) Description 09/25/2024 Telephone [facility] [address] [place] [address] Joy Villar FNP [address] [place], [place] [phone] Med Refill Social History Tobacco Use Types [...] * Telephone Encounter - Ozzy Hernandez - 09/25/2024 2:35 PM EDT TC from pt requesting medication refill. Medications needing refill: oxyCODONE (Roxicodone) 10 MG immediate release tablet To be sent to: [facility] - [place], [place] - [address] [facility] documented in this encounter Plan of Treatment Upcoming Encounters Date Type Department Care Team (Late st Contact Info) Description 03/26/2025 10:30 AM EST Clinical Support [facility] [address] [place] [address] Leatha Cortes, CORRINA [address] [place] [address] documented as of this encounter Visit Diagnoses Not on filedocumented in this encounter Additional Health Concerns Assessment Noted Time PHQ-9 Depression Total Score: 7 02/19/20 24 11:25 AM EST documented as of this encounter Care Teams Commercial Real Estate Underwriter Relationship Specialty Start Date End Date Joy Villar FNP [address] [place] [address] PCP - General Family Medicine 11/21/21 Wu Gallardo [address] [place] [address] Neurosurgery 02/19/24 Lazaro Healy MD [address] [place] [address] Gastroenterology 02/19/24 documented as of this encounter
== END 2025-02-25 10:06 | disposition home or self-care (01) ==
LOC: HO.CHCLDS 10:05
PROVIDERS: Visit Provider Registered Nurse
DX: E03.9 Hypothyroidism, unspecified (principal)
CPT/HCPCS: 36415; 84443